=== PATIENT | male | born 1980 | race Asian ===

== ENCOUNTER 2017-08-15 18:03 | Inpatient (IN) | payer MEDICARE, MEDICAID ==
[2017-08-15] VITALS (8 sets, daily range): BP systolic 68–204; BP diastolic 24–120
[~2017-08-15] VITALS: Ht 167.6 cm; Wt 140.2 kg
[2017-08-15] MEDS ORDERED: Midazolam 2mg/2ml Inj ONE (18:06)
[2017-08-15] MEDS ORDERED: fentaNYL 100 mcg/2 mL IV ONE ×2 (18:08→18:15)
[2017-08-15] MEDS ORDERED: Midazolam 2mg/2ml Inj IVP ONE (18:15)
--- NOTE | 2017-08-15 18:26 | Emergency Room Report ---
History of Present Illness General Chief Complaint: Dyspnea/Respdistress Present Illness HPI 37YOM BIBEMS from [facility] for SOB Tachycardia to 150 ?AMS. EMS states "a&o3" however patient opens eyes to pain/verbal only No history of atrial flutter/fib noted on paperwork from EMS rhythm strip shows atrial flutter to 152 with TWI in inferior leads PMHX: Schizophrenia, HTN, ?trach, DM, left BKA Allergies: Coded Allergies: No Known Allergies (Unverified , 08/15/17) Patient History Past Medical History: other - see hpi Past Surgical History: unable to obtain Pertinent Family History: unable to obtain Social History: Denies: smoking, alcohol use, drug use Immunizations: UTD Reviewed Nursing Documentation: PMH: Agreed, PSxH: Agreed Review of Systems All Other Systems: limited - altered mental status Physical Exam Vital Signs Date Time Temp Pulse Resp B/P (MAP) Pulse Ox O2 Delivery O2 Flow Rate FiO2 08/15/17 17:51 151 20 198/80 90 Room Air 08/15/17 18:11 100 Sp02 EP Interpretation: reviewed, abnormal General Appearance: normal inspection, well appearing, alert, GCS 15, moderate distress, lethargic, obese Head: normocephalic, atraumatic Eyes: bilateral eye PERRL, bilateral eye EOMI ENT: normal ENT inspection, hearing grossly normal, normal voice Neck: normal inspection, full range of motion, supple, no bony tend Respiratory: normal inspection, lungs clear, normal breath sounds, no respiratory distress, no wheezing, decreased breath sounds, accessory muscle use , rhonchi Cardiovascular #1: no edema, tachycardia, irregularly irregular Gastrointestinal: normal inspection, normal bowel sounds, non tender, soft, no guarding, no hernia Genitourinary: no CVA tenderness Musculoskeletal: normal inspection, back normal, normal range of motion, Apryl' s Sign negative Neurologic: normal inspection, alert, responsive, level vial marker III-XII nml as tested, motor strength/tone normal, speech normal Psychiatric: normal inspection, judgement/insight normal, mood/affect normal Skin: normal inspection, normal color, no rash Lymphatic: normal inspection Procedures Critical Care Time Critical Care Time CC time 40 minutes Includes multiple bedside reassessment, review of labs/imaging, paperwork from , d/w hospitalist and cardioversion Cardioversion Cardioversion: Consent: Emergent Indication: Other - Atrial flutter to 150, unstable Type: Synchonis Response: Sinus Attempts: One Patient Tolerated: Well Complications: None Progress On EMS rhythm strip and ECG patient had Atrial flutter 2:1 with ischemia TWI 2,3 ,AVF Had acute CHF on auscultation, diaphoretic, SOB Meets criteria for UNSTABLE Was pre-treated with versed/fentanyl Medical Decision Making Diagnostic Impression: Primary Impression: SOB (shortness of breath) Additional Impressions: Atrial flutter with rapid ventricular response Hyponatremia CHF (congestive heart failure) Qualified Codes: I50.9 - Heart failure, unspecified ER Course Unstable atrial flutter to 150 on ECG Was cardioverted successfully to sinus rhythm, HR 100 Troponin 0. Acute CHF - improved O2 sat from 90-96% on bipap Was given Lasix as a well HypoNa - possible volume overload from SNF? CHF with diffuse pulm congestion. Na should improve with fluid restriction Endorsed to PMD Dr Rodriguez for ICU at 710pm EKG Diagnostic Results Rate: tachycardiac Rhythm: other - Atrial flutter, 2:1 ST Segments: other - inferior TWI Rhythm Strip Diag. Results EP Interpretation: yes Rate: 107 Rhythm: NSR, no PVC's, no ectopy Chest X-Ray Diagnostic Results Chest X-Ray Diagnostic Results : Chest X-Ray Ordered: Yes # of Views/Limited/Complete: 1 View Indication: Shortness of Breath EP Interpretation: Yes Interpretation: no pneumothorax, other - Cardiomegaly, pulm vascular congestion Electronically Signed by: Dr Thi Rivera MD Last Vital Signs Date Time Temp Pulse Resp B/P (MAP) Pulse Ox O2 Delivery O2 Flow Rate FiO2 08/15/17 18:13 151 20 98 Facial 100 08/15/17 17:51 198/80 Status: improved Disposition: ADMITTED INPATIENT THI RIVERA M.D. Aug 15, 2017 18:26
[2017-08-15] MEDS ORDERED: SEROQUEL25 MG ORAL (18:31)
[2017-08-15] MEDS ORDERED: TYLENOL EXTRA500 MG ORAL (18:31)
[2017-08-15] MEDS ORDERED: COLACE100 MG ORAL (18:31)
[2017-08-15] MEDS ORDERED: BENADRYL25 MG ORAL (18:31)
[2017-08-15] MEDS ORDERED: MULTIVITAMINS1 EAC2 ORAL (18:31)
[2017-08-15] MEDS ORDERED: GEODON20 MG ORAL (18:31)
[2017-08-15] MEDS ORDERED: ALBUTEROL2.5 MG/3 M INH (18:31)
[2017-08-15] MEDS ORDERED: HEPARIN SO5000 UNIT2 SUBQ (18:31)
[2017-08-15] MEDS ORDERED: GLUCOTROL5 MG ORAL (18:31)
[2017-08-15] MEDS ORDERED: NORCO 10-325 T1 EACH ORAL (18:31)
[2017-08-15] MEDS ORDERED: BENAZEPRIL HCL10 MG ORAL (18:31)
[2017-08-15 18:52] LABS: TROPONIN I < 0.30 ng/mL (<=0.30)
[2017-08-15 18:53] LABS: BASOPHILS % (AUTO) 0.9 % (0.0-2.0); EOSINOPHILS % (AUTO) 0.3 % (0.0-3.0); LYMPHOCYTES % (AUTO) 9.3 % (20.0-45.0); MEAN CORPUSCULAR HEMOGLOBIN 30.7 PG (27.0-31.0); MEAN CORPUSCULAR HGB CONC 34.3 G/DL (32.0-36.0); MEAN CORPUSCULAR VOLUME 89 FL (80-99); MEAN PLATELET VOLUME 6.9 FL (6.5-10.1); MONOCYTES % (AUTO) 6.4 % (1.0-10.0); PLATELET COUNT 260 K/UL (150-450); RED BLOOD COUNT 5.51 M/UL (4.70-6.10); RED CELL DISTRIBUTION WIDTH 13.5 % (11.6-14.8); WHITE BLOOD COUNT 10.9 K/UL (4.8-10.8)
[2017-08-15 18:55] LABS: ALANINE AMINOTRANSFERASE 31 U/L (3-41); ALBUMIN/GLOBULIN RATIO 0.8 (1.0-2.7); ANION GAP 11 (5-15); ASPARTATE AMINO TRANSFERASE 41 U/L (5-40); CALCIUM 8.1 mg/dL (8.6-10.2); CARBON DIOXIDE 30 mEQ/L (20-30); CHLORIDE 80 mEQ/L (98-107); CREATININE 0.6 mg/dL (0.7-1.2); GLOMERULAR FILTRATION RATE > 60 mL/min (>60); HEMOLYSIS 5; POTASSIUM 4.1 mEQ/L (3.4-4.9); SODIUM 121 mEQ/L (135-145); TOTAL PROTEIN 7.3 g/dL (6.6-8.7)
[2017-08-15 19:07] LABS: CKMB 18.2 ng/mL (< 6.7)
[2017-08-15 19:11] LABS: BILIRUBIN,DIRECT 0.4 mg/dL (0.1-0.3)
[2017-08-15] MEDS ORDERED: Pantoprazole Inj IVP ONE (19:45)
[2017-08-15] MEDS ORDERED: Albuterol/Ipratropium 3ml neb HHN PRN (19:45)
[2017-08-15] MEDS ORDERED: Acetaminophen 650 MG SUPP RECTAL PRN (19:45)
[2017-08-15] MEDS ORDERED: NovoLOG Insulin Flexpen SUBQ SCH (21:00)
[2017-08-15] MEDS ORDERED: Metoprolol 5mg/5ml Inj IVP SCH (22:00)
[2017-08-15] MEDS ORDERED: Heparin 5000 units/ml inj SUBQ SCH (22:00)
[2017-08-15] MEDS ORDERED: Esomeprazole sodium 40mg vial IVP ONE (22:15)
[2017-08-15] MEDS ORDERED: NS w/KCl 40mEq 1,000 ML IV SCH (22:15)
[2017-08-15 22:23] LABS: ABG BASE EXCESS -1.6; ABG PCO2 195.5 mmHg (35.0-45.0)
[2017-08-15 22:24] LABS: ABG ALLEN TEST POSITIVE
[2017-08-15] MEDS: Midazolam 2mg/2ml Inj IVP ONE ×2 (22:30→22:35)
[2017-08-15] MEDS ORDERED: Midazolam for drip 50 MG in D5W 90 ML IV SCH (22:30)
--- NOTE | 2017-08-15 22:49 | Emergency Room Report ---
Physical Exam Vital Signs Date Time Temp Pulse Resp B/P (MAP) Pulse Ox O2 Delivery O2 Flow Rate FiO2 08/15/17 17:51 151 20 198/80 90 Room Air 08/15/17 18:11 100 08/15/17 19:58 98.5 Sp02 EP Interpretation: reviewed, abnormal - low as interpreted by me General Appearance: obese - morbid, Stupor Eyes: bilateral eye normal inspection, bilateral eye PERRL ENT: moist mucus membranes - on BIPAP Neck: supple Respiratory: other - decreased tidal volume Cardiovascular #1: tachycardia Cardiovascular #2: 2+ radial (L) Gastrointestinal: abnormal bowel sounds - decreased, overweight Genitourinary: normal inspection Musculoskeletal: digits/nails normal, other - flaccid Neurologic: other - unresponsive Psychiatric: other - unresponsive to pain Reflexes: 1+ knee (R), 1+ knee (L) Skin: other - striae Critical Care Time Critical Care Time Total Critical Care Time: 30 min bedside evaluation and treatment excludes procedures (EKG, intubation, CVP). Reason for critical care: respiratory failure, hypotension Possible complications: hypotension, hypertension, OR, shock, arrhythmias, metabolic acidosis, end organ damage, respiratory failure. Interventions: intubation, pneumonia evaluation and treatment, CVP, pressors, repeated evaluations Course: Patient on BIPAP with critical ABG. Intubated. Evidence of pneumonia. BC, lactate and antibiotics begun. Metoprolol had been given for HTN. After intubation, BP dropped. CVP placed. Fluid status adequate. Levophed begun. Repeat evaluations. ABG on vent reviewed. Patient improved mentation still lethargic. Versed drip ordered, however, felt not necessary by RN and myself. VS improved on levophed. Consultations: nursing staff, ED MD, respiratory Performed by: Dr. Hough Tolerated well condition = critical Central Line Central Line : Consent: Emergent Central Line Lumen: triple Maximal Sterile Barrier Tech: yes cap, yes mask, yes sterile gown, yes sterile gloves, yes large sterile sheet, yes hand hygiene, yes chlorhexidine prep Central Line Postion: internal jugular (R) Anesthesia: none Complications: none Central Line Post Position: sutured, good blood return, position confirmed w / CXR Attempts: One Patient Tolerated: Well Complications: None Progress CBL = 5 ml with 5 ml drawn for lactate Intubation Intubation : Consent: Emergent Intubation Method: orotracheal Tube Size (cm): 7.5 Medications: Other - none Breath Sounds after Intubation: equal Intubation Complications: no complications Post Intubation Xray: Yes Attempts: One Patient Tolerated: Well Complications: None Progress copious yellow thick secretions Medical Decision Making Diagnostic Impression: Primary Impression: Respiratory failure Qualified Codes: J96.01 - Acute respiratory failure with hypoxia; J96.02 - Acute respiratory failure with hypercapnia Additional Impressions: CHF (congestive heart failure) Qualified Codes: I50.9 - Heart failure, unspecified Hyponatremia Atrial flutter with rapid ventricular response Pneumonia Qualified Codes: J18.9 - Pneumonia, unspecified organism Hypotension (arterial) Qualified Codes: I95.9 - Hypotension, unspecified ER Course Please refer to note by Dr. Aguero. Signed out to me. See critical care note. Patient with respiratory failure with critical ABG. Comatose. Hypertensive. Intubated. Evidence of pneumonia. BC, lactate and antibiotics. CXR after intubation with adequate placement, bilateral infiltrates, sl large cor. (Electronically signed by Paul Hough MD) Hypotension after metoprolol and intubation. CVP begun with ultrasound. Fluid status adequate (CVP with spont blood return). CXR after CVP, good placement, ET good placement, bilateral infiltrates. ( Electronically signed by Paul Hough MD) Improved mentation. Improved VS with levophed. Admitted to ICU. Laboratory Tests Test 08/15/17 18:05 08/15/17 18:55 08/15/17 19:31 08/15/17 21:55 White Blood Count 10.9 K/UL (4.8-10.8) H Red Blood Count 5.51 M/UL (4.70-6.10) Hemoglobin 16.9 G/DL (14.2-18.0) Hematocrit 49.3 % (42.0-52.0) Mean Corpuscular Volume 89 FL (80-99) Mean Corpuscular Hemoglobin 30.7 PG (27.0-31.0) Mean Corpuscular Hemoglobin Concent 34.3 G/DL (32.0-36.0) Red Cell Distribution Width 13.5 % (11.6-14.8) Platelet Count 260 K/UL (150-450) Mean Platelet Volume 6.9 FL (6.5-10.1) Neutrophils (%) (Auto) 83.0 % (45.0-75.0) H Lymphocytes (%) (Auto) 9.3 % (20.0-45.0) L Monocytes (%) (Auto) 6.4 % (1.0-10.0) Eosinophils (%) (Auto) 0.3 % (0.0-3.0) Basophils (%) (Auto) 0.9 % (0.0-2.0) Sodium Level 121 mEQ/L (135-145) L Potassium Level 4.1 mEQ/L (3.4-4.9) Chloride Level 80 mEQ/L (98-107) L Carbon Dioxide Level 30 mEQ/L (20-30) Anion Gap 11 (5-15) Blood Urea Nitrogen 7 mg/dL (7-23) Creatinine 0.6 mg/dL (0.7-1.2) L Estimate Glomerular Filtration Rate > 60 mL/min (>60) Glucose Level 149 mg/dL (74-106) H Calcium Level 8.1 mg/dL (8.6-10.2) L Total Bilirubin 1.6 mg/dL (0.0-1.2) H Direct Bilirubin 0.4 mg/dL (0.1-0.3) H Aspartate Amino Transferase (AST) 41 U/L (5-40) H Alanine Aminotransferase (ALT) 31 U/L (3-41) Alkaline Phosphatase 117 U/L (40-129) Total Creatine Kinase 1258 U/L (38-174) H Creatine Kinase MB 18.2 ng/mL (< 6.7) H Creatine Kinase MB Relative Index 1.4 Troponin I < 0.30 ng/mL (<=0.30) Pro-B-Type Natriuretic Peptide 641 pg/mL (0-125) H Total Protein 7.3 g/dL (6.6-8.7) Albumin 3.3 g/dL (3.5-5.2) L Globulin 4.0 g/dL Albumin/Globulin Ratio 0.8 (1.0-2.7) L Hemoglobin A1c 7.6 % (< 6.0) H Arterial Blood pH 7.203 (7.350-7.450) 6.919 (7.350-7.450) Arterial Blood Partial Pressure CO2 78.8 mmHg (35.0-45.0) *H 195.5 mmHg (35.0-45.0) *H Arterial Blood Partial Pressure O2 100.5 mmHg (75.0-100.0) H 181.4 mmHg (75.0-100.0) H Arterial Blood HCO3 30.8 mmol/L (22.0-26.0) H 39.1 mmol/L (22.0-26.0) H Arterial Blood Oxygen Saturation 97.2 % (92.0-98.0) 95.5 % (92.0-98.0) Arterial Blood Base Excess -0.3 -1.6 Cole Test Positive Positive Test 08/15/17 23:00 08/16/17 04:00 08/16/17 06:10 08/16/17 10:56 Lactic Acid Level 1.50 mmol/L (0.66-2.22) D-Dimer 1179 ng/mL (<500) H Sodium Level 126 mEQ/L (135-145) L Potassium Level 3.9 mEQ/L (3.4-4.9) Chloride Level 84 mEQ/L (98-107) L Carbon Dioxide Level 31 mEQ/L (20-30) H Anion Gap 11 (5-15) Blood Urea Nitrogen 11 mg/dL (7-23) Creatinine 0.7 mg/dL (0.7-1.2) Estimate Glomerular Filtration Rate > 60 mL/min (>60) Glucose Level 96 mg/dL (74-106) Calcium Level 8.1 mg/dL (8.6-10.2) L Magnesium Level 1.5 mg/dL (1.7-2.5) L Troponin I < 0.30 ng/mL (<=0.30) White Blood Count 14.7 K/UL (4.8-10.8) H Red Blood Count 5.48 M/UL (4.70-6.10) Hemoglobin 15.6 G/DL (14.2-18.0) Hematocrit 48.8 % (42.0-52.0) Mean Corpuscular Volume 89 FL (80-99) Mean Corpuscular Hemoglobin 28.5 PG (27.0-31.0) Mean Corpuscular Hemoglobin Concent 32.0 G/DL (32.0-36.0) Red Cell Distribution Width 13.3 % (11.6-14.8) Platelet Count 226 K/UL (150-450) Mean Platelet Volume 7.4 FL (6.5-10.1) Neutrophils (%) (Auto) 81.2 % (45.0-75.0) H Lymphocytes (%) (Auto) 9.4 % (20.0-45.0) L Monocytes (%) (Auto) 8.0 % (1.0-10.0) Eosinophils (%) (Auto) 0.0 % (0.0-3.0) Basophils (%) (Auto) 1.3 % (0.0-2.0) Arterial Blood pH 7.410 (7.350-7.450) Arterial Blood Partial Pressure CO2 54.1 mmHg (35.0-45.0) H Arterial Blood Partial Pressure O2 71.4 mmHg (75.0-100.0) L Arterial Blood HCO3 34.0 mmol/L (22.0-26.0) H Arterial Blood Oxygen Saturation 94.8 % (92.0-98.0) Arterial Blood Base Excess 7.4 Cole Test Positive Rhythm Strip Diag. Results EP Interpretation: yes Rhythm: NSR, no PVC's, no ectopy, other - after metoprolol Chest X-Ray Diagnostic Results Chest X-Ray Ordered: Yes # of Views/Limited/Complete: 1 View EP Interpretation: Yes Interpretation: no effusion, other - bilateral infiltrates, sl large cor Impression: Other Interpreting ER Provider: Paul Hough MD Status: improved Disposition: ADMITTED INPATIENT Condition: Critical Referrals: ZAIN KAN (PCP) Paul Hough M.D. Aug 15, 2017 22:49
[2017-08-15] MEDS ORDERED: Cefepime HCl 1 GM in D5W 55 ML IVPB ONE (23:00)
[2017-08-15] MEDS ORDERED: Vancomycin 1.5 GM in D5W 275 ML IVPB ONE (23:00)
[2017-08-15] MEDS ORDERED: Cefepime 1gm vial ONE (23:06)
[2017-08-15 23:40] LABS: ABG BASE EXCESS -0.3; ABG PCO2 78.8 mmHg (35.0-45.0)
[2017-08-15 23:41] LABS: ABG ALLEN TEST POSITIVE
[2017-08-16] VITALS (27 sets, daily range): BP systolic 93–136; BP diastolic 54–75
[2017-08-16] MEDS ORDERED: Vancomycin 1gm inj IVPB ONE (00:06)
[2017-08-16] MEDS ORDERED: Levophed 4mg/4mL Inj IV ONE (00:07)
[2017-08-16] MEDS ORDERED: Esomeprazole sodium 40mg vial IVP ONE (01:15)
[2017-08-16] MEDS: NS w/KCl 40mEq 1,000 ML IV SCH (01:32)
--- NOTE | 2017-08-16 02:30 | History and Physical Report ---
DATE OF ADMISSION: 08/15/2017 CHIEF COMPLAINT: Shortness of breath. History Of Present Illness: This is a 37-year-old male who is a resident of [facility]. The patient was transferred via 911 to this hospital's emergency department with shortness of breath. The patient was found to be in full blown congestive heart failure with rapid atrial flutter. The patient was converted by the ER physician with electric cardioversion. He was given IV Lasix and put on BiPAP and transferred to ICU. PAST MEDICAL HISTORY: 1. Morbid obesity. 2. Type 2 diabetes mellitus. 3. History of psychosis. 4. Hypertensive cardiovascular disease. 5. Status post left below-knee amputation. 6. COPD. Medications: Geodon, Glucotrol, subcutaneous heparin, multivitamins, [place] p.r.n., Seroquel, Tylenol p.r.n., albuterol inhalation, Benadryl p.r.n., benazepril, and Colace. ALLERGIES: No known drug allergies. FAMILY HISTORY: Unable to obtain secondary to mental status. SOCIAL HISTORY: Unable to obtain secondary to mental status. REVIEW OF SYSTEMS: Unable to obtain secondary to his mental status. PHYSICAL EXAMINATION: General: This is a young, chronically ill-appearing and morbidly obese male, who is on BiPAP. The patient is obtunded. Vital Signs: Blood pressure 190/115, heart rate was 110 sinus tachycardia, respirations 23 and unlabored, O2 saturation 98% on 100% BiPAP. HEENT: The head is normocephalic and atraumatic. Pupils are equal, round, and reactive to light and accommodation consensually. Neck: Supple. Trachea midline. There was no lymphadenopathy or thyromegaly. LUNGS: Bilateral wheezes. HEART: Tachycardia. S1 and S2. No rubs, murmurs, or gallops. ABDOMEN: Soft and nontender. Bowel sounds are active. Extremities: No clubbing or cyanosis. There is 2+ edema and there is right leg brawny edema. His left below-knee stump is clean. Neurologic: The patient is obtunded. There are no gross focal findings. Laboratory And Ancillary Data: CBC within normal limits. Serum chemistries; sodium 121, potassium 4.2, BUN 7, creatinine 0.6, glucose 149. Calcium 8.1. AST 41. Total CPK 1258. Albumin 3.3. EKG shows initially atrial flutter and subsequently in sinus tachycardia with LVH. Chest x-ray shows CHF. ASSESSMENT: 1. Congestive heart failure. 2. Right ventricular hypertrophy. 3. Occasional atrial flutter. 4. Hyponatremia. 5. Morbid obesity. 6. Type 2 diabetes mellitus. 7. History of psychosis. 8. Hypertensive cardiovascular disease. 9. Status post left below-knee amputation. 10. Chronic obstructive pulmonary disease. PLAN: 1. Admit to ICU. 2. To keep NPO. 3. Correct his hyponatremia. 4. Rule out acute myocardial ischemia. 5. Pulmonary and Cardiology consults. Dung Castro M.D. DR: JESSICA JOB#: [id number] CC:
[2017-08-16 05:42] LABS: TROPONIN I < 0.30 ng/mL (<=0.30)
[2017-08-16 05:49] LABS: ANION GAP 11 (5-15); CALCIUM 8.1 mg/dL (8.6-10.2); CARBON DIOXIDE 31 mEQ/L (20-30); CHLORIDE 84 mEQ/L (98-107); CREATININE 0.7 mg/dL (0.7-1.2); GLOMERULAR FILTRATION RATE > 60 mL/min (>60); HEMOLYSIS 0; MAGNESIUM 1.5 mg/dL (1.7-2.5); POTASSIUM 3.9 mEQ/L (3.4-4.9); SODIUM 126 mEQ/L (135-145)
[2017-08-16] MEDS: NovoLOG Insulin Flexpen SUBQ SCH ×4 (05:59→21:00)
[2017-08-16] MEDS: Heparin 5000 units/ml inj SUBQ SCH ×3 (06:00→21:21)
[2017-08-16 07:39] LABS: BASOPHILS % (AUTO) 1.3 % (0.0-2.0); LYMPHOCYTES % (AUTO) 9.4 % (20.0-45.0); MEAN CORPUSCULAR HEMOGLOBIN 28.5 PG (27.0-31.0); MEAN CORPUSCULAR VOLUME 89 FL (80-99); MEAN PLATELET VOLUME 7.4 FL (6.5-10.1); NEUTROPHILS % (AUTO) 81.2 % (45.0-75.0); PLATELET COUNT 226 K/UL (150-450); RED BLOOD COUNT 5.48 M/UL (4.70-6.10); RED CELL DISTRIBUTION WIDTH 13.3 % (11.6-14.8); WHITE BLOOD COUNT 14.7 K/UL (4.8-10.8)
--- NOTE | 2017-08-16 08:44 | Consultation ---
Consult Note Consult Note 37-year-old male who is a resident of [facility]. The patient was transferred via 911 for respiratory distress and shortness of breath. The patient was found to be in acute pulmonary edema with rapid atrial flutter. The patient was converted by the ER physician. He was given IV Lasix and placed on BiPAP and eventually intubated and transferred to ICU. I was called to assist with ventilator management and respiratory status. Patient also with COPD history. care reviewed and discussed and notes from SNF reviewed. no fevers or chills. events were acute PAST MEDICAL HISTORY: 1. Morbid obesity. 2. Type 2 diabetes mellitus. 3. History of psychosis. 4. Hypertensive cardiovascular disease. 5. Status post left below-knee amputation. 6. COPD. MEDICATIONS: Reviewed and reconciled ALLERGIES: No known drug allergies. FAMILY HISTORY: Unable SOCIAL HISTORY: resides at [facility]; has smoking history; no illicit drug use REVIEW OF SYSTEMS: Unable PHYSICAL EXAMINATION: chronically ill-appearing obese male Vital Signs: Blood pressure 99/59, heart rate was 79, respirations 18 and O2 saturation 97% on the ventilator. HEENT: The head is normocephalic and atraumatic. PEERL. Neck: Supple. Trachea midline. JVD LUNGS: Bilateral wheezes.reduced air entry some expiratory rhonchi HEART: RRR S1 and S2. No rubs, murmurs, or gallops. ABDOMEN: Soft and nontender. Bowel sounds are active. Extremities: No clubbing or cyanosis. 2+ edema and there is right leg brawny edema. His left below-knee stump is clean. Neurologic: reduced LOC no gross focal findings. Laboratory Tests Test 08/15/17 18:05 08/15/17 18:55 08/15/17 19:31 08/15/17 21:55 White Blood Count 10.9 K/UL (4.8-10.8) H Red Blood Count 5.51 M/UL (4.70-6.10) Hemoglobin 16.9 G/DL (14.2-18.0) Hematocrit 49.3 % (42.0-52.0) Mean Corpuscular Volume 89 FL (80-99) Mean Corpuscular Hemoglobin 30.7 PG (27.0-31.0) Mean Corpuscular Hemoglobin Concent 34.3 G/DL (32.0-36.0) Red Cell Distribution Width 13.5 % (11.6-14.8) Platelet Count 260 K/UL (150-450) Mean Platelet Volume 6.9 FL (6.5-10.1) Neutrophils (%) (Auto) 83.0 % (45.0-75.0) H Lymphocytes (%) (Auto) 9.3 % (20.0-45.0) L Monocytes (%) (Auto) 6.4 % (1.0-10.0) Eosinophils (%) (Auto) 0.3 % (0.0-3.0) Basophils (%) (Auto) 0.9 % (0.0-2.0) Sodium Level 121 mEQ/L (135-145) L Potassium Level 4.1 mEQ/L (3.4-4.9) Chloride Level 80 mEQ/L (98-107) L Carbon Dioxide Level 30 mEQ/L (20-30) Anion Gap 11 (5-15) Blood Urea Nitrogen 7 mg/dL (7-23) Creatinine 0.6 mg/dL (0.7-1.2) L Estimat Glomerular Filtration Rate > 60 mL/min (>60) Glucose Level 149 mg/dL (74-106) H Calcium Level 8.1 mg/dL (8.6-10.2) L Total Bilirubin 1.6 mg/dL (0.0-1.2) H Direct Bilirubin 0.4 mg/dL (0.1-0.3) H Aspartate Amino Transf (AST/SGOT) 41 U/L (5-40) H Alanine Aminotransferase (ALT/SGPT) 31 U/L (3-41) Alkaline Phosphatase 117 U/L (40-129) Total Creatine Kinase 1258 U/L (38-174) H Creatine Kinase MB 18.2 ng/mL (< 6.7) H Creatine Kinase MB Relative Index 1.4 Troponin I < 0.30 ng/mL (<=0.30) Pro-B-Type Natriuretic Peptide 641 pg/mL (0-125) H Total Protein 7.3 g/dL (6.6-8.7) Albumin 3.3 g/dL (3.5-5.2) L Globulin 4.0 g/dL Albumin/Globulin Ratio 0.8 (1.0-2.7) L Hemoglobin A1c 7.6 % (< 6.0) H Arterial Blood pH 7.203 (7.350-7.450) 6.919 (7.350-7.450) Arterial Blood Partial Pressure CO2 78.8 mmHg (35.0-45.0) *H 195.5 mmHg (35.0-45.0) *H Arterial Blood Partial Pressure O2 100.5 mmHg (75.0-100.0) H 181.4 mmHg (75.0-100.0) H Arterial Blood HCO3 30.8 mmol/L (22.0-26.0) H 39.1 mmol/L (22.0-26.0) H Arterial Blood Oxygen Saturation 97.2 % (92.0-98.0) 95.5 % (92.0-98.0) Arterial Blood Base Excess -0.3 -1.6 Cole Test Positive Positive Test 08/15/17 23:00 08/16/17 04:00 08/16/17 06:10 Lactic Acid Level 1.50 mmol/L (0.66-2.22) D-Dimer 1179 ng/mL (<500) H Sodium Level 126 mEQ/L (135-145) L Potassium Level 3.9 mEQ/L (3.4-4.9) Chloride Level 84 mEQ/L (98-107) L Carbon Dioxide Level 31 mEQ/L (20-30) H Anion Gap 11 (5-15) Blood Urea Nitrogen 11 mg/dL (7-23) Creatinine 0.7 mg/dL (0.7-1.2) Estimat Glomerular Filtration Rate > 60 mL/min (>60) Glucose Level 96 mg/dL (74-106) Calcium Level 8.1 mg/dL (8.6-10.2) L Magnesium Level 1.5 mg/dL (1.7-2.5) L Troponin I < 0.30 ng/mL (<=0.30) White Blood Count 14.7 K/UL (4.8-10.8) H Red Blood Count 5.48 M/UL (4.70-6.10) Hemoglobin 15.6 G/DL (14.2-18.0) Hematocrit 48.8 % (42.0-52.0) Mean Corpuscular Volume 89 FL (80-99) Mean Corpuscular Hemoglobin 28.5 PG (27.0-31.0) Mean Corpuscular Hemoglobin Concent 32.0 G/DL (32.0-36.0) Red Cell Distribution Width 13.3 % (11.6-14.8) Platelet Count 226 K/UL (150-450) Mean Platelet Volume 7.4 FL (6.5-10.1) Neutrophils (%) (Auto) 81.2 % (45.0-75.0) H Lymphocytes (%) (Auto) 9.4 % (20.0-45.0) L Monocytes (%) (Auto) 8.0 % (1.0-10.0) Eosinophils (%) (Auto) 0.0 % (0.0-3.0) Basophils (%) (Auto) 1.3 % (0.0-2.0) EKG shows initially atrial flutter and subsequently in sinus tachycardia with LVH. Chest x-ray shows CHF. ASSESSMENT: 1. Congestive heart failure, acute systolic 2. respiratory failure 3. Paroxysmal atrial flutter. 4. Hypoxemia 5. Morbid obesity. 6. Type 2 diabetes mellitus. 7. History of psychosis. 8. Hypertensive cardiovascular disease. 9. Status post left below-knee amputation. 10. Chronic obstructive pulmonary disease. PLAN care noted IV diuretics respiratory care Ventilatory support SNF meds noted supportive care suction no wean oxygen therapy and reduce wean in am if stable prognosis guarded medications/laboratory data/nursing notes/ICU care reviewed in detail note reviewed and edited care discussed with RN and RT ICU time spent 55 minutes CLARENCE CRUZ Aug 16, 2017 08:44
[2017-08-16] MEDS ORDERED: Ziprasidone 20mg cap ORAL SCH (09:00)
[2017-08-16] MEDS ORDERED: Morphine Sulfate 2mg/ml Inj IVP PRN ×2 (09:00→11:30)
--- NOTE | 2017-08-16 09:00 | Cardiology Progress Note ---
Subjective Subjective the patient with morbid obesity, acute respiratory failure, paroxysmal a fib. now in sinus rhythm. Needs to be diuresed, antiocagulated, consider antiarrhythmic medications. Objective Last 24 Hour Vital Signs Date Time Temp Pulse Resp B/P (MAP) Pulse Ox O2 Delivery O2 Flow Rate FiO2 08/16/17 08:00 98.9 82 22 96/55 98 Mechanical Ventilator 60 08/16/17 08:00 82 08/16/17 08:00 60 08/16/17 07:00 79 20 99/59 96 Mechanical Ventilator 60 08/16/17 06:55 78 20 60 08/16/17 06:00 81 20 93/59 94 Mechanical Ventilator 60 08/16/17 05:26 86 20 60 08/16/17 05:00 81 20 95/54 96 Mechanical Ventilator 60 08/16/17 04:00 98.6 80 20 101/65 96 Mechanical Ventilator 60 08/16/17 03:00 80 20 106/71 97 Mechanical Ventilator 60 08/16/17 02:36 96 20 60 08/16/17 02:30 80 20 109/73 97 Mechanical Ventilator 60 08/16/17 02:03 75 20 116/70 97 Mechanical Ventilator 60 08/16/17 02:00 82 20 113/70 96 Mechanical Ventilator 60 08/16/17 01:45 84 20 116/70 96 Mechanical Ventilator 60 08/16/17 01:30 60 08/16/17 01:30 97.9 90 20 136/75 97 Mechanical Ventilator 60 08/16/17 01:30 85 08/16/17 01:14 95 26 70 08/16/17 00:53 74 20 131/82 100 Mechanical Ventilator 70 08/16/17 00:47 20 116/75 100 Mechanical Ventilator 70 08/16/17 00:28 87/46 08/15/17 23:45 16 84/37 94 Mechanical Ventilator 70 08/15/17 23:15 68/24 08/15/17 23:02 70 08/15/17 22:57 91 20 70 08/15/17 22:54 20 164/83 94 Mechanical Ventilator 70 08/15/17 22:08 101 208/121 08/15/17 22:00 164/83 08/15/17 21:50 17 204/111 94 Bi-pap 100 08/15/17 21:42 19 174/97 94 Bi-pap 100 08/15/17 20:59 110 23 94 Facial 100 08/15/17 20:20 27 176/96 96 Bi-pap 100 08/15/17 19:58 98.5 08/15/17 19:43 101 17 96 Facial 100 08/15/17 18:36 23 190/115 98 Bi-pap 100 08/15/17 18:25 110 23 Bi-pap 100 08/15/17 18:15 23 172/120 95 Bi-pap 100 08/15/17 18:13 151 20 98 Facial 100 08/15/17 18:11 151 20 Bi-pap 100 08/15/17 17:51 151 20 198/80 90 Room Air Intake and Output 08/16/17 08/17/17 19:00 07:00 Intake Total 35 ml Output Total 150 ml Balance -115 ml Intake IV Total 35 ml Output Urine Total 150 ml Laboratory Tests Test 08/15/17 18:05 08/15/17 18:55 08/15/17 19:31 08/15/17 21:55 White Blood Count 10.9 K/UL (4.8-10.8) H Red Blood Count 5.51 M/UL (4.70-6.10) Hemoglobin 16.9 G/DL (14.2-18.0) Hematocrit 49.3 % (42.0-52.0) Mean Corpuscular Volume 89 FL (80-99) Mean Corpuscular Hemoglobin 30.7 PG (27.0-31.0) Mean Corpuscular Hemoglobin Concent 34.3 G/DL (32.0-36.0) Red Cell Distribution Width 13.5 % (11.6-14.8) Platelet Count 260 K/UL (150-450) Mean Platelet Volume 6.9 FL (6.5-10.1) Neutrophils (%) (Auto) 83.0 % (45.0-75.0) H Lymphocytes (%) (Auto) 9.3 % (20.0-45.0) L Monocytes (%) (Auto) 6.4 % (1.0-10.0) Eosinophils (%) (Auto) 0.3 % (0.0-3.0) Basophils (%) (Auto) 0.9 % (0.0-2.0) Sodium Level 121 mEQ/L (135-145) L Potassium Level 4.1 mEQ/L (3.4-4.9) Chloride Level 80 mEQ/L (98-107) L Carbon Dioxide Level 30 mEQ/L (20-30) Anion Gap 11 (5-15) Blood Urea Nitrogen 7 mg/dL (7-23) Creatinine 0.6 mg/dL (0.7-1.2) L Estimat Glomerular Filtration Rate > 60 mL/min (>60) Glucose Level 149 mg/dL (74-106) H Calcium Level 8.1 mg/dL (8.6-10.2) L Total Bilirubin 1.6 mg/dL (0.0-1.2) H Direct Bilirubin 0.4 mg/dL (0.1-0.3) H Aspartate Amino Transf (AST/SGOT) 41 U/L (5-40) H Alanine Aminotransferase (ALT/SGPT) 31 U/L (3-41) Alkaline Phosphatase 117 U/L (40-129) Total Creatine Kinase 1258 U/L (38-174) H Creatine Kinase MB 18.2 ng/mL (< 6.7) H Creatine Kinase MB Relative Index 1.4 Troponin I < 0.30 ng/mL (<=0.30) Pro-B-Type Natriuretic Peptide 641 pg/mL (0-125) H Total Protein 7.3 g/dL (6.6-8.7) Albumin 3.3 g/dL (3.5-5.2) L Globulin 4.0 g/dL Albumin/Globulin Ratio 0.8 (1.0-2.7) L Hemoglobin A1c 7.6 % (< 6.0) H Arterial Blood pH 7.203 (7.350-7.450) 6.919 (7.350-7.450) Arterial Blood Partial Pressure CO2 78.8 mmHg (35.0-45.0) *H 195.5 mmHg (35.0-45.0) *H Arterial Blood Partial Pressure O2 100.5 mmHg (75.0-100.0) H 181.4 mmHg (75.0-100.0) H Arterial Blood HCO3 30.8 mmol/L (22.0-26.0) H 39.1 mmol/L (22.0-26.0) H Arterial Blood Oxygen Saturation 97.2 % (92.0-98.0) 95.5 % (92.0-98.0) Arterial Blood Base Excess -0.3 -1.6 Cole Test Positive Positive Test 08/15/17 23:00 08/16/17 04:00 08/16/17 06:10 Lactic Acid Level 1.50 mmol/L (0.66-2.22) D-Dimer 1179 ng/mL (<500) H Sodium Level 126 mEQ/L (135-145) L Potassium Level 3.9 mEQ/L (3.4-4.9) Chloride Level 84 mEQ/L (98-107) L Carbon Dioxide Level 31 mEQ/L (20-30) H Anion Gap 11 (5-15) Blood Urea Nitrogen 11 mg/dL (7-23) Creatinine 0.7 mg/dL (0.7-1.2) Estimat Glomerular Filtration Rate > 60 mL/min (>60) Glucose Level 96 mg/dL (74-106) Calcium Level 8.1 mg/dL (8.6-10.2) L Magnesium Level 1.5 mg/dL (1.7-2.5) L Troponin I < 0.30 ng/mL (<=0.30) White Blood Count 14.7 K/UL (4.8-10.8) H Red Blood Count 5.48 M/UL (4.70-6.10) Hemoglobin 15.6 G/DL (14.2-18.0) Hematocrit 48.8 % (42.0-52.0) Mean Corpuscular Volume 89 FL (80-99) Mean Corpuscular Hemoglobin 28.5 PG (27.0-31.0) Mean Corpuscular Hemoglobin Concent 32.0 G/DL (32.0-36.0) Red Cell Distribution Width 13.3 % (11.6-14.8) Platelet Count 226 K/UL (150-450) Mean Platelet Volume 7.4 FL (6.5-10.1) Neutrophils (%) (Auto) 81.2 % (45.0-75.0) H Lymphocytes (%) (Auto) 9.4 % (20.0-45.0) L Monocytes (%) (Auto) 8.0 % (1.0-10.0) Eosinophils (%) (Auto) 0.0 % (0.0-3.0) Basophils (%) (Auto) 1.3 % (0.0-2.0) SHAYY ZEE Aug 16, 2017 09:00
[2017-08-16 10:59] LABS: ABG ALLEN TEST POSITIVE; ABG BASE EXCESS 7.4; ABG PCO2 54.1 mmHg (35.0-45.0)
[2017-08-16] MEDS ORDERED: Morphine Sulfate 4mg/ml Inj IVP PRN (11:00)
--- NOTE | 2017-08-16 11:13 | Diagnostic Imaging Report ---
Indication: Post line placement Technique: One view of the chest Comparison: One hour earlier Findings: Interim placement right jugular central venous catheter, tip projected at the level of the cavoatrial junction. No pneumothorax demonstrated. Stable satisfactory position of endotracheal tube. Bilateral interstitial and alveolar infiltrates versus edema persists. The heart is mildly enlarged. The pleural spaces are clear. Impression: Satisfactory right jugular central venous catheter placement. No radiographic evident complication Other stable findings as described, over one hour This agrees with the preliminary interpretation provided by the emergency room physician
--- NOTE | 2017-08-16 11:15 | Diagnostic Imaging Report ---
Indication: Post intubation Technique: One view of the chest Comparison: 5 hours earlier Findings: Interim endotracheal intubation, endotracheal tube tip position approximately 2 cm above the zunilda. Bilateral interstitial and alveolar infiltrates versus edema persists. Heart remains enlarged. Pleural spaces are clear. Impression: Satisfactory endotracheal intubation. Other stable findings as described This agrees with the preliminary interpretation provided by the emergency room physician
--- NOTE | 2017-08-16 12:38 | Diagnostic Imaging Report ---
Indication: SOB Technique: One view of the chest Comparison: none Findings: Patient body habitus somewhat limit evaluation. There is mild cardiomegaly. There is diffuse bilateral and additional and alveolar infiltrates versus edema. Pleural spaces are clear. Impression: Cardiomegaly Bilateral pulmonary interstitial and alveolar infiltrates versus edema
[2017-08-16] MEDS ORDERED: NS 275ml ONE (14:14)
[2017-08-16] MEDS ORDERED: Tubing IV Secondary IV ONE (14:14)
--- NOTE | 2017-08-16 14:14 | Cardiology Report ---
APPROVED REPORT EXAM: Two-dimensional and M-mode echocardiogram with Doppler and color Doppler. INDICATION Congestive Heart Failure M-Mode DIMENSIONS IVSd1.8 (0.7-1.1cm)Left Atrium (MM)5.0 (1.6-4.0cm) LVDd3.8 (3.5-5.6cm)Aortic Root3.0 (2.0-3.7cm) PWd1.7 (0.7-1.1cm)Aortic Cusp Exc.2.2 (1.5-2.0cm) LVDs2.8 (2.5-4.0cm) PWs1.8 cm Other Information Technically limited study due to body habitus. Technically difficult study due to patient body habitus. Normal left ventricular chamber size, systolic function and wall motion to extent visualized. Left ventricular ejection fraction estimated to be 55 %. Mild left ventricular hypertrophy. Small pericardial effusion. Left atrial size at upper limits of normal. Mild right atrial enlargement. Right ventricular chamber sizes is within normal limits. Mild focal aortic valve sclerosis with adequate cusp excursion. Mildly thickened mitral valve leaflets with normal excursion. Mild mitral annulus and aortic root calcification. Pulmonic valve not well visualized. Normal tricuspid valve structure. IVC dilated at 2.5 cm and non-collapsing with respiration suggestive of increased RA pressure. A color flow and spectral Doppler study was performed and revealed: No aortic insufficiency. No mitral regurgitation. Left ventricular diastolic function reveals type 1 LV diastolic dysfunction. Mild tricuspid regurgitation. Tricuspid systolic velocities suggests peak right ventricular systolic pressure of 35 mmHg, consistent with mild pulmonary hypertension. No pulmonic regurgitation present.
--- NOTE | 2017-08-16 14:55 | General Progress Note ---
Assessment/Plan Assessment/Plan PAF - now SR. Per Cards CHF -diurese. Resp Failure - vent Subjective Allergies: Coded Allergies: No Known Allergies (Unverified , 08/15/17) Subjective On vent. Objective Last 24 Hour Vital Signs Date Time Temp Pulse Resp B/P (MAP) Pulse Ox O2 Delivery O2 Flow Rate FiO2 08/16/17 13:00 80 20 107/58 97 Mechanical Ventilator 60 08/16/17 13:00 83 20 60 08/16/17 12:00 99.2 81 21 95/74 98 Mechanical Ventilator 60 08/16/17 12:00 82 08/16/17 12:00 60 08/16/17 11:18 81 20 60 08/16/17 11:00 80 20 124/68 97 Mechanical Ventilator 60 08/16/17 10:00 81 20 105/58 97 Mechanical Ventilator 60 08/16/17 09:13 80 20 60 08/16/17 09:00 80 20 101/55 97 Mechanical Ventilator 60 08/16/17 08:00 98.9 82 22 96/55 98 Mechanical Ventilator 60 08/16/17 08:00 82 08/16/17 08:00 60 08/16/17 07:00 79 20 99/59 96 Mechanical Ventilator 60 08/16/17 06:55 78 20 60 08/16/17 06:00 81 20 93/59 94 Mechanical Ventilator 60 08/16/17 05:26 86 20 60 08/16/17 05:00 81 20 95/54 96 Mechanical Ventilator 60 08/16/17 04:00 98.6 80 20 101/65 96 Mechanical Ventilator 60 08/16/17 03:00 80 20 106/71 97 Mechanical Ventilator 60 08/16/17 02:36 96 20 60 08/16/17 02:30 80 20 109/73 97 Mechanical Ventilator 60 08/16/17 02:03 75 20 116/70 97 Mechanical Ventilator 60 08/16/17 02:00 82 20 113/70 96 Mechanical Ventilator 60 08/16/17 01:45 84 20 116/70 96 Mechanical Ventilator 60 08/16/17 01:30 60 08/16/17 01:30 97.9 90 20 136/75 97 Mechanical Ventilator 60 08/16/17 01:30 85 08/16/17 01:14 95 26 70 08/16/17 00:53 74 20 131/82 100 Mechanical Ventilator 70 08/16/17 00:47 20 116/75 100 Mechanical Ventilator 70 08/16/17 00:28 87/46 08/15/17 23:45 16 84/37 94 Mechanical Ventilator 70 08/15/17 23:15 68/24 08/15/17 23:02 70 08/15/17 22:57 91 20 70 08/15/17 22:54 20 164/83 94 Mechanical Ventilator 70 08/15/17 22:08 101 208/121 08/15/17 22:00 164/83 08/15/17 21:50 17 204/111 94 Bi-pap 100 08/15/17 21:42 19 174/97 94 Bi-pap 100 08/15/17 20:59 110 23 94 Facial 100 08/15/17 20:20 27 176/96 96 Bi-pap 100 08/15/17 19:58 98.5 08/15/17 19:43 101 17 96 Facial 100 08/15/17 18:36 23 190/115 98 Bi-pap 100 08/15/17 18:25 110 23 Bi-pap 100 08/15/17 18:15 23 172/120 95 Bi-pap 100 08/15/17 18:13 151 20 98 Facial 100 08/15/17 18:11 151 20 Bi-pap 100 08/15/17 17:51 151 20 198/80 90 Room Air Intake and Output 08/16/17 08/17/17 19:00 07:00 Intake Total 475 ml Output Total 2950 ml Balance -2475 ml Intake IV Total 475 ml Output Urine Total 2950 ml Laboratory Tests 08/15/17 18:05: White Blood Count 10.9H, Red Blood Count 5.51, Hemoglobin 16.9, Hematocrit 49.3 , Mean Corpuscular Volume 89, Mean Corpuscular Hemoglobin 30.7, Mean Corpuscular Hemoglobin Concent 34.3, Red Cell Distribution Width 13.5, Platelet Count 260, Mean Platelet Volume 6.9, Neutrophils (%) (Auto) 83.0H, Lymphocytes ( %) (Auto) 9.3L, Monocytes (%) (Auto) 6.4, Eosinophils (%) (Auto) 0.3, Basophils (%) (Auto) 0.9, Sodium Level 121L, Potassium Level 4.1, Chloride Level 80L, Carbon Dioxide Level 30, Anion Gap 11, Blood Urea Nitrogen 7, Creatinine 0.6L, Estimat Glomerular Filtration Rate > 60, Glucose Level 149H, Calcium Level 8.1L , Total Bilirubin 1.6H, Direct Bilirubin 0.4H, Aspartate Amino Transf (AST/SGOT ) 41H, Alanine Aminotransferase (ALT/SGPT) 31, Alkaline Phosphatase 117, Total Creatine Kinase 1258H, Creatine Kinase MB 18.2H, Creatine Kinase MB Relative Index 1.4, Troponin I < 0.30, Pro-B-Type Natriuretic Peptide 641H, Total Protein 7.3, Albumin 3.3L, Globulin 4.0, Albumin/Globulin Ratio 0.8L 08/15/17 18:55: Hemoglobin A1c 7.6H 08/15/17 19:31: Arterial Blood pH 7.203*L, Arterial Blood Partial Pressure CO2 78.8*H, Arterial Blood Partial Pressure O2 100.5H, Arterial Blood HCO3 30.8H, Arterial Blood Oxygen Saturation 97.2, Arterial Blood Base Excess -0.3, Cole Test Positive 08/15/17 21:55: Arterial Blood pH 6.919*L, Arterial Blood Partial Pressure CO2 195.5*H, Arterial Blood Partial Pressure O2 181.4H, Arterial Blood HCO3 39.1H, Arterial Blood Oxygen Saturation 95.5, Arterial Blood Base Excess -1.6, Cole Test Positive 08/15/17 23:00: Lactic Acid Level 1.50 08/16/17 04:00: D-Dimer 1179H, Sodium Level 126L, Potassium Level 3.9, Chloride Level 84L, Carbon Dioxide Level 31H, Anion Gap 11, Blood Urea Nitrogen 11, Creatinine 0.7, Estimat Glomerular Filtration Rate > 60, Glucose Level 96, Calcium Level 8.1L, Magnesium Level 1.5L, Troponin I < 0.30 08/16/17 06:10: White Blood Count 14.7H, Red Blood Count 5.48, Hemoglobin 15.6, Hematocrit 48.8 , Mean Corpuscular Volume 89, Mean Corpuscular Hemoglobin 28.5, Mean Corpuscular Hemoglobin Concent 32.0, Red Cell Distribution Width 13.3, Platelet Count 226, Mean Platelet Volume 7.4, Neutrophils (%) (Auto) 81.2H, Lymphocytes ( %) (Auto) 9.4L, Monocytes (%) (Auto) 8.0, Eosinophils (%) (Auto) 0.0, Basophils (%) (Auto) 1.3 08/16/17 10:56: Arterial Blood pH 7.410, Arterial Blood Partial Pressure CO2 54.1H, Arterial Blood Partial Pressure O2 71.4L, Arterial Blood HCO3 34.0H, Arterial Blood Oxygen Saturation 94.8, Arterial Blood Base Excess 7.4, Cole Test Positive Height (Feet): 5 Height (Inches): 6.00 Weight (Pounds): 341 Objective NAD. AVSS Cv RR Lungs CTA Abd pendulous. SNT. BS + E No CCE. L KKA clean. Neuro obtunded. ZAIN KAN Aug 16, 2017 14:54
[2017-08-16] MEDS: Dyna-Hex 2% Top Sol 2oz TOPIC SCH (21:18)
[2017-08-16] MEDS ORDERED: Digoxin 0.5mg/2ml Inj IVP ONE (22:30)
--- NOTE | 2017-08-16 22:37 | Cardiology Progress Note ---
Subjective Subjective add digoxin Objective Last 24 Hour Vital Signs Date Time Temp Pulse Resp B/P (MAP) Pulse Ox O2 Delivery O2 Flow Rate FiO2 08/16/17 21:13 80 20 60 08/16/17 19:55 80 20 60 08/16/17 19:20 99.6 08/16/17 19:00 78 22 119/65 98 Mechanical Ventilator 60 08/16/17 18:00 99.6 79 20 119/68 97 Mechanical Ventilator 60 08/16/17 17:00 82 22 119/58 98 Mechanical Ventilator 60 08/16/17 16:54 80 20 60 08/16/17 16:00 60 08/16/17 16:00 98.9 81 20 106/55 100 Mechanical Ventilator 60 08/16/17 16:00 81 08/16/17 15:00 82 20 107/59 98 Mechanical Ventilator 60 08/16/17 14:57 83 20 60 08/16/17 14:00 98.9 80 22 98/58 97 Mechanical Ventilator 60 08/16/17 13:00 80 20 107/58 97 Mechanical Ventilator 60 08/16/17 13:00 83 20 60 08/16/17 12:00 99.2 81 21 95/74 98 Mechanical Ventilator 60 08/16/17 12:00 82 08/16/17 12:00 60 08/16/17 11:18 81 20 60 08/16/17 11:00 80 20 124/68 97 Mechanical Ventilator 60 08/16/17 10:00 81 20 105/58 97 Mechanical Ventilator 60 08/16/17 09:13 80 20 60 08/16/17 09:00 80 20 101/55 97 Mechanical Ventilator 60 08/16/17 08:00 98.9 82 22 96/55 98 Mechanical Ventilator 60 08/16/17 08:00 82 08/16/17 08:00 60 08/16/17 07:00 79 20 99/59 96 Mechanical Ventilator 60 08/16/17 06:55 78 20 60 08/16/17 06:00 81 20 93/59 94 Mechanical Ventilator 60 08/16/17 05:26 86 20 60 08/16/17 05:00 81 20 95/54 96 Mechanical Ventilator 60 08/16/17 04:00 98.6 80 20 101/65 96 Mechanical Ventilator 60 08/16/17 03:00 80 20 106/71 97 Mechanical Ventilator 60 08/16/17 02:36 96 20 60 08/16/17 02:30 80 20 109/73 97 Mechanical Ventilator 60 08/16/17 02:03 75 20 116/70 97 Mechanical Ventilator 60 08/16/17 02:00 82 20 113/70 96 Mechanical Ventilator 60 08/16/17 01:45 84 20 116/70 96 Mechanical Ventilator 60 08/16/17 01:30 60 08/16/17 01:30 97.9 90 20 136/75 97 Mechanical Ventilator 60 08/16/17 01:30 85 08/16/17 01:14 95 26 70 08/16/17 00:53 74 20 131/82 100 Mechanical Ventilator 70 08/16/17 00:47 20 116/75 100 Mechanical Ventilator 70 08/16/17 00:28 87/46 08/15/17 23:45 16 84/37 94 Mechanical Ventilator 70 08/15/17 23:15 68/24 08/15/17 23:02 70 08/15/17 22:57 91 20 70 08/15/17 22:54 20 164/83 94 Mechanical Ventilator 70 Intake and Output 08/16/17 08/17/17 19:00 07:00 Intake Total 850 ml Output Total 4750 ml Balance -3900 ml Intake IV Total 820 ml Other 30 ml Output Urine Total 4750 ml # Bowel Movements 2 Laboratory Tests Test 08/15/17 23:00 08/16/17 04:00 08/16/17 06:10 08/16/17 10:56 Lactic Acid Level 1.50 mmol/L (0.66-2.22) D-Dimer 1179 ng/mL (<500) H Sodium Level 126 mEQ/L (135-145) L Potassium Level 3.9 mEQ/L (3.4-4.9) Chloride Level 84 mEQ/L (98-107) L Carbon Dioxide Level 31 mEQ/L (20-30) H Anion Gap 11 (5-15) Blood Urea Nitrogen 11 mg/dL (7-23) Creatinine 0.7 mg/dL (0.7-1.2) Estimat Glomerular Filtration Rate > 60 mL/min (>60) Glucose Level 96 mg/dL (74-106) Calcium Level 8.1 mg/dL (8.6-10.2) L Magnesium Level 1.5 mg/dL (1.7-2.5) L Troponin I < 0.30 ng/mL (<=0.30) White Blood Count 14.7 K/UL (4.8-10.8) H Red Blood Count 5.48 M/UL (4.70-6.10) Hemoglobin 15.6 G/DL (14.2-18.0) Hematocrit 48.8 % (42.0-52.0) Mean Corpuscular Volume 89 FL (80-99) Mean Corpuscular Hemoglobin 28.5 PG (27.0-31.0) Mean Corpuscular Hemoglobin Concent 32.0 G/DL (32.0-36.0) Red Cell Distribution Width 13.3 % (11.6-14.8) Platelet Count 226 K/UL (150-450) Mean Platelet Volume 7.4 FL (6.5-10.1) Neutrophils (%) (Auto) 81.2 % (45.0-75.0) H Lymphocytes (%) (Auto) 9.4 % (20.0-45.0) L Monocytes (%) (Auto) 8.0 % (1.0-10.0) Eosinophils (%) (Auto) 0.0 % (0.0-3.0) Basophils (%) (Auto) 1.3 % (0.0-2.0) Arterial Blood pH 7.410 (7.350-7.450) Arterial Blood Partial Pressure CO2 54.1 mmHg (35.0-45.0) H Arterial Blood Partial Pressure O2 71.4 mmHg (75.0-100.0) L Arterial Blood HCO3 34.0 mmol/L (22.0-26.0) H Arterial Blood Oxygen Saturation 94.8 % (92.0-98.0) Arterial Blood Base Excess 7.4 Cole Test Positive Objective [id number] SHAYY ZEE Aug 16, 2017 22:37
[2017-08-17] VITALS (24 sets, daily range): BP systolic 93–128; BP diastolic 42–84
--- NOTE | 2017-08-17 02:00 | Consultation ---
DATE OF CONSULTATION: 08/16/2017 CARDIOLOGY CONSULTATION REFERRING PHYSICIAN: Dung Castro M.D. IDENTIFYING DATA: This is a 37-year-old male. History Of Present Illness: Taken from reviewing the chart, the patient was brought to the emergency department, initially he was in mild respiratory distress and he was put on BiPAP, but then he required intubation. The patient also was in atrial fibrillation with rapid ventricular rate and he was cardioverted to sinus rhythm. When I saw the patient, he is in sinus rhythm. The patient however is intubated. Past Medical History: Mostly significant for diabetes, morbid obesity, and psychiatric disorder. He lives at a [facility]. He also has history of hypertension and diabetes. He has history of left leg amputation below the knee. MEDICATIONS: His medications were reviewed. ALLERGIES: He is not allergic to any medications. REVIEW OF SYSTEMS: Unobtainable, as the patient was intubated. PHYSICAL EXAMINATION: Vital Signs: His blood pressure was 100/60, heart rate was 80, oxygen saturation on FiO2 of 60 was 100% and he was afebrile. HEENT: PERRLA. EOMI. He is morbidly obese. NECK: Neck veins evaluation is impossible. LUNGS: He has scattered rales bilaterally. HEART: Regular with distant S1 and PMI is not palpable. ABDOMEN: Morbidly obese, soft and nontender. No masses palpable. EXTREMITIES: Left leg is BKA. The right leg has moderate edema. Neurologic: Difficult to assess, the patient is sedated, however, he responded to reflexes bilaterally appropriately. Laboratory And Diagnostic Data: His ECG shows rightward axis and rapid ventricular rate. No acute ST or T changes. The patient's all laboratories were reviewed and he has following abnormalities. His white count was 14.7. His potassium was 3.9 and his GFR is less than 60. His hemoglobin A1c was 7.6. His chest x-ray showed pulmonary edema. His echocardiogram reviewed and it showed that the patient had possibly some right atrial enlargement. IMPRESSION AND RECOMMENDATION: 1. Acute pulmonary edema, possibly associated with infection, may be not. 2. Paroxysmal atrial fibrillation. The patient was cardioverted in the emergency department. 3. Morbid obesity, questionable sleep apnea. 4. Some evidence of right ventricular enlargement. Plan: The patient is diuresed. We also noted his sodium being low at 126, which is of concern, hopefully with diuresis it is going to go up. He is right now on intravenous heparin, anticoagulated for atrial fibrillation and he has indication for being anticoagulated because he has risk factors for stroke. So, I would suggest heparin switching to Coumadin with a target INR from 2.0 to 3.0. In terms of atrial fibrillation because his right ventricle is enlarged, I am going to give him sotalol provided he is not hypotensive and that he has oral access and also add digoxin and ideally he should be continued on heparin and then switch to Coumadin. Overall prognosis of this patient is very uncertain because he is morbidly obese gentleman at his young age, already with such multiple medical problems. Thank you very much for your consultation as well as ICU consultation with one hour spent in evaluating the patient and providing the treatment decision. Una Mcgowan M.D. DR: GERARDO JOB#: [id number] CC: [email or web address]
[2017-08-17] MEDS: NS w/KCl 40mEq 1,000 ML IV SCH (04:24)
[2017-08-17 05:25] LABS: ANION GAP 11 (5-15); CALCIUM 8.6 mg/dL (8.6-10.2); CARBON DIOXIDE 31 mEQ/L (20-30); CHLORIDE 98 mEQ/L (98-107); CREATININE 0.8 mg/dL (0.7-1.2); GLOMERULAR FILTRATION RATE > 60 mL/min (>60); HEMOLYSIS 0; MAGNESIUM 2.1 mg/dL (1.7-2.5); POTASSIUM 3.5 mEQ/L (3.4-4.9); SODIUM 140 mEQ/L (135-145)
[2017-08-17] MEDS: Heparin 5000 units/ml inj SUBQ SCH ×3 (05:57→22:00)
[2017-08-17] MEDS: NovoLOG Insulin Flexpen SUBQ SCH ×4 (05:58→20:33)
--- NOTE | 2017-08-17 08:35 | Critical Care Progress Note ---
Assessment/Plan Assessment/Plan ASSESSMENT: 1. Congestive heart failure, acute systolic 2. respiratory failure 3. Paroxysmal atrial flutter. 4. Hypoxemia 5. Morbid obesity. 6. Type 2 diabetes mellitus. 7. History of psychosis. 8. Hypertensive cardiovascular disease. 9. Status post left below-knee amputation. 10. Chronic obstructive pulmonary disease. PLAN care noted and reviewed IV diuresis respiratory care Ventilatory support SNF meds noted supportive care suction start to wean and monitor oxygen therapy and reduce wean in am if stable prognosis guarded and reviewed medications/laboratory data/nursing notes/ICU care reviewed in detail note reviewed and edited care discussed with RN and RT ICU time spent 45 minutes Critical Care - Subjective Interval Events: care noted and reviewed ICU care reviewed d/w nursing ROS Limited/Unobtainable: Yes Condition: critical EKG Rhythm: Sinus Rhythm Residuals: minimal Tube Feeding Tolerated: yes I&O: Intake and Output 08/17/17 08/18/17 19:00 07:00 Output Total 80 ml Balance -80 ml Output Urine Total 80 ml Critical Care - Objective ET-Tube: 7.0 ET Position: 25 Last 24 Hour Vital Signs Date Time Temp Pulse Resp B/P (MAP) Pulse Ox O2 Delivery O2 Flow Rate FiO2 08/17/17 08:00 60 08/17/17 08:00 72 20 112/65 96 Mechanical Ventilator 60 08/17/17 08:00 71 08/17/17 07:12 77 20 60 08/17/17 07:00 76 20 111/70 97 Mechanical Ventilator 60 08/17/17 06:00 82 20 119/58 96 Mechanical Ventilator 60 08/17/17 05:00 76 20 60 08/17/17 05:00 90 19 122/72 96 Mechanical Ventilator 60 08/17/17 04:00 98.7 78 20 128/84 96 Mechanical Ventilator 60 08/17/17 04:00 75 08/17/17 04:00 60 08/17/17 03:23 86 20 60 08/17/17 03:00 75 20 112/62 98 Mechanical Ventilator 60 08/17/17 02:00 76 20 115/65 98 Mechanical Ventilator 60 08/17/17 01:31 73 20 60 08/17/17 01:00 77 20 109/63 97 Mechanical Ventilator 60 08/17/17 00:00 98.8 79 20 113/63 97 Mechanical Ventilator 60 08/17/17 00:00 72 08/16/17 23:21 78 20 60 08/16/17 23:00 78 20 106/58 97 Mechanical Ventilator 60 08/16/17 22:55 72 08/16/17 22:00 76 20 103/55 98 Mechanical Ventilator 60 08/16/17 21:13 80 20 60 08/16/17 21:00 79 20 110/61 98 Mechanical Ventilator 60 08/16/17 20:00 60 08/16/17 20:00 80 08/16/17 20:00 98.7 78 20 104/57 97 Mechanical Ventilator 60 08/16/17 19:55 80 20 60 08/16/17 19:20 99.6 08/16/17 19:00 78 22 119/65 98 Mechanical Ventilator 60 08/16/17 18:00 99.6 79 20 119/68 97 Mechanical Ventilator 60 08/16/17 17:00 82 22 119/58 98 Mechanical Ventilator 60 08/16/17 16:54 80 20 60 08/16/17 16:00 60 08/16/17 16:00 98.9 81 20 106/55 100 Mechanical Ventilator 60 08/16/17 16:00 81 08/16/17 15:00 82 20 107/59 98 Mechanical Ventilator 60 08/16/17 14:57 83 20 60 08/16/17 14:00 98.9 80 22 98/58 97 Mechanical Ventilator 60 08/16/17 13:00 80 20 107/58 97 Mechanical Ventilator 60 08/16/17 13:00 83 20 60 08/16/17 12:00 99.2 81 21 95/74 98 Mechanical Ventilator 60 08/16/17 12:00 82 08/16/17 12:00 60 08/16/17 11:18 81 20 60 08/16/17 11:00 80 20 124/68 97 Mechanical Ventilator 60 08/16/17 10:00 81 20 105/58 97 Mechanical Ventilator 60 08/16/17 09:13 80 20 60 08/16/17 09:00 80 20 101/55 97 Mechanical Ventilator 60 Labs: Labs Test 08/15/17 18:05 08/15/17 18:55 08/15/17 19:31 08/15/17 21:55 White Blood Count 10.9 K/UL (4.8-10.8) Red Blood Count 5.51 M/UL (4.70-6.10) Hemoglobin 16.9 G/DL (14.2-18.0) Hematocrit 49.3 % (42.0-52.0) Mean Corpuscular Volume 89 FL (80-99) Mean Corpuscular Hemoglobin 30.7 PG (27.0-31.0) Mean Corpuscular Hemoglobin Concent 34.3 G/DL (32.0-36.0) Red Cell Distribution Width 13.5 % (11.6-14.8) Platelet Count 260 K/UL (150-450) Mean Platelet Volume 6.9 FL (6.5-10.1) Neutrophils (%) (Auto) 83.0 % (45.0-75.0) Lymphocytes (%) (Auto) 9.3 % (20.0-45.0) Monocytes (%) (Auto) 6.4 % (1.0-10.0) Eosinophils (%) (Auto) 0.3 % (0.0-3.0) Basophils (%) (Auto) 0.9 % (0.0-2.0) Sodium Level 121 mEQ/L (135-145) Potassium Level 4.1 mEQ/L (3.4-4.9) Chloride Level 80 mEQ/L (98-107) Carbon Dioxide Level 30 mEQ/L (20-30) Anion Gap 11 (5-15) Blood Urea Nitrogen 7 mg/dL (7-23) Creatinine 0.6 mg/dL (0.7-1.2) Estimat Glomerular Filtration Rate > 60 mL/min (>60) Glucose Level 149 mg/dL (74-106) Calcium Level 8.1 mg/dL (8.6-10.2) Total Bilirubin 1.6 mg/dL (0.0-1.2) Direct Bilirubin 0.4 mg/dL (0.1-0.3) Aspartate Amino Transf (AST/SGOT) 41 U/L (5-40) Alanine Aminotransferase (ALT/SGPT) 31 U/L (3-41) Alkaline Phosphatase 117 U/L (40-129) Total Creatine Kinase 1258 U/L (38-174) Creatine Kinase MB 18.2 ng/mL (< 6.7) Creatine Kinase MB Relative Index 1.4 Troponin I < 0.30 ng/mL (<=0.30) Pro-B-Type Natriuretic Peptide 641 pg/mL (0-125) Total Protein 7.3 g/dL (6.6-8.7) Albumin 3.3 g/dL (3.5-5.2) Globulin 4.0 g/dL Albumin/Globulin Ratio 0.8 (1.0-2.7) Hemoglobin A1c 7.6 % (< 6.0) Arterial Blood pH 7.203 (7.350-7.450) 6.919 (7.350-7.450) Arterial Blood Partial Pressure CO2 78.8 mmHg (35.0-45.0) 195.5 mmHg (35.0-45.0) Arterial Blood Partial Pressure O2 100.5 mmHg (75.0-100.0) 181.4 mmHg (75.0-100.0) Arterial Blood HCO3 30.8 mmol/L (22.0-26.0) 39.1 mmol/L (22.0-26.0) Arterial Blood Oxygen Saturation 97.2 % (92.0-98.0) 95.5 % (92.0-98.0) Arterial Blood Base Excess -0.3 -1.6 Cole Test Positive Positive Test 08/15/17 23:00 08/16/17 04:00 08/16/17 06:10 08/16/17 10:56 Lactic Acid Level 1.50 mmol/L (0.66-2.22) D-Dimer 1179 ng/mL (<500) Sodium Level 126 mEQ/L (135-145) Potassium Level 3.9 mEQ/L (3.4-4.9) Chloride Level 84 mEQ/L (98-107) Carbon Dioxide Level 31 mEQ/L (20-30) Anion Gap 11 (5-15) Blood Urea Nitrogen 11 mg/dL (7-23) Creatinine 0.7 mg/dL (0.7-1.2) Estimat Glomerular Filtration Rate > 60 mL/min (>60) Glucose Level 96 mg/dL (74-106) Calcium Level 8.1 mg/dL (8.6-10.2) Magnesium Level 1.5 mg/dL (1.7-2.5) Troponin I < 0.30 ng/mL (<=0.30) White Blood Count 14.7 K/UL (4.8-10.8) Red Blood Count 5.48 M/UL (4.70-6.10) Hemoglobin 15.6 G/DL (14.2-18.0) Hematocrit 48.8 % (42.0-52.0) Mean Corpuscular Volume 89 FL (80-99) Mean Corpuscular Hemoglobin 28.5 PG (27.0-31.0) Mean Corpuscular Hemoglobin Concent 32.0 G/DL (32.0-36.0) Red Cell Distribution Width 13.3 % (11.6-14.8) Platelet Count 226 K/UL (150-450) Mean Platelet Volume 7.4 FL (6.5-10.1) Neutrophils (%) (Auto) 81.2 % (45.0-75.0) Lymphocytes (%) (Auto) 9.4 % (20.0-45.0) Monocytes (%) (Auto) 8.0 % (1.0-10.0) Eosinophils (%) (Auto) 0.0 % (0.0-3.0) Basophils (%) (Auto) 1.3 % (0.0-2.0) Arterial Blood pH 7.410 (7.350-7.450) Arterial Blood Partial Pressure CO2 54.1 mmHg (35.0-45.0) Arterial Blood Partial Pressure O2 71.4 mmHg (75.0-100.0) Arterial Blood HCO3 34.0 mmol/L (22.0-26.0) Arterial Blood Oxygen Saturation 94.8 % (92.0-98.0) Arterial Blood Base Excess 7.4 Cole Test Positive Test 08/17/17 04:00 Sodium Level 140 mEQ/L (135-145) Potassium Level 3.5 mEQ/L (3.4-4.9) Chloride Level 98 mEQ/L (98-107) Carbon Dioxide Level 31 mEQ/L (20-30) Anion Gap 11 (5-15) Blood Urea Nitrogen 10 mg/dL (7-23) Creatinine 0.8 mg/dL (0.7-1.2) Estimat Glomerular Filtration Rate > 60 mL/min (>60) Glucose Level 87 mg/dL (74-106) Calcium Level 8.6 mg/dL (8.6-10.2) Magnesium Level 2.1 mg/dL (1.7-2.5) Objective: chronically ill-appearing obese male HEENT: The head is normocephalic and atraumatic. PEERL. Neck: Supple. Trachea midline. JVD LUNGS: Bilateral wheezes.reduced air entry some expiratory rhonchi HEART: RRR S1 and S2. No rubs, murmurs, or gallops. ABDOMEN: Soft and nontender. Bowel sounds are active. Extremities: No clubbing or cyanosis. 2+ edema and there is right leg brawny edema. His left below-knee stump is clean. Neurologic: reduced LOC no gross focal findings. Micro: Microbiology Date/Time Source Procedure Growth Status 08/15/17 18:50 Blood Blood Culture - Preliminary NO GROWTH AFTER 24 HOURS Resulted 08/15/17 17:50 Blood Blood Culture - Preliminary NO GROWTH AFTER 24 HOURS Resulted Accucheck: 83 CLARENCE CRUZ Aug 17, 2017 08:35
[2017-08-17 09:07] LABS: BASOPHILS % (AUTO) 0.8 % (0.0-2.0); EOSINOPHILS % (AUTO) 0.1 % (0.0-3.0); LYMPHOCYTES % (AUTO) 10.8 % (20.0-45.0); MEAN CORPUSCULAR HEMOGLOBIN 29.1 PG (27.0-31.0); MEAN CORPUSCULAR HGB CONC 32.1 G/DL (32.0-36.0); MEAN CORPUSCULAR VOLUME 91 FL (80-99); MEAN PLATELET VOLUME 6.7 FL (6.5-10.1); MONOCYTES % (AUTO) 8.2 % (1.0-10.0); NEUTROPHILS % (AUTO) 80.1 % (45.0-75.0); PLATELET COUNT 268 K/UL (150-450); RED BLOOD COUNT 5.53 M/UL (4.70-6.10); RED CELL DISTRIBUTION WIDTH 13.8 % (11.6-14.8); WHITE BLOOD COUNT 11.8 K/UL (4.8-10.8)
--- NOTE | 2017-08-17 11:43 | Diagnostic Imaging Report ---
Indication: Dyspnea Comparison: 08/16/17 A single view chest radiograph was obtained. Findings: Moderate pulmonary vascular congestion with prominent pulmonary vessels, hazy vessel margins and interstitial densities demonstrated. The heart is enlarged. Tubes and lines are satisfactory. Impression: Pulmonary edema
--- NOTE | 2017-08-17 13:35 | General Progress Note ---
Assessment/Plan Assessment/Plan PAF - now SR. Per Cards CHF -diurese. Resp Failure - vent. Keep NPO until weaned. Change IVF. Subjective Allergies: Coded Allergies: No Known Allergies (Unverified , 08/15/17) Subjective On vent. Objective Last 24 Hour Vital Signs Date Time Temp Pulse Resp B/P (MAP) Pulse Ox O2 Delivery O2 Flow Rate FiO2 08/17/17 13:26 76 13 40 08/17/17 13:00 82 20 115/64 99 Mechanical Ventilator 60 08/17/17 12:00 60 08/17/17 12:00 82 08/17/17 12:00 99.1 86 18 93/62 98 Mechanical Ventilator 60 08/17/17 11:16 89 16 60 08/17/17 11:00 82 18 110/54 98 Mechanical Ventilator 60 08/17/17 10:00 99.5 08/17/17 10:00 99.5 75 18 107/65 100 Mechanical Ventilator 60 08/17/17 09:45 60 08/17/17 09:41 96 08/17/17 09:28 75 13 60 08/17/17 09:00 71 20 96/42 98 Mechanical Ventilator 60 08/17/17 08:00 60 08/17/17 08:00 72 20 112/65 96 Mechanical Ventilator 60 08/17/17 08:00 71 08/17/17 07:12 77 20 60 08/17/17 07:00 99.6 76 20 111/70 97 Mechanical Ventilator 60 08/17/17 06:00 82 20 119/58 96 Mechanical Ventilator 60 08/17/17 05:00 76 20 60 08/17/17 05:00 90 19 122/72 96 Mechanical Ventilator 60 08/17/17 04:00 98.7 78 20 128/84 96 Mechanical Ventilator 60 08/17/17 04:00 75 08/17/17 04:00 60 08/17/17 03:23 86 20 60 08/17/17 03:00 75 20 112/62 98 Mechanical Ventilator 60 08/17/17 02:00 76 20 115/65 98 Mechanical Ventilator 60 08/17/17 01:31 73 20 60 08/17/17 01:00 77 20 109/63 97 Mechanical Ventilator 60 08/17/17 00:00 98.8 79 20 113/63 97 Mechanical Ventilator 60 08/17/17 00:00 72 08/16/17 23:21 78 20 60 08/16/17 23:00 78 20 106/58 97 Mechanical Ventilator 60 08/16/17 22:55 72 08/16/17 22:00 76 20 103/55 98 Mechanical Ventilator 60 08/16/17 21:13 80 20 60 08/16/17 21:00 79 20 110/61 98 Mechanical Ventilator 60 08/16/17 20:00 60 08/16/17 20:00 80 08/16/17 20:00 98.7 78 20 104/57 97 Mechanical Ventilator 60 08/16/17 19:55 80 20 60 08/16/17 19:00 78 22 119/65 98 Mechanical Ventilator 60 08/16/17 18:00 99.6 79 20 119/68 97 Mechanical Ventilator 60 08/16/17 17:00 82 22 119/58 98 Mechanical Ventilator 60 08/16/17 16:54 80 20 60 08/16/17 16:00 60 08/16/17 16:00 98.9 81 20 106/55 100 Mechanical Ventilator 60 08/16/17 16:00 81 08/16/17 15:00 82 20 107/59 98 Mechanical Ventilator 60 08/16/17 14:57 83 20 60 08/16/17 14:00 98.9 80 22 98/58 97 Mechanical Ventilator 60 Intake and Output 08/17/17 08/18/17 19:00 07:00 Intake Total 240 ml Output Total 1530 ml Balance -1290 ml Intake IV Total 210 ml Other 30 ml Output Urine Total 1530 ml # Bowel Movements 2 Laboratory Tests 08/17/17 04:00: Sodium Level 140#, Potassium Level 3.5, Chloride Level 98, Carbon Dioxide Level 31H, Anion Gap 11, Blood Urea Nitrogen 10, Creatinine 0.8, Estimat Glomerular Filtration Rate > 60, Glucose Level 87, Calcium Level 8.6, Magnesium Level 2.1 08/17/17 08:00: White Blood Count 11.8H, Red Blood Count 5.53, Hemoglobin 16.1, Hematocrit 50.1 , Mean Corpuscular Volume 91, Mean Corpuscular Hemoglobin 29.1, Mean Corpuscular Hemoglobin Concent 32.1, Red Cell Distribution Width 13.8, Platelet Count 268, Mean Platelet Volume 6.7, Neutrophils (%) (Auto) 80.1H, Lymphocytes ( %) (Auto) 10.8L, Monocytes (%) (Auto) 8.2, Eosinophils (%) (Auto) 0.1, Basophils (%) (Auto) 0.8 Height (Feet): 5 Height (Inches): 6.00 Weight (Pounds): 314 Objective NAD. AVSS Cv RR Lungs CTA Abd pendulous. SNT. BS + E No CCE. L KKA clean. Neuro obtunded. ZAIN KAN Aug 17, 2017 13:35
[2017-08-17] MEDS: Piperacillin/Tazobactam 3.375 GM in D5W 110 ML IVPB SCH ×2 (14:29→21:58)
[2017-08-17] MEDS: D5 1/2NS w/KCl 40meq 1000ml 1,000 ML IV SCH (15:51)
--- NOTE | 2017-08-17 16:38 | Wound Care Consultation ---
Wound Assessment Wound Assessment #1: Wound Number: 1 Wound Present on Admission: Yes New Wound: No Status Change of Wound: No Wound Location Body Site Modif: mid Wound Location Body Site: sacral Wound Type: pressure ulcer Benjie Test: Does not Benjie Pressure Ulcer Stage: I Wound Length: 5.5 Wound Width: 5.5 Percent of Wound [place]/Red: 100 Wound Drainage Amount: None Wound Drainage Odor: None/Absent Tissue Surrounding Wound: Erythemic Wound General Appearance: Reddened Wound Assessment #2: Wound Number: 2 Wound Present on Admission: Yes New Wound: No Status Change of Wound: No Wound Location Body Site: perineal area Wound Type: chemical burn Benjie Test: Does not Benjie Percent of Wound [place]/Red: 100 Wound Drainage Amount: None Wound Drainage Odor: None/Absent Tissue Surrounding Wound: Erythemic Wound General Appearance: Reddened Wound Assessment #3: Wound Number: 3 Wound Present on Admission: Yes New Wound: No Status Change of Wound: No Wound Location Body Site Modif: right, upper Wound Location Body Site: thigh Wound Type: blister - open Benjie Test: Does not Benjie Wound Thickness: Partial Thickness Wound Length: 0.3 Wound Width: 4.0 Wound Depth: less than 0.1 Percent of Wound [place]/Red: 100 Wound Drainage Description: Serosanguineous Wound Drainage Amount: Scant Wound Drainage Odor: None/Absent Tissue Surrounding Wound: Intact Wound General Appearance: Reddened Wound Comment #1 Right upper anterior thigh open blister #2 Sacral stage I pressure ulcer #3 Left stump site with dry scab Recommendation -Local wound care as ordered -Keep clean and dry -Low air loss mattress -Turn and reposition -Optimize nutrition -Offload on right heel -Heel protector on right heel -Assess and f/u accordingly BOOGIE HUMPHREY RN Aug 17, 2017 16:38
[2017-08-17] MEDS ORDERED: Tubing IV Secondary IV ONE (16:43)
[2017-08-17] MEDS ORDERED: NS 275ml ONE (16:43)
[2017-08-17] MEDS: Pantoprazole Inj IVP SCH (18:31)
[2017-08-17] MEDS: Dyna-Hex 2% Top Sol 2oz TOPIC SCH (20:34)
--- NOTE | 2017-08-17 21:51 | Cardiology Progress Note ---
Assessment/Plan Assessment/Plan no svidence of recurrent a fib will have to start him on Amiodarone for recurrent a fib so far, patient is on Digoxin will follow Subjective Subjective the patient remains unresponsive, intubated Objective Last 24 Hour Vital Signs Date Time Temp Pulse Resp B/P (MAP) Pulse Ox O2 Delivery O2 Flow Rate FiO2 08/17/17 21:00 79 20 40 08/17/17 20:00 40 08/17/17 19:00 76 18 106/54 97 Mechanical Ventilator 40 08/17/17 18:50 84 20 40 08/17/17 18:00 99.2 88 18 115/65 95 Mechanical Ventilator 40 08/17/17 17:00 84 18 113/61 97 Mechanical Ventilator 40 08/17/17 16:50 82 15 40 08/17/17 16:00 99.1 79 17 120/76 96 Mechanical Ventilator 40 08/17/17 16:00 84 08/17/17 16:00 40 08/17/17 15:00 82 20 116/67 95 Mechanical Ventilator 40 08/17/17 14:50 91 18 40 08/17/17 14:00 98.7 84 20 121/76 95 Mechanical Ventilator 40 08/17/17 13:30 40 08/17/17 13:26 76 13 40 08/17/17 13:00 82 20 115/64 99 Mechanical Ventilator 60 08/17/17 12:00 60 08/17/17 12:00 82 08/17/17 12:00 99.1 86 18 93/62 98 Mechanical Ventilator 60 08/17/17 11:16 89 16 60 08/17/17 11:00 82 18 110/54 98 Mechanical Ventilator 60 08/17/17 10:00 99.5 08/17/17 10:00 99.5 75 18 107/65 100 Mechanical Ventilator 60 08/17/17 09:45 60 08/17/17 09:41 96 08/17/17 09:28 75 13 60 08/17/17 09:00 71 20 96/42 98 Mechanical Ventilator 60 08/17/17 08:00 60 08/17/17 08:00 72 20 112/65 96 Mechanical Ventilator 60 08/17/17 08:00 71 08/17/17 07:12 77 20 60 08/17/17 07:00 99.6 76 20 111/70 97 Mechanical Ventilator 60 08/17/17 06:00 82 20 119/58 96 Mechanical Ventilator 60 08/17/17 05:00 76 20 60 08/17/17 05:00 90 19 122/72 96 Mechanical Ventilator 60 08/17/17 04:00 98.7 78 20 128/84 96 Mechanical Ventilator 60 08/17/17 04:00 75 08/17/17 04:00 60 08/17/17 03:23 86 20 60 08/17/17 03:00 75 20 112/62 98 Mechanical Ventilator 60 08/17/17 02:00 76 20 115/65 98 Mechanical Ventilator 60 08/17/17 01:31 73 20 60 08/17/17 01:00 77 20 109/63 97 Mechanical Ventilator 60 08/17/17 00:00 98.8 79 20 113/63 97 Mechanical Ventilator 60 08/17/17 00:00 72 08/16/17 23:21 78 20 60 08/16/17 23:00 78 20 106/58 97 Mechanical Ventilator 60 08/16/17 22:55 72 08/16/17 22:00 76 20 103/55 98 Mechanical Ventilator 60 General Appearance: on vent EENT: PERRL/EOMI Neck: normal alignment Rhythm: NSR Cardiovascular: normal rate Respiratory/Chest: crackles/rales Abdomen: distended, guarding Extremities: severe edema Intake and Output 08/17/17 08/18/17 19:00 07:00 Intake Total 604.0 ml Output Total 2150 ml 50 ml Balance -1546.0 ml -50 ml Intake IV Total 544.0 ml Other 60 ml Output Urine Total 2150 ml 50 ml # Bowel Movements 2 Laboratory Tests Test 08/17/17 04:00 08/17/17 08:00 Sodium Level 140 mEQ/L (135-145) # Potassium Level 3.5 mEQ/L (3.4-4.9) Chloride Level 98 mEQ/L (98-107) Carbon Dioxide Level 31 mEQ/L (20-30) H Anion Gap 11 (5-15) Blood Urea Nitrogen 10 mg/dL (7-23) Creatinine 0.8 mg/dL (0.7-1.2) Estimat Glomerular Filtration Rate > 60 mL/min (>60) Glucose Level 87 mg/dL (74-106) Calcium Level 8.6 mg/dL (8.6-10.2) Magnesium Level 2.1 mg/dL (1.7-2.5) White Blood Count 11.8 K/UL (4.8-10.8) H Red Blood Count 5.53 M/UL (4.70-6.10) Hemoglobin 16.1 G/DL (14.2-18.0) Hematocrit 50.1 % (42.0-52.0) Mean Corpuscular Volume 91 FL (80-99) Mean Corpuscular Hemoglobin 29.1 PG (27.0-31.0) Mean Corpuscular Hemoglobin Concent 32.1 G/DL (32.0-36.0) Red Cell Distribution Width 13.8 % (11.6-14.8) Platelet Count 268 K/UL (150-450) Mean Platelet Volume 6.7 FL (6.5-10.1) Neutrophils (%) (Auto) 80.1 % (45.0-75.0) H Lymphocytes (%) (Auto) 10.8 % (20.0-45.0) L Monocytes (%) (Auto) 8.2 % (1.0-10.0) Eosinophils (%) (Auto) 0.1 % (0.0-3.0) Basophils (%) (Auto) 0.8 % (0.0-2.0) Microbiology Date/Time Source Procedure Growth Status 08/15/17 18:50 Blood Blood Culture - Preliminary NO GROWTH AFTER 24 HOURS Resulted 08/15/17 17:50 Blood Blood Culture - Preliminary NO GROWTH AFTER 24 HOURS Resulted 08/16/17 04:50 Penis Genital Culture - Preliminary Resulted Objective [id number] SHAYY ZEE Aug 17, 2017 21:51
[2017-08-18] VITALS (24 sets, daily range): BP systolic 89–155; BP diastolic 51–91
[2017-08-18] MEDS: Piperacillin/Tazobactam 3.375 GM in D5W 110 ML IVPB SCH ×3 (06:10→21:32)
[2017-08-18] MEDS: Heparin 5000 units/ml inj SUBQ SCH ×3 (06:13→21:33)
[2017-08-18] MEDS: NovoLOG Insulin Flexpen SUBQ SCH ×4 (06:14→20:43)
--- NOTE | 2017-08-18 06:49 | General Progress Note ---
Assessment/Plan Assessment/Plan PAF - now SR. Per Cards CHF -diurese. Resp Failure - vent. Try to wean Keep NPO until weaned. Change IVF. Subjective Allergies: Coded Allergies: No Known Allergies (Unverified , 08/15/17) Subjective On vent. Objective Last 24 Hour Vital Signs Date Time Temp Pulse Resp B/P (MAP) Pulse Ox O2 Delivery O2 Flow Rate FiO2 08/18/17 06:00 74 20 113/66 95 Mechanical Ventilator 40 08/18/17 05:22 81 20 40 08/18/17 05:00 77 20 93/68 94 Mechanical Ventilator 40 08/18/17 04:00 40 08/18/17 04:00 98.7 72 20 110/65 95 Mechanical Ventilator 40 08/18/17 04:00 73 08/18/17 03:05 73 20 40 08/18/17 03:00 75 20 118/69 94 Mechanical Ventilator 40 08/18/17 02:00 72 19 111/63 99 Mechanical Ventilator 40 08/18/17 01:00 74 19 120/64 99 Mechanical Ventilator 40 08/18/17 00:37 68 20 40 08/18/17 00:00 40 08/18/17 00:00 98.5 80 20 120/55 99 Mechanical Ventilator 40 08/18/17 00:00 78 08/17/17 23:03 79 20 40 08/17/17 23:00 78 20 116/62 94 Mechanical Ventilator 40 08/17/17 22:00 77 20 116/66 93 Mechanical Ventilator 40 08/17/17 21:00 79 20 40 08/17/17 21:00 80 20 109/56 94 Mechanical Ventilator 40 08/17/17 20:00 75 08/17/17 20:00 40 08/17/17 20:00 98.9 75 20 101/57 94 Mechanical Ventilator 40 08/17/17 19:00 76 18 106/54 97 Mechanical Ventilator 40 08/17/17 18:50 84 20 40 08/17/17 18:00 99.2 88 18 115/65 95 Mechanical Ventilator 40 08/17/17 17:00 84 18 113/61 97 Mechanical Ventilator 40 08/17/17 16:50 82 15 40 08/17/17 16:00 99.1 79 17 120/76 96 Mechanical Ventilator 40 08/17/17 16:00 84 08/17/17 16:00 40 08/17/17 15:00 82 20 116/67 95 Mechanical Ventilator 40 08/17/17 14:50 91 18 40 08/17/17 14:00 98.7 84 20 121/76 95 Mechanical Ventilator 40 08/17/17 13:30 40 08/17/17 13:26 76 13 40 08/17/17 13:00 82 20 115/64 99 Mechanical Ventilator 60 08/17/17 12:00 60 08/17/17 12:00 82 08/17/17 12:00 99.1 86 18 93/62 98 Mechanical Ventilator 60 08/17/17 11:16 89 16 60 08/17/17 11:00 82 18 110/54 98 Mechanical Ventilator 60 08/17/17 10:00 99.5 08/17/17 10:00 99.5 75 18 107/65 100 Mechanical Ventilator 60 08/17/17 09:45 60 08/17/17 09:41 96 08/17/17 09:28 75 13 60 08/17/17 09:00 71 20 96/42 98 Mechanical Ventilator 60 08/17/17 08:00 60 08/17/17 08:00 72 20 112/65 96 Mechanical Ventilator 60 08/17/17 08:00 71 08/17/17 07:12 77 20 60 08/17/17 07:00 99.6 76 20 111/70 97 Mechanical Ventilator 60 Laboratory Tests 08/17/17 08:00: White Blood Count 11.8H, Red Blood Count 5.53, Hemoglobin 16.1, Hematocrit 50.1 , Mean Corpuscular Volume 91, Mean Corpuscular Hemoglobin 29.1, Mean Corpuscular Hemoglobin Concent 32.1, Red Cell Distribution Width 13.8, Platelet Count 268, Mean Platelet Volume 6.7, Neutrophils (%) (Auto) 80.1H, Lymphocytes ( %) (Auto) 10.8L, Monocytes (%) (Auto) 8.2, Eosinophils (%) (Auto) 0.1, Basophils (%) (Auto) 0.8 08/18/17 04:20: Magnesium Level 1.9 Height (Feet): 5 Height (Inches): 6.00 Weight (Pounds): 315 Objective NAD. Monitor SR. AVSS Cv RR Lungs CTA Abd pendulous. SNT. BS + E No CCE. L BKA clean. Neuro alert +responsive. ZAIN KAN Aug 18, 2017 06:49
[2017-08-18] MEDS ORDERED: Tubing IV Secondary IV ONE (08:14)
[2017-08-18] MEDS: Pantoprazole Inj IVP SCH (10:08)
[2017-08-18] MEDS: Losartan 25mg tab ORAL SCH (10:08)
--- NOTE | 2017-08-18 14:10 | Critical Care Progress Note ---
Assessment/Plan Assessment/Plan ASSESSMENT: 1. Congestive heart failure, acute systolic 2. respiratory failure 3. Paroxysmal atrial flutter. 4. Hypoxemia 5. Morbid obesity. 6. Type 2 diabetes mellitus. 7. History of psychosis. 8. Hypertensive cardiovascular disease. 9. Status post left below-knee amputation. 10. Chronic obstructive pulmonary disease. 11. possible respiratory infection with evidence of pulmonary edema PLAN care noted and reviewed IV diuresis per cards respiratory care Ventilatory support SNF meds noted supportive care suction may extubate with good parameters and clinical evaluation oxygen therapy and reduce overall improved medications/laboratory data/nursing notes/ICU care reviewed in detail note reviewed and edited care discussed with RN and RT ICU time spent 35 minutes Critical Care - Subjective Interval Events: awake tolerating CPAP well ABG ok now on 35% only clearer and less secretions ROS Limited/Unobtainable: Yes Condition: critical EKG Rhythm: Sinus Rhythm I&O: Intake and Output 08/18/17 08/19/17 19:00 07:00 Intake Total 70 ml Output Total 1200 ml Balance -1130 ml Other 70 ml Output Urine Total 1200 ml Critical Care - Objective CXR: pulmonary edema ET-Tube: 7.0 ET Position: 25 Last 24 Hour Vital Signs Date Time Temp Pulse Resp B/P (MAP) Pulse Ox O2 Delivery O2 Flow Rate FiO2 08/18/17 13:30 89 18 94 Venturi Mask 40 08/18/17 13:20 91 08/18/17 13:00 87 18 120/64 91 Mechanical Ventilator 30 08/18/17 12:00 91 08/18/17 12:00 99.9 72 18 109/61 91 Mechanical Ventilator 40 08/18/17 12:00 30 08/18/17 11:00 81 20 135/78 95 Mechanical Ventilator 40 08/18/17 11:00 80 20 40 08/18/17 10:08 112/69 08/18/17 10:00 76 20 112/69 94 Mechanical Ventilator 40 08/18/17 09:11 71 20 40 08/18/17 09:00 72 20 117/65 92 Mechanical Ventilator 40 08/18/17 08:00 99.7 75 18 118/73 95 Mechanical Ventilator 40 08/18/17 08:00 79 08/18/17 07:53 40 08/18/17 07:07 73 20 40 08/18/17 07:00 75 20 116/66 96 Mechanical Ventilator 40 08/18/17 06:00 74 20 113/66 95 Mechanical Ventilator 40 08/18/17 05:22 81 20 40 08/18/17 05:00 77 20 93/68 94 Mechanical Ventilator 40 08/18/17 04:00 40 08/18/17 04:00 98.7 72 20 110/65 95 Mechanical Ventilator 40 08/18/17 04:00 73 08/18/17 03:05 73 20 40 08/18/17 03:00 75 20 118/69 94 Mechanical Ventilator 40 08/18/17 02:00 72 19 111/63 99 Mechanical Ventilator 40 08/18/17 01:00 74 19 120/64 99 Mechanical Ventilator 40 08/18/17 00:37 68 20 40 08/18/17 00:00 40 08/18/17 00:00 98.5 80 20 120/55 99 Mechanical Ventilator 40 08/18/17 00:00 78 08/17/17 23:03 79 20 40 08/17/17 23:00 78 20 116/62 94 Mechanical Ventilator 40 08/17/17 22:00 77 20 116/66 93 Mechanical Ventilator 40 08/17/17 21:00 79 20 40 08/17/17 21:00 80 20 109/56 94 Mechanical Ventilator 40 08/17/17 20:00 75 08/17/17 20:00 40 08/17/17 20:00 98.9 75 20 101/57 94 Mechanical Ventilator 40 08/17/17 19:00 76 18 106/54 97 Mechanical Ventilator 40 08/17/17 18:50 84 20 40 08/17/17 18:00 99.2 88 18 115/65 95 Mechanical Ventilator 40 08/17/17 17:00 84 18 113/61 97 Mechanical Ventilator 40 08/17/17 16:50 82 15 40 08/17/17 16:00 99.1 79 17 120/76 96 Mechanical Ventilator 40 08/17/17 16:00 84 08/17/17 16:00 40 08/17/17 15:00 82 20 116/67 95 Mechanical Ventilator 40 08/17/17 14:50 91 18 40 Labs: Labs Test 08/15/17 18:05 08/15/17 18:55 08/15/17 19:31 08/15/17 21:55 White Blood Count 10.9 K/UL (4.8-10.8) Red Blood Count 5.51 M/UL (4.70-6.10) Hemoglobin 16.9 G/DL (14.2-18.0) Hematocrit 49.3 % (42.0-52.0) Mean Corpuscular Volume 89 FL (80-99) Mean Corpuscular Hemoglobin 30.7 PG (27.0-31.0) Mean Corpuscular Hemoglobin Concent 34.3 G/DL (32.0-36.0) Red Cell Distribution Width 13.5 % (11.6-14.8) Platelet Count 260 K/UL (150-450) Mean Platelet Volume 6.9 FL (6.5-10.1) Neutrophils (%) (Auto) 83.0 % (45.0-75.0) Lymphocytes (%) (Auto) 9.3 % (20.0-45.0) Monocytes (%) (Auto) 6.4 % (1.0-10.0) Eosinophils (%) (Auto) 0.3 % (0.0-3.0) Basophils (%) (Auto) 0.9 % (0.0-2.0) Sodium Level 121 mEQ/L (135-145) Potassium Level 4.1 mEQ/L (3.4-4.9) Chloride Level 80 mEQ/L (98-107) Carbon Dioxide Level 30 mEQ/L (20-30) Anion Gap 11 (5-15) Blood Urea Nitrogen 7 mg/dL (7-23) Creatinine 0.6 mg/dL (0.7-1.2) Estimat Glomerular Filtration Rate > 60 mL/min (>60) Glucose Level 149 mg/dL (74-106) Calcium Level 8.1 mg/dL (8.6-10.2) Total Bilirubin 1.6 mg/dL (0.0-1.2) Direct Bilirubin 0.4 mg/dL (0.1-0.3) Aspartate Amino Transf (AST/SGOT) 41 U/L (5-40) Alanine Aminotransferase (ALT/SGPT) 31 U/L (3-41) Alkaline Phosphatase 117 U/L (40-129) Total Creatine Kinase 1258 U/L (38-174) Creatine Kinase MB 18.2 ng/mL (< 6.7) Creatine Kinase MB Relative Index 1.4 Troponin I < 0.30 ng/mL (<=0.30) Pro-B-Type Natriuretic Peptide 641 pg/mL (0-125) Total Protein 7.3 g/dL (6.6-8.7) Albumin 3.3 g/dL (3.5-5.2) Globulin 4.0 g/dL Albumin/Globulin Ratio 0.8 (1.0-2.7) Hemoglobin A1c 7.6 % (< 6.0) Arterial Blood pH 7.203 (7.350-7.450) 6.919 (7.350-7.450) Arterial Blood Partial Pressure CO2 78.8 mmHg (35.0-45.0) 195.5 mmHg (35.0-45.0) Arterial Blood Partial Pressure O2 100.5 mmHg (75.0-100.0) 181.4 mmHg (75.0-100.0) Arterial Blood HCO3 30.8 mmol/L (22.0-26.0) 39.1 mmol/L (22.0-26.0) Arterial Blood Oxygen Saturation 97.2 % (92.0-98.0) 95.5 % (92.0-98.0) Arterial Blood Base Excess -0.3 -1.6 Cole Test Positive Positive Test 08/15/17 23:00 08/16/17 04:00 08/16/17 06:10 08/16/17 10:56 Lactic Acid Level 1.50 mmol/L (0.66-2.22) D-Dimer 1179 ng/mL (<500) Sodium Level 126 mEQ/L (135-145) Potassium Level 3.9 mEQ/L (3.4-4.9) Chloride Level 84 mEQ/L (98-107) Carbon Dioxide Level 31 mEQ/L (20-30) Anion Gap 11 (5-15) Blood Urea Nitrogen 11 mg/dL (7-23) Creatinine 0.7 mg/dL (0.7-1.2) Estimat Glomerular Filtration Rate > 60 mL/min (>60) Glucose Level 96 mg/dL (74-106) Calcium Level 8.1 mg/dL (8.6-10.2) Magnesium Level 1.5 mg/dL (1.7-2.5) Troponin I < 0.30 ng/mL (<=0.30) White Blood Count 14.7 K/UL (4.8-10.8) Red Blood Count 5.48 M/UL (4.70-6.10) Hemoglobin 15.6 G/DL (14.2-18.0) Hematocrit 48.8 % (42.0-52.0) Mean Corpuscular Volume 89 FL (80-99) Mean Corpuscular Hemoglobin 28.5 PG (27.0-31.0) Mean Corpuscular Hemoglobin Concent 32.0 G/DL (32.0-36.0) Red Cell Distribution Width 13.3 % (11.6-14.8) Platelet Count 226 K/UL (150-450) Mean Platelet Volume 7.4 FL (6.5-10.1) Neutrophils (%) (Auto) 81.2 % (45.0-75.0) Lymphocytes (%) (Auto) 9.4 % (20.0-45.0) Monocytes (%) (Auto) 8.0 % (1.0-10.0) Eosinophils (%) (Auto) 0.0 % (0.0-3.0) Basophils (%) (Auto) 1.3 % (0.0-2.0) Arterial Blood pH 7.410 (7.350-7.450) Arterial Blood Partial Pressure CO2 54.1 mmHg (35.0-45.0) Arterial Blood Partial Pressure O2 71.4 mmHg (75.0-100.0) Arterial Blood HCO3 34.0 mmol/L (22.0-26.0) Arterial Blood Oxygen Saturation 94.8 % (92.0-98.0) Arterial Blood Base Excess 7.4 Cole Test Positive Test 08/17/17 04:00 08/17/17 08:00 08/18/17 04:20 Sodium Level 140 mEQ/L (135-145) Potassium Level 3.5 mEQ/L (3.4-4.9) Chloride Level 98 mEQ/L (98-107) Carbon Dioxide Level 31 mEQ/L (20-30) Anion Gap 11 (5-15) Blood Urea Nitrogen 10 mg/dL (7-23) Creatinine 0.8 mg/dL (0.7-1.2) Estimat Glomerular Filtration Rate > 60 mL/min (>60) Glucose Level 87 mg/dL (74-106) Calcium Level 8.6 mg/dL (8.6-10.2) Magnesium Level 2.1 mg/dL (1.7-2.5) 1.9 mg/dL (1.7-2.5) White Blood Count 11.8 K/UL (4.8-10.8) Red Blood Count 5.53 M/UL (4.70-6.10) Hemoglobin 16.1 G/DL (14.2-18.0) Hematocrit 50.1 % (42.0-52.0) Mean Corpuscular Volume 91 FL (80-99) Mean Corpuscular Hemoglobin 29.1 PG (27.0-31.0) Mean Corpuscular Hemoglobin Concent 32.1 G/DL (32.0-36.0) Red Cell Distribution Width 13.8 % (11.6-14.8) Platelet Count 268 K/UL (150-450) Mean Platelet Volume 6.7 FL (6.5-10.1) Neutrophils (%) (Auto) 80.1 % (45.0-75.0) Lymphocytes (%) (Auto) 10.8 % (20.0-45.0) Monocytes (%) (Auto) 8.2 % (1.0-10.0) Eosinophils (%) (Auto) 0.1 % (0.0-3.0) Basophils (%) (Auto) 0.8 % (0.0-2.0) Objective: chronically ill-appearing obese male Vital Signs: Blood pressure 99/59, heart rate was 79, respirations 18 and O2 saturation 97% on the ventilator. HEENT: The head is normocephalic and atraumatic. PEERL. Neck: Supple. Trachea midline. JVD LUNGS: Bilateral wheezes now nearly resolved.reduced air entry without rhonchi HEART: RRR S1 and S2. No rubs, murmurs, or gallops. ABDOMEN: Soft and nontender. Bowel sounds are active. Extremities: No clubbing or cyanosis. 2+ edema and there is right leg brawny edema. His left below-knee stump is clean. Neurologic: improved LOC no gross focal findings. Micro: Microbiology Date/Time Source Procedure Growth Status 08/15/17 18:50 Blood Blood Culture - Preliminary NO GROWTH AFTER 48 HOURS Resulted 08/15/17 17:50 Blood Blood Culture - Preliminary NO GROWTH AFTER 48 HOURS Resulted 08/16/17 04:50 Penis Genital Culture - Preliminary Normal rafy/No GC Resulted 08/17/17 10:00 Sputum Gram Stain - Final Resulted 08/17/17 10:00 Sputum Sputum Culture - Preliminary NO GROWTH AFTER 24 HOURS Resulted 08/15/17 21:30 Rectum VRE Culture - Final NO VANCOMYCIN RESISTANT ENTEROCOCCUS ... Complete Accucheck: 96 CLARENCE CRUZ Aug 18, 2017 14:10
[2017-08-18] MEDS: D5 1/2NS w/KCl 40meq 1000ml 1,000 ML IV SCH (14:40)
[2017-08-18] MEDS: Dyna-Hex 2% Top Sol 2oz TOPIC SCH (20:42)
--- NOTE | 2017-08-18 22:22 | Cardiology Progress Note ---
Assessment/Plan Assessment/Plan start on Amiodarone need to follow lytes daily Subjective Subjective opens his eyes Objective Last 24 Hour Vital Signs Date Time Temp Pulse Resp B/P (MAP) Pulse Ox O2 Delivery O2 Flow Rate FiO2 08/18/17 21:00 94 16 107/65 97 Nasal Cannula 2.0 08/18/17 20:00 99 08/18/17 20:00 97.8 98 18 102/63 93 Nasal Cannula 3.0 08/18/17 19:00 97 18 89/51 90 Room Air 08/18/17 18:00 99 20 110/59 96 Room Air 08/18/17 17:00 94 19 155/91 90 Room Air 08/18/17 16:00 93 08/18/17 16:00 40.0 08/18/17 16:00 97.5 92 18 137/83 95 Venturi Mask 40 08/18/17 15:00 88 17 131/69 96 Venturi Mask 40 08/18/17 14:09 Non-Rebreather 10.0 40 08/18/17 14:00 104 22 120/78 91 Venturi Mask 40 08/18/17 13:30 89 18 94 Venturi Mask 40 08/18/17 13:20 91 08/18/17 13:00 87 18 120/64 91 Mechanical Ventilator 30 08/18/17 12:00 91 08/18/17 12:00 99.9 72 18 109/61 91 Mechanical Ventilator 40 08/18/17 12:00 30 08/18/17 11:00 81 20 135/78 95 Mechanical Ventilator 40 08/18/17 11:00 80 20 40 08/18/17 10:08 112/69 08/18/17 10:00 76 20 112/69 94 Mechanical Ventilator 40 08/18/17 09:11 71 20 40 08/18/17 09:00 72 20 117/65 92 Mechanical Ventilator 40 08/18/17 08:00 99.7 75 18 118/73 95 Mechanical Ventilator 40 08/18/17 08:00 79 08/18/17 07:53 40 08/18/17 07:07 73 20 40 08/18/17 07:00 75 20 116/66 96 Mechanical Ventilator 40 08/18/17 06:00 74 20 113/66 95 Mechanical Ventilator 40 08/18/17 05:22 81 20 40 08/18/17 05:00 77 20 93/68 94 Mechanical Ventilator 40 08/18/17 04:00 40 08/18/17 04:00 98.7 72 20 110/65 95 Mechanical Ventilator 40 08/18/17 04:00 73 08/18/17 03:05 73 20 40 08/18/17 03:00 75 20 118/69 94 Mechanical Ventilator 40 08/18/17 02:00 72 19 111/63 99 Mechanical Ventilator 40 08/18/17 01:00 74 19 120/64 99 Mechanical Ventilator 40 08/18/17 00:37 68 20 40 08/18/17 00:00 40 08/18/17 00:00 98.5 80 20 120/55 99 Mechanical Ventilator 40 08/18/17 00:00 78 08/17/17 23:03 79 20 40 08/17/17 23:00 78 20 116/62 94 Mechanical Ventilator 40 General Appearance: on vent EENT: PERRL/EOMI Neck: JVD Rhythm: NSR Cardiovascular: regular rhythm Respiratory/Chest: crackles/rales Abdomen: other - obese Extremities: severe edema Intake and Output 08/18/17 08/19/17 19:00 07:00 Intake Total 1817.5 ml 185 ml Output Total 2300 ml 350 ml Balance -482.5 ml -165 ml Intake Oral 1060 ml 150 ml IV Total 687.5 ml 35 ml Other 70 ml Output Urine Total 2300 ml 350 ml Laboratory Tests Test 08/18/17 04:20 Magnesium Level 1.9 mg/dL (1.7-2.5) Microbiology Date/Time Source Procedure Growth Status 08/16/17 04:50 Penis Genital Culture - Preliminary Normal rafy/No GC Resulted 08/17/17 10:00 Sputum Gram Stain - Final Resulted 08/17/17 10:00 Sputum Sputum Culture - Preliminary NO GROWTH AFTER 24 HOURS Resulted Objective [id number] SHAYY ZEE Aug 18, 2017 22:22
[2017-08-19] VITALS (20 sets, daily range): BP systolic 94–130; BP diastolic 46–78
[2017-08-19 05:57] LABS: ANION GAP 12 (5-15); CALCIUM 8.8 mg/dL (8.6-10.2); CARBON DIOXIDE 30 mEQ/L (20-30); CHLORIDE 96 mEQ/L (98-107); CREATININE 0.8 mg/dL (0.7-1.2); GLOMERULAR FILTRATION RATE > 60 mL/min (>60); HEMOLYSIS 2; POTASSIUM 3.3 mEQ/L (3.4-4.9); SODIUM 138 mEQ/L (135-145)
[2017-08-19] MEDS: Piperacillin/Tazobactam 3.375 GM in D5W 110 ML IVPB SCH ×3 (06:08→22:00)
[2017-08-19] MEDS: NovoLOG Insulin Flexpen SUBQ SCH ×4 (06:10→21:00)
[2017-08-19] MEDS: Heparin 5000 units/ml inj SUBQ SCH ×3 (06:10→22:59)
[2017-08-19] MEDS: Pantoprazole Inj IVP SCH (08:15)
[2017-08-19] MEDS: Losartan 25mg tab ORAL SCH (08:15)
[2017-08-19 08:41] LABS: ABG PCO2 49.5 mmHg (35.0-45.0)
[2017-08-19 08:42] LABS: ABG ALLEN TEST POSITIVE; ABG BASE EXCESS 3.7
[2017-08-19] MEDS ORDERED: Amiodarone 200mg tab ORAL SCH (09:00)
[2017-08-19] MEDS: D5 1/2NS w/KCl 40meq 1000ml 1,000 ML IV SCH (14:34)
--- NOTE | 2017-08-19 15:19 | General Progress Note ---
Assessment/Plan Assessment/Plan PAF - now SR. Per Cards CHF -diurese. Resp Failure - vent. Weaned. start on diet Subjective Allergies: Coded Allergies: No Known Allergies (Unverified , 08/15/17) Subjective Extubated Objective Last 24 Hour Vital Signs Date Time Temp Pulse Resp B/P (MAP) Pulse Ox O2 Delivery O2 Flow Rate FiO2 08/19/17 15:00 91 15 118/57 95 Nasal Cannula 4.0 08/19/17 14:00 87 15 100/56 95 Nasal Cannula 4.0 08/19/17 13:00 88 15 94/51 95 Nasal Cannula 4.0 08/19/17 12:00 95 08/19/17 12:00 98.0 98 16 128/70 95 Nasal Cannula 4.0 08/19/17 11:00 90 15 120/71 95 Nasal Cannula 4.0 08/19/17 10:00 94 15 118/68 95 Nasal Cannula 4.0 08/19/17 09:00 92 14 129/74 95 Nasal Cannula 4.0 08/19/17 08:15 130/78 08/19/17 08:00 82 08/19/17 08:00 97.8 82 16 130/78 95 Nasal Cannula 4.0 08/19/17 07:00 Nasal Cannula 4.0 08/19/17 07:00 87 14 116/67 95 Nasal Cannula 4.0 08/19/17 06:59 97 Nasal Cannula 4.0 08/19/17 06:56 80 16 Nasal Cannula 4.0 08/19/17 06:00 88 14 103/58 94 Nasal Cannula 4.0 08/19/17 05:00 84 14 120/61 98 Nasal Cannula 4.0 08/19/17 04:00 84 08/19/17 04:00 97.8 83 16 102/46 95 Nasal Cannula 4.0 08/19/17 03:00 84 22 103/61 94 Nasal Cannula 4.0 08/19/17 02:00 88 22 99/51 94 Nasal Cannula 2.0 08/19/17 01:00 88 19 109/62 94 Nasal Cannula 2.0 08/19/17 00:00 97.6 88 19 109/64 90 Nasal Cannula 2.0 08/19/17 00:00 90 08/18/17 23:00 92 19 102/70 91 Nasal Cannula 2.0 08/18/17 22:00 93 19 112/65 93 Nasal Cannula 2.0 08/18/17 21:00 94 16 107/65 97 Nasal Cannula 2.0 08/18/17 20:00 99 08/18/17 20:00 97.8 98 18 102/63 93 Nasal Cannula 3.0 08/18/17 19:00 97 18 89/51 90 Room Air 08/18/17 18:00 99 20 110/59 96 Room Air 08/18/17 17:00 94 19 155/91 90 Room Air 08/18/17 16:00 93 08/18/17 16:00 40.0 08/18/17 16:00 97.5 92 18 137/83 95 Venturi Mask 40 Intake and Output 08/19/17 08/20/17 19:00 07:00 Intake Total 405.0 ml Output Total 2425 ml Balance -2020.0 ml Intake Oral 120 ml IV Total 285.0 ml Output Urine Total 2425 ml Laboratory Tests 08/19/17 04:15: Sodium Level 138, Potassium Level 3.3L, Chloride Level 96L, Carbon Dioxide Level 30, Anion Gap 12, Blood Urea Nitrogen 8, Creatinine 0.8, Estimat Glomerular Filtration Rate > 60, Glucose Level 119H, Calcium Level 8.8, Magnesium Level 2.0 08/19/17 08:35: Arterial Blood pH 7.398, Arterial Blood Partial Pressure CO2 49.5H, Arterial Blood Partial Pressure O2 80.5, Arterial Blood HCO3 29.8H, Arterial Blood Oxygen Saturation 96.4, Arterial Blood Base Excess 3.7, Cole Test Positive Height (Feet): 5 Height (Inches): 6.00 Weight (Pounds): 305 Objective NAD. Monitor SR. AVSS Cv RR Lungs CTA Abd pendulous. SNT. BS + E No CCE. L BKA clean. Neuro alert +responsive. ZAIN KAN Aug 19, 2017 15:19
[2017-08-19] MEDS ORDERED: Tubing IV Secondary IV ONE (16:49)
[2017-08-19] MEDS ORDERED: NS 275ml ONE (16:49)
--- NOTE | 2017-08-19 17:12 | Critical Care Progress Note ---
Assessment/Plan Assessment/Plan ASSESSMENT: 1. Congestive heart failure, acute systolic 2. respiratory failure 3. Paroxysmal atrial flutter. 4. Hypoxemia 5. Morbid obesity. 6. Type 2 diabetes mellitus. 7. History of psychosis. 8. Hypertensive cardiovascular disease. 9. Status post left below-knee amputation. 10. Chronic obstructive pulmonary disease. 11. possible respiratory infection with evidence of pulmonary edema PLAN care noted and reviewed IV diuresis as able respiratory care as is Ventilatory support off SNF meds noted supportive care suction not needed able to cough stable off the ventilator and titrate oxygen overall improved may downgrade to tele medications/laboratory data/nursing notes/ICU care reviewed in detail note reviewed and edited care discussed with RN and RT ICU time spent 35 minutes Critical Care - Subjective Interval Events: stable overnight d/w primary no acute issues stable off the ventilator oxygen needs reviewed ROS Limited/Unobtainable: No Condition: improving EKG Rhythm: Sinus Rhythm I&O: Intake and Output 08/19/17 08/20/17 19:00 07:00 Intake Total 455.0 ml Output Total 2695 ml Balance -2240.0 ml Intake Oral 120 ml IV Total 335.0 ml Output Urine Total 2695 ml Critical Care - Objective ET-Tube: 7.0 ET Position: 25 Last 24 Hour Vital Signs Date Time Temp Pulse Resp B/P (MAP) Pulse Ox O2 Delivery O2 Flow Rate FiO2 08/19/17 17:00 84 16 120/57 95 Nasal Cannula 4.0 08/19/17 16:00 83 08/19/17 16:00 97.8 86 16 101/48 95 Nasal Cannula 4.0 08/19/17 15:00 91 15 118/57 95 Nasal Cannula 4.0 08/19/17 14:00 87 15 100/56 95 Nasal Cannula 4.0 08/19/17 13:00 88 15 94/51 95 Nasal Cannula 4.0 08/19/17 12:00 95 08/19/17 12:00 98.0 98 16 128/70 95 Nasal Cannula 4.0 08/19/17 11:00 90 15 120/71 95 Nasal Cannula 4.0 08/19/17 10:00 94 15 118/68 95 Nasal Cannula 4.0 08/19/17 09:00 92 14 129/74 95 Nasal Cannula 4.0 08/19/17 08:15 130/78 08/19/17 08:00 82 08/19/17 08:00 97.8 82 16 130/78 95 Nasal Cannula 4.0 08/19/17 07:00 Nasal Cannula 4.0 08/19/17 07:00 87 14 116/67 95 Nasal Cannula 4.0 08/19/17 06:59 97 Nasal Cannula 4.0 08/19/17 06:56 80 16 Nasal Cannula 4.0 08/19/17 06:00 88 14 103/58 94 Nasal Cannula 4.0 08/19/17 05:00 84 14 120/61 98 Nasal Cannula 4.0 08/19/17 04:00 84 08/19/17 04:00 97.8 83 16 102/46 95 Nasal Cannula 4.0 08/19/17 03:00 84 22 103/61 94 Nasal Cannula 4.0 08/19/17 02:00 88 22 99/51 94 Nasal Cannula 2.0 08/19/17 01:00 88 19 109/62 94 Nasal Cannula 2.0 08/19/17 00:00 97.6 88 19 109/64 90 Nasal Cannula 2.0 08/19/17 00:00 90 08/18/17 23:00 92 19 102/70 91 Nasal Cannula 2.0 08/18/17 22:00 93 19 112/65 93 Nasal Cannula 2.0 08/18/17 21:00 94 16 107/65 97 Nasal Cannula 2.0 08/18/17 20:00 99 08/18/17 20:00 97.8 98 18 102/63 93 Nasal Cannula 3.0 08/18/17 19:00 97 18 89/51 90 Room Air 08/18/17 18:00 99 20 110/59 96 Room Air Labs: Labs Test 08/17/17 04:00 08/17/17 08:00 08/18/17 04:20 08/19/17 04:15 Sodium Level 140 mEQ/L (135-145) 138 mEQ/L (135-145) Potassium Level 3.5 mEQ/L (3.4-4.9) 3.3 mEQ/L (3.4-4.9) Chloride Level 98 mEQ/L (98-107) 96 mEQ/L (98-107) Carbon Dioxide Level 31 mEQ/L (20-30) 30 mEQ/L (20-30) Anion Gap 11 (5-15) 12 (5-15) Blood Urea Nitrogen 10 mg/dL (7-23) 8 mg/dL (7-23) Creatinine 0.8 mg/dL (0.7-1.2) 0.8 mg/dL (0.7-1.2) Estimat Glomerular Filtration Rate > 60 mL/min (>60) > 60 mL/min (>60) Glucose Level 87 mg/dL (74-106) 119 mg/dL (74-106) Calcium Level 8.6 mg/dL (8.6-10.2) 8.8 mg/dL (8.6-10.2) Magnesium Level 2.1 mg/dL (1.7-2.5) 1.9 mg/dL (1.7-2.5) 2.0 mg/dL (1.7-2.5) White Blood Count 11.8 K/UL (4.8-10.8) Red Blood Count 5.53 M/UL (4.70-6.10) Hemoglobin 16.1 G/DL (14.2-18.0) Hematocrit 50.1 % (42.0-52.0) Mean Corpuscular Volume 91 FL (80-99) Mean Corpuscular Hemoglobin 29.1 PG (27.0-31.0) Mean Corpuscular Hemoglobin Concent 32.1 G/DL (32.0-36.0) Red Cell Distribution Width 13.8 % (11.6-14.8) Platelet Count 268 K/UL (150-450) Mean Platelet Volume 6.7 FL (6.5-10.1) Neutrophils (%) (Auto) 80.1 % (45.0-75.0) Lymphocytes (%) (Auto) 10.8 % (20.0-45.0) Monocytes (%) (Auto) 8.2 % (1.0-10.0) Eosinophils (%) (Auto) 0.1 % (0.0-3.0) Basophils (%) (Auto) 0.8 % (0.0-2.0) Test 08/19/17 08:35 Arterial Blood pH 7.398 (7.350-7.450) Arterial Blood Partial Pressure CO2 49.5 mmHg (35.0-45.0) Arterial Blood Partial Pressure O2 80.5 mmHg (75.0-100.0) Arterial Blood HCO3 29.8 mmol/L (22.0-26.0) Arterial Blood Oxygen Saturation 96.4 % (92.0-98.0) Arterial Blood Base Excess 3.7 Cole Test Positive Objective: alert NAD HEENT: The head is normocephalic and atraumatic. PEERL. Neck: Supple. Trachea midline. JVD LUNGS: improved air entry without rhonchi or wheeze HEART: RRR S1 and S2. No rubs, murmurs, or gallops. ABDOMEN: Soft and nontender. Bowel sounds are active. Extremities: No clubbing or cyanosis. 1+ edema and there is right leg brawny edema. His left below-knee stump is clean. Neurologic: alert and oriented weak Micro: Microbiology Date/Time Source Procedure Growth Status 08/17/17 10:00 Sputum Gram Stain - Final Complete 08/17/17 10:00 Sputum Sputum Culture - Final NO GROWTH AFTER 48 HOURS Complete Accucheck: 111 CLARENCE CRUZ Aug 19, 2017 17:12
[2017-08-19] MEDS ORDERED: D5 1/2NS w/KCl 40meq 1000ml 1,000 ML IV SCH (18:30)
[2017-08-19] MEDS ORDERED: Morphine Sulfate 4mg/ml Inj IVP PRN (20:00)
[2017-08-19] MEDS ORDERED: Morphine Sulfate 2mg/ml Inj IVP PRN (20:30)
[2017-08-19] MEDS ORDERED: Albuterol/Ipratropium 3ml neb HHN PRN (21:00)
[2017-08-19] MEDS ORDERED: Dyna-Hex 2% Top Sol 2oz TOPIC SCH (21:00)
--- NOTE | 2017-08-19 22:14 | Cardiology Progress Note ---
Assessment/Plan Assessment/Plan patient is recovering from pulmonary edema his a fib now resolved however, he is at risk for stroke, his CHADS2 score is 2 (HTN and DM) he should be antiocagulated with Coumadin with target INR 2.0-3.[address] Castro Subjective Subjective The patient is alert and oriented reports feeling better no chest pain Objective Last 24 Hour Vital Signs Date Time Temp Pulse Resp B/P (MAP) Pulse Ox O2 Delivery O2 Flow Rate FiO2 08/19/17 20:00 92 08/19/17 20:00 97.7 90 18 98/61 91 Nasal Cannula 2.0 08/19/17 18:00 80 15 118/57 95 Nasal Cannula 2.0 08/19/17 17:00 84 16 120/57 95 Nasal Cannula 4.0 08/19/17 16:00 83 08/19/17 16:00 97.8 86 16 101/48 95 Nasal Cannula 4.0 08/19/17 15:00 91 15 118/57 95 Nasal Cannula 4.0 08/19/17 14:00 87 15 100/56 95 Nasal Cannula 4.0 08/19/17 13:00 88 15 94/51 95 Nasal Cannula 4.0 08/19/17 12:00 95 08/19/17 12:00 98.0 98 16 128/70 95 Nasal Cannula 4.0 08/19/17 11:00 90 15 120/71 95 Nasal Cannula 4.0 08/19/17 10:00 94 15 118/68 95 Nasal Cannula 4.0 08/19/17 09:00 92 14 129/74 95 Nasal Cannula 4.0 08/19/17 08:15 130/78 08/19/17 08:00 82 08/19/17 08:00 97.8 82 16 130/78 95 Nasal Cannula 4.0 08/19/17 07:00 Nasal Cannula 4.0 08/19/17 07:00 87 14 116/67 95 Nasal Cannula 4.0 08/19/17 06:59 97 Nasal Cannula 4.0 08/19/17 06:56 80 16 Nasal Cannula 4.0 08/19/17 06:00 88 14 103/58 94 Nasal Cannula 4.0 08/19/17 05:00 84 14 120/61 98 Nasal Cannula 4.0 08/19/17 04:00 84 08/19/17 04:00 97.8 83 16 102/46 95 Nasal Cannula 4.0 08/19/17 03:00 84 22 103/61 94 Nasal Cannula 4.0 08/19/17 02:00 88 22 99/51 94 Nasal Cannula 2.0 08/19/17 01:00 88 19 109/62 94 Nasal Cannula 2.0 08/19/17 00:00 97.6 88 19 109/64 90 Nasal Cannula 2.0 08/19/17 00:00 90 08/18/17 23:00 92 19 102/70 91 Nasal Cannula 2.0 General Appearance: severe distress - on Nc, other - morbidly obese resting comfortably EENT: PERRL/EOMI Neck: supple Rhythm: NSR Cardiovascular: normal rate Respiratory/Chest: crackles/rales Abdomen: non tender, other - morbidly obese, Extremities: other - left AKA, right leg edema Intake and Output 08/19/17 08/20/17 19:00 07:00 Intake Total 755.0 ml 35 ml Output Total 3095 ml Balance -2340.0 ml 35 ml Intake Oral 170 ml IV Total 585.0 ml 35 ml Output Urine Total 3095 ml Laboratory Tests Test 08/19/17 04:15 08/19/17 08:35 Sodium Level 138 mEQ/L (135-145) Potassium Level 3.3 mEQ/L (3.4-4.9) L Chloride Level 96 mEQ/L (98-107) L Carbon Dioxide Level 30 mEQ/L (20-30) Anion Gap 12 (5-15) Blood Urea Nitrogen 8 mg/dL (7-23) Creatinine 0.8 mg/dL (0.7-1.2) Estimat Glomerular Filtration Rate > 60 mL/min (>60) Glucose Level 119 mg/dL (74-106) H Calcium Level 8.8 mg/dL (8.6-10.2) Magnesium Level 2.0 mg/dL (1.7-2.5) Arterial Blood pH 7.398 (7.350-7.450) Arterial Blood Partial Pressure CO2 49.5 mmHg (35.0-45.0) H Arterial Blood Partial Pressure O2 80.5 mmHg (75.0-100.0) Arterial Blood HCO3 29.8 mmol/L (22.0-26.0) H Arterial Blood Oxygen Saturation 96.4 % (92.0-98.0) Arterial Blood Base Excess 3.7 Cole Test Positive Microbiology Date/Time Source Procedure Growth Status 08/17/17 10:00 Sputum Gram Stain - Final Complete 08/17/17 10:00 Sputum Sputum Culture - Final NO GROWTH AFTER 48 HOURS Complete Objective [id number] SHAYY ZEE Aug 19, 2017 22:14
[2017-08-20] VITALS: BP 109/70
[2017-08-20 04:00] VITALS: BP_SYST 109; BP_SYST 126; BP_DIAS 60; BP_DIAS 78
[2017-08-20] MEDS: Piperacillin/Tazobactam 3.375 GM in D5W 110 ML IVPB SCH ×4 (05:52→22:00)
[2017-08-20] MEDS: NovoLOG Insulin Flexpen SUBQ SCH ×4 (05:53→21:00)
[2017-08-20] MEDS: Heparin 5000 units/ml inj SUBQ SCH (06:06)
[2017-08-20 08:00] VITALS: BP 114/83
--- NOTE | 2017-08-20 09:01 | Critical Care Progress Note ---
Assessment/Plan Assessment/Plan ASSESSMENT: 1. Congestive heart failure, acute systolic 2. respiratory failure 3. Paroxysmal atrial flutter. 4. Hypoxemia 5. Morbid obesity. 6. Type 2 diabetes mellitus. 7. History of psychosis. 8. Hypertensive cardiovascular disease. 9. Status post left below-knee amputation. 10. Chronic obstructive pulmonary disease. PLAN care noted and reviewed IV diuresis respiratory care Ventilatory support off supportive care suction advance diet monitor oxygen needs medications/laboratory data/nursing notes reviewed in detail note reviewed and edited care discussed with RN and RT Critical Care - Subjective Condition: improving EKG Rhythm: Sinus Rhythm Critical Care - Objective ET-Tube: 7.0 ET Position: 25 Last 24 Hour Vital Signs Date Time Temp Pulse Resp B/P (MAP) Pulse Ox O2 Delivery O2 Flow Rate FiO2 08/20/17 08:00 98.2 87 20 114/83 93 Nasal Cannula 2.0 08/20/17 04:00 97.0 89 20 109/60 94 Nasal Cannula 2.0 08/20/17 04:00 93 08/20/17 00:00 97.5 87 18 109/70 90 Nasal Cannula 2.0 08/19/17 20:00 92 08/19/17 20:00 97.7 90 18 98/61 91 Nasal Cannula 2.0 08/19/17 18:00 80 15 118/57 95 Nasal Cannula 2.0 08/19/17 17:00 84 16 120/57 95 Nasal Cannula 4.0 08/19/17 16:00 83 08/19/17 16:00 97.8 86 16 101/48 95 Nasal Cannula 4.0 08/19/17 15:00 91 15 118/57 95 Nasal Cannula 4.0 08/19/17 14:00 87 15 100/56 95 Nasal Cannula 4.0 08/19/17 13:00 88 15 94/51 95 Nasal Cannula 4.0 08/19/17 12:00 95 08/19/17 12:00 98.0 98 16 128/70 95 Nasal Cannula 4.0 08/19/17 11:00 90 15 120/71 95 Nasal Cannula 4.0 08/19/17 10:00 94 15 118/68 95 Nasal Cannula 4.0 Labs: Labs Test 08/18/17 04:20 08/19/17 04:15 08/19/17 08:35 Magnesium Level 1.9 mg/dL (1.7-2.5) 2.0 mg/dL (1.7-2.5) Sodium Level 138 mEQ/L (135-145) Potassium Level 3.3 mEQ/L (3.4-4.9) Chloride Level 96 mEQ/L (98-107) Carbon Dioxide Level 30 mEQ/L (20-30) Anion Gap 12 (5-15) Blood Urea Nitrogen 8 mg/dL (7-23) Creatinine 0.8 mg/dL (0.7-1.2) Estimat Glomerular Filtration Rate > 60 mL/min (>60) Glucose Level 119 mg/dL (74-106) Calcium Level 8.8 mg/dL (8.6-10.2) Arterial Blood pH 7.398 (7.350-7.450) Arterial Blood Partial Pressure CO2 49.5 mmHg (35.0-45.0) Arterial Blood Partial Pressure O2 80.5 mmHg (75.0-100.0) Arterial Blood HCO3 29.8 mmol/L (22.0-26.0) Arterial Blood Oxygen Saturation 96.4 % (92.0-98.0) Arterial Blood Base Excess 3.7 Cole Test Positive Objective: chronically ill-appearing obese male HEENT: The head is normocephalic and atraumatic. PEERL. Neck: Supple. Trachea midline. JVD LUNGS: fairly clear without rhonchi or wheeze HEART: RRR S1 and S2. No rubs, murmurs, or gallops. ABDOMEN: Soft and nontender. Bowel sounds are active. Extremities: No clubbing or cyanosis. 2+ edema and there is right leg brawny edema. His left below-knee stump is clean. Neurologic: reduced LOC no gross focal findings. Micro: Microbiology Date/Time Source Procedure Growth Status 08/17/17 10:00 Sputum Gram Stain - Final Complete 08/17/17 10:00 Sputum Sputum Culture - Final NO GROWTH AFTER 48 HOURS Complete Accucheck: 115 CLARENCE CRUZ Aug 20, 2017 09:01
[2017-08-20] MEDS: Pantoprazole Inj IVP SCH (09:40)
[2017-08-20] MEDS: Losartan 25mg tab ORAL SCH (09:41)
[2017-08-20] MEDS: Amiodarone 200mg tab ORAL SCH (09:41)
--- NOTE | 2017-08-20 10:16 | General Progress Note ---
Assessment/Plan Assessment/Plan PAF - now SR. Per Cards CHF -diuresis continues. Agree with Coumadin. Starting. Resp Failure - vent. Weaned. start on diet + PT. Subjective Allergies: Coded Allergies: No Known Allergies (Unverified , 08/15/17) Subjective Extubated Objective Last 24 Hour Vital Signs Date Time Temp Pulse Resp B/P (MAP) Pulse Ox O2 Delivery O2 Flow Rate FiO2 08/20/17 09:41 114/83 08/20/17 08:00 98.2 87 20 114/83 93 Nasal Cannula 2.0 08/20/17 04:00 97.0 89 20 109/60 94 Nasal Cannula 2.0 08/20/17 04:00 93 08/20/17 00:00 97.5 87 18 109/70 90 Nasal Cannula 2.0 08/19/17 20:00 92 08/19/17 20:00 97.7 90 18 98/61 91 Nasal Cannula 2.0 08/19/17 18:00 80 15 118/57 95 Nasal Cannula 2.0 08/19/17 17:00 84 16 120/57 95 Nasal Cannula 4.0 08/19/17 16:00 83 08/19/17 16:00 97.8 86 16 101/48 95 Nasal Cannula 4.0 08/19/17 15:00 91 15 118/57 95 Nasal Cannula 4.0 08/19/17 14:00 87 15 100/56 95 Nasal Cannula 4.0 08/19/17 13:00 88 15 94/51 95 Nasal Cannula 4.0 08/19/17 12:00 95 08/19/17 12:00 98.0 98 16 128/70 95 Nasal Cannula 4.0 08/19/17 11:00 90 15 120/71 95 Nasal Cannula 4.0 Height (Feet): 5 Height (Inches): 6.00 Weight (Pounds): 309 Objective NAD. Monitor SR. AVSS Cv RR Lungs CTA Abd pendulous. SNT. BS + E No CCE. L BKA clean. Neuro alert +responsive. ZAIN KAN Aug 20, 2017 10:16
--- NOTE | 2017-08-20 11:34 | Cardiology Progress Note ---
Assessment/Plan Assessment/Plan patient is recovering from pulmonary edema his a fib now resolved however, he is at risk for stroke, his CHADS2 score is 2 (HTN and DM) currently, he is on Lovenox he should be antiocagulated with Coumadin with target INR 2.0-3.0 Subjective Subjective The patient is alert and oriented reports feeling better no chest pain Objective Last 24 Hour Vital Signs Date Time Temp Pulse Resp B/P (MAP) Pulse Ox O2 Delivery O2 Flow Rate FiO2 08/20/17 09:41 114/83 08/20/17 08:00 98.2 87 20 114/83 93 Nasal Cannula 2.0 08/20/17 04:00 97.0 89 20 109/60 94 Nasal Cannula 2.0 08/20/17 04:00 93 08/20/17 00:00 97.5 87 18 109/70 90 Nasal Cannula 2.0 08/19/17 20:00 92 08/19/17 20:00 97.7 90 18 98/61 91 Nasal Cannula 2.0 08/19/17 18:00 80 15 118/57 95 Nasal Cannula 2.0 08/19/17 17:00 84 16 120/57 95 Nasal Cannula 4.0 08/19/17 16:00 83 08/19/17 16:00 97.8 86 16 101/48 95 Nasal Cannula 4.0 08/19/17 15:00 91 15 118/57 95 Nasal Cannula 4.0 08/19/17 14:00 87 15 100/56 95 Nasal Cannula 4.0 08/19/17 13:00 88 15 94/51 95 Nasal Cannula 4.0 08/19/17 12:00 95 08/19/17 12:00 98.0 98 16 128/70 95 Nasal Cannula 4.0 General Appearance: other - morbidly obese EENT: PERRL/EOMI Neck: other - cannot determine JVD due to obesity Rhythm: NSR Cardiovascular: normal rate Respiratory/Chest: rhonchi - bilaterally Abdomen: other Objective [id number] SHAYY ZEE Aug 20, 2017 11:34
--- NOTE | 2017-08-20 12:15 | Diagnostic Imaging Report ---
APPROVED REPORT CPT Code: 14449 Present Symptoms Shortness of breath Comments: Amputation: immediately below left knee. BILATERAL: Imaging reveals a patent deep venous system bilaterally. There is no evidence of thrombus within the femoral, popliteal or right tibial segments. The greater saphenous veins are also within normal limits. Doppler indicates normal spontaneous flow within these segments. The left tibial veins were not imaged, due to amputation.
[2017-08-20 12:50] VITALS: BP 114/76
[2017-08-20] MEDS ORDERED: Enoxaparin Sodium 300mg/3ml vial SUBQ SCH (13:00)
[2017-08-20 14:45] LABS: INR 1.3 (0.9-1.1); PROTHROMBIN TIME 13.5 SEC (9.30-11.50)
[2017-08-20] MEDS: Enoxaparin 100mg Inj SUBQ SCH (15:00)
[2017-08-20 16:00] VITALS: BP 104/73
[2017-08-20] MEDS ORDERED: Warfarin Sodium 5mg ORAL ONE (17:00)
[2017-08-20 20:00] VITALS: BP 101/66
[2017-08-21 00:31] VITALS: BP 110/62
[2017-08-21 04:00] VITALS: BP 106/65
[2017-08-21 04:29] LABS: ANION GAP 11 (5-15); CALCIUM 9.1 mg/dL (8.6-10.2); CARBON DIOXIDE 29 mEQ/L (20-30); CHLORIDE 98 mEQ/L (98-107); GLOMERULAR FILTRATION RATE > 60 mL/min (>60); HEMOLYSIS 5; POTASSIUM 4.5 mEQ/L (3.4-4.9); SODIUM 138 mEQ/L (135-145)
[2017-08-21 04:32] LABS: INR 1.1 (0.9-1.1); PROTHROMBIN TIME 11.5 SEC (9.30-11.50)
[2017-08-21] MEDS: Piperacillin/Tazobactam 3.375 GM in D5W 110 ML IVPB SCH ×3 (05:30→21:38)
[2017-08-21] MEDS: NovoLOG Insulin Flexpen SUBQ SCH ×4 (06:05→21:38)
[2017-08-21 08:00] VITALS: BP 106/55
[2017-08-21] MEDS: Amiodarone 200mg tab ORAL SCH (09:40)
[2017-08-21] MEDS: Pantoprazole Inj IVP SCH (09:41)
[2017-08-21] MEDS: Losartan 25mg tab ORAL SCH (09:41)
[2017-08-21] MEDS: Enoxaparin 100mg Inj SUBQ SCH (09:42)
--- NOTE | 2017-08-21 10:34 | General Progress Note ---
Assessment/Plan Assessment/Plan 1) A flutter 2) CHF 3) PNA 4) acute resp failure s/p extubation 5) morbid obesity Plan Coumadin and lovenox per Rx Subjective Allergies: Coded Allergies: No Known Allergies (Unverified , 08/15/17) Subjective No acute event, Sao2 was ok Objective Last 24 Hour Vital Signs Date Time Temp Pulse Resp B/P (MAP) Pulse Ox O2 Delivery O2 Flow Rate FiO2 08/21/17 09:41 106/55 08/21/17 08:00 102 08/21/17 08:00 98.1 104 19 106/55 100 Room Air 08/21/17 07:30 Room Air 21 08/21/17 07:30 105 20 Room Air 08/21/17 07:30 97 Room Air 21 08/21/17 04:00 98.0 96 19 106/65 96 Room Air 08/21/17 03:42 96 08/21/17 00:31 97.9 103 20 110/62 95 Room Air 08/20/17 23:55 100 08/20/17 20:00 98.0 91 20 101/66 99 Room Air 08/20/17 19:50 100 08/20/17 19:34 96 18 Nasal Cannula 2.0 28 08/20/17 19:34 97 Nasal Cannula 2.0 28 08/20/17 19:34 Nasal Cannula 2.0 08/20/17 16:31 90 08/20/17 16:00 98.0 85 20 104/73 95 Nasal Cannula 2.0 08/20/17 12:50 97.5 98 20 114/76 100 Nasal Cannula Intake and Output 08/21/17 08/22/17 19:00 07:00 Intake Total 82.5 ml Balance 82.5 ml IV Total 82.5 ml Laboratory Tests 08/20/17 14:10: Prothrombin Time 13.5H, Prothromb Time International Ratio 1.3H 08/21/17 03:15: Prothrombin Time 11.5, Prothromb Time International Ratio 1.1, Sodium Level 138 , Potassium Level 4.5, Chloride Level 98, Carbon Dioxide Level 29, Anion Gap 11 , Blood Urea Nitrogen 10, Creatinine 1.0, Estimat Glomerular Filtration Rate > 60, Glucose Level 102, Calcium Level 9.1 Height (Feet): 5 Height (Inches): 6.00 Weight (Pounds): 309 Objective NAD, AAox2 morbid obese mild bilat basilar crackles+ S1,S2,irregular, no M/R/G soft, non tender, BS+ no edema JACI CANAS Aug 21, 2017 10:34
--- NOTE | 2017-08-21 11:46 | Cardiology Progress Note ---
Assessment/Plan Problem List: (1) CHF (congestive heart failure) (2) Pneumonia (3) Atrial flutter with rapid ventricular response Status: stable, progressing Status Narrative Mr. Diallo is maintaining SR on telemetry, on amiodarone Warfarin being started - inr subtherapeutic He is on lasix iv qd for pulm congestion/ diastolic HF Assessment/Plan Continue amiodarone, adjust warfarin for INR 2-3 Continue lasix Followup labs, incl BNP. Subjective ROS Limited/Unobtainable: No Subjective Mr. Diallo has no c/o of dyspnea or pain Objective Last 24 Hour Vital Signs Date Time Temp Pulse Resp B/P (MAP) Pulse Ox O2 Delivery O2 Flow Rate FiO2 08/21/17 09:41 106/55 08/21/17 08:00 102 08/21/17 08:00 98.1 104 19 106/55 100 Room Air 08/21/17 07:30 Room Air 08/21/17 07:30 105 20 Room Air 08/21/17 07:30 97 Room Air 08/21/17 04:00 98.0 96 19 106/65 96 Room Air 08/21/17 03:42 96 08/21/17 00:31 97.9 103 20 110/62 95 Room Air 08/20/17 23:55 100 08/20/17 20:00 98.0 91 20 101/66 99 Room Air 08/20/17 19:50 100 08/20/17 19:34 96 18 Nasal Cannula 2.0 08/20/17 19:34 97 Nasal Cannula 2.0 08/20/17 19:34 Nasal Cannula 2.0 08/20/17 16:31 90 08/20/17 16:00 98.0 85 20 104/73 95 Nasal Cannula 2.0 08/20/17 12:50 97.5 98 20 114/76 100 Nasal Cannula General Appearance: WD/WN, no apparent distress, alert, obese EENT: PERRL/EOMI Neck: supple, no JVD Rhythm: NSR Cardiovascular: normal rate, regular rhythm, no gallop/murmur Respiratory/Chest: lungs clear - clear anteriorly Abdomen: non tender, soft Extremities: other - L BKA. no edema Intake and Output 08/21/17 08/22/17 19:00 07:00 Intake Total 82.5 ml Balance 82.5 ml IV Total 82.5 ml Laboratory Tests Test 08/20/17 14:10 08/21/17 03:15 Prothrombin Time 13.5 SEC (9.30-11.50) H 11.5 SEC (9.30-11.50) Prothromb Time International Ratio 1.3 (0.9-1.1) H 1.1 (0.9-1.1) Sodium Level 138 mEQ/L (135-145) Potassium Level 4.5 mEQ/L (3.4-4.9) Chloride Level 98 mEQ/L (98-107) Carbon Dioxide Level 29 mEQ/L (20-30) Anion Gap 11 (5-15) Blood Urea Nitrogen 10 mg/dL (7-23) Creatinine 1.0 mg/dL (0.7-1.2) Estimat Glomerular Filtration Rate > 60 mL/min (>60) Glucose Level 102 mg/dL (74-106) Calcium Level 9.1 mg/dL (8.6-10.2) VANESSA LOCK Aug 21, 2017 11:46
[2017-08-21 12:17] VITALS: BP 124/76
[2017-08-21 16:45] VITALS: BP 112/60
[2017-08-21] MEDS ORDERED: Warfarin Sodium 7.5mg ORAL ONE (17:00)
[2017-08-21 20:00] VITALS: BP 109/55
--- NOTE | 2017-08-21 20:33 | Critical Care Progress Note ---
Assessment/Plan Assessment/Plan ASSESSMENT: 1. Congestive heart failure, acute systolic 2. respiratory failure 3. Paroxysmal atrial flutter. 4. Hypoxemia 5. Morbid obesity. 6. Type 2 diabetes mellitus. 7. History of psychosis. 8. Hypertensive cardiovascular disease. 9. Status post left below-knee amputation. 10. Chronic obstructive pulmonary disease. PLAN care noted and reviewed cards noted respiratory care Ventilatory support off and stable supportive care suction advance diet dc planning monitor oxygen needs medications/laboratory data/nursing notes reviewed in detail note reviewed and edited care discussed with RN and RT Critical Care - Subjective Interval Events: no distress care noted cards reviewed I&O: Intake and Output 08/21/17 08/22/17 19:00 07:00 Intake Total 892.5 ml Output Total 2700 ml Balance -1807.5 ml Intake Oral 700 ml IV Total 192.5 ml Output Urine Total 2700 ml Critical Care - Objective ET-Tube: 7.0 ET Position: 25 Last 24 Hour Vital Signs Date Time Temp Pulse Resp B/P (MAP) Pulse Ox O2 Delivery O2 Flow Rate FiO2 08/21/17 19:55 Room Air 08/21/17 19:54 91 Room Air 21 08/21/17 19:54 104 18 Room Air 08/21/17 16:45 98.8 72 19 112/60 100 Room Air 08/21/17 16:00 101 08/21/17 12:17 98.7 109 20 124/76 93 Room Air 08/21/17 12:00 110 08/21/17 09:41 106/55 08/21/17 08:00 102 08/21/17 08:00 98.1 104 19 106/55 100 Room Air 08/21/17 07:30 Room Air 21 08/21/17 07:30 105 20 Room Air 08/21/17 07:30 97 Room Air 21 08/21/17 04:00 98.0 96 19 106/65 96 Room Air 08/21/17 03:42 96 08/21/17 00:31 97.9 103 20 110/62 95 Room Air 08/20/17 23:55 100 Objective: alert obese male HEENT: The head is normocephalic and atraumatic. PEERL. Neck: Supple. Trachea midline. JVD LUNGS: fairly clear without rhonchi or wheeze HEART: RRR S1 and S2. No rubs, murmurs, or gallops. ABDOMEN: Soft and nontender. Bowel sounds are active. Extremities: No clubbing or cyanosis. 2+ edema and there is right leg brawny edema. His left below-knee stump is clean. Neurologic: reduced LOC no gross focal findings. Accucheck: 92 CLARENCE CRUZ Aug 21, 2017 20:32
[2017-08-22] VITALS: BP 110/61
[2017-08-22 04:00] VITALS: BP 112/68
[2017-08-22 05:15] LABS: ANION GAP 14 (5-15); CALCIUM 9.2 mg/dL (8.6-10.2); CARBON DIOXIDE 28 mEQ/L (20-30); CHLORIDE 95 mEQ/L (98-107); CREATININE 0.9 mg/dL (0.7-1.2); GLOMERULAR FILTRATION RATE > 60 mL/min (>60); HEMOLYSIS 3; POTASSIUM 3.9 mEQ/L (3.4-4.9); SODIUM 137 mEQ/L (135-145)
[2017-08-22 05:28] LABS: INR 2.2 (0.9-1.1); PROTHROMBIN TIME 22.7 SEC (9.30-11.50)
[2017-08-22] MEDS: Piperacillin/Tazobactam 3.375 GM in D5W 110 ML IVPB SCH ×3 (05:40→21:11)
[2017-08-22] MEDS: NovoLOG Insulin Flexpen SUBQ SCH ×4 (06:28→21:09)
[2017-08-22 08:00] VITALS: BP 125/72
[2017-08-22] MEDS: Pantoprazole Inj IVP SCH (09:28)
[2017-08-22] MEDS: Amiodarone 200mg tab ORAL SCH (09:29)
[2017-08-22] MEDS: Losartan 25mg tab ORAL SCH (09:29)
[2017-08-22] MEDS: Enoxaparin 100mg Inj SUBQ SCH (09:32)
--- NOTE | 2017-08-22 10:25 | General Progress Note ---
Assessment/Plan Assessment/Plan 1) A flutter 2) CHF 3) PNA 4) acute resp failure s/p extubation 5) morbid obesity Plan Coumadin and lovenox per Rx Subjective Allergies: Coded Allergies: No Known Allergies (Unverified , 08/15/17) Subjective No acute event, Sao2 was ok Objective Last 24 Hour Vital Signs Date Time Temp Pulse Resp B/P (MAP) Pulse Ox O2 Delivery O2 Flow Rate FiO2 08/22/17 09:44 Room Air 21 08/22/17 09:44 95 Room Air 21 08/22/17 09:44 86 18 Room Air 08/22/17 09:29 125/72 08/22/17 08:00 97.9 86 20 125/72 100 Room Air 08/22/17 04:00 97.0 98 20 112/68 94 Nasal Cannula 2.0 08/22/17 03:43 96 08/22/17 00:00 96 08/22/17 00:00 97.7 93 20 110/61 97 Nasal Cannula 2.0 08/21/17 20:17 92 08/21/17 20:00 98.3 103 20 109/55 99 Room Air 08/21/17 19:55 Room Air 21 08/21/17 19:54 91 Room Air 21 08/21/17 19:54 104 18 Room Air 08/21/17 16:45 98.8 72 19 112/60 100 Room Air 08/21/17 16:00 101 08/21/17 12:17 98.7 109 20 124/76 93 Room Air 08/21/17 12:00 110 Laboratory Tests 08/22/17 03:25: Prothrombin Time 22.7H, Prothromb Time International Ratio 2.2H, Sodium Level 137, Potassium Level 3.9, Chloride Level 95L, Carbon Dioxide Level 28, Anion Gap 14, Blood Urea Nitrogen 11, Creatinine 0.9, Estimat Glomerular Filtration Rate > 60, Glucose Level 114H, Calcium Level 9.2, Pro-B-Type Natriuretic Peptide 24 Height (Feet): 5 Height (Inches): 6.00 Weight (Pounds): 309 Objective NAD, AAox2 morbid obese mild bilat basilar crackles+ S1,S2,irregular, no M/R/G soft, non tender, BS+ no edema CANAS,JACI Aug 22, 2017 10:25
--- NOTE | 2017-08-22 10:37 | Critical Care Progress Note ---
Assessment/Plan Assessment/Plan ASSESSMENT: 1. Congestive heart failure, acute systolic 2. respiratory failure 3. Paroxysmal atrial flutter. 4. Hypoxemia 5. Morbid obesity. 6. Type 2 diabetes mellitus. 7. History of psychosis. 8. Hypertensive cardiovascular disease. 9. Status post left below-knee amputation. 10. Chronic obstructive pulmonary disease. PLAN anticoagulation monitor for bleeding care noted and reviewed cards noted respiratory care encourage cough advance diet dc planning monitor oxygen needs medications/laboratory data/nursing notes reviewed in detail note reviewed and edited care discussed with RN and RT Critical Care - Subjective Interval Events: stable on anticoag comfortable low flow oxyge Condition: stable EKG Rhythm: Atrial Flutter Critical Care - Objective ET-Tube: 7.0 ET Position: 25 Last 24 Hour Vital Signs Date Time Temp Pulse Resp B/P (MAP) Pulse Ox O2 Delivery O2 Flow Rate FiO2 08/22/17 09:44 Room Air 21 08/22/17 09:44 95 Room Air 21 08/22/17 09:44 86 18 Room Air 08/22/17 09:29 125/72 08/22/17 08:00 97.9 86 20 125/72 100 Room Air 08/22/17 04:00 97.0 98 20 112/68 94 Nasal Cannula 2.0 08/22/17 03:43 96 08/22/17 00:00 96 08/22/17 00:00 97.7 93 20 110/61 97 Nasal Cannula 2.0 08/21/17 20:17 92 08/21/17 20:00 98.3 103 20 109/55 99 Room Air 08/21/17 19:55 Room Air 08/21/17 19:54 91 Room Air 08/21/17 19:54 104 18 Room Air 08/21/17 16:45 98.8 72 19 112/60 100 Room Air 08/21/17 16:00 101 08/21/17 12:17 98.7 109 20 124/76 93 Room Air 08/21/17 12:00 110 Labs: Labs Test 08/20/17 14:10 08/21/17 03:15 08/22/17 03:25 Prothrombin Time 13.5 SEC (9.30-11.50) 11.5 SEC (9.30-11.50) 22.7 SEC (9.30-11.50) Prothromb Time International Ratio 1.3 (0.9-1.1) 1.1 (0.9-1.1) 2.2 (0.9-1.1) Sodium Level 138 mEQ/L (135-145) 137 mEQ/L (135-145) Potassium Level 4.5 mEQ/L (3.4-4.9) 3.9 mEQ/L (3.4-4.9) Chloride Level 98 mEQ/L (98-107) 95 mEQ/L (98-107) Carbon Dioxide Level 29 mEQ/L (20-30) 28 mEQ/L (20-30) Anion Gap 11 (5-15) 14 (5-15) Blood Urea Nitrogen 10 mg/dL (7-23) 11 mg/dL (7-23) Creatinine 1.0 mg/dL (0.7-1.2) 0.9 mg/dL (0.7-1.2) Estimat Glomerular Filtration Rate > 60 mL/min (>60) > 60 mL/min (>60) Glucose Level 102 mg/dL (74-106) 114 mg/dL (74-106) Calcium Level 9.1 mg/dL (8.6-10.2) 9.2 mg/dL (8.6-10.2) Pro-B-Type Natriuretic Peptide 24 pg/mL (0-125) Objective: alert obese male HEENT: The head is normocephalic and atraumatic. PEERL. Neck: Supple. Trachea midline. JVD LUNGS: fairly clear without rhonchi or wheeze HEART: RRR S1 and S2. No rubs, murmurs, or gallops. ABDOMEN: Soft and nontender. Bowel sounds are active. Extremities: No clubbing or cyanosis. 2+ edema and there is right leg brawny edema. His left below-knee stump is clean. Neurologic: reduced LOC no gross focal findings. Accucheck: 128 CLARENCE CRUZ Aug 22, 2017 10:37
[2017-08-22 12:00] VITALS: BP 125/75
--- NOTE | 2017-08-22 13:21 | Cardiology Progress Note ---
Assessment/Plan Problem List: (1) CHF (congestive heart failure) (2) Pneumonia (3) Atrial flutter with rapid ventricular response Status: stable, progressing Status Narrative Mr. Diallo is maintaining SR on telemetry, on amiodarone INR now therapeutic, on warfarin He is on lasix iv qd for pulm congestion/ diastolic HF Assessment/Plan Continue amiodarone, INR now therapeutic, on warfarin. Can dc lovenox Change lasix to po - appears euvolemic Followup labs in am Subjective Subjective Alert, no c/o Objective Last 24 Hour Vital Signs Date Time Temp Pulse Resp B/P (MAP) Pulse Ox O2 Delivery O2 Flow Rate FiO2 08/22/17 13:02 108 08/22/17 09:44 Room Air 21 08/22/17 09:44 95 Room Air 21 08/22/17 09:44 86 18 Room Air 08/22/17 09:29 125/72 08/22/17 08:00 110 08/22/17 08:00 97.9 86 20 125/72 100 Room Air 08/22/17 04:00 97.0 98 20 112/68 94 Nasal Cannula 2.0 08/22/17 03:43 96 08/22/17 00:00 96 08/22/17 00:00 97.7 93 20 110/61 97 Nasal Cannula 2.0 08/21/17 20:17 92 08/21/17 20:00 98.3 103 20 109/55 99 Room Air 08/21/17 19:55 Room Air 21 08/21/17 19:54 91 Room Air 21 08/21/17 19:54 104 18 Room Air 08/21/17 16:45 98.8 72 19 112/60 100 Room Air 08/21/17 16:00 101 General Appearance: WD/WN, alert, obese EENT: PERRL/EOMI Neck: supple, no JVD Rhythm: NSR Cardiovascular: normal rate, regular rhythm, no gallop/murmur Respiratory/Chest: other - few expir wheezes L > R Abdomen: non tender, soft, other - obese Extremities: other - L BKA Laboratory Tests Test 08/22/17 03:25 Prothrombin Time 22.7 SEC (9.30-11.50) H Prothromb Time International Ratio 2.2 (0.9-1.1) H Sodium Level 137 mEQ/L (135-145) Potassium Level 3.9 mEQ/L (3.4-4.9) Chloride Level 95 mEQ/L (98-107) L Carbon Dioxide Level 28 mEQ/L (20-30) Anion Gap 14 (5-15) Blood Urea Nitrogen 11 mg/dL (7-23) Creatinine 0.9 mg/dL (0.7-1.2) Estimat Glomerular Filtration Rate > 60 mL/min (>60) Glucose Level 114 mg/dL (74-106) H Calcium Level 9.2 mg/dL (8.6-10.2) Pro-B-Type Natriuretic Peptide 24 pg/mL (0-125) VANESSA LOCK Aug 22, 2017 13:21
[2017-08-22] MEDS ORDERED: NS 275ml ONE (15:41)
[2017-08-22] MEDS ORDERED: Tubing IV Secondary IV ONE (15:41)
[2017-08-22 16:00] VITALS: BP 90/51
[2017-08-22] MEDS ORDERED: Warfarin Sodium 5mg ORAL ONE (17:00)
[2017-08-22 20:00] VITALS: BP 105/74
[2017-08-23] VITALS: BP 112/76
[2017-08-23 04:00] VITALS: BP 111/69
[2017-08-23 05:41] LABS: PROTHROMBIN TIME 69.1 SEC (9.30-11.50)
[2017-08-23 06:00] LABS: INR 6.5 (0.9-1.1)
[2017-08-23] MEDS: Piperacillin/Tazobactam 3.375 GM in D5W 110 ML IVPB SCH ×2 (06:00→13:39)
[2017-08-23] MEDS: NovoLOG Insulin Flexpen SUBQ SCH ×4 (06:24→20:50)
[2017-08-23 08:00] VITALS: BP 119/79
--- NOTE | 2017-08-23 08:21 | Critical Care Progress Note ---
Assessment/Plan Assessment/Plan ASSESSMENT: 1. Congestive heart failure, acute systolic 2. respiratory failure 3. Paroxysmal atrial flutter. 4. Hypoxemia 5. Morbid obesity. 6. Type 2 diabetes mellitus. 7. History of psychosis. 8. Hypertensive cardiovascular disease. 9. Status post left below-knee amputation. 10. Chronic obstructive pulmonary disease. PLAN anticoagulation monitor for bleeding care noted and reviewed cards noted respiratory care encourage cough taper off antibiotics advance diet dc planning monitor oxygen needs and acid base medications/laboratory data/nursing notes reviewed in detail note reviewed and edited care discussed with RN and RT Critical Care - Subjective I&O: care noted on antibiotics minimal leukocytosis on oxygen Critical Care - Objective ET-Tube: 7.0 ET Position: 25 Last 24 Hour Vital Signs Date Time Temp Pulse Resp B/P (MAP) Pulse Ox O2 Delivery O2 Flow Rate FiO2 08/23/17 04:00 126 08/23/17 04:00 115 08/23/17 04:00 99.0 125 20 111/69 93 Room Air 08/23/17 00:00 98.7 130 20 112/76 92 Room Air 2.0 21 08/22/17 20:00 112 08/22/17 20:00 98.7 120 20 105/74 92 Room Air 21 08/22/17 19:00 94 Room Air 21 08/22/17 19:00 Room Air 21 08/22/17 19:00 82 18 Room Air 08/22/17 16:00 97.3 103 20 90/51 90 08/22/17 16:00 105 08/22/17 13:02 108 08/22/17 12:00 97.0 110 20 125/75 90 Room Air 08/22/17 09:44 Room Air 21 08/22/17 09:44 95 Room Air 21 08/22/17 09:44 86 18 Room Air 08/22/17 09:29 125/72 Labs: Laboratory Tests Test 08/23/17 04:15 Prothrombin Time 69.1 SEC (9.30-11.50) H Prothromb Time International Ratio 6.5 (0.9-1.1) *H Objective: alert obese male HEENT: The head is normocephalic and atraumatic. PEERL. Neck: Supple. Trachea midline. JVD LUNGS: fairly clear without rhonchi or wheeze HEART: RRR S1 and S2. No rubs, murmurs, or gallops. ABDOMEN: Soft and nontender. Bowel sounds are active. Extremities: No clubbing or cyanosis. 2+ edema and there is right leg brawny edema. His left below-knee stump is clean. Neurologic: reduced LOC no gross focal findings. Accucheck: 138 RADHACLARENCE ANGEL Aug 23, 2017 08:21
[2017-08-23] MEDS: Pantoprazole Inj IVP SCH ×2 (08:40→09:00)
[2017-08-23] MEDS: Losartan 25mg tab ORAL SCH (08:41)
[2017-08-23] MEDS: Amiodarone 200mg tab ORAL SCH (08:41)
[2017-08-23] MEDS: Enoxaparin 100mg Inj SUBQ SCH ×2 (08:45→09:00)
[2017-08-23 12:00] VITALS: BP 127/78
--- NOTE | 2017-08-23 15:25 | General Progress Note ---
Assessment/Plan Assessment/Plan PAF - now SR. Per Cards CHF -diuresis continues. Agree with Coumadin. Starting. Resp Failure - vent. Weaned. start on diet + PT. INR 6! Hold Warfarin Subjective Allergies: Coded Allergies: No Known Allergies (Unverified , 08/15/17) Subjective No new c/o Objective Last 24 Hour Vital Signs Date Time Temp Pulse Resp B/P (MAP) Pulse Ox O2 Delivery O2 Flow Rate FiO2 08/23/17 12:00 110 08/23/17 12:00 97.3 107 20 127/78 93 Nasal Cannula 2.0 08/23/17 08:41 122/69 08/23/17 08:00 97.9 72 20 119/79 93 Nasal Cannula 2.0 08/23/17 08:00 111 08/23/17 07:56 Nasal Cannula 2.0 28 08/23/17 07:55 95 Nasal Cannula 2.0 28 08/23/17 07:50 116 18 Nasal Cannula 08/23/17 04:00 126 08/23/17 04:00 115 08/23/17 04:00 99.0 125 20 111/69 93 Room Air 08/23/17 00:00 98.7 130 20 112/76 92 Room Air 2.0 21 08/22/17 20:00 112 08/22/17 20:00 98.7 120 20 105/74 92 Room Air 21 08/22/17 19:00 94 Room Air 21 08/22/17 19:00 Room Air 21 08/22/17 19:00 82 18 Room Air 08/22/17 16:00 97.3 103 20 90/51 90 08/22/17 16:00 105 Intake and Output 08/23/17 08/24/17 19:00 07:00 Intake Total 100 ml Balance 100 ml Intake Oral 100 ml # Bowel Movements 1 Laboratory Tests 08/23/17 04:15: Prothrombin Time 69.1H, Prothromb Time International Ratio 6.5*H Height (Feet): 5 Height (Inches): 6.00 Weight (Pounds): 309 Objective NAD. Monitor SR. AVSS Cv RR Lungs CTA Abd pendulous. SNT. BS + E No CCE. L BKA clean. Neuro alert +responsive. ZAIN KAN Aug 23, 2017 15:25
[2017-08-23 16:00] VITALS: BP 116/73
--- NOTE | 2017-08-23 19:21 | Cardiology Report ---
APPROVED REPORT EKG Measurement Heart [id number] Sinus tachycardia Possible Left atrial enlargement Rightward axis Nonspecific ST and T wave abnormality Abnormal ECG
[2017-08-23 20:00] VITALS: BP 144/63
[2017-08-23] MEDS: Furosemide 40mg tab ORAL SCH (20:46)
[2017-08-24] VITALS (7 sets, daily range): BP systolic 111–138; BP diastolic 56–79
[2017-08-24 06:18] LABS: INR 3.4 (0.9-1.1); PROTHROMBIN TIME 36.6 SEC (9.30-11.50)
[2017-08-24] MEDS: NovoLOG Insulin Flexpen SUBQ SCH ×4 (06:37→21:00)
[2017-08-24] MEDS: Furosemide 40mg tab ORAL SCH ×2 (09:00→21:48)
--- NOTE | 2017-08-24 09:30 | Critical Care Progress Note ---
Assessment/Plan Assessment/Plan ASSESSMENT: 1. Congestive heart failure, acute systolic 2. respiratory failure 3. Paroxysmal atrial flutter. 4. Hypoxemia 5. Morbid obesity. 6. Type 2 diabetes mellitus. 7. History of psychosis. 8. Hypertensive cardiovascular disease. 9. Status post left below-knee amputation. 10. Chronic obstructive pulmonary disease. PLAN anticoagulation noted monitor for bleeding care noted and reviewed cards noted respiratory care as is encourage cough taper off antibiotics per ID advance diet dc planning ok per pulmonary monitor oxygen needs and acid base medications/laboratory data/nursing notes reviewed in detail note reviewed and edited care discussed with RN and RT Critical Care - Subjective Interval Events: noted and reviewed seems overall stable at present Condition: stable EKG Rhythm: Sinus Rhythm I&O: Intake and Output 08/24/17 08/25/17 19:00 07:00 # Bowel Movements 1 Critical Care - Objective ET-Tube: 7.0 ET Position: 25 Last 24 Hour Vital Signs Date Time Temp Pulse Resp B/P (MAP) Pulse Ox O2 Delivery O2 Flow Rate FiO2 08/24/17 08:00 102 08/24/17 07:56 97.6 104 19 111/72 96 Nasal Cannula 2.0 08/24/17 04:00 70 08/24/17 04:00 97.8 75 20 121/62 97 Nasal Cannula 2.0 08/24/17 00:00 97.9 112 20 138/76 95 Nasal Cannula 2.0 08/24/17 00:00 111 08/23/17 20:00 97.7 110 20 144/63 91 Nasal Cannula 2.0 08/23/17 20:00 112 08/23/17 19:30 Nasal Cannula 2.0 28 08/23/17 19:30 92 Nasal Cannula 2.0 28 08/23/17 19:30 110 20 Nasal Cannula 2.0 28 08/23/17 16:00 106 08/23/17 16:00 98.1 104 18 116/73 93 Room Air 2.0 08/23/17 12:00 110 08/23/17 12:00 97.3 107 20 127/78 93 Nasal Cannula 2.0 Labs: Laboratory Tests Test 08/24/17 04:20 Prothrombin Time 36.6 SEC (9.30-11.50) H Prothromb Time International Ratio 3.4 (0.9-1.1) H Objective: alert obese male HEENT: The head is normocephalic and atraumatic. PEERL. Neck: Supple. Trachea midline. JVD LUNGS: fairly clear without rhonchi or wheeze HEART: RRR S1 and S2. No rubs, murmurs, or gallops. ABDOMEN: Soft and nontender. Bowel sounds are active. Extremities: No clubbing or cyanosis. 1+ edema and there is right leg brawny edema. His left below-knee stump is clean. Neurologic: alert reviewed and edited Accucheck: 115 CLARENCE CRUZ Aug 24, 2017 09:30
[2017-08-24] MEDS: Amiodarone 200mg tab ORAL SCH (09:45)
[2017-08-24] MEDS: Losartan 25mg tab ORAL SCH (09:47)
--- NOTE | 2017-08-24 14:49 | General Progress Note ---
Assessment/Plan Assessment/Plan PAF - now SR. Per Cards CHF -diuresis continues. Agree with Coumadin. Starting. Resp Failure - vent. Weaned. start on diet + PT. INR 3.4! Hold Warfarin Subjective Allergies: Coded Allergies: No Known Allergies (Unverified , 08/15/17) Subjective No new c/o Objective Last 24 Hour Vital Signs Date Time Temp Pulse Resp B/P (MAP) Pulse Ox O2 Delivery O2 Flow Rate FiO2 08/24/17 12:00 96.8 105 20 123/79 95 Room Air 08/24/17 12:00 100 08/24/17 09:47 111/72 08/24/17 08:35 Nasal Cannula 2.0 28 08/24/17 08:35 93 Nasal Cannula 2.0 28 08/24/17 08:35 104 18 Nasal Cannula 2.0 28 08/24/17 08:00 102 08/24/17 07:56 97.6 104 19 111/72 96 Nasal Cannula 2.0 08/24/17 04:00 70 08/24/17 04:00 97.8 75 20 121/62 97 Nasal Cannula 2.0 08/24/17 00:00 97.9 112 20 138/76 95 Nasal Cannula 2.0 08/24/17 00:00 111 08/23/17 20:00 97.7 110 20 144/63 91 Nasal Cannula 2.0 08/23/17 20:00 112 08/23/17 19:30 Nasal Cannula 2.0 28 08/23/17 19:30 92 Nasal Cannula 2.0 28 08/23/17 19:30 110 20 Nasal Cannula 2.0 28 08/23/17 16:00 106 08/23/17 16:00 98.1 104 18 116/73 93 Room Air 2.0 Intake and Output 08/24/17 08/25/17 19:00 07:00 # Bowel Movements 2 Laboratory Tests 08/24/17 04:20: Prothrombin Time 36.6H, Prothromb Time International Ratio 3.4H Height (Feet): 5 Height (Inches): 6.00 Weight (Pounds): 309 Objective NAD. Monitor SR. AVSS Cv RR Lungs CTA Abd pendulous. SNT. BS + E No CCE. L BKA clean. Neuro alert +responsive. ZAIN KAN Aug 24, 2017 14:48
[2017-08-24] MEDS ORDERED: Warfarin Sodium 2.5mg ORAL ONE (17:00)
[2017-08-25 04:32] VITALS: BP 124/74
[2017-08-25] MEDS: NovoLOG Insulin Flexpen SUBQ SCH ×2 (05:59→12:00)
[2017-08-25 06:18] LABS: PROTHROMBIN TIME 21.6 SEC (9.30-11.50)
[2017-08-25 08:00] VITALS: BP 133/83
--- NOTE | 2017-08-25 08:36 | Critical Care Progress Note ---
Assessment/Plan Assessment/Plan ASSESSMENT: 1. Congestive heart failure, acute systolic 2. respiratory failure 3. Paroxysmal atrial flutter. 4. Hypoxemia 5. Morbid obesity. 6. Type 2 diabetes mellitus. 7. History of psychosis. 8. Hypertensive cardiovascular disease. 9. Status post left below-knee amputation. 10. Chronic obstructive pulmonary disease. PLAN anticoagulation noted monitor for bleeding care noted and reviewed respiratory care as is encourage cough taper off antibiotics per ID advance diet dc planning ok per pulmonary monitor oxygen needs and acid base possible snf discharge medications/laboratory data/nursing notes reviewed in detail note reviewed and edited care discussed with RN and RT Critical Care - Subjective Interval Events: no distress events noted care reviewed Condition: stable EKG Rhythm: Sinus Rhythm Critical Care - Objective ET-Tube: 7.0 ET Position: 25 Last 24 Hour Vital Signs Date Time Temp Pulse Resp B/P (MAP) Pulse Ox O2 Delivery O2 Flow Rate FiO2 08/25/17 07:02 94 Nasal Cannula 2.0 28 08/25/17 07:02 Nasal Cannula 2.0 28 08/25/17 07:02 102 18 Nasal Cannula 2.0 28 08/25/17 04:32 98.1 92 20 124/74 90 Room Air 08/25/17 04:06 95 08/25/17 00:00 96 08/24/17 23:36 96.7 65 20 121/71 91 Room Air 08/24/17 20:00 104 08/24/17 19:52 97.7 100 20 114/62 91 Room Air 08/24/17 19:30 95 Nasal Cannula 2.0 28 08/24/17 19:30 Nasal Cannula 2.0 28 08/24/17 19:30 106 18 Nasal Cannula 2.0 28 08/24/17 16:09 97.5 97 18 122/56 92 Room Air 08/24/17 16:00 98 08/24/17 12:00 96.8 105 20 123/79 95 Room Air 08/24/17 12:00 100 08/24/17 09:47 111/72 Objective: alert obese male HEENT: The head is normocephalic and atraumatic. PEERL. Neck: Supple. Trachea midline. JVD LUNGS: fairly clear without rhonchi or wheeze HEART: RRR S1 and S2. No rubs, murmurs, or gallops. ABDOMEN: Soft and nontender. Bowel sounds are active. Extremities: No clubbing or cyanosis. 1+ edema and there is right leg brawny edema. His left below-knee stump is clean. Neurologic: alert reviewed and edited Accucheck: 106 CLARENCE CRUZ Aug 25, 2017 08:36
[2017-08-25] MEDS: Amiodarone 200mg tab ORAL SCH (08:59)
[2017-08-25] MEDS: Furosemide 40mg tab ORAL SCH (08:59)
[2017-08-25] MEDS: Losartan 25mg tab ORAL SCH (09:00)
--- NOTE | 2017-08-25 10:02 | General Progress Note ---
Assessment/Plan Assessment/Plan PAF - now SR. Per Cards CHF -diuresis continues. Agree with Coumadin. Starting. Resp Failure - vent. Weaned. start on diet + PT. INR 2 . Resume Warfarin 2.5 mg/daily DC to SNF Subjective Allergies: Coded Allergies: No Known Allergies (Unverified , 08/15/17) Subjective No new c/o Objective Last 24 Hour Vital Signs Date Time Temp Pulse Resp B/P (MAP) Pulse Ox O2 Delivery O2 Flow Rate FiO2 08/25/17 09:00 133/83 08/25/17 08:00 98.2 114 20 133/83 94 Nasal Cannula 2.0 08/25/17 08:00 109 08/25/17 07:02 94 Nasal Cannula 2.0 28 08/25/17 07:02 Nasal Cannula 2.0 28 08/25/17 07:02 102 18 Nasal Cannula 2.0 28 08/25/17 04:32 98.1 92 20 124/74 90 Room Air 08/25/17 04:06 95 08/25/17 00:00 96 08/24/17 23:36 96.7 65 20 121/71 91 Room Air 08/24/17 20:00 104 08/24/17 19:52 97.7 100 20 114/62 91 Room Air 08/24/17 19:30 95 Nasal Cannula 2.0 28 08/24/17 19:30 Nasal Cannula 2.0 28 08/24/17 19:30 106 18 Nasal Cannula 2.0 28 08/24/17 16:09 97.5 97 18 122/56 92 Room Air 08/24/17 16:00 98 08/24/17 12:00 96.8 105 20 123/79 95 Room Air 08/24/17 12:00 100 Intake and Output 08/25/17 08/26/17 19:00 07:00 Intake Total 360 ml Balance 360 ml Intake Oral 360 ml Laboratory Tests 08/25/17 03:40: Prothrombin Time 21.6H, Prothromb Time International Ratio 2.0H Height (Feet): 5 Height (Inches): 6.00 Weight (Pounds): 309 Objective NAD. Monitor SR. AVSS Cv RR Lungs CTA Abd pendulous. SNT. BS + E No CCE. L BKA clean. Neuro alert +responsive. ZAIN KAN Aug 25, 2017 10:02
[2017-08-25] MEDS ORDERED: NOVOLOG100 UNITS1 SUBQ (10:09)
[2017-08-25] MEDS ORDERED: LOSARTAN POTASS25 MG ORAL (10:09)
[2017-08-25] MEDS ORDERED: ACETAMINOPHEN325 M1 ORAL (10:09)
[2017-08-25] MEDS ORDERED: BISAC-EVAC10 MG RECTAL (10:09)
[2017-08-25] MEDS ORDERED: SEROQUEL25 MG ORAL (10:09)
[2017-08-25] MEDS ORDERED: PACERONE200 MG ORAL (10:09)
[2017-08-25] MEDS ORDERED: FUROSEMIDE40 MG ORAL (10:09)
[2017-08-25] MEDS ORDERED: POTASSIUM CHLO20 ME1 ORAL (10:09)
[2017-08-25] MEDS ORDERED: COUMADIN2.5 MG ORAL (10:09)
[2017-08-25] MEDS ORDERED: BENADRYL50 MG ORAL (10:09)
[2017-08-25 12:00] VITALS: BP 136/79
--- NOTE | 2017-08-25 12:04 | Wound Care Consultation ---
Wound Assessment Wound Assessment #1: Wound Present on Admission: Yes New Wound: No Status Change of Wound: No Wound Location Body Site Modif: mid Wound Location Body Site: sacral Wound Type: pressure ulcer Benjie Test: Does not Benjie Wound Thickness: Partial Thickness Wound Length: 5.5 Wound Width: 5.5 Percent of Wound [place]/Red: 100 Wound Drainage Amount: None Wound Drainage Odor: None/Absent Tissue Surrounding Wound: Intact Wound General Appearance: Reddened Wound Assessment #2: Wound Number: 2 Wound Present on Admission: Yes New Wound: No Status Change of Wound: No Wound Location Body Site: perineal area Wound Type: chemical burn Benjie Test: Does not Benjie Percent of Wound [place]/Red: 100 Wound Drainage Amount: None Wound Drainage Odor: None/Absent Tissue Surrounding Wound: Erythemic Wound General Appearance: Reddened Wound Comment #1 Right upper anterior thigh open blister. Resolved #2 Sacral stage I pressure ulcer. Still intact #3 Left stump site with dry scab. Still intact Reassessed this Pt and noted with good progress. will cont same wound care and recommendations. BOOGIE HUMPHREY RN Aug 25, 2017 12:04
[2017-08-25] MEDS ORDERED: Warfarin Sodium 2.5mg ORAL SCH (17:00)
--- NOTE | 2017-08-25 19:37 | Consultation ---
History of Present Illness General Chief Complaint: Dyspnea/Respdistress Present Illness HPI 37-year-old male who is a resident of [facility]. The patient was transferred via 911 to this hospital's emergency department with shortness of breath. The patient was found to be in full blown congestive heart failure with rapid atrial flutter. the pt has been yelling and was responding to internal stimuli and delusion. Allergies: Coded Allergies: No Known Allergies (Unverified , 08/15/17) Medication History Scheduled Amiodarone Hcl* (Pacerone*), 200 MG ORAL DAILY Furosemide* (Lasix*), 40 MG ORAL Q12HR Insulin Aspart (Novolog Flexpen), 0 UNITS SUBQ BEFORE MEALS AND HS Losartan Potassium* (Losartan Potassium*), 25 MG ORAL DAILY Potassium Chloride* (K-Dur*), 40 MEQ ORAL DAILY Quetiapine Fumarate* (Seroquel*), 25 MG ORAL TWICE A DAY Warfarin Sod* (Coumadin*), 2.5 MG ORAL DAILY@17 Scheduled PRN Acetaminophen* (Acetaminophen 325MG Tablet*), 650 MG ORAL Q4H PRN Bisacodyl (Bisac-Evac), 10 MG RECTAL DAILYPRN PRN Diphenhydramine HCl (Diphenhydramine HCl), 50 MG ORAL Q6H PRN Discontinued Medications Acetaminophen* (Tylenol Extra Strength*), 500 MG ORAL Q6H PRN for Mild Pain/ Temp > 100.5, (Reported) Discontinued Reason: MD discontinued med Albuterol Sulfate* (Albuterol Sulfate Hhn*), 3 ML INH Q4H PRN for Shortness of Breath, (Reported) Discontinued Reason: MD discontinued med Benazepril Hcl* (Benazepril Hcl*), 5 MG ORAL DAILY, (Reported) Discontinued Reason: MD discontinued med Diphenhydramine Hcl* (Benadryl*), 25 MG ORAL Q6H PRN for Itching, (Reported) Discontinued Reason: MD discontinued med Docusate Sodium* (Colace*), 100 MG ORAL DAILY, (Reported) Discontinued Reason: MD discontinued med Glipizide* (Glucotrol*), 5 MG ORAL BID, (Reported) Discontinued Reason: MD discontinued med Heparin Sod (Porcine) (Heparin Sodium*), 5,000 UNITS SUBQ EVERY 12 HOURS, ( Reported) Discontinued Reason: MD discontinued med Hydrocodone Bit/Acetaminophen 10-325* ([place]dy 10-325*), 1 TAB ORAL Q6H PRN for For Pain, (Reported) Discontinued Reason: MD discontinued med Multivitamins* (Multivitamins*), 1 TAB ORAL DAILY, (Reported) Discontinued Reason: MD discontinued med Quetiapine Fumarate* (Seroquel*), 25 MG ORAL TWICE A DAY, (Reported) Discontinued Reason: MD discontinued med Ziprasidone Hcl* (Geodon*), 20 MG ORAL DAILY, (Reported) Discontinued Reason: MD discontinued med Patient History Limited by: medical condition History Provided By: Patient, Medical Record, PMD Healthcare decision maker self Resuscitation status Full Code Advanced Directive on File No Review of Systems Psychiatric: Reports: prior hx, anxiety, depressed feelings, emotional problems , hallucinations Physical Exam General Appearance: no apparent distress, alert, obese Neurologic: alert, oriented x 3, responsive, depressed affect Last 24 Hour Vital Signs Date Time Temp Pulse Resp B/P (MAP) Pulse Ox O2 Delivery O2 Flow Rate FiO2 08/25/17 12:00 98.5 110 20 136/79 92 Nasal Cannula 2.0 08/25/17 11:42 105 08/25/17 09:00 133/83 08/25/17 08:00 98.2 114 20 133/83 94 Nasal Cannula 2.0 08/25/17 08:00 109 08/25/17 07:02 94 Nasal Cannula 2.0 28 08/25/17 07:02 Nasal Cannula 2.0 28 08/25/17 07:02 102 18 Nasal Cannula 2.0 28 08/25/17 04:32 98.1 92 20 124/74 90 Room Air 08/25/17 04:06 95 08/25/17 00:00 96 08/24/17 23:36 96.7 65 20 121/71 91 Room Air 08/24/17 20:00 104 08/24/17 19:52 97.7 100 20 114/62 91 Room Air Intake and Output 08/25/17 08/26/17 19:00 07:00 Intake Total 360 ml Output Total 1250 ml Balance -890 ml Intake Oral 360 ml Output Urine Total 1250 ml Laboratory Tests Test 08/25/17 03:40 Prothrombin Time 21.6 SEC (9.30-11.50) H Prothromb Time International Ratio 2.0 (0.9-1.1) H Height (Feet): 5 Height (Inches): 6.00 Weight (Pounds): 309 Assessment/Plan Status: stable, progressing Assessment/Plan meth use psychotic d/o -seroquel 100mg qhs -dc Helena Everett M.D. Aug 25, 2017 19:37
--- NOTE | 2017-08-27 15:16 | Discharge Summary ---
Discharge Summary Hospital Course Date of Admission Aug 15, 2017 at 18:55 Date of Discharge Aug 25, 2017 at 15:20 Admitting Diagnosis Aflutter-SOB HPI Vincenzo Diallo is a 37 year old male who was admitted on Aug 15, 2017 at 18: 55 for Atrial Flutter, Shortness Of Breath Hospital Course [id number] Discharge Discharge Disposition Patient was discharged to SNF/Subacute Facility(03) Discharge Diagnoses: Monserrat Lilly NP Aug 27, 2017 15:16
--- NOTE | 2017-08-28 04:16 | Discharge Summary 2 SIG ---
DATE OF ADMISSION: 08/15/2017 DATE OF DISCHARGE: 08/25/2017 CONSULTANTS: 1. Maurisio Faith M.D. 2. Una Mcgowan M.D. 3. Helena Gomez M.D. Brief Hospital Course: The patient is a 37-year-old male who is a resident of [facility]. The patient was transferred via 911 to ED due to shortness of breath. On evaluation at ED, EKG was on atrial flutter at rate of 150. He was converted successfully to sinus rhythm with improvement in heart rate. Chest x-ray done showed cardiomegaly with pulmonary vascular congestion. He was placed on BiPAP. Blood work showed hyponatremia. Sodium level was 121 and chloride was 80. The patient's ABG showed pH of 7.2 and CO2 of 78. He was subsequently orally intubated at ED and a central line was placed through the right internal jugular. He was then admitted to ICU and was followed by Dr. Faith for vent management. Dr. Mcgowan was consulted. The patient remained in sinus rhythm while in intensive care unit. The patient had paroxysmal atrial fibrillation that was cardioverted in ED. He was started on anticoagulation on heparin and Coumadin. He was eventually extubated on 08/18/2017 and was transferred out of ICU. Respiratory status was stable on nasal cannula. He was given amiodarone and was continued on Lasix. Echocardiogram done showed ejection fraction of 55% with RVSP 35 consistent with mild pulmonary hypertension. There was no aortic insufficiency and no mitral regurgitation. Venous duplex of lower extremity was negative for DVT. Left tibial vein was not imaged due to amputation. Anticoagulation was switched to Lovenox and warfarin. He had an episode of hypercoagulable state secondary to warfarin and warfarin was placed on hold temporarily and was eventually restarted. He underwent speech evaluation and was started on p.o., no added salt diet with soft easy chew consistency and thin liquid. He was initially on Zosyn. Cultures did not isolate any growth. He was tapered off of antibiotic treatment. He was eventually discharged back to SNF. FINAL DIAGNOSES: 1. Paroxysmal atrial fibrillation, now in sinus rhythm. 2. Acute systolic congestive heart failure. 3. Acute respiratory failure requiring intubation status post extubation. 4. Atrial flutter with rapid ventricular response. 5. Hypoxemia. 6. Morbid obesity. 7. Type 2 diabetes mellitus. 8. Status post left below-knee amputation. 9. Chronic obstructive pulmonary disease. 10. Psychotic disorder. 11. Stage I sacral pressure ulcer, present on admission. DISCHARGE DISPOSITION: The patient was discharged to SNF. DISCHARGE MEDICATIONS: Refer to medication list. Dung Castro M.D. I have been assigned to dictate discharge summary on this account and I was not involved in the patient's management. Monserrat Lilly N.P. DR: GELACIO JOB#: [id number] CC: SANJAY
== END 2017-08-25 15:20 | DRG 208 ==
LOC: EDBD 18:03 → EMR 18:50 → ICU 18:55 → EDBEDREQ 20:53 → 2W 08-19 18:21
PROC: 5A1945Z Respiratory Ventilation, 24-96 Consecutive Hours (ICD-10-PCS; principal; 2017-08-15)
PROC: 0BH17EZ Insertion of Endotracheal Airway into Trachea, Via Natural or Artificial Opening (ICD-10-PCS; principal; 2017-08-15)
PROC: 5A2204Z Restoration of Cardiac Rhythm, Single (ICD-10-PCS; principal; 2017-08-15)
PROC: 05HM33Z Insertion of Infusion Device into Right Internal Jugular Vein, Percutaneous Approach (ICD-10-PCS; principal; 2017-08-15)
DX: J96.01 Acute respiratory failure with hypoxia (principal); I50.21 Acute systolic (congestive) heart failure; J18.9 Pneumonia, unspecified organism; I95.9 Hypotension, unspecified; I11.0 Hypertensive heart disease with heart failure; J44.0 Chronic obstructive pulmonary disease with (acute) lower respiratory infection; I48.92 Unspecified atrial flutter; Z68.42 Body mass index [BMI] 45.0-49.9, adult; E87.1 Hypo-osmolality and hyponatremia; Z72.0 Tobacco use; E66.01 Morbid (severe) obesity due to excess calories; Z89.512 Acquired absence of left leg below knee; E11.9 Type 2 diabetes mellitus without complications; F15.90 Other stimulant use, unspecified, uncomplicated; F29 Unspecified psychosis not due to a substance or known physiological condition; I48.0 Paroxysmal atrial fibrillation
CPT/HCPCS: 36415; 36600; 71010; 80048; 80053; 82248; 82550; 82553; 82803; 82962; 83036; 83605; 83735; 83880; 84484; 85025; 85379; 85610; 87040; 87070; 87081; 87205; 93005; 93306; 93970; 94002; 94003; 94664; 94760; 99285; J1815; J2250; J8499

== ENCOUNTER 2018-06-14 12:10 | Inpatient (IN) | payer MEDICARE, MEDICAID ==
[~2018-06-14] VITALS: Ht 167.6 cm; Wt 141.5 kg
[2018-06-14] VITALS (10 sets, daily range): BP systolic 60–141; BP diastolic 28–80
[~2018-06-14 12:10] MED LIST: ACETAMINOPHEN325 M1 ORAL; ALBUTEROL2.5 MG/3 M INH; BENADRYL25 MG ORAL; BENADRYL50 MG ORAL; BENAZEPRIL HCL10 MG ORAL; BISAC-EVAC10 MG RECTAL; COLACE100 MG ORAL; COUMADIN2.5 MG ORAL; FUROSEMIDE40 MG ORAL; GEODON20 MG ORAL; GLUCOTROL5 MG ORAL; HEPARIN SO5000 UNIT2 SUBQ; LOSARTAN POTASS25 MG ORAL; MULTIVITAMINS1 EAC2 ORAL; NORCO 10-325 T1 EACH ORAL; NOVOLOG100 UNITS1 SUBQ; PACERONE200 MG ORAL; POTASSIUM CHLO20 ME1 ORAL; SEROQUEL25 MG ORAL; TYLENOL EXTRA500 MG ORAL
[2018-06-14 12:47] LABS: BASOPHILS % (AUTO) 0.7 % (0.0-2.0); HEMATOCRIT 55.7 % (42.0-52.0); LYMPHOCYTES % (AUTO) 10.9 % (20.0-45.0); MEAN CORPUSCULAR VOLUME 90 FL (80-99); MONOCYTES % (AUTO) 7.6 % (1.0-10.0); NEUTROPHILS % (AUTO) 80.7 % (45.0-75.0); PLATELET COUNT 212 K/UL (150-450); RED CELL DISTRIBUTION WIDTH 12.8 % (11.6-14.8); WHITE BLOOD COUNT 11.8 K/UL (4.8-10.8)
[2018-06-14 12:59] LABS: ANION GAP 7 mmol/L (5-15); BLOOD UREA NITROGEN 11 mg/dL (7-18); CARBON DIOXIDE 33 MMOL/L (21-32); CHLORIDE 95 MMOL/L (98-107); SODIUM 135 MMOL/L (136-145)
[2018-06-14 13:09] LABS: INR 3.1 (0.9-1.1)
[2018-06-14 13:10] LABS: ALANINE AMINOTRANSFERASE 75 U/L (12-78); ALBUMIN 2.9 G/DL (3.4-5.0); ALBUMIN/GLOBULIN RATIO 0.5 (1.0-2.7); ALKALINE PHOSPHATASE 157 U/L (46-116); ASPARTATE AMINO TRANSFERASE 51 U/L (15-37); BILIRUBIN,TOTAL 0.9 MG/DL (0.2-1.0)
[2018-06-14] MEDS: Captopril 12.5mg tab ORAL SCH ×2 (13:22→22:00)
[2018-06-14 13:25] LABS: APPEARANCE,URINE SLIGHTLY CLOUDY; BILIRUBIN, URINE NEGATIVE (NEGATIVE); GLUCOSE, URINE (UA) 4+ (NEGATIVE); KETONES,URINE 1+ (NEGATIVE); LEUKOCYTE ESTERASE ,URINE NEGATIVE (NEGATIVE); NITRITE,URINE NEGATIVE (NEGATIVE); PH,URINE 5 (4.5-8.0); PROTEIN,URINE 4+ (NEGATIVE); UROBILINOGEN,URINE 4 MG/DL (0.0-1.0)
[2018-06-14 13:26] LABS: COLOR,URINE YELLOW
--- NOTE | 2018-06-14 14:09 | Emergency Room Report ---
History of Present Illness General Chief Complaint: Altered Level of Consciousness Source: Medical Record Present Illness HPI This patient from [facility] with increasing respiratory distress. Noted to be tachycardia/tachypneic and hypoxic pulse ox at [facility]. On arrival he cannot talk to me due to dyspnea. He is on 15 liters NRB and pulse ox low 90's. Off NRB he is in 70's. However he is COPD/CHF patient and high risk and I attempted to lower oxygen quantity but unsuccessful due to hypoxia. Remainder of the history is limited due to clinical condition. 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 Hx Cancer: No Hx Cerebrovascular Accident: Yes Review of Systems Constitutional: Reports: no symptoms, see HPI Eye: Reports: no symptoms ENT: Reports: no symptoms Respiratory: Reports: orthopnea, shortness of breath, wheezing Cardiovascular: Reports: edema Gastrointestinal: Reports: no symptoms, see HPI Genitourinary: Reports: no symptoms, see HPI Musculoskeletal: Reports: no symptoms Skin: Reports: no symptoms Psychiatric: Reports: no symptoms Neurological: Reports: no symptoms Endocrine: Reports: no symptoms Hematologic/Lymphatic: Reports: no symptoms Allergic: Reports: no symptoms All Other Systems: negative except mentioned in HPI Physical Exam Vital Signs Date Time Temp Pulse Resp B/P (MAP) Pulse Ox O2 Delivery O2 Flow Rate FiO2 06/14/18 12:00 119 26 187/105 95 Room Air 06/14/18 12:45 45 Sp02 EP Interpretation: reviewed, abnormal General Appearance: severe distress, lethargic, obese, Chronically Ill Head: normocephalic, atraumatic Eyes: bilateral eye normal inspection, bilateral eye PERRL, bilateral eye EOMI ENT: moist mucus membranes Neck: supple, no meningismus Respiratory: normal inspection, decreased breath sounds, crackles, rales, rhonchi, wheezing Cardiovascular #1: JVD, tachycardia Gastrointestinal: normal inspection, normal bowel sounds, non tender, soft, no mass, non-distended Genitourinary: penis normal Musculoskeletal: normal inspection Neurologic: other - KASPER spontaneously; opens eyes to name but too dyspneic/ tired to talk; lethargic almost obtunded Psychiatric: other - cannot evaluate Suicide Risk Assessment: Suicidal Ideation: No Had intent to initiate attempt: No Pt's plan for suicide attempt: No Has means to complete attempt: No Skin: well hydrated Procedures Intubation Intubation : Consent: Emergent Time of Intubation: 14:00 Intubation Method: orotracheal Tube Size (cm): 7.5 Medications: Etomidate, Succinylcholine Breath Sounds after Intubation: right greater than left Intubation Complications: no complications Post Intubation Xray: Yes Attempts: One Patient Tolerated: Well Complications: None Medical Decision Making Diagnostic Impression: Primary Impression: Respiratory failure Additional Impressions: Pulmonary edema Sepsis ER Course ED Course: d/w Dr. Damon, Dr. Faith, ICU admit, intubated, difficult intubation ( tight mouth, short neck, obesity) thick pulm yellow secretions fluid bolus initially not given due to very fluid overloaded/pulmonary edema. later given due to persistent borderline/low bp pneumonia antibx. ordered MDM: This patient has clinical signs and symptoms concerning for sepsis and severe sepsis. Patient's symptoms have not stabilized and the patient is at risk of decompensation. The patient is admitted for careful hydration, antibiotic therapy, and infectious source control. The patients clinical condition is complicated by the comorbidities noted in the HPI/PMH. Sepsis: HR >90 yes RR >20 yes Temp not(36-38) no WBC not(4-12) or 10% no Severe Sepsis criteria: Infectious source: pneumonia Lactate > 2.0 mmol/L yes Hypotension (SBP < 90 or >40 mmHG drop or MAP < 65) yes Acute Resp Failure (sat < 92% w/o oxygen) yes Online Affiliate Marketing Manager > 2.0 no INR > 1.5 no Plt < 100 no Bili > 2 Sepsis Management: Time of recognition of severe sepsis/septic shock: 130 Within 3 hours of recognition: yes Blood cultures x 2 before broad-spectrum antibiotics: yes 30 ml/kg NS bolus: yes Initial lactate: yes Repeat lactate: yes Septic Shock Assessment: NOT PRESENT AT THIS TIME Persistent Hypotension Treatment: Comfort care No Central line No Vasopressor started: No I considered further perfusion assessment with CVP measurement, SCVO2, bedside ultrasound volume assessment, passive leg raise, trial of further fluid bolus. And proceeded with additional fluids. Accepting Care Team Current data and ongoing care discussed. Time: 2 pm Admitting Physician: Dr. Damon, Dr. Faith, I [employer] Yacht(s): Outstanding Data: The admitting physician is aware that there are pending tests and will follow those results. Critical Care: Critical care time: I spent 35 minutes critical care time including emergent fluid management while maintaining close respiratory support. Provision of immediate and broad-spectrum antibiotic therapy. Simultaneous assessment for possible sources in order to direct targeted therapy. Consideration for invasive and chemical support to prevent cardiopulmonary collapse. EKG Diagnostic Results EKG Time: 12:07 Rate: tachycardiac ST Segments: other - tachycarcdia ASA given to the pt in ED: No Rhythm Strip Diag. Results Rhythm Strip Time: 14:09 EP Interpretation: yes Rate: sinus tach Rhythm: other Other Impression sinus tach 110 Last Vital Signs Date Time Temp Pulse Resp B/P (MAP) Pulse Ox O2 Delivery O2 Flow Rate FiO2 06/14/18 13:22 164/76 06/14/18 12:46 45 06/14/18 12:45 119 18 91 Bi-pap Disposition: ADMITTED INPATIENT Condition: Critical Referrals: Dung Castro MD (PCP) Carlos Mckenzie M.D. Jun 14, 2018 14:09
[2018-06-14] MEDS ORDERED: Azithromycin 500 MG in NS 275 ML IV ONE (14:15)
[2018-06-14] MEDS ORDERED: cefTRIAXone 1 GM in NS 55 ML IVPB ONE (14:15)
[2018-06-14] MEDS ORDERED: fentaNYL 100 mcg/2 mL IV ONE (14:15)
--- NOTE | 2018-06-14 14:17 | Diagnostic Imaging Report ---
Indication: Chest pain, dyspnea Technique: One view of the chest Comparison: 08/17/2017 Findings: There is bilateral diffuse are is borderline enlarged, as previously. There is generalized interstitial edema, perhaps slightly less severe than seen on the previous exam. No focal airspace consolidation or pleural fluid. Previously demonstrated tubes and lines are no longer evident Impression: Bilateral diffuse interstitial edema, similar in extent to prior study of July 2017 Cardiomegaly
--- NOTE | 2018-06-14 15:12 | Diagnostic Imaging Report ---
Indication: Shortness of breath Technique: One view of the chest Comparison: 2 hours earlier Findings: Interim endotracheal intubation, initially tube tip seen in the right mainstem bronchus, but the last of 3 images after retraction of the tube demonstrates tip in good position approximately 3 cm above the zunilda bilateral interstitial and airspace disease persists, unchanged. The heart is enlarged Impression: Satisfactory endotracheal intubation Other stable findings as described
[2018-06-14] MEDS ORDERED: Vancomycin 1 GM in D5W 275 ML IV SCH (16:00)
--- NOTE | 2018-06-14 16:45 | History and Physical Report ---
DATE OF ADMISSION: 06/14/2018 CHIEF COMPLAINT: Shortness of breath. HISTORY OF PRESENT ILLNESS: This is an unfortunate 37-year-old male from [facility], who was transferred to this hospital via 911 due to respiratory distress. The patient is currently intubated and is going to ICU. The patient is essentially noncompliant, morbidly obese young individual, who has diabetes. The patient has still been refusing to be admitted multiple times during the last few months for different reasons. The patient developed slowly increasing shortness of breath. 911 was called. The patient is in the ED being intubated. Current working diagnosis is congestive heart failure and chronic obstructive pulmonary disease exacerbation. PAST MEDICAL HISTORY: 1. Morbid obesity. 2. Type 2 diabetes mellitus. 3. Noncompliance. 4. Schizophrenia. 5. Hypertensive cardiovascular disease. 6. Left below-knee amputation. 7. Atrial fibrillation flutter. MEDICATIONS: Amiodarone, Benadryl, Coumadin, Dulcolax, Lasix, losartan, potassium chloride, Seroquel, and bronchodilators. ALLERGIES: No known drug allergies. FAMILY HISTORY: Unable to obtain secondary to mental status. SOCIAL HISTORY: Unable to obtain secondary to mental status. REVIEW OF SYSTEMS: Unable to obtain secondary to mental status. PHYSICAL EXAMINATION: GENERAL: This is a young morbidly obese male, who is currently intubated and on ventilator. VITAL SIGNS: Blood pressure 124/79, pulse 113, and tachycardic. Respirations 22, unlabored and temperature 98. HEENT: The head is normocephalic and atraumatic. The patient is intubated transorally. NECK: Supple. Trachea midline. There was no lymphadenopathy or thyromegaly. LUNGS: Bilateral wheezes. HEART: Tachycardia. S1 and S2. No rubs, murmurs, or gallops. ABDOMEN: Soft and nontender. Bowel sounds were active. EXTREMITIES: No clubbing, cyanosis, or edema. He has a left below-knee stump. LABORATORY AND ANCILLARY DATA: Chest x-ray, congestive heart failure. EKG, tachycardia. CBC shows hematocrit 55.7 and WBC 11.8. Serum chemistry, electrolytes within normal limits. Glucose 415. Alkaline phosphatase is 157. Urinalysis, 5 to 10 rbc's and white blood cells, moderate amount of bacteria. ASSESSMENT: 1. Chronic obstructive pulmonary disease exacerbation. 2. Congestive heart failure. 3. Morbid obesity. 4. Type 2 diabetes mellitus. 5. Noncompliance. 6. Schizophrenia. 7. Hypertensive cardiovascular disease. 8. Left below-knee amputation. 9. Atrial fibrillation flutter. 10. Respiratory failure. PLAN: 1. Admit to ICU. 2. IV antibiotics. 3. Diuresis. 4. Pulmonary consult. Dung Castro M.D. DR: ILIANA JOB#: [id number] CC:
[2018-06-14] MEDS ORDERED: Vancomycin 2gm/D5W 550ml IVPB SCH ×2 (17:00)
[2018-06-14] MEDS ORDERED: Heparin 2000 units/Ns 1000ml INJ SCH (18:00)
[2018-06-14] MEDS ORDERED: Lidocaine 1% Plain 30 ml INJ PRN (18:00)
--- NOTE | 2018-06-14 18:11 | Consultation ---
Consult Note Consult Note 37-year-old male who resides at [facility], brought in for respiratory distress. The patient was intubated and admitted to ICU. The patient admitted for possible sepsis with hypotension. Patient with diagnosis of congestive heart failure and chronic obstructive pulmonary disease exacerbation. patient with history of diabetes PAST MEDICAL HISTORY: 1. Morbid obesity. 2. Type 2 diabetes mellitus. 3. Noncompliance. 4. Schizophrenia. 5. Hypertensive cardiovascular disease. 6. Left below-knee amputation. 7. Atrial fibrillation flutter. MEDICATIONS: reviewed and reconciled ALLERGIES: No known drug allergies. FAMILY HISTORY: Unable SOCIAL HISTORY: Unable REVIEW OF SYSTEMS: unable at present PHYSICAL EXAMINATION: GENERAL: morbidly obese male, on vent (seen earlier) VITAL SIGNS: see attached HEENT: The head is normocephalic and atraumatic. orally intubated NECK: Supple. Trachea midline. carotids 2+ LUNGS: moderate breath sounds with wheezes. HEART: RRR S1 and S2. No rubs, murmurs, or gallops. ABDOMEN: Soft and nontender. Bowel sounds were active. EXTREMITIES: No clubbing, cyanosis, or edema. He has a left below-knee stump. LABORATORY AND ANCILLARY DATA: Chest x-ray, pulmonary edema EKG, tachycardia. Blood pressure 124/79, pulse 113, sats 95% Respirations 22, unlabored and temperature 98. Laboratory Tests Test 06/14/18 12:25 06/14/18 13:09 06/14/18 13:17 06/14/18 14:26 White Blood Count 11.8 K/UL (4.8-10.8) H Red Blood Count 6.20 M/UL (4.70-6.10) H Hemoglobin 17.0 G/DL (14.2-18.0) Hematocrit 55.7 % (42.0-52.0) H Mean Corpuscular Volume 90 FL (80-99) Mean Corpuscular Hemoglobin 27.4 PG (27.0-31.0) Mean Corpuscular Hemoglobin Concent 30.5 G/DL (32.0-36.0) L Red Cell Distribution Width 12.8 % (11.6-14.8) Platelet Count 212 K/UL (150-450) Mean Platelet Volume 7.6 FL (6.5-10.1) Neutrophils (%) (Auto) 80.7 % (45.0-75.0) H Lymphocytes (%) (Auto) 10.9 % (20.0-45.0) L Monocytes (%) (Auto) 7.6 % (1.0-10.0) Eosinophils (%) (Auto) 0.0 % (0.0-3.0) Basophils (%) (Auto) 0.7 % (0.0-2.0) Prothrombin Time 30.8 SEC (9.30-11.50) H Prothromb Time International Ratio 3.1 (0.9-1.1) H Sodium Level 135 MMOL/L (136-145) L Potassium Level 4.0 MMOL/L (3.5-5.1) Chloride Level 95 MMOL/L (98-107) L Carbon Dioxide Level 33 MMOL/L (21-32) H Anion Gap 7 mmol/L (5-15) Blood Urea Nitrogen 11 mg/dL (7-18) Creatinine 1.0 MG/DL (0.55-1.30) Estimat Glomerular Filtration Rate > 60 mL/min (>60) Glucose Level 415 MG/DL (74-106) H Lactic Acid Level 3.10 mmol/L (0.4-2.0) H Calcium Level 9.0 MG/DL (8.5-10.1) Total Bilirubin 0.9 MG/DL (0.2-1.0) Aspartate Amino Transf (AST/SGOT) 51 U/L (15-37) H Alanine Aminotransferase (ALT/SGPT) 75 U/L (12-78) Alkaline Phosphatase 157 U/L (46-116) H Troponin I 0.032 ng/mL (0.000-0.056) Pro-B-Type Natriuretic Peptide 583 pg/mL (0-125) H Total Protein 8.4 G/DL (6.4-8.2) H Albumin 2.9 G/DL (3.4-5.0) L Globulin 5.5 g/dL Albumin/Globulin Ratio 0.5 (1.0-2.7) L Urine Color Yellow Urine Appearance Slightly cloudy Urine pH 5 (4.5-8.0) Urine Specific [place] 1.020 (1.005-1.035) Urine Protein 4+ (NEGATIVE) H Urine Glucose (UA) 4+ (NEGATIVE) H Urine Ketones 1+ (NEGATIVE) H Urine Occult Blood 4+ (NEGATIVE) H Urine Nitrite Negative (NEGATIVE) Urine Bilirubin Negative (NEGATIVE) Urine Urobilinogen 4 MG/DL (0.0-1.0) H Urine Leukocyte Esterase Negative (NEGATIVE) Urine RBC 5-10 /HPF (0 - 0) H Urine WBC 5-10 /HPF (0 - 0) H Urine Squamous Epithelial Cells Few /LPF (NONE/OCC) Urine Amorphous Sediment Few /LPF (NONE) H Urine Bacteria Moderate /HPF (NONE) H Urine Hyaline Casts 2-4 /LPF (NONE) H Urine Mucus Moderate /LPF (NONE/OCC) H Arterial Blood pH 7.146 (7.350-7.450) 7.317 (7.350-7.450) Arterial Blood Partial Pressure CO2 135.1 mmHg (35.0-45.0) *H 60.7 mmHg (35.0-45.0) *H Arterial Blood Partial Pressure O2 72.0 mmHg (75.0-100.0) L 208.7 mmHg (75.0-100.0) H Arterial Blood HCO3 45.6 mmol/L (22.0-26.0) H 30.3 mmol/L (22.0-26.0) H Arterial Blood Oxygen Saturation 91.3 % (92.0-98.0) L 99.3 % (92.0-98.0) H Arterial Blood Base Excess 9.6 2.3 Cole Test Positive Positive ASSESSMENT: 1. COPD with exacerbation. 2. Congestive heart failure. per history 3. HHD. 4. Type 2 diabetes mellitus. 5. possible sepsis. 6. Schizophrenia. 7. Hypertensive cardiovascular disease. 8. Left below-knee amputation. 9. Atrial fibrillation 10. Respiratory failure. acute 11. severe protein calorie malnutrition PLAN ventilator support follow up ABG empiric antibiotics pressors as needed IV hydration with caution doubt fluid overload heparin SQ duplex for DVT medications/laboratory data/nursing notes/ICU care reviewed in detail note reviewed and edited Maurisio Faith MD Jun 14, 2018 18:11
[2018-06-14] MEDS ORDERED: Morphine Sulfate 2mg/ml Inj(IV/IM USE ONLY) IVP PRN (19:30)
--- NOTE | 2018-06-14 21:30 | Operative Note - PDOC ---
Operative Note Operative Note Date of Operation/Procedure: Jun 14, 2018 Pre-op Diagnosis: sepsis, hypotension Procedure: left femoral central venous catheter insertion Post-op Diagnosis: same as pre-op Surgeon: koby Anesthesia: local Specimen: none Complications: none Condition: unstable Estimated Blood Loss: minimal Drains: none Implant(s) used?: No Indications for Procedure 37M multiple medical comorbidities currently in ICU in septic shock with hypotension requiring pressors. central venous access recommended and indicated. consent obtained. procedure performed at bedside. Description of Procedure patient made comfortable at bedside. left groin prepped and draped in standard surgical fashion. local 1% lido infiltrated. finder needle used to cannulate right femoral vein. good venous flow noted. guide wire placed and needle removed. small skin incision made and track dilated. triple lumen catheter inserted without complication. wire discarded. all ports flushed and aspirated without complication. patient tolerated procedure well. okay for use. Giancarlo Loving Jun 14, 2018 21:30
[2018-06-15] VITALS (33 sets, daily range): BP systolic 103–171; BP diastolic 52–92
[2018-06-15] MEDS: LORazepam Inj 2mg/ml 1ml IV PRN ×2 (00:09→03:42)
[2018-06-15] MEDS ORDERED: Vancomycin 1250mg/D5W 250ml IVPB SCH (01:00)
[2018-06-15] MEDS: Captopril 12.5mg tab ORAL SCH (06:00)
[2018-06-15 06:34] LABS: BASOPHILS % (AUTO) 1.1 % (0.0-2.0); HEMATOCRIT 47.8 % (42.0-52.0); LYMPHOCYTES % (AUTO) 12.3 % (20.0-45.0); MEAN CORPUSCULAR VOLUME 90 FL (80-99); MONOCYTES % (AUTO) 9.9 % (1.0-10.0); NEUTROPHILS % (AUTO) 76.8 % (45.0-75.0); PLATELET COUNT 211 K/UL (150-450); RED CELL DISTRIBUTION WIDTH 13.1 % (11.6-14.8); WHITE BLOOD COUNT 13.3 K/UL (4.8-10.8)
[2018-06-15 06:46] LABS: ANION GAP 3 mmol/L (5-15); BLOOD UREA NITROGEN 12 mg/dL (7-18); CALCIUM 7.9 MG/DL (8.5-10.1); CARBON DIOXIDE 37 MMOL/L (21-32); CHLORIDE 99 MMOL/L (98-107); CREATININE 1.3 MG/DL (0.55-1.30); POTASSIUM 3.5 MMOL/L (3.5-5.1); SODIUM 139 MMOL/L (136-145)
[2018-06-15] MEDS: Pantoprazole Inj IVP SCH (08:48)
[2018-06-15] MEDS: cefTRIAXone 1 GM in D5W 110 ML IV SCH (08:48)
[2018-06-15] MEDS: Heparin 5000 units/ml inj SUBQ SCH (08:53)
[2018-06-15] MEDS ORDERED: Vancomycin 2gm/D5W 550ml IVPB SCH ×2 (09:00)
--- NOTE | 2018-06-15 10:24 | Diagnostic Imaging Report ---
Indication: Post nasogastric tube placement Technique: Supine view of the upper abdomen Comparison: none Findings: There is a nasogastric tube in place, tip which projects at the level gastric body, proximal port well beyond the gastroesophageal junction. Upper abdominal small bowel loops are mildly dilated. There is an inferior vena cava filter in place. Impression: Satisfactory position of nasogastric tube Other findings as noted This agrees with the preliminary interpretation provided overnight by [facility] teleradiology service.
--- NOTE | 2018-06-15 10:31 | General Progress Note ---
Assessment/Plan Assessment/Plan Pul edema - reduce IVF!! Hope to wean off vent! Subjective Allergies: Coded Allergies: No Known Allergies (Unverified , 08/15/17) Subjective Intubated. Nonverbal. Sedated. Objective Last 24 Hour Vital Signs Date Time Temp Pulse Resp B/P (MAP) Pulse Ox O2 Delivery O2 Flow Rate FiO2 06/15/18 09:30 86 18 111/64 (80) 97 06/15/18 09:00 98.8 90 18 112/64 (80) 97 98.8 06/15/18 08:57 91 18 80 06/15/18 08:30 89 18 110/59 (76) 97 06/15/18 08:00 Mechanical Ventilator 06/15/18 08:00 93 18 114/79 (91) 97 06/15/18 08:00 121/67 06/15/18 08:00 80 06/15/18 08:00 103 06/15/18 07:30 99.3 103 18 121/74 (90) 96 99.3 06/15/18 07:26 74 28 80 06/15/18 07:00 138/67 06/15/18 07:00 94 18 121/67 (85) 97 06/15/18 06:30 76 18 128/74 (92) 96 06/15/18 06:00 76 18 131/74 (93) 96 06/15/18 06:00 131/74 06/15/18 06:00 90/50 06/15/18 05:30 74 18 140/70 (93) 96 06/15/18 05:15 74 18 80 06/15/18 05:00 73 18 160/80 (106) 96 06/15/18 05:00 140/70 06/15/18 04:30 75 18 171/92 (118) 96 06/15/18 04:00 Mechanical Ventilator 06/15/18 04:00 80 06/15/18 04:00 76 06/15/18 04:00 162/87 06/15/18 04:00 98.9 74 18 162/87 (112) 96 98.9 06/15/18 03:40 92 18 80 06/15/18 03:30 74 18 116/61 (79) 98 06/15/18 03:00 78 18 118/68 (85) 98 06/15/18 03:00 118/68 7/25/18 02:30 70 18 114/67 (83) 98 06/15/18 02:00 75 18 119/66 (83) 98 06/15/18 02:00 119/66 06/15/18 01:59 113/26 06/15/18 01:30 73 18 113/66 (82) 97 06/15/18 01:12 88 18 80 06/15/18 01:00 102 18 103/52 (69) 97 06/15/18 01:00 125/67 06/15/18 00:00 98.6 102 18 103/52 (69) 97 98.6 06/15/18 00:00 Mechanical Ventilator 06/15/18 00:00 103/52 06/15/18 00:00 102 06/15/18 00:00 80 06/14/18 23:30 70 18 129/70 (89) 97 06/14/18 23:00 60/30 06/14/18 23:00 73 18 60/73 (69) 97 06/14/18 22:49 88 18 80 06/14/18 22:39 99.8 06/14/18 22:30 74 18 108/53 (71) 97 06/14/18 22:00 74 18 121/66 (84) 97 06/14/18 22:00 80/50 06/14/18 21:43 105/56 06/14/18 21:40 101.6 06/14/18 21:00 101.0 93 18 124/66 (85) 97 101.0 06/14/18 21:00 80 06/14/18 20:56 97 18 80 06/14/18 20:00 80 06/14/18 20:00 93 06/14/18 20:00 Mechanical Ventilator 06/14/18 20:00 101.2 93 18 131/70 (90) 96 101.2 06/14/18 20:00 131/70 06/14/18 19:30 93 18 66/28 (41) 97 06/14/18 19:11 96 18 100 06/14/18 17:00 89 18 100 06/14/18 16:15 Mechanical Ventilator 06/14/18 16:07 113 18 124/79 96 Mechanical Ventilator 15.0 100 06/14/18 16:00 Mechanical Ventilator 06/14/18 14:25 107 18 100 06/14/18 14:23 105 18 Mechanical Ventilator 15.0 100 06/14/18 14:23 113 13 124/79 96 Mechanical Ventilator 100 06/14/18 14:03 100 06/14/18 13:30 118 18 141/80 90 Bi-pap 45 06/14/18 13:22 164/76 06/14/18 12:46 45 06/14/18 12:45 119 18 108/58 91 Bi-pap 45 06/14/18 12:00 119 26 187/105 95 Room Air Intake and Output 06/14/18 06/15/18 19:00 07:00 Intake Total 0 ml 1442.50 ml Output Total 1361 ml Balance 0 ml 81.50 ml Intake Oral 0 ml IV Total 1442.50 ml Output Urine Total 1361 ml Laboratory Tests 06/14/18 12:25: White Blood Count 11.8H, Red Blood Count 6.20H, Hemoglobin 17.0, Hematocrit 55.7H, Mean Corpuscular Volume 90, Mean Corpuscular Hemoglobin 27.4, Mean Corpuscular Hemoglobin Concent 30.5L, Red Cell Distribution Width 12.8, Platelet Count 212, Mean Platelet Volume 7.6, Neutrophils (%) (Auto) 80.7H, Lymphocytes (%) (Auto) 10.9L, Monocytes (%) (Auto) 7.6, Eosinophils (%) (Auto) 0.0, Basophils (%) (Auto) 0.7, Prothrombin Time 30.8H, Prothromb Time International Ratio 3.1H, Sodium Level 135L, Potassium Level 4.0, Chloride Level 95L, Carbon Dioxide Level 33H, Anion Gap 7, Blood Urea Nitrogen 11, Creatinine 1.0, Estimat Glomerular Filtration Rate > 60, Glucose Level 415H, Lactic Acid Level 3.10H, Calcium Level 9.0, Total Bilirubin 0.9, Aspartate Amino Transf (AST/SGOT) 51H, Alanine Aminotransferase (ALT/SGPT) 75, Alkaline Phosphatase 157H, Troponin I 0.032, Pro-B-Type Natriuretic Peptide 583H, Total Protein 8.4H, Albumin 2.9L, Globulin 5.5, Albumin/Globulin Ratio 0.5L 06/14/18 13:09: Urine Color Yellow, Urine Appearance Slightly cloudy, Urine pH 5, Urine Specific [place] 1.020, Urine Protein 4+H, Urine Glucose (UA) 4+H, Urine Ketones 1+H, Urine Occult Blood 4+H, Urine Nitrite Negative, Urine Bilirubin Negative, Urine Urobilinogen 4H, Urine Leukocyte Esterase Negative, Urine RBC 5- 10H, Urine WBC 5-10H, Urine Squamous Epithelial Cells Few, Urine Amorphous Sediment FewH, Urine Bacteria ModerateH, Urine Hyaline Casts 2-4H, Urine Mucus ModerateH 06/14/18 13:17: Arterial Blood pH 7.146*L, Arterial Blood Partial Pressure CO2 135.1*H, Arterial Blood Partial Pressure O2 72.0L, Arterial Blood HCO3 45.6H, Arterial Blood Oxygen Saturation 91.3L, Arterial Blood Base Excess 9.6, Cole Test Positive 06/14/18 14:26: Arterial Blood pH 7.317L, Arterial Blood Partial Pressure CO2 60.7*H, Arterial Blood Partial Pressure O2 208.7H, Arterial Blood HCO3 30.3H, Arterial Blood Oxygen Saturation 99.3H, Arterial Blood Base Excess 2.3, Cole Test Positive 06/14/18 19:00: Arterial Blood pH 7.303L, Arterial Blood Partial Pressure CO2 70.4*H, Arterial Blood Partial Pressure O2 107.9H, Arterial Blood HCO3 34.1H, Arterial Blood Oxygen Saturation 97.7, Arterial Blood Base Excess -4.8, Cole Test Positive 06/15/18 02:00: Lactic Acid Level 1.80 06/15/18 06:00: Lactic Acid Level 1.90, White Blood Count 13.3H, Red Blood Count 5.30, Hemoglobin 15.0, Hematocrit 47.8, Mean Corpuscular Volume 90, Mean Corpuscular Hemoglobin 28.3, Mean Corpuscular Hemoglobin Concent 31.3L, Red Cell Distribution Width 13.1, Platelet Count 211, Mean Platelet Volume 7.0, Neutrophils (%) (Auto) 76.8H, Lymphocytes (%) (Auto) 12.3L, Monocytes (%) (Auto ) 9.9, Eosinophils (%) (Auto) 0.0, Basophils (%) (Auto) 1.1, Sodium Level 139, Potassium Level 3.5, Chloride Level 99, Carbon Dioxide Level 37H, Anion Gap 3L, Blood Urea Nitrogen 12, Creatinine 1.3, Estimat Glomerular Filtration Rate > 60 , Glucose Level 354H, Calcium Level 7.9L, Magnesium Level 2.0 06/15/18 08:45: Arterial Blood pH 7.466H, Arterial Blood Partial Pressure CO2 52.6H, Arterial Blood Partial Pressure O2 98.4, Arterial Blood HCO3 36.6H, Arterial Blood Oxygen Saturation 97.6, Arterial Blood Base Excess 10.6, Cole Test Positive Height (Feet): 5 Height (Inches): 6.00 Weight (Pounds): 334 Objective On vent. CV RR Lungs B ronchi Abd pendulous, Obese E Min edema. Dung Castro MD Jun 15, 2018 10:31
[2018-06-15] MEDS ORDERED: Etomidate 40mg/20ml Inj IV ONE (11:02)
[2018-06-15] MEDS ORDERED: Succinylcholine 20mg/ml 10ml vial ONE (11:02)
[2018-06-15] MEDS: NovoLOG Insulin Flexpen SUBQ SCH ×2 (12:26→18:02)
--- NOTE | 2018-06-15 14:59 | Cardiology Report ---
APPROVED REPORT EXAM: Two-dimensional and M-mode echocardiogram with Doppler and color Doppler. INDICATION Atrial Flutter M-Mode DIMENSIONS IVSd1.0 (0.7-1.1cm)Left Atrium (MM)4.7 (1.6-4.0cm) LVDd5.4 (3.5-5.6cm)Aortic Root3.1 (2.0-3.7cm) PWd1.3 (0.7-1.1cm)Aortic Cusp Exc.1.8 (1.5-2.0cm) LVDs3.1 (2.5-4.0cm) PWs1.5 cm Technically limited and difficult study due to poor acoustical windows. Lack of apical windows. Normal left ventricular chamber size, systolic function and wall motion. Left ventricular ejection fraction estimated to be 55-60 % to extend visualized. No evidence of left ventricular hypertrophy. Small posterior pericardial effusion. Focal aortic valve sclerosis with adequate cusp excursion. Thickened mitral valve leaflets with normal excursion. Mild mitral annulus and aortic root calcification. Pulmonic valve not well visualized. Normal tricuspid valve structure. IVC is not obtainable. A color flow and spectral Doppler study was performed and revealed: No tricuspid regurgitation.
--- NOTE | 2018-06-15 15:38 | Cardiology Report ---
APPROVED REPORT EKG Measurement Heart [id number] Sinus tachycardia Incomplete right bundle branch block, plus right ventricular hypertrophy Abnormal QRS-T angle, consider primary T wave abnormality Abnormal ECG
--- NOTE | 2018-06-15 17:19 | Critical Care Progress Note ---
Assessment/Plan Assessment/Plan ASSESSMENT: 1. COPD with exacerbation. 2. Congestive heart failure. per history 3. HHD. 4. Type 2 diabetes mellitus. 5. possible sepsis. 6. Schizophrenia. 7. Hypertensive cardiovascular disease. 8. Left below-knee amputation. 9. Atrial fibrillation 10. Respiratory failure. acute 11. severe protein calorie malnutrition PLAN ventilator support as is follow up ABG and add PEEP empiric antibiotics pressors as needed IV hydration with caution heparin SQ duplex for DVT medications/laboratory data/nursing notes/ICU care reviewed in detail note reviewed and edited ICU time spent x 40 minutes Critical Care - Subjective Interval Events: critical hypoxemic echo and venous reviewed good EF ROS Limited/Unobtainable: Yes Condition: critical EKG Rhythm: Sinus Rhythm I&O: Intake and Output 06/14/18 06/15/18 19:00 07:00 Intake Total 0 ml 1442.50 ml Output Total 1361 ml Balance 0 ml 81.50 ml Intake Oral 0 ml IV Total 1442.50 ml Output Urine Total 1361 ml Critical Care - Objective CXR: Interim endotracheal intubation, initially tube tip seen in the right mainstem bronchus, but the last of 3 images after retraction of the tube demonstrates tip in good position approximately 3 cm above the zunilda bilateral interstitial and airspace disease persists, unchanged. The heart is enlarged ET-Tube: 7.5 ET Position: 24 Last 24 Hour Vital Signs Date Time Temp Pulse Resp B/P (MAP) Pulse Ox O2 Delivery O2 Flow Rate FiO2 06/15/18 17:08 77 18 75 06/15/18 16:00 80 06/15/18 16:00 69 06/15/18 15:13 82 18 75 06/15/18 15:00 82 19 115/67 (83) 95 06/15/18 14:00 82 19 113/72 (86) 97 06/15/18 13:04 86 18 80 06/15/18 13:00 86 19 117/71 (86) 97 06/15/18 12:00 80 06/15/18 12:00 Mechanical Ventilator 06/15/18 12:00 89 06/15/18 12:00 99.0 82 18 110/63 (79) 97 99.0 06/15/18 11:07 84 18 80 06/15/18 11:00 85 18 114/73 (87) 97 7/25/18 10:00 83 18 109/64 (79) 97 06/15/18 09:30 86 18 111/64 (80) 97 06/15/18 09:00 98.8 90 18 112/64 (80) 97 98.8 06/15/18 08:57 91 18 80 06/15/18 08:30 89 18 110/59 (76) 97 06/15/18 08:00 Mechanical Ventilator 06/15/18 08:00 93 18 114/79 (91) 97 06/15/18 08:00 121/67 06/15/18 08:00 80 06/15/18 08:00 103 06/15/18 07:30 99.3 103 18 121/74 (90) 96 99.3 06/15/18 07:26 74 28 80 06/15/18 07:00 138/67 06/15/18 07:00 94 18 121/67 (85) 97 06/15/18 06:30 76 18 128/74 (92) 96 06/15/18 06:00 76 18 131/74 (93) 96 06/15/18 06:00 131/74 06/15/18 06:00 90/50 06/15/18 05:30 74 18 140/70 (93) 96 06/15/18 05:15 74 18 80 06/15/18 05:00 73 18 160/80 (106) 96 06/15/18 05:00 140/70 06/15/18 04:30 75 18 171/92 (118) 96 06/15/18 04:00 Mechanical Ventilator 06/15/18 04:00 80 06/15/18 04:00 76 06/15/18 04:00 162/87 06/15/18 04:00 98.9 74 18 162/87 (112) 96 98.9 06/15/18 03:40 92 18 80 06/15/18 03:30 74 18 116/61 (79) 98 06/15/18 03:00 78 18 118/68 (85) 98 06/15/18 03:00 118/68 06/15/18 02:30 70 18 114/67 (83) 98 06/15/18 02:00 75 18 119/66 (83) 98 06/15/18 02:00 119/66 06/15/18 01:59 113/26 06/15/18 01:30 73 18 113/66 (82) 97 06/15/18 01:12 88 18 80 06/15/18 01:00 102 18 103/52 (69) 97 06/15/18 01:00 125/67 06/15/18 00:00 98.6 102 18 103/52 (69) 97 98.6 06/15/18 00:00 Mechanical Ventilator 06/15/18 00:00 103/52 06/15/18 00:00 102 06/15/18 00:00 80 06/14/18 23:30 70 18 129/70 (89) 97 06/14/18 23:00 60/30 06/14/18 23:00 73 18 60/73 (69) 97 06/14/18 22:49 88 18 80 06/14/18 22:39 99.8 06/14/18 22:30 74 18 108/53 (71) 97 06/14/18 22:00 74 18 121/66 (84) 97 06/14/18 22:00 80/50 06/14/18 21:43 105/56 06/14/18 21:40 101.6 06/14/18 21:00 101.0 93 18 124/66 (85) 97 101.0 06/14/18 21:00 80 06/14/18 20:56 97 18 80 06/14/18 20:00 80 06/14/18 20:00 93 06/14/18 20:00 Mechanical Ventilator 06/14/18 20:00 101.2 93 18 131/70 (90) 96 101.2 06/14/18 20:00 131/70 06/14/18 19:30 93 18 66/28 (41) 97 06/14/18 19:11 96 18 100 Labs: Labs Test 06/14/18 12:25 06/14/18 13:09 06/14/18 13:17 06/14/18 14:26 White Blood Count 11.8 K/UL (4.8-10.8) Red Blood Count 6.20 M/UL (4.70-6.10) Hemoglobin 17.0 G/DL (14.2-18.0) Hematocrit 55.7 % (42.0-52.0) Mean Corpuscular Volume 90 FL (80-99) Mean Corpuscular Hemoglobin 27.4 PG (27.0-31.0) Mean Corpuscular Hemoglobin Concent 30.5 G/DL (32.0-36.0) Red Cell Distribution Width 12.8 % (11.6-14.8) Platelet Count 212 K/UL (150-450) Mean Platelet Volume 7.6 FL (6.5-10.1) Neutrophils (%) (Auto) 80.7 % (45.0-75.0) Lymphocytes (%) (Auto) 10.9 % (20.0-45.0) Monocytes (%) (Auto) 7.6 % (1.0-10.0) Eosinophils (%) (Auto) 0.0 % (0.0-3.0) Basophils (%) (Auto) 0.7 % (0.0-2.0) Prothrombin Time 30.8 SEC (9.30-11.50) Prothromb Time International Ratio 3.1 (0.9-1.1) Sodium Level 135 MMOL/L (136-145) Potassium Level 4.0 MMOL/L (3.5-5.1) Chloride Level 95 MMOL/L (98-107) Carbon Dioxide Level 33 MMOL/L (21-32) Anion Gap 7 mmol/L (5-15) Blood Urea Nitrogen 11 mg/dL (7-18) Creatinine 1.0 MG/DL (0.55-1.30) Estimat Glomerular Filtration Rate > 60 mL/min (>60) Glucose Level 415 MG/DL (74-106) Lactic Acid Level 3.10 mmol/L (0.4-2.0) Calcium Level 9.0 MG/DL (8.5-10.1) Total Bilirubin 0.9 MG/DL (0.2-1.0) Aspartate Amino Transf (AST/SGOT) 51 U/L (15-37) Alanine Aminotransferase (ALT/SGPT) 75 U/L (12-78) Alkaline Phosphatase 157 U/L (46-116) Troponin I 0.032 ng/mL (0.000-0.056) Pro-B-Type Natriuretic Peptide 583 pg/mL (0-125) Total Protein 8.4 G/DL (6.4-8.2) Albumin 2.9 G/DL (3.4-5.0) Globulin 5.5 g/dL Albumin/Globulin Ratio 0.5 (1.0-2.7) Urine Color Yellow Urine Appearance Slightly cloudy Urine pH 5 (4.5-8.0) Urine Specific [place] 1.020 (1.005-1.035) Urine Protein 4+ (NEGATIVE) Urine Glucose (UA) 4+ (NEGATIVE) Urine Ketones 1+ (NEGATIVE) Urine Occult Blood 4+ (NEGATIVE) Urine Nitrite Negative (NEGATIVE) Urine Bilirubin Negative (NEGATIVE) Urine Urobilinogen 4 MG/DL (0.0-1.0) Urine Leukocyte Esterase Negative (NEGATIVE) Urine RBC 5-10 /HPF (0 - 0) Urine WBC 5-10 /HPF (0 - 0) Urine Squamous Epithelial Cells Few /LPF (NONE/OCC) Urine Amorphous Sediment Few /LPF (NONE) Urine Bacteria Moderate /HPF (NONE) Urine Hyaline Casts 2-4 /LPF (NONE) Urine Mucus Moderate /LPF (NONE/OCC) Arterial Blood pH 7.146 (7.350-7.450) 7.317 (7.350-7.450) Arterial Blood Partial Pressure CO2 135.1 mmHg (35.0-45.0) 60.7 mmHg (35.0-45.0) Arterial Blood Partial Pressure O2 72.0 mmHg (75.0-100.0) 208.7 mmHg (75.0-100.0) Arterial Blood HCO3 45.6 mmol/L (22.0-26.0) 30.3 mmol/L (22.0-26.0) Arterial Blood Oxygen Saturation 91.3 % (92.0-98.0) 99.3 % (92.0-98.0) Arterial Blood Base Excess 9.6 2.3 Cole Test Positive Positive Test 06/14/18 19:00 06/15/18 02:00 06/15/18 06:00 06/15/18 08:45 Arterial Blood pH 7.303 (7.350-7.450) 7.466 (7.350-7.450) Arterial Blood Partial Pressure CO2 70.4 mmHg (35.0-45.0) 52.6 mmHg (35.0-45.0) Arterial Blood Partial Pressure O2 107.9 mmHg (75.0-100.0) 98.4 mmHg (75.0-100.0) Arterial Blood HCO3 34.1 mmol/L (22.0-26.0) 36.6 mmol/L (22.0-26.0) Arterial Blood Oxygen Saturation 97.7 % (92.0-98.0) 97.6 % (92.0-98.0) Arterial Blood Base Excess -4.8 10.6 Cole Test Positive Positive Lactic Acid Level 1.80 mmol/L (0.4-2.0) 1.90 mmol/L (0.4-2.0) White Blood Count 13.3 K/UL (4.8-10.8) Red Blood Count 5.30 M/UL (4.70-6.10) Hemoglobin 15.0 G/DL (14.2-18.0) Hematocrit 47.8 % (42.0-52.0) Mean Corpuscular Volume 90 FL (80-99) Mean Corpuscular Hemoglobin 28.3 PG (27.0-31.0) Mean Corpuscular Hemoglobin Concent 31.3 G/DL (32.0-36.0) Red Cell Distribution Width 13.1 % (11.6-14.8) Platelet Count 211 K/UL (150-450) Mean Platelet Volume 7.0 FL (6.5-10.1) Neutrophils (%) (Auto) 76.8 % (45.0-75.0) Lymphocytes (%) (Auto) 12.3 % (20.0-45.0) Monocytes (%) (Auto) 9.9 % (1.0-10.0) Eosinophils (%) (Auto) 0.0 % (0.0-3.0) Basophils (%) (Auto) 1.1 % (0.0-2.0) Sodium Level 139 MMOL/L (136-145) Potassium Level 3.5 MMOL/L (3.5-5.1) Chloride Level 99 MMOL/L (98-107) Carbon Dioxide Level 37 MMOL/L (21-32) Anion Gap 3 mmol/L (5-15) Blood Urea Nitrogen 12 mg/dL (7-18) Creatinine 1.3 MG/DL (0.55-1.30) Estimat Glomerular Filtration Rate > 60 mL/min (>60) Glucose Level 354 MG/DL (74-106) Calcium Level 7.9 MG/DL (8.5-10.1) Magnesium Level 2.0 MG/DL (1.8-2.4) Objective: GENERAL: morbidly obese male, on vent (seen earlier) VITAL SIGNS: see attached HEENT: The head is normocephalic and atraumatic. orally intubated NECK: Supple. Trachea midline. carotids 2+ LUNGS: moderate breath sounds with wheezes. HEART: RRR S1 and S2. No rubs, murmurs, or gallops. ABDOMEN: Soft and nontender. Bowel sounds were active. EXTREMITIES: No clubbing, cyanosis, or edema. He has a left below-knee stump. Micro: Microbiology Date/Time Source Procedure Growth Status 06/14/18 13:09 Urine,Clean Catch Urine Culture - Preliminary Resulted Accucheck: 234 Maurisio Faith MD Jun 15, 2018 17:19
[2018-06-15] MEDS: Vancomycin 1gm/D5W 275ml IVPB SCH ×2 (18:07)
[2018-06-16] VITALS (24 sets, daily range): BP systolic 99–146; BP diastolic 39–99
[2018-06-16] MEDS: NovoLOG Insulin Flexpen SUBQ SCH ×4 (00:49→18:26)
[2018-06-16] MEDS: Vancomycin 1gm/D5W 275ml IVPB SCH ×6 (02:49→18:25)
[2018-06-16] MEDS: LORazepam Inj 2mg/ml 1ml IV PRN (04:21)
[2018-06-16 05:17] LABS: BASOPHILS % (AUTO) 1.2 % (0.0-2.0); EOSINOPHILS % (AUTO) 0.6 % (0.0-3.0); HEMATOCRIT 46.7 % (42.0-52.0); HEMOGLOBIN 14.7 G/DL (14.2-18.0); LYMPHOCYTES % (AUTO) 11.6 % (20.0-45.0); MEAN CORPUSCULAR VOLUME 90 FL (80-99); MONOCYTES % (AUTO) 6.9 % (1.0-10.0); NEUTROPHILS % (AUTO) 79.8 % (45.0-75.0); PLATELET COUNT 209 K/UL (150-450); RED BLOOD COUNT 5.21 M/UL (4.70-6.10); RED CELL DISTRIBUTION WIDTH 12.8 % (11.6-14.8); WHITE BLOOD COUNT 12.9 K/UL (4.8-10.8)
[2018-06-16 05:49] LABS: ALANINE AMINOTRANSFERASE 56 U/L (12-78); ALBUMIN 2.2 G/DL (3.4-5.0); ALBUMIN/GLOBULIN RATIO 0.5 (1.0-2.7); ALKALINE PHOSPHATASE 104 U/L (46-116); ANION GAP 2 mmol/L (5-15); ASPARTATE AMINO TRANSFERASE 33 U/L (15-37); BLOOD UREA NITROGEN 17 mg/dL (7-18); CALCIUM 8.2 MG/DL (8.5-10.1); CARBON DIOXIDE 38 MMOL/L (21-32); CHLORIDE 100 MMOL/L (98-107); CREATININE 1.1 MG/DL (0.55-1.30); SODIUM 140 MMOL/L (136-145)
[2018-06-16] MEDS: Pantoprazole Inj IVP SCH (09:13)
[2018-06-16] MEDS: cefTRIAXone 1 GM in D5W 110 ML IV SCH (09:13)
[2018-06-16] MEDS: Heparin 5000 units/ml inj SUBQ SCH (09:16)
--- NOTE | 2018-06-16 10:42 | General Progress Note ---
Assessment/Plan Assessment/Plan Pul edema - reduce IVF!! Hope to wean off vent! Hypokalemia - given IV KCl Mg ok DW pt'd mother. Subjective Allergies: Coded Allergies: No Known Allergies (Unverified , 08/15/17) Subjective Intubated. More responsive. Objective Last 24 Hour Vital Signs Date Time Temp Pulse Resp B/P (MAP) Pulse Ox O2 Delivery O2 Flow Rate FiO2 06/16/18 09:10 65 06/16/18 09:02 83 16 75 06/16/18 09:00 81 17 138/83 (101) 96 06/16/18 08:00 75 06/16/18 08:00 Mechanical Ventilator 06/16/18 08:00 99.7 80 17 137/84 (101) 96 99.7 06/16/18 07:20 76 16 75 06/16/18 07:00 92 16 144/89 (107) 96 06/16/18 06:00 71 16 134/76 (95) 96 06/16/18 05:10 71 16 75 06/16/18 05:00 71 16 128/77 (94) 96 06/16/18 04:00 75 06/16/18 04:00 81 06/16/18 04:00 Mechanical Ventilator 06/16/18 04:00 99.3 79 17 129/77 (94) 96 99.3 06/16/18 03:00 77 17 75 06/16/18 03:00 73 16 138/83 (101) 96 06/16/18 02:00 75 17 113/93 (100) 96 06/16/18 01:10 73 16 75 06/16/18 01:00 75 17 120/98 (105) 96 06/16/18 00:00 75 06/16/18 00:00 Mechanical Ventilator 06/16/18 00:00 75 06/16/18 00:00 99.5 76 16 140/74 (96) 96 99.5 06/15/18 23:06 75 16 75 06/15/18 23:00 75 17 133/74 (93) 96 06/15/18 22:00 74 16 119/78 (92) 96 06/15/18 21:05 69 16 75 06/15/18 21:00 75 16 112/85 (94) 96 06/15/18 20:00 76 06/15/18 20:00 75 06/15/18 20:00 Mechanical Ventilator 06/15/18 20:00 99.8 70 16 118/71 (87) 96 99.8 06/15/18 19:16 72 16 75 06/15/18 19:00 71 19 108/81 (90) 97 06/15/18 18:00 78 19 121/71 (88) 97 06/15/18 17:30 75 06/15/18 17:25 75 06/15/18 17:08 77 18 75 06/15/18 17:00 74 19 107/64 (78) 95 06/15/18 16:00 80 06/15/18 16:00 98.8 78 18 111/70 (84) 97 98.8 06/15/18 16:00 Mechanical Ventilator 06/15/18 16:00 69 06/15/18 16:00 75 06/15/18 15:13 82 18 75 06/15/18 15:00 82 19 115/67 (83) 95 06/15/18 14:00 82 19 113/72 (86) 97 06/15/18 13:04 86 18 80 06/15/18 13:00 75 06/15/18 13:00 86 19 117/71 (86) 97 06/15/18 12:00 80 06/15/18 12:00 Mechanical Ventilator 06/15/18 12:00 89 06/15/18 12:00 99.0 82 18 110/63 (79) 97 99.0 06/15/18 11:07 84 18 80 06/15/18 11:00 85 18 114/73 (87) 97 Intake and Output 06/15/18 06/16/18 19:00 07:00 Intake Total 1103.708 ml 275 ml Output Total 1585 ml 1010 ml Balance -481.292 ml -735 ml Free Water 0 ml IV Total 1103.708 ml 275 ml Output Urine Total 1585 ml 1010 ml Laboratory Tests 06/16/18 05:00: White Blood Count 12.9H, Red Blood Count 5.21, Hemoglobin 14.7, Hematocrit 46.7 , Mean Corpuscular Volume 90, Mean Corpuscular Hemoglobin 28.2, Mean Corpuscular Hemoglobin Concent 31.4L, Red Cell Distribution Width 12.8, Platelet Count 209, Mean Platelet Volume 7.2, Neutrophils (%) (Auto) 79.8H, Lymphocytes (%) (Auto) 11.6L, Monocytes (%) (Auto) 6.9, Eosinophils (%) (Auto) 0.6, Basophils (%) (Auto) 1.2, Sodium Level 140, Potassium Level 3.0L, Chloride Level 100, Carbon Dioxide Level 38H, Anion Gap 2L, Blood Urea Nitrogen 17, Creatinine 1.1, Estimat Glomerular Filtration Rate > 60, Glucose Level 192#H, Calcium Level 8.2L, Magnesium Level 2.3, Total Bilirubin 1.0, Aspartate Amino Transf (AST/SGOT) 33, Alanine Aminotransferase (ALT/SGPT) 56, Alkaline Phosphatase 104, Total Protein 6.8, Albumin 2.2L, Globulin 4.6, Albumin/ Globulin Ratio 0.5L 06/16/18 07:21: Arterial Blood pH 7.432, Arterial Blood Partial Pressure CO2 57.9*H, Arterial Blood Partial Pressure O2 82.3, Arterial Blood HCO3 37.7H, Arterial Blood Oxygen Saturation 96.7, Arterial Blood Base Excess 10.9, Cole Test Positive 06/16/18 09:10: Vancomycin Level Trough 12.3H Height (Feet): 5 Height (Inches): 6.00 Weight (Pounds): 334 Objective On vent. CV RR Lungs B ronchi Abd pendulous, Obese E Min edema. Dung Castro MD Jun 16, 2018 10:42
[2018-06-16] MEDS ORDERED: Milk of Magnesia 30ml Ud ORAL PRN (11:00)
--- NOTE | 2018-06-16 11:27 | Diagnostic Imaging Report ---
Indication: Dyspnea Technique: One view of the chest Comparison: 06/14/2018 Findings: Stable satisfactory position of endotracheal tube. The heart remains enlarged. Bilateral diffuse interstitial and airspace disease may be slightly improved, allowing for technical differences. Dense retrocardiac consolidation persists and may be actually slightly worse Impression: Generalized interstitial and airspace disease may be slightly improved, since prior exam of 06/14/2018. However, there appears to be worsening of dense retrocardiac consolidation
--- NOTE | 2018-06-16 12:41 | Diagnostic Imaging Report ---
APPROVED REPORT CPT Code: 52793 Present Symptoms Comments: SOB R/O DVT Hx of PICC line (LCFV) BILATERAL: Imaging reveals a patent deep venous system bilaterally. There is no evidence of thrombus within the femoral, popliteal or right tibial segments. The greater saphenous veins are also within normal limits. Doppler indicates normal spontaneous flow within these segments. The left calf veins were not imaged, due to below the knee amputation.
[2018-06-16] MEDS: Albuterol/Ipratropium 3ml neb HHN SCH ×5 (13:23→23:14)
[2018-06-16] MEDS ORDERED: Dyna-Hex 2% Top Sol 2oz TOPIC SCH (20:00)
--- NOTE | 2018-06-16 21:37 | Pulmonolgy Critical Care Note ---
Critical Care - Asmt/Plan Assessment/Plan: Assessment/Plan ASSESSMENT: 1. COPD with exacerbation, on ventilator 2. Congestive heart failure. per history 3. HHD. 4. Type 2 diabetes mellitus. 5. possible sepsis. 6. Schizophrenia. 7. Hypertensive cardiovascular disease. 8. Left below-knee amputation. 9. Atrial fibrillation 10. Respiratory failure. acute 11. severe protein calorie malnutrition PLAN ventilator support as is follow up ABG and add PEEP empiric antibiotics pressors as needed IV hydration with caution heparin SQ duplex for DVT medications/laboratory data/nursing notes/ICU care reviewed in detail note reviewed and edited ICU time spent x 40 minutes Critical Care - Subjective Interval Events: critically stable, WCC remains elevated, CXR slightly inmproved interstitial infiltartes, retocardiac infiltrate worse hypoxemic echo and venous reviewed good EF ROS Limited/Unobtainable: Yes Condition: critical EKG Rhythm: Sinus Rhythm I&O: Intake and Output 06/14/18 06/15/18 19:00 07:00 Intake Total 0 ml 1442.50 ml Output Total 1361 ml Balance 0 ml 81.50 ml Intake Oral 0 ml IV Total 1442.50 ml Output Urine Total 1361 ml Critical Care - Objective CXR: Interim endotracheal intubation, initially tube tip seen in the right mainstem bronchus, but the last of 3 images after retraction of the tube demonstrates tip in good position approximately 3 cm above the zunilda bilateral interstitial and airspace disease persists, unchanged. The heart is enlarged ET-Tube: 7.5 ET Position: 24 Last 24 Hour Vital Signs Date Time Temp Pulse Resp B/P (MAP) Pulse Ox O2 Delivery O2 Flow Rate FiO2 06/15/18 17:08 77 18 75 06/15/18 16:00 80 06/15/18 16:00 69 06/15/18 15:13 82 18 75 06/15/18 15:00 82 19 115/67 (83) 95 06/15/18 14:00 82 19 113/72 (86) 97 06/15/18 13:04 86 18 80 06/15/18 13:00 86 19 117/71 (86) 97 06/15/18 12:00 80 06/15/18 12:00 Mechanical Ventilator 06/15/18 12:00 89 06/15/18 12:00 99.0 82 18 110/63 (79) 97 99.0 06/15/18 11:07 84 18 80 06/15/18 11:00 85 18 114/73 (87) 97 06/15/18 10:00 83 18 109/64 (79) 97 06/15/18 09:30 86 18 111/64 (80) 97 06/15/18 09:00 98.8 90 18 112/64 (80) 97 98.8 06/15/18 08:57 91 18 80 06/15/18 08:30 89 18 110/59 (76) 97 06/15/18 08:00 Mechanical Ventilator 06/15/18 08:00 93 18 114/79 (91) 97 06/15/18 08:00 121/67 06/15/18 08:00 80 06/15/18 08:00 103 06/15/18 07:30 99.3 103 18 121/74 (90) 96 99.3 06/15/18 07:26 74 28 80 06/15/18 07:00 138/67 06/15/18 07:00 94 18 121/67 (85) 97 06/15/18 06:30 76 18 128/74 (92) 96 06/15/18 06:00 76 18 131/74 (93) 96 06/15/18 06:00 131/74 06/15/18 06:00 90/50 06/15/18 05:30 74 18 140/70 (93) 96 06/15/18 05:15 74 18 80 06/15/18 05:00 73 18 160/80 (106) 96 06/15/18 05:00 140/70 06/15/18 04:30 75 18 171/92 (118) 96 06/15/18 04:00 Mechanical Ventilator 06/15/18 04:00 80 06/15/18 04:00 76 06/15/18 04:00 162/87 06/15/18 04:00 98.9 74 18 162/87 (112) 96 98.9 06/15/18 03:40 92 18 80 06/15/18 03:30 74 18 116/61 (79) 98 06/15/18 03:00 78 18 118/68 (85) 98 06/15/18 03:00 118/68 06/15/18 02:30 70 18 114/67 (83) 98 06/15/18 02:00 75 18 119/66 (83) 98 06/15/18 02:00 119/66 06/15/18 01:59 113/26 06/15/18 01:30 73 18 113/66 (82) 97 06/15/18 01:12 88 18 80 06/15/18 01:00 102 18 103/52 (69) 97 06/15/18 01:00 125/67 06/15/18 00:00 98.6 102 18 103/52 (69) 97 98.6 06/15/18 00:00 Mechanical Ventilator 06/15/18 00:00 103/52 06/15/18 00:00 102 06/15/18 00:00 80 06/14/18 23:30 70 18 129/70 (89) 97 06/14/18 23:00 60/30 06/14/18 23:00 73 18 60/73 (69) 97 06/14/18 22:49 88 18 80 06/14/18 22:39 99.8 06/14/18 22:30 74 18 108/53 (71) 97 06/14/18 22:00 74 18 121/66 (84) 97 06/14/18 22:00 80/50 06/14/18 21:43 105/56 06/14/18 21:40 101.6 06/14/18 21:00 101.0 93 18 124/66 (85) 97 101.0 06/14/18 21:00 80 06/14/18 20:56 97 18 80 06/14/18 20:00 80 06/14/18 20:00 93 06/14/18 20:00 Mechanical Ventilator 06/14/18 20:00 101.2 93 18 131/70 (90) 96 101.2 06/14/18 20:00 131/70 06/14/18 19:30 93 18 66/28 (41) 97 06/14/18 19:11 96 18 100 Labs: Labs Test 06/14/18 12:25 06/14/18 13:09 06/14/18 13:17 06/14/18 14:26 White Blood Count 11.8 K/UL (4.8-10.8) Red Blood Count 6.20 M/UL (4.70-6.10) Hemoglobin 17.0 G/DL (14.2-18.0) Hematocrit 55.7 % (42.0-52.0) Mean Corpuscular Volume 90 FL (80-99) Mean Corpuscular Hemoglobin 27.4 PG (27.0-31.0) Mean Corpuscular Hemoglobin Concent 30.5 G/DL (32.0-36.0) Red Cell Distribution Width 12.8 % (11.6-14.8) Platelet Count 212 K/UL (150-450) Mean Platelet Volume 7.6 FL (6.5-10.1) Neutrophils (%) (Auto) 80.7 % (45.0-75.0) Lymphocytes (%) (Auto) 10.9 % (20.0-45.0) Monocytes (%) (Auto) 7.6 % (1.0-10.0) Eosinophils (%) (Auto) 0.0 % (0.0-3.0) Basophils (%) (Auto) 0.7 % (0.0-2.0) Prothrombin Time 30.8 SEC (9.30-11.50) Prothromb Time International Ratio 3.1 (0.9-1.1) Sodium Level 135 MMOL/L (136-145) Potassium Level 4.0 MMOL/L (3.5-5.1) Chloride Level 95 MMOL/L (98-107) Carbon Dioxide Level 33 MMOL/L (21-32) Anion Gap 7 mmol/L (5-15) Blood Urea Nitrogen 11 mg/dL (7-18) Creatinine 1.0 MG/DL (0.55-1.30) Estimat Glomerular Filtration Rate > 60 mL/min (>60) Glucose Level 415 MG/DL (74-106) Lactic Acid Level 3.10 mmol/L (0.4-2.0) Calcium Level 9.0 MG/DL (8.5-10.1) Total Bilirubin 0.9 MG/DL (0.2-1.0) Aspartate Amino Transf (AST/SGOT) 51 U/L (15-37) Alanine Aminotransferase (ALT/SGPT) 75 U/L (12-78) Alkaline Phosphatase 157 U/L (46-116) Troponin I 0.032 ng/mL (0.000-0.056) Pro-B-Type Natriuretic Peptide 583 pg/mL (0-125) Total Protein 8.4 G/DL (6.4-8.2) Albumin 2.9 G/DL (3.4-5.0) Globulin 5.5 g/dL Albumin/Globulin Ratio 0.5 (1.0-2.7) Urine Color Yellow Urine Appearance Slightly cloudy Urine pH 5 (4.5-8.0) Urine Specific [place] 1.020 (1.005-1.035) Urine Protein 4+ (NEGATIVE) Urine Glucose (UA) 4+ (NEGATIVE) Urine Ketones 1+ (NEGATIVE) Urine Occult Blood 4+ (NEGATIVE) Urine Nitrite Negative (NEGATIVE) Urine Bilirubin Negative (NEGATIVE) Urine Urobilinogen 4 MG/DL (0.0-1.0) Urine Leukocyte Esterase Negative (NEGATIVE) Urine RBC 5-10 /HPF (0 - 0) Urine WBC 5-10 /HPF (0 - 0) Urine Squamous Epithelial Cells Few /LPF (NONE/OCC) Urine Amorphous Sediment Few /LPF (NONE) Urine Bacteria Moderate /HPF (NONE) Urine Hyaline Casts 2-4 /LPF (NONE) Urine Mucus Moderate /LPF (NONE/OCC) Arterial Blood pH 7.146 (7.350-7.450) 7.317 (7.350-7.450) Arterial Blood Partial Pressure CO2 135.1 mmHg (35.0-45.0) 60.7 mmHg (35.0-45.0) Arterial Blood Partial Pressure O2 72.0 mmHg (75.0-100.0) 208.7 mmHg (75.0-100.0) Arterial Blood HCO3 45.6 mmol/L (22.0-26.0) 30.3 mmol/L (22.0-26.0) Arterial Blood Oxygen Saturation 91.3 % (92.0-98.0) 99.3 % (92.0-98.0) Arterial Blood Base Excess 9.6 2.3 Cole Test Positive Positive Test 06/14/18 19:00 06/15/18 02:00 06/15/18 06:00 06/15/18 08:45 Arterial Blood pH 7.303 (7.350-7.450) 7.466 (7.350-7.450) Arterial Blood Partial Pressure CO2 70.4 mmHg (35.0-45.0) 52.6 mmHg (35.0-45.0) Arterial Blood Partial Pressure O2 107.9 mmHg (75.0-100.0) 98.4 mmHg (75.0-100.0) Arterial Blood HCO3 34.1 mmol/L (22.0-26.0) 36.6 mmol/L (22.0-26.0) Arterial Blood Oxygen Saturation 97.7 % (92.0-98.0) 97.6 % (92.0-98.0) Arterial Blood Base Excess -4.8 10.6 Cole Test Positive Positive Lactic Acid Level 1.80 mmol/L (0.4-2.0) 1.90 mmol/L (0.4-2.0) White Blood Count 13.3 K/UL (4.8-10.8) Red Blood Count 5.30 M/UL (4.70-6.10) Hemoglobin 15.0 G/DL (14.2-18.0) Hematocrit 47.8 % (42.0-52.0) Mean Corpuscular Volume 90 FL (80-99) Mean Corpuscular Hemoglobin 28.3 PG (27.0-31.0) Mean Corpuscular Hemoglobin Concent 31.3 G/DL (32.0-36.0) Red Cell Distribution Width 13.1 % (11.6-14.8) Platelet Count 211 K/UL (150-450) Mean Platelet Volume 7.0 FL (6.5-10.1) Neutrophils (%) (Auto) 76.8 % (45.0-75.0) Lymphocytes (%) (Auto) 12.3 % (20.0-45.0) Monocytes (%) (Auto) 9.9 % (1.0-10.0) Eosinophils (%) (Auto) 0.0 % (0.0-3.0) Basophils (%) (Auto) 1.1 % (0.0-2.0) Sodium Level 139 MMOL/L (136-145) Potassium Level 3.5 MMOL/L (3.5-5.1) Chloride Level 99 MMOL/L (98-107) Carbon Dioxide Level 37 MMOL/L (21-32) Anion Gap 3 mmol/L (5-15) Blood Urea Nitrogen 12 mg/dL (7-18) Creatinine 1.3 MG/DL (0.55-1.30) Estimat Glomerular Filtration Rate > 60 mL/min (>60) Glucose Level 354 MG/DL (74-106) Calcium Level 7.9 MG/DL (8.5-10.1) Magnesium Level 2.0 MG/DL (1.8-2.4) Objective: GENERAL: morbidly obese male, on vent (seen earlier) VITAL SIGNS: see attached HEENT: The head is normocephalic and atraumatic. orally intubated NECK: Supple. Trachea midline. carotids 2+ LUNGS: moderate breath sounds with wheezes. HEART: RRR S1 and S2. No rubs, murmurs, or gallops. ABDOMEN: Soft and nontender. Bowel sounds were active. EXTREMITIES: No clubbing, cyanosis, or edema. He has a left below-knee stump. Critical Care - Objective Last 24 Hour Vital Signs Date Time Temp Pulse Resp B/P (MAP) Pulse Ox O2 Delivery O2 Flow Rate FiO2 06/16/18 20:00 Mechanical Ventilator 06/16/18 20:00 98.8 83 18 128/90 (103) 92 98.8 06/16/18 19:16 94 Nasal Cannula 2.0 28 06/16/18 19:16 Nasal Cannula 2.0 28 06/16/18 19:16 82 19 Nasal Cannula 2.0 28 06/16/18 19:16 Nasal Cannula 2.0 28 06/16/18 19:16 Nasal Cannula 2.0 28 06/16/18 19:00 83 18 135/90 (105) 92 06/16/18 19:00 135/90 06/16/18 18:00 87 18 145/96 (112) 92 06/16/18 17:00 82 18 143/91 (108) 94 06/16/18 16:45 Nasal Cannula 2.0 28 06/16/18 16:45 Nasal Cannula 2.0 28 06/16/18 16:01 80 06/16/18 16:00 2.0 06/16/18 16:00 Mechanical Ventilator 06/16/18 16:00 98.9 85 17 146/99 (115) 92 98.9 06/16/18 15:00 84 18 142/90 (107) 92 06/16/18 14:45 Nasal Cannula 88.0 28 06/16/18 14:00 81 18 138/87 (104) 98 06/16/18 13:36 85 18 98 Mechanical Ventilator 45 06/16/18 13:26 78 16 55 06/16/18 13:26 45 06/16/18 13:26 85 18 99 Mechanical Ventilator 45 06/16/18 13:00 73 17 137/87 (104) 98 06/16/18 12:00 98.6 82 17 132/85 (101) 96 98.6 06/16/18 12:00 Mechanical Ventilator 06/16/18 12:00 79 06/16/18 11:01 80 18 55 06/16/18 11:00 83 17 142/86 (104) 98 06/16/18 10:00 79 17 138/79 (98) 98 06/16/18 09:10 65 06/16/18 09:02 83 16 75 06/16/18 09:00 81 17 138/83 (101) 96 06/16/18 08:00 80 06/16/18 08:00 75 06/16/18 08:00 Mechanical Ventilator 06/16/18 08:00 99.7 80 17 137/84 (101) 96 99.7 06/16/18 07:20 76 16 75 06/16/18 07:00 92 16 144/89 (107) 96 06/16/18 06:00 71 16 134/76 (95) 96 06/16/18 05:10 71 16 75 06/16/18 05:00 71 16 128/77 (94) 96 06/16/18 04:00 75 06/16/18 04:00 81 06/16/18 04:00 Mechanical Ventilator 06/16/18 04:00 99.3 79 17 129/77 (94) 96 99.3 06/16/18 03:00 77 17 75 06/16/18 03:00 73 16 138/83 (101) 96 06/16/18 02:00 75 17 113/93 (100) 96 06/16/18 01:10 73 16 75 06/16/18 01:00 75 17 120/98 (105) 96 06/16/18 00:00 75 06/16/18 00:00 Mechanical Ventilator 06/16/18 00:00 75 06/16/18 00:00 99.5 76 16 140/74 (96) 96 99.5 06/15/18 23:06 75 16 75 7/25/18 23:00 75 17 133/74 (93) 96 06/15/18 22:00 74 16 119/78 (92) 96 Micro: Microbiology Date/Time Source Procedure Growth Status 06/14/18 12:25 Blood Blood Culture - Preliminary NO GROWTH AFTER 24 HOURS Resulted 06/14/18 12:25 Blood Blood Culture - Preliminary NO GROWTH AFTER 24 HOURS Resulted 06/14/18 12:15 Blood Blood Culture - Preliminary NO GROWTH AFTER 24 HOURS Resulted 06/14/18 12:28 Nasal Nares MRSA Culture - Final Staphylococcus Aureus - Mrsa Complete 06/14/18 13:09 Urine,Clean Catch Urine Culture - Preliminary Mixed Urogenital Contaminants Resulted 06/14/18 12:28 Rectum VRE Culture - Final Enterococcus Faecalis - Vre Resulted 06/14/18 12:28 Rectum Pending Resulted Accucheck: 131 Critical Care - Subjective ROS Limited/Unobtainable: Yes FI02: 28 Vent Support Breath Rate: 16 Vent Support Mode: AC Vent Tidal Volume: 650 Sputum Amount: None PEEP: 12.0 PIP: 40 I&O: Intake and Output 06/15/18 06/16/18 19:00 07:00 Intake Total 1103.708 ml 275 ml Output Total 1585 ml 1010 ml Balance -481.292 ml -735 ml Free Water 0 ml IV Total 1103.708 ml 275 ml Output Urine Total 1585 ml 1010 ml ET-Tube: 7.5 ET Position: 24 Paul Araiza MD Jun 16, 2018 21:37
[2018-06-17] VITALS (18 sets, daily range): BP systolic 105–135; BP diastolic 51–90
[2018-06-17] MEDS: NovoLOG Insulin Flexpen SUBQ SCH ×4 (00:33→18:50)
[2018-06-17] MEDS: Vancomycin 1gm/D5W 275ml IVPB SCH ×6 (02:08→18:51)
[2018-06-17] MEDS: Albuterol/Ipratropium 3ml neb HHN SCH ×6 (03:06→23:04)
[2018-06-17 05:43] LABS: ANION GAP 2 mmol/L (5-15); BLOOD UREA NITROGEN 14 mg/dL (7-18); CALCIUM 8.6 MG/DL (8.5-10.1); CARBON DIOXIDE 36 MMOL/L (21-32); CHLORIDE 98 MMOL/L (98-107); SODIUM 136 MMOL/L (136-145)
--- NOTE | 2018-06-17 07:39 | General Progress Note ---
Assessment/Plan Assessment/Plan Min Pul edema - reduce IVF!! Awaiting ABGs Subjective Allergies: Coded Allergies: No Known Allergies (Unverified , 08/15/17) Subjective Extubated. Wants to eat! More responsive. Objective Last 24 Hour Vital Signs Date Time Temp Pulse Resp B/P (MAP) Pulse Ox O2 Delivery O2 Flow Rate FiO2 06/17/18 07:00 82 18 120/78 (92) 90 06/17/18 06:00 82 18 124/72 (89) 90 06/17/18 05:00 80 18 127/82 (97) 90 06/17/18 04:00 90 06/17/18 04:00 98.2 85 18 119/51 (73) 90 98.2 06/17/18 04:00 Mechanical Ventilator 06/17/18 03:16 87 17 96 Room Air 21 06/17/18 03:06 87 15 91 Room Air 21 06/17/18 03:00 85 18 129/75 (93) 90 06/17/18 02:00 85 18 111/56 (74) 95 06/17/18 01:00 85 18 135/78 (97) 93 06/17/18 00:00 Mechanical Ventilator 06/17/18 00:00 85 18 129/71 (90) 90 06/16/18 23:24 81 18 98 Nasal Cannula 2.0 28 06/16/18 23:14 84 21 94 Nasal Cannula 2.0 28 06/16/18 23:00 85 18 141/82 (101) 95 06/16/18 22:00 86 18 121/76 (91) 94 06/16/18 21:00 83 18 132/81 (98) 92 06/16/18 20:00 83 06/16/18 20:00 Mechanical Ventilator 06/16/18 20:00 98.8 83 18 128/90 (103) 92 98.8 06/16/18 19:16 94 Nasal Cannula 2.0 28 06/16/18 19:16 Nasal Cannula 2.0 28 06/16/18 19:16 82 19 Nasal Cannula 2.0 28 06/16/18 19:16 Nasal Cannula 2.0 28 06/16/18 19:16 Nasal Cannula 2.0 28 06/16/18 19:00 83 18 135/90 (105) 92 06/16/18 19:00 135/90 06/16/18 18:00 87 18 145/96 (112) 92 06/16/18 17:00 82 18 143/91 (108) 94 06/16/18 16:45 Nasal Cannula 2.0 28 06/16/18 16:45 Nasal Cannula 2.0 28 06/16/18 16:01 80 06/16/18 16:00 2.0 06/16/18 16:00 Mechanical Ventilator 06/16/18 16:00 98.9 85 17 146/99 (115) 92 98.9 06/16/18 15:00 84 18 142/90 (107) 92 06/16/18 14:45 Nasal Cannula 88.0 28 06/16/18 14:00 81 18 138/87 (104) 98 06/16/18 13:36 85 18 98 Mechanical Ventilator 45 06/16/18 13:26 78 16 55 06/16/18 13:26 45 06/16/18 13:26 85 18 99 Mechanical Ventilator 45 06/16/18 13:00 73 17 137/87 (104) 98 06/16/18 12:00 98.6 82 17 132/85 (101) 96 98.6 06/16/18 12:00 Mechanical Ventilator 06/16/18 12:00 79 06/16/18 11:01 80 18 55 06/16/18 11:00 83 17 142/86 (104) 98 06/16/18 10:00 79 17 138/79 (98) 98 06/16/18 09:10 65 06/16/18 09:02 83 16 75 06/16/18 09:00 81 17 138/83 (101) 96 06/16/18 08:00 80 06/16/18 08:00 75 06/16/18 08:00 Mechanical Ventilator 06/16/18 08:00 99.7 80 17 137/84 (101) 96 99.7 Intake and Output 06/16/18 06/17/18 19:00 07:00 Intake Total 477.416 ml 458.708 ml Output Total 1475 ml 1240 ml Balance -997.584 ml -781.292 ml IV Total 477.416 ml 458.708 ml Output Urine Total 1475 ml 1240 ml Laboratory Tests 06/16/18 09:10: Vancomycin Level Trough 12.3H 06/17/18 04:00: Sodium Level 136, Potassium Level 3.0L, Chloride Level 98, Carbon Dioxide Level 36H, Anion Gap 2L, Blood Urea Nitrogen 14, Creatinine 1.0, Estimat Glomerular Filtration Rate > 60, Glucose Level 181H, Calcium Level 8.6 Height (Feet): 5 Height (Inches): 6.00 Weight (Pounds): 330 Objective Morbidly obese CV RR Lungs B wheezes. Abd pendulous, Obese E Min edema. Dung Castro MD Jun 17, 2018 07:39
[2018-06-17] MEDS ORDERED: Spironolactone 25mg tab ORAL SCH (09:00)
[2018-06-17] MEDS ORDERED: Heparin 5000 units/ml inj SUBQ SCH (09:00)
[2018-06-17] MEDS ORDERED: Losartan 25mg tab ORAL SCH (09:00)
[2018-06-17] MEDS: cefTRIAXone 1 GM in D5W 110 ML IV SCH (10:59)
[2018-06-17] MEDS: Pantoprazole Inj IVP SCH (11:02)
[2018-06-17] MEDS ORDERED: NS 275ml ONE (11:05)
[2018-06-17] MEDS ORDERED: Tubing IV Secondary IV ONE (11:05)
--- NOTE | 2018-06-17 11:27 | Consultation ---
History of Present Illness General Chief Complaint: Altered Level of Consciousness Present Illness HPI 37-year-old male from [facility], who was transferred to this hospital via 911 due to respiratory distress. the pt has hx of schizophrenia and is noncompliant with meds. the pt is having grandiose delusions. 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 he decompensated and rehospitalized. the pt has poor insight and unable to be engaged. he was taking seroquel at times out of the hospital Allergies: Coded Allergies: No Known Allergies (Unverified , 08/15/17) Medication History Scheduled Amiodarone Hcl* (Pacerone*), 200 MG ORAL DAILY Furosemide* (Lasix*), 40 MG ORAL Q12HR Insulin Aspart (Novolog Flexpen), 0 UNITS SUBQ BEFORE MEALS AND HS Losartan Potassium* (Losartan Potassium*), 25 MG ORAL DAILY Potassium Chloride* (K-Dur*), 40 MEQ ORAL DAILY Quetiapine Fumarate* (Seroquel*), 25 MG ORAL TWICE A DAY Warfarin Sod* (Coumadin*), 2.5 MG ORAL DAILY@17 Scheduled PRN Acetaminophen* (Acetaminophen 325MG Tablet*), 650 MG ORAL Q4H PRN Bisacodyl (Bisac-Evac), 10 MG RECTAL DAILYPRN PRN Diphenhydramine HCl (Diphenhydramine HCl), 50 MG ORAL Q6H PRN Patient History Limited by: medical condition History Provided By: Patient, Family Member, Medical Record, PMD Healthcare decision maker Resuscitation status Full Code Advanced Directive on File Past Medical/Surgical History Past Medical/Surgical History: (1) Respiratory failure (2) Pulmonary edema (3) Sepsis Review of Systems Psychiatric: Reports: prior hx, anxiety, depressed feelings, hallucinations Physical Exam General Appearance: no apparent distress, alert, morbidly obese Last 24 Hour Vital Signs Date Time Temp Pulse Resp B/P (MAP) Pulse Ox O2 Delivery O2 Flow Rate FiO2 06/17/18 11:00 120/78 06/17/18 08:23 79 20 100 Nasal Cannula 2.0 06/17/18 08:19 100 Nasal Cannula 2.0 06/17/18 08:14 Nasal Cannula 2.0 06/17/18 08:14 85 23 100 Nasal Cannula 28 7/27/18 08:14 85 23 Nasal Cannula 2.0 28 06/17/18 08:00 Mechanical Ventilator 06/17/18 07:00 82 18 120/78 (92) 90 06/17/18 06:00 82 18 124/72 (89) 90 06/17/18 05:00 80 18 127/82 (97) 90 06/17/18 04:00 90 06/17/18 04:00 98.2 85 18 119/51 (73) 90 98.2 06/17/18 04:00 Mechanical Ventilator 06/17/18 03:16 87 17 96 Room Air 21 06/17/18 03:06 87 15 91 Room Air 21 06/17/18 03:00 85 18 129/75 (93) 90 06/17/18 02:00 85 18 111/56 (74) 95 06/17/18 01:00 85 18 135/78 (97) 93 06/17/18 00:00 Mechanical Ventilator 06/17/18 00:00 85 18 129/71 (90) 90 06/16/18 23:24 81 18 98 Nasal Cannula 2.0 28 06/16/18 23:14 84 21 94 Nasal Cannula 2.0 28 06/16/18 23:00 85 18 141/82 (101) 95 06/16/18 22:00 86 18 121/76 (91) 94 06/16/18 21:00 83 18 132/81 (98) 92 06/16/18 20:00 83 06/16/18 20:00 Mechanical Ventilator 06/16/18 20:00 98.8 83 18 128/90 (103) 92 98.8 06/16/18 19:16 94 Nasal Cannula 2.0 28 06/16/18 19:16 Nasal Cannula 2.0 28 06/16/18 19:16 82 19 Nasal Cannula 2.0 28 06/16/18 19:16 Nasal Cannula 2.0 28 06/16/18 19:16 Nasal Cannula 2.0 28 06/16/18 19:00 83 18 135/90 (105) 92 06/16/18 19:00 135/90 06/16/18 18:00 87 18 145/96 (112) 92 06/16/18 17:00 82 18 143/91 (108) 94 06/16/18 16:45 Nasal Cannula 2.0 28 06/16/18 16:45 Nasal Cannula 2.0 28 06/16/18 16:01 80 06/16/18 16:00 2.0 06/16/18 16:00 Mechanical Ventilator 06/16/18 16:00 98.9 85 17 146/99 (115) 92 98.9 06/16/18 15:00 84 18 142/90 (107) 92 06/16/18 14:45 Nasal Cannula 88.0 28 06/16/18 14:00 81 18 138/87 (104) 98 06/16/18 13:36 85 18 98 Mechanical Ventilator 45 06/16/18 13:26 78 16 55 06/16/18 13:26 45 06/16/18 13:26 85 18 99 Mechanical Ventilator 45 06/16/18 13:00 73 17 137/87 (104) 98 06/16/18 12:00 98.6 82 17 132/85 (101) 96 98.6 06/16/18 12:00 Mechanical Ventilator 06/16/18 12:00 79 Intake and Output 06/16/18 06/17/18 19:00 07:00 Intake Total 477.416 ml 458.708 ml Output Total 1475 ml 1240 ml Balance -997.584 ml -781.292 ml IV Total 477.416 ml 458.708 ml Output Urine Total 1475 ml 1240 ml Laboratory Tests Test 06/17/18 04:00 06/17/18 07:36 Sodium Level 136 MMOL/L (136-145) Potassium Level 3.0 MMOL/L (3.5-5.1) L Chloride Level 98 MMOL/L (98-107) Carbon Dioxide Level 36 MMOL/L (21-32) H Anion Gap 2 mmol/L (5-15) L Blood Urea Nitrogen 14 mg/dL (7-18) Creatinine 1.0 MG/DL (0.55-1.30) Estimat Glomerular Filtration Rate > 60 mL/min (>60) Glucose Level 181 MG/DL (74-106) H Calcium Level 8.6 MG/DL (8.5-10.1) Arterial Blood pH 7.405 (7.350-7.450) Arterial Blood Partial Pressure CO2 62.8 mmHg (35.0-45.0) *H Arterial Blood Partial Pressure O2 67.4 mmHg (75.0-100.0) L Arterial Blood HCO3 38.5 mmol/L (22.0-26.0) H Arterial Blood Oxygen Saturation 93.9 % (92.0-98.0) Arterial Blood Base Excess 10.7 Cole Test Positive Height (Feet): 5 Height (Inches): 6.00 Weight (Pounds): 330 Medications Current Medications Medications (Trade) Dose Ordered Sig/Linn Route PRN Reason Start Time Stop Time Status Last Admin Dose Admin Acetaminophen (Tylenol) 650 mg Q4H PRN ORAL Mild Pain/Temp > 100.5 06/14/18 19:30 07/14/18 19:29 06/14/18 21:40 Albuterol/ Ipratropium (Albuterol/ Ipratropium) 3 ml Q4HRT HHN 06/16/18 19:00 06/21/18 18:59 06/17/18 08:14 Ceftriaxone Sodium 1 gm/ Dextrose 110 ml @ 220 mls/hr Q24H IV 06/15/18 09:00 06/22/18 08:59 06/17/18 10:59 Chlorhexidine Gluconate (Stella-Hex 2%) 1 applic DAILY@2000 TOPIC 06/16/18 20:00 07/16/18 19:59 06/16/18 19:41 Dextrose (Dextrose 50%) 25 ml STAT PRN IV Hypoglycemia 06/15/18 10:45 07/15/18 10:44 Dextrose (Dextrose 50%) 50 ml STAT PRN IV Hypoglycemia 06/15/18 10:45 07/15/18 10:44 Furosemide (Lasix) 20 mg EVERY 12 HOURS ORAL 06/17/18 09:00 07/17/18 08:59 06/17/18 10:59 Heparin Sodium (Porcine) (Heparin 5000 units/ml) 5,000 units Q12HR SUBQ 06/17/18 09:00 07/17/18 08:59 06/17/18 11:02 Insulin Aspart (NovoLOG) Q6HR SUBQ 06/15/18 12:00 07/15/18 11:59 06/17/18 06:25 Lorazepam (Ativan 2mg/ml 1ml) 1 mg Q2H PRN IV For Anxiety 06/14/18 19:30 06/21/18 19:29 06/16/18 04:21 Losartan Potassium (Cozaar) 25 mg DAILY ORAL 06/17/18 09:00 07/17/18 08:59 06/17/18 11:00 Magnesium Hydroxide (Mom) 30 ml Q6H PRN ORAL Constipation 06/16/18 11:00 07/16/18 10:59 06/16/18 11:16 Norepinephrine Bitartrate 4 mg/ Dextrose 250 ml @ 0 mls/hr Q24H IV 06/14/18 19:00 07/14/18 18:59 06/15/18 01:59 Pantoprazole (Protonix) 40 mg DAILY IVP 06/15/18 09:00 07/15/18 08:59 06/17/18 11:02 Spironolactone (Aldactone) 25 mg DAILY ORAL 06/17/18 09:00 07/17/18 08:59 06/17/18 10:59 Vancomycin HCl (Vanco rx to dose) 1 ea DAILY PRN MISC per rx protocol 06/14/18 15:30 07/14/18 15:29 Vancomycin HCl 1 gm/Dextrose 275 ml @ 183.708 mls/hr Q8HR@0200,1000,1800 IVPB 06/15/18 18:00 06/20/18 17:59 06/17/18 10:59 Assessment/Plan Assessment/Plan schizophrenia encephalopathy the pt may benefit from long acting antipsychotics will dw Helena Eid MD Jun 17, 2018 11:26
[2018-06-17] MEDS ORDERED: Milk of Magnesia 30ml Ud ORAL PRN (19:00)
[2018-06-17] MEDS ORDERED: LORazepam Inj 2mg/ml 1ml IV PRN (19:30)
[2018-06-17] MEDS ORDERED: Dyna-Hex 2% Top Sol 2oz TOPIC SCH (20:00)
[2018-06-17] MEDS: Heparin 5000 units/ml inj SUBQ SCH (21:04)
--- NOTE | 2018-06-17 23:36 | Pulmonolgy Critical Care Note ---
Critical Care - Asmt/Plan Assessment/Plan: Assessment/Plan ASSESSMENT: 1. COPD with exacerbation, on ventilator 2. Congestive heart failure. per history 3. HHD. 4. Type 2 diabetes mellitus. 5. possible sepsis. 6. Schizophrenia. 7. Hypertensive cardiovascular disease. 8. Left below-knee amputation. 9. Atrial fibrillation 10. Respiratory failure. acute 11. severe protein calorie malnutrition PLAN ventilator support as is follow up ABG and add PEEP empiric antibiotics pressors as needed IV hydration with caution heparin SQ duplex for DVT medications/laboratory data/nursing notes/ICU care reviewed in detail note reviewed and edited ICU time spent x 40 minutes Critical Care - Subjective Interval Events: critically stable, WCC remains elevated, CXR slightly inmproved interstitial infiltartes, retocardiac infiltrate worse hypoxemic echo and venous reviewed good EF ROS Limited/Unobtainable: Yes Condition: critical EKG Rhythm: Sinus Rhythm I&O: Intake and Output 06/14/18 06/15/18 19:00 07:00 Intake Total 0 ml 1442.50 ml Output Total 1361 ml Balance 0 ml 81.50 ml Intake Oral 0 ml IV Total 1442.50 ml Output Urine Total 1361 ml Critical Care - Objective CXR: Interim endotracheal intubation, initially tube tip seen in the right mainstem bronchus, but the last of 3 images after retraction of the tube demonstrates tip in good position approximately 3 cm above the zunilda bilateral interstitial and airspace disease persists, unchanged. The heart is enlarged ET-Tube: 7.5 ET Position: 24 Last 24 Hour Vital Signs Date Time Temp Pulse Resp B/P (MAP) Pulse Ox O2 Delivery O2 Flow Rate FiO2 06/15/18 17:08 77 18 75 06/15/18 16:00 80 06/15/18 16:00 69 06/15/18 15:13 82 18 75 06/15/18 15:00 82 19 115/67 (83) 95 06/15/18 14:00 82 19 113/72 (86) 97 06/15/18 13:04 86 18 80 06/15/18 13:00 86 19 117/71 (86) 97 06/15/18 12:00 80 06/15/18 12:00 Mechanical Ventilator 06/15/18 12:00 89 06/15/18 12:00 99.0 82 18 110/63 (79) 97 99.0 06/15/18 11:07 84 18 80 06/15/18 11:00 85 18 114/73 (87) 97 06/15/18 10:00 83 18 109/64 (79) 97 06/15/18 09:30 86 18 111/64 (80) 97 06/15/18 09:00 98.8 90 18 112/64 (80) 97 98.8 06/15/18 08:57 91 18 80 06/15/18 08:30 89 18 110/59 (76) 97 06/15/18 08:00 Mechanical Ventilator 06/15/18 08:00 93 18 114/79 (91) 97 06/15/18 08:00 121/67 06/15/18 08:00 80 06/15/18 08:00 103 06/15/18 07:30 99.3 103 18 121/74 (90) 96 99.3 06/15/18 07:26 74 28 80 06/15/18 07:00 138/67 06/15/18 07:00 94 18 121/67 (85) 97 06/15/18 06:30 76 18 128/74 (92) 96 06/15/18 06:00 76 18 131/74 (93) 96 06/15/18 06:00 131/74 06/15/18 06:00 90/50 06/15/18 05:30 74 18 140/70 (93) 96 06/15/18 05:15 74 18 80 06/15/18 05:00 73 18 160/80 (106) 96 06/15/18 05:00 140/70 06/15/18 04:30 75 18 171/92 (118) 96 06/15/18 04:00 Mechanical Ventilator 06/15/18 04:00 80 06/15/18 04:00 76 06/15/18 04:00 162/87 06/15/18 04:00 98.9 74 18 162/87 (112) 96 98.9 06/15/18 03:40 92 18 80 06/15/18 03:30 74 18 116/61 (79) 98 06/15/18 03:00 78 18 118/68 (85) 98 06/15/18 03:00 118/68 06/15/18 02:30 70 18 114/67 (83) 98 06/15/18 02:00 75 18 119/66 (83) 98 06/15/18 02:00 119/66 06/15/18 01:59 113/26 06/15/18 01:30 73 18 113/66 (82) 97 06/15/18 01:12 88 18 80 06/15/18 01:00 102 18 103/52 (69) 97 06/15/18 01:00 125/67 06/15/18 00:00 98.6 102 18 103/52 (69) 97 98.6 06/15/18 00:00 Mechanical Ventilator 06/15/18 00:00 103/52 06/15/18 00:00 102 06/15/18 00:00 80 06/14/18 23:30 70 18 129/70 (89) 97 06/14/18 23:00 60/30 06/14/18 23:00 73 18 60/73 (69) 97 06/14/18 22:49 88 18 80 06/14/18 22:39 99.8 06/14/18 22:30 74 18 108/53 (71) 97 06/14/18 22:00 74 18 121/66 (84) 97 06/14/18 22:00 80/50 06/14/18 21:43 105/56 06/14/18 21:40 101.6 06/14/18 21:00 101.0 93 18 124/66 (85) 97 101.0 06/14/18 21:00 80 06/14/18 20:56 97 18 80 06/14/18 20:00 80 06/14/18 20:00 93 06/14/18 20:00 Mechanical Ventilator 06/14/18 20:00 101.2 93 18 131/70 (90) 96 101.2 06/14/18 20:00 131/70 06/14/18 19:30 93 18 66/28 (41) 97 06/14/18 19:11 96 18 100 Labs: Labs Test 06/14/18 12:25 06/14/18 13:09 06/14/18 13:17 06/14/18 14:26 White Blood Count 11.8 K/UL (4.8-10.8) Red Blood Count 6.20 M/UL (4.70-6.10) Hemoglobin 17.0 G/DL (14.2-18.0) Hematocrit 55.7 % (42.0-52.0) Mean Corpuscular Volume 90 FL (80-99) Mean Corpuscular Hemoglobin 27.4 PG (27.0-31.0) Mean Corpuscular Hemoglobin Concent 30.5 G/DL (32.0-36.0) Red Cell Distribution Width 12.8 % (11.6-14.8) Platelet Count 212 K/UL (150-450) Mean Platelet Volume 7.6 FL (6.5-10.1) Neutrophils (%) (Auto) 80.7 % (45.0-75.0) Lymphocytes (%) (Auto) 10.9 % (20.0-45.0) Monocytes (%) (Auto) 7.6 % (1.0-10.0) Eosinophils (%) (Auto) 0.0 % (0.0-3.0) Basophils (%) (Auto) 0.7 % (0.0-2.0) Prothrombin Time 30.8 SEC (9.30-11.50) Prothromb Time International Ratio 3.1 (0.9-1.1) Sodium Level 135 MMOL/L (136-145) Potassium Level 4.0 MMOL/L (3.5-5.1) Chloride Level 95 MMOL/L (98-107) Carbon Dioxide Level 33 MMOL/L (21-32) Anion Gap 7 mmol/L (5-15) Blood Urea Nitrogen 11 mg/dL (7-18) Creatinine 1.0 MG/DL (0.55-1.30) Estimat Glomerular Filtration Rate > 60 mL/min (>60) Glucose Level 415 MG/DL (74-106) Lactic Acid Level 3.10 mmol/L (0.4-2.0) Calcium Level 9.0 MG/DL (8.5-10.1) Total Bilirubin 0.9 MG/DL (0.2-1.0) Aspartate Amino Transf (AST/SGOT) 51 U/L (15-37) Alanine Aminotransferase (ALT/SGPT) 75 U/L (12-78) Alkaline Phosphatase 157 U/L (46-116) Troponin I 0.032 ng/mL (0.000-0.056) Pro-B-Type Natriuretic Peptide 583 pg/mL (0-125) Total Protein 8.4 G/DL (6.4-8.2) Albumin 2.9 G/DL (3.4-5.0) Globulin 5.5 g/dL Albumin/Globulin Ratio 0.5 (1.0-2.7) Urine Color Yellow Urine Appearance Slightly cloudy Urine pH 5 (4.5-8.0) Urine Specific [place] 1.020 (1.005-1.035) Urine Protein 4+ (NEGATIVE) Urine Glucose (UA) 4+ (NEGATIVE) Urine Ketones 1+ (NEGATIVE) Urine Occult Blood 4+ (NEGATIVE) Urine Nitrite Negative (NEGATIVE) Urine Bilirubin Negative (NEGATIVE) Urine Urobilinogen 4 MG/DL (0.0-1.0) Urine Leukocyte Esterase Negative (NEGATIVE) Urine RBC 5-10 /HPF (0 - 0) Urine WBC 5-10 /HPF (0 - 0) Urine Squamous Epithelial Cells Few /LPF (NONE/OCC) Urine Amorphous Sediment Few /LPF (NONE) Urine Bacteria Moderate /HPF (NONE) Urine Hyaline Casts 2-4 /LPF (NONE) Urine Mucus Moderate /LPF (NONE/OCC) Arterial Blood pH 7.146 (7.350-7.450) 7.317 (7.350-7.450) Arterial Blood Partial Pressure CO2 135.1 mmHg (35.0-45.0) 60.7 mmHg (35.0-45.0) Arterial Blood Partial Pressure O2 72.0 mmHg (75.0-100.0) 208.7 mmHg (75.0-100.0) Arterial Blood HCO3 45.6 mmol/L (22.0-26.0) 30.3 mmol/L (22.0-26.0) Arterial Blood Oxygen Saturation 91.3 % (92.0-98.0) 99.3 % (92.0-98.0) Arterial Blood Base Excess 9.6 2.3 Cole Test Positive Positive Test 06/14/18 19:00 06/15/18 02:00 06/15/18 06:00 06/15/18 08:45 Arterial Blood pH 7.303 (7.350-7.450) 7.466 (7.350-7.450) Arterial Blood Partial Pressure CO2 70.4 mmHg (35.0-45.0) 52.6 mmHg (35.0-45.0) Arterial Blood Partial Pressure O2 107.9 mmHg (75.0-100.0) 98.4 mmHg (75.0-100.0) Arterial Blood HCO3 34.1 mmol/L (22.0-26.0) 36.6 mmol/L (22.0-26.0) Arterial Blood Oxygen Saturation 97.7 % (92.0-98.0) 97.6 % (92.0-98.0) Arterial Blood Base Excess -4.8 10.6 Cole Test Positive Positive Lactic Acid Level 1.80 mmol/L (0.4-2.0) 1.90 mmol/L (0.4-2.0) White Blood Count 13.3 K/UL (4.8-10.8) Red Blood Count 5.30 M/UL (4.70-6.10) Hemoglobin 15.0 G/DL (14.2-18.0) Hematocrit 47.8 % (42.0-52.0) Mean Corpuscular Volume 90 FL (80-99) Mean Corpuscular Hemoglobin 28.3 PG (27.0-31.0) Mean Corpuscular Hemoglobin Concent 31.3 G/DL (32.0-36.0) Red Cell Distribution Width 13.1 % (11.6-14.8) Platelet Count 211 K/UL (150-450) Mean Platelet Volume 7.0 FL (6.5-10.1) Neutrophils (%) (Auto) 76.8 % (45.0-75.0) Lymphocytes (%) (Auto) 12.3 % (20.0-45.0) Monocytes (%) (Auto) 9.9 % (1.0-10.0) Eosinophils (%) (Auto) 0.0 % (0.0-3.0) Basophils (%) (Auto) 1.1 % (0.0-2.0) Sodium Level 139 MMOL/L (136-145) Potassium Level 3.5 MMOL/L (3.5-5.1) Chloride Level 99 MMOL/L (98-107) Carbon Dioxide Level 37 MMOL/L (21-32) Anion Gap 3 mmol/L (5-15) Blood Urea Nitrogen 12 mg/dL (7-18) Creatinine 1.3 MG/DL (0.55-1.30) Estimat Glomerular Filtration Rate > 60 mL/min (>60) Glucose Level 354 MG/DL (74-106) Calcium Level 7.9 MG/DL (8.5-10.1) Magnesium Level 2.0 MG/DL (1.8-2.4) Objective: GENERAL: morbidly obese male, on vent (seen earlier) VITAL SIGNS: see attached HEENT: The head is normocephalic and atraumatic. orally intubated NECK: Supple. Trachea midline. carotids 2+ LUNGS: moderate breath sounds with wheezes. HEART: RRR S1 and S2. No rubs, murmurs, or gallops. ABDOMEN: Soft and nontender. Bowel sounds were active. EXTREMITIES: No clubbing, cyanosis, or edema. He has a left below-knee stump. Critical Care - Objective Last 24 Hour Vital Signs Date Time Temp Pulse Resp B/P (MAP) Pulse Ox O2 Delivery O2 Flow Rate FiO2 06/17/18 23:32 88 20 99 Room Air 06/17/18 23:04 86 18 93 Room Air 06/17/18 20:00 91 06/17/18 19:41 80 20 99 Room Air 06/17/18 19:38 87 20 Room Air 06/17/18 19:38 Room Air 06/17/18 19:38 93 Room Air 06/17/18 19:35 87 18 93 Room Air 06/17/18 17:00 93 19 121/90 (100) 99 06/17/18 16:00 82 06/17/18 16:00 Mechanical Ventilator 06/17/18 16:00 98.6 84 20 119/89 (99) 90 98.6 06/17/18 15:06 84 20 94 Nasal Cannula 2.0 06/17/18 15:00 80 21 120/75 (90) 92 06/17/18 14:58 85 14 94 Nasal Cannula 2.0 06/17/18 14:00 85 18 110/60 (77) 94 06/17/18 13:00 84 17 105/51 (69) 93 06/17/18 12:03 75 20 94 Nasal Cannula 2.0 06/17/18 12:00 89 06/17/18 12:00 97.3 84 18 105/67 (80) 92 97.3 06/17/18 12:00 Mechanical Ventilator 06/17/18 11:53 80 16 94 Nasal Cannula 2.0 28 06/17/18 11:00 120/78 06/17/18 11:00 81 18 125/85 (98) 90 06/17/18 10:00 83 18 119/89 (99) 90 06/17/18 09:00 83 19 121/90 (100) 90 06/17/18 08:23 79 20 100 Nasal Cannula 2.0 06/17/18 08:19 100 Nasal Cannula 2.0 06/17/18 08:14 Nasal Cannula 2.0 06/17/18 08:14 85 23 100 Nasal Cannula 06/17/18 08:14 85 23 Nasal Cannula 2.0 06/17/18 08:00 84 06/17/18 08:00 Mechanical Ventilator 06/17/18 08:00 98.8 79 18 130/89 (103) 90 98.8 06/17/18 07:00 82 18 120/78 (92) 90 06/17/18 06:00 82 18 124/72 (89) 90 06/17/18 05:00 80 18 127/82 (97) 90 06/17/18 04:00 90 06/17/18 04:00 98.2 85 18 119/51 (73) 90 98.2 06/17/18 04:00 Mechanical Ventilator 06/17/18 03:16 87 17 96 Room Air 06/17/18 03:06 87 15 91 Room Air 21 06/17/18 03:00 85 18 129/75 (93) 90 06/17/18 02:00 85 18 111/56 (74) 95 06/17/18 01:00 85 18 135/78 (97) 93 06/17/18 00:00 Mechanical Ventilator 06/17/18 00:00 85 18 129/71 (90) 90 Accucheck: 181 Critical Care - Subjective FI02: 28 Vent Support Breath Rate: 16 Vent Support Mode: AC Vent Tidal Volume: 650 Sputum Amount: None PEEP: 12.0 PIP: 40 I&O: Intake and Output 06/16/18 06/17/18 19:00 07:00 Intake Total 477.416 ml 458.708 ml Output Total 1475 ml 1240 ml Balance -997.584 ml -781.292 ml IV Total 477.416 ml 458.708 ml Output Urine Total 1475 ml 1240 ml ET-Tube: 7.5 ET Position: 24 Paul Araiza MD Jun 17, 2018 23:36
[2018-06-18] VITALS (7 sets, daily range): BP systolic 110–149; BP diastolic 52–97
[2018-06-18] MEDS: NovoLOG Insulin Flexpen SUBQ SCH ×4 (01:03→20:50)
[2018-06-18] MEDS: Vancomycin 1 GM in D5W 275 ML IVPB SCH ×3 (02:00→18:27)
[2018-06-18] MEDS: Albuterol/Ipratropium 3ml neb HHN SCH ×6 (03:22→23:00)
[2018-06-18 05:54] LABS: ANION GAP 7 mmol/L (5-15); BLOOD UREA NITROGEN 9 mg/dL (7-18); CALCIUM 8.6 MG/DL (8.5-10.1); CARBON DIOXIDE 31 MMOL/L (21-32); CHLORIDE 98 MMOL/L (98-107); CREATININE 0.9 MG/DL (0.55-1.30); POTASSIUM 3.4 MMOL/L (3.5-5.1); SODIUM 136 MMOL/L (136-145)
[2018-06-18] MEDS ORDERED: Losartan 25mg tab ORAL SCH (09:00)
[2018-06-18] MEDS ORDERED: cefTRIAXone 1 GM in D5W 110 ML IV SCH (09:00)
[2018-06-18] MEDS ORDERED: Spironolactone 25mg tab ORAL SCH (09:00)
[2018-06-18] MEDS: Heparin 5000 units/ml inj SUBQ SCH ×2 (09:29→20:49)
[2018-06-18] MEDS ORDERED: NovoLOG Insulin Flexpen SUBQ SCH (11:30)
--- NOTE | 2018-06-18 12:51 | General Progress Note ---
Assessment/Plan Assessment/Plan Min Pul edema - reduce IVF!! Awaiting ABGs Return to ICU!!! Subjective Allergies: Coded Allergies: No Known Allergies (Unverified , 08/15/17) Subjective Was transferred to Telemetry against my orders! No bedside swallow eval available. Objective Last 24 Hour Vital Signs Date Time Temp Pulse Resp B/P (MAP) Pulse Ox O2 Delivery O2 Flow Rate FiO2 06/18/18 12:06 89 20 98 Room Air 06/18/18 12:01 89 20 98 Room Air 06/18/18 11:52 71 20 96 Room Air 06/18/18 09:42 88 22 98 Room Air 06/18/18 09:35 94 Room Air 06/18/18 09:35 87 20 94 Room Air 06/18/18 09:35 Room Air 06/18/18 09:25 121/90 06/18/18 08:00 98.0 89 18 149/97 (114) 93 98.0 06/18/18 08:00 84 06/18/18 04:00 81 06/18/18 03:36 86 22 99 Room Air 06/18/18 03:23 85 22 95 Room Air 06/18/18 00:00 88 06/17/18 23:32 88 20 99 Room Air 06/17/18 23:04 86 18 93 Room Air 06/17/18 21:00 Nasal Cannula 2.0 06/17/18 20:00 91 06/17/18 19:41 80 20 99 Room Air 06/17/18 19:38 87 20 Room Air 06/17/18 19:38 Room Air 06/17/18 19:38 93 Room Air 06/17/18 19:35 87 18 93 Room Air 06/17/18 17:00 93 19 121/90 (100) 99 06/17/18 16:00 82 06/17/18 16:00 Mechanical Ventilator 06/17/18 16:00 98.6 84 20 119/89 (99) 90 98.6 06/17/18 15:06 84 20 94 Nasal Cannula 2.0 06/17/18 15:00 80 21 120/75 (90) 92 06/17/18 14:58 85 14 94 Nasal Cannula 2.0 06/17/18 14:00 85 18 110/60 (77) 94 06/17/18 13:00 84 17 105/51 (69) 93 Intake and Output 06/17/18 06/18/18 18:59 06:59 Intake Total 1193.000 ml 1000 ml Output Total 865 ml 1500 ml Balance 328.000 ml -500 ml Intake Oral 708 ml 1000 ml IV Total 485.000 ml Output Urine Total 865 ml 1500 ml # Bowel Movements 1 1 Laboratory Tests 06/18/18 05:30: Sodium Level 136, Potassium Level 3.4L, Chloride Level 98, Carbon Dioxide Level 31, Anion Gap 7, Blood Urea Nitrogen 9, Creatinine 0.9, Estimat Glomerular Filtration Rate > 60, Glucose Level 149H, Calcium Level 8.6 Height (Feet): 5 Height (Inches): 6.00 Weight (Pounds): 330 Objective Morbidly obese CV RR Lungs B wheezes. Abd pendulous, Obese E Min edema. Dung Castro MD Jun 18, 2018 12:51
--- NOTE | 2018-06-18 13:51 | Diagnostic Imaging Report ---
EXAM: XR Chest, 1 View CLINICAL HISTORY: SOB TECHNIQUE: Frontal view of the chest. COMPARISON: Chest x-ray 06/16 18 FINDINGS: Lungs: Hypoventilatory lungs. Worsening bilateral Vascular and interstitial prominence. Pleural space: Unremarkable. No pneumothorax. Heart: Cardiomegaly. Mediastinum: Unremarkable. Bones/joints: Mild degenerative changes of the spine. IMPRESSION: Worsening bilateral Vascular and interstitial prominence. May be edema or infiltrate.
[2018-06-18] MEDS ORDERED: Milk of Magnesia 30ml Ud ORAL PRN (14:30)
[2018-06-18] MEDS ORDERED: LORazepam Inj 2mg/ml 1ml IV PRN (15:30)
[2018-06-18] MEDS ORDERED: Tubing IV Secondary IV ONE (15:37)
[2018-06-18] MEDS ORDERED: NS 275ml ONE (15:37)
[2018-06-18] MEDS ORDERED: D5W 275ml ONE (15:37)
[2018-06-18] MEDS: Triamcinolone 0.1% oint TOPIC SCH (18:26)
[2018-06-18] MEDS: DiphenhydrAMINE & Zinc 28g Cream TOPIC SCH (18:26)
--- NOTE | 2018-06-18 19:35 | Pulmonolgy Critical Care Note ---
Critical Care - Asmt/Plan Assessment/Plan: Assessment/Plan ASSESSMENT: 1. COPD with exacerbation, previously on ventilator, on BIPAP PRN and QHS 2. Congestive heart failure. per history 3. HHD. 4. Type 2 diabetes mellitus. 5. possible sepsis. 6. Schizophrenia. 7. Hypertensive cardiovascular disease. 8. Left below-knee amputation. 9. Atrial fibrillation 10. Respiratory failure. acute 11. severe protein calorie malnutrition PLAN BiPAP PRN follow up ABG and add PEEP empiric antibiotics pressors as needed IV hydration with caution heparin SQ duplex for DVT medications/laboratory data/nursing notes/ICU care reviewed in detail note reviewed and edited ICU time spent x 45 minutes Keep in ICU Critical Care - Subjective Interval Events: critically stable, WCC remains elevated, CXR slightly inmproved interstitial infiltartes, retocardiac infiltrate worse hypoxemic echo and venous reviewed good EF ROS Limited/Unobtainable: Yes Condition: critical EKG Rhythm: Sinus Rhythm I&O: Intake and Output 06/14/18 06/15/18 19:00 07:00 Intake Total 0 ml 1442.50 ml Output Total 1361 ml Balance 0 ml 81.50 ml Intake Oral 0 ml IV Total 1442.50 ml Output Urine Total 1361 ml Critical Care - Objective CXR: Interim endotracheal intubation, initially tube tip seen in the right mainstem bronchus, but the last of 3 images after retraction of the tube demonstrates tip in good position approximately 3 cm above the zunilda bilateral interstitial and airspace disease persists, unchanged. The heart is enlarged ET-Tube: 7.5 ET Position: 24 Last 24 Hour Vital Signs Date Time Temp Pulse Resp B/P (MAP) Pulse Ox O2 Delivery O2 Flow Rate FiO2 06/15/18 17:08 77 18 75 06/15/18 16:00 80 06/15/18 16:00 69 06/15/18 15:13 82 18 75 06/15/18 15:00 82 19 115/67 (83) 95 06/15/18 14:00 82 19 113/72 (86) 97 06/15/18 13:04 86 18 80 06/15/18 13:00 86 19 117/71 (86) 97 06/15/18 12:00 80 06/15/18 12:00 Mechanical Ventilator 06/15/18 12:00 89 06/15/18 12:00 99.0 82 18 110/63 (79) 97 99.0 06/15/18 11:07 84 18 80 06/15/18 11:00 85 18 114/73 (87) 97 06/15/18 10:00 83 18 109/64 (79) 97 06/15/18 09:30 86 18 111/64 (80) 97 06/15/18 09:00 98.8 90 18 112/64 (80) 97 98.8 06/15/18 08:57 91 18 80 06/15/18 08:30 89 18 110/59 (76) 97 06/15/18 08:00 Mechanical Ventilator 06/15/18 08:00 93 18 114/79 (91) 97 06/15/18 08:00 121/67 06/15/18 08:00 80 06/15/18 08:00 103 06/15/18 07:30 99.3 103 18 121/74 (90) 96 99.3 06/15/18 07:26 74 28 80 06/15/18 07:00 138/67 06/15/18 07:00 94 18 121/67 (85) 97 06/15/18 06:30 76 18 128/74 (92) 96 06/15/18 06:00 76 18 131/74 (93) 96 06/15/18 06:00 131/74 06/15/18 06:00 90/50 06/15/18 05:30 74 18 140/70 (93) 96 06/15/18 05:15 74 18 80 06/15/18 05:00 73 18 160/80 (106) 96 06/15/18 05:00 140/70 06/15/18 04:30 75 18 171/92 (118) 96 06/15/18 04:00 Mechanical Ventilator 06/15/18 04:00 80 06/15/18 04:00 76 06/15/18 04:00 162/87 06/15/18 04:00 98.9 74 18 162/87 (112) 96 98.9 06/15/18 03:40 92 18 80 06/15/18 03:30 74 18 116/61 (79) 98 06/15/18 03:00 78 18 118/68 (85) 98 06/15/18 03:00 118/68 06/15/18 02:30 70 18 114/67 (83) 98 06/15/18 02:00 75 18 119/66 (83) 98 18 02:00 119/66 06/15/18 01:59 113/26 06/15/18 01:30 73 18 113/66 (82) 97 06/15/18 01:12 88 18 80 06/15/18 01:00 102 18 103/52 (69) 97 06/15/18 01:00 125/67 06/15/18 00:00 98.6 102 18 103/52 (69) 97 98.6 06/15/18 00:00 Mechanical Ventilator 06/15/18 00:00 103/52 06/15/18 00:00 102 06/15/18 00:00 80 06/14/18 23:30 70 18 129/70 (89) 97 06/14/18 23:00 60/30 06/14/18 23:00 73 18 60/73 (69) 97 06/14/18 22:49 88 18 80 06/14/18 22:39 99.8 06/14/18 22:30 74 18 108/53 (71) 97 06/14/18 22:00 74 18 121/66 (84) 97 06/14/18 22:00 80/50 06/14/18 21:43 105/56 06/14/18 21:40 101.6 06/14/18 21:00 101.0 93 18 124/66 (85) 97 101.0 06/14/18 21:00 80 06/14/18 20:56 97 18 80 06/14/18 20:00 80 06/14/18 20:00 93 06/14/18 20:00 Mechanical Ventilator 06/14/18 20:00 101.2 93 18 131/70 (90) 96 101.2 06/14/18 20:00 131/70 06/14/18 19:30 93 18 66/28 (41) 97 06/14/18 19:11 96 18 100 Labs: Labs Test 06/14/18 12:25 06/14/18 13:09 06/14/18 13:17 06/14/18 14:26 White Blood Count 11.8 K/UL (4.8-10.8) Red Blood Count 6.20 M/UL (4.70-6.10) Hemoglobin 17.0 G/DL (14.2-18.0) Hematocrit 55.7 % (42.0-52.0) Mean Corpuscular Volume 90 FL (80-99) Mean Corpuscular Hemoglobin 27.4 PG (27.0-31.0) Mean Corpuscular Hemoglobin Concent 30.5 G/DL (32.0-36.0) Red Cell Distribution Width 12.8 % (11.6-14.8) Platelet Count 212 K/UL (150-450) Mean Platelet Volume 7.6 FL (6.5-10.1) Neutrophils (%) (Auto) 80.7 % (45.0-75.0) Lymphocytes (%) (Auto) 10.9 % (20.0-45.0) Monocytes (%) (Auto) 7.6 % (1.0-10.0) Eosinophils (%) (Auto) 0.0 % (0.0-3.0) Basophils (%) (Auto) 0.7 % (0.0-2.0) Prothrombin Time 30.8 SEC (9.30-11.50) Prothromb Time International Ratio 3.1 (0.9-1.1) Sodium Level 135 MMOL/L (136-145) Potassium Level 4.0 MMOL/L (3.5-5.1) Chloride Level 95 MMOL/L (98-107) Carbon Dioxide Level 33 MMOL/L (21-32) Anion Gap 7 mmol/L (5-15) Blood Urea Nitrogen 11 mg/dL (7-18) Creatinine 1.0 MG/DL (0.55-1.30) Estimat Glomerular Filtration Rate > 60 mL/min (>60) Glucose Level 415 MG/DL (74-106) Lactic Acid Level 3.10 mmol/L (0.4-2.0) Calcium Level 9.0 MG/DL (8.5-10.1) Total Bilirubin 0.9 MG/DL (0.2-1.0) Aspartate Amino Transf (AST/SGOT) 51 U/L (15-37) Alanine Aminotransferase (ALT/SGPT) 75 U/L (12-78) Alkaline Phosphatase 157 U/L (46-116) Troponin I 0.032 ng/mL (0.000-0.056) Pro-B-Type Natriuretic Peptide 583 pg/mL (0-125) Total Protein 8.4 G/DL (6.4-8.2) Albumin 2.9 G/DL (3.4-5.0) Globulin 5.5 g/dL Albumin/Globulin Ratio 0.5 (1.0-2.7) Urine Color Yellow Urine Appearance Slightly cloudy Urine pH 5 (4.5-8.0) Urine Specific [place] 1.020 (1.005-1.035) Urine Protein 4+ (NEGATIVE) Urine Glucose (UA) 4+ (NEGATIVE) Urine Ketones 1+ (NEGATIVE) Urine Occult Blood 4+ (NEGATIVE) Urine Nitrite Negative (NEGATIVE) Urine Bilirubin Negative (NEGATIVE) Urine Urobilinogen 4 MG/DL (0.0-1.0) Urine Leukocyte Esterase Negative (NEGATIVE) Urine RBC 5-10 /HPF (0 - 0) Urine WBC 5-10 /HPF (0 - 0) Urine Squamous Epithelial Cells Few /LPF (NONE/OCC) Urine Amorphous Sediment Few /LPF (NONE) Urine Bacteria Moderate /HPF (NONE) Urine Hyaline Casts 2-4 /LPF (NONE) Urine Mucus Moderate /LPF (NONE/OCC) Arterial Blood pH 7.146 (7.350-7.450) 7.317 (7.350-7.450) Arterial Blood Partial Pressure CO2 135.1 mmHg (35.0-45.0) 60.7 mmHg (35.0-45.0) Arterial Blood Partial Pressure O2 72.0 mmHg (75.0-100.0) 208.7 mmHg (75.0-100.0) Arterial Blood HCO3 45.6 mmol/L (22.0-26.0) 30.3 mmol/L (22.0-26.0) Arterial Blood Oxygen Saturation 91.3 % (92.0-98.0) 99.3 % (92.0-98.0) Arterial Blood Base Excess 9.6 2.3 Cole Test Positive Positive Test 06/14/18 19:00 06/15/18 02:00 06/15/18 06:00 06/15/18 08:45 Arterial Blood pH 7.303 (7.350-7.450) 7.466 (7.350-7.450) Arterial Blood Partial Pressure CO2 70.4 mmHg (35.0-45.0) 52.6 mmHg (35.0-45.0) Arterial Blood Partial Pressure O2 107.9 mmHg (75.0-100.0) 98.4 mmHg (75.0-100.0) Arterial Blood HCO3 34.1 mmol/L (22.0-26.0) 36.6 mmol/L (22.0-26.0) Arterial Blood Oxygen Saturation 97.7 % (92.0-98.0) 97.6 % (92.0-98.0) Arterial Blood Base Excess -4.8 10.6 Cole Test Positive Positive Lactic Acid Level 1.80 mmol/L (0.4-2.0) 1.90 mmol/L (0.4-2.0) White Blood Count 13.3 K/UL (4.8-10.8) Red Blood Count 5.30 M/UL (4.70-6.10) Hemoglobin 15.0 G/DL (14.2-18.0) Hematocrit 47.8 % (42.0-52.0) Mean Corpuscular Volume 90 FL (80-99) Mean Corpuscular Hemoglobin 28.3 PG (27.0-31.0) Mean Corpuscular Hemoglobin Concent 31.3 G/DL (32.0-36.0) Red Cell Distribution Width 13.1 % (11.6-14.8) Platelet Count 211 K/UL (150-450) Mean Platelet Volume 7.0 FL (6.5-10.1) Neutrophils (%) (Auto) 76.8 % (45.0-75.0) Lymphocytes (%) (Auto) 12.3 % (20.0-45.0) Monocytes (%) (Auto) 9.9 % (1.0-10.0) Eosinophils (%) (Auto) 0.0 % (0.0-3.0) Basophils (%) (Auto) 1.1 % (0.0-2.0) Sodium Level 139 MMOL/L (136-145) Potassium Level 3.5 MMOL/L (3.5-5.1) Chloride Level 99 MMOL/L (98-107) Carbon Dioxide Level 37 MMOL/L (21-32) Anion Gap 3 mmol/L (5-15) Blood Urea Nitrogen 12 mg/dL (7-18) Creatinine 1.3 MG/DL (0.55-1.30) Estimat Glomerular Filtration Rate > 60 mL/min (>60) Glucose Level 354 MG/DL (74-106) Calcium Level 7.9 MG/DL (8.5-10.1) Magnesium Level 2.0 MG/DL (1.8-2.4) Objective: GENERAL: morbidly obese male, on vent (seen earlier) VITAL SIGNS: see attached HEENT: The head is normocephalic and atraumatic. orally intubated NECK: Supple. Trachea midline. carotids 2+ LUNGS: moderate breath sounds with wheezes. HEART: RRR S1 and S2. No rubs, murmurs, or gallops. ABDOMEN: Soft and nontender. Bowel sounds were active. EXTREMITIES: No clubbing, cyanosis, or edema. He has a left below-knee stump. Critical Care - Objective Last 24 Hour Vital Signs Date Time Temp Pulse Resp B/P (MAP) Pulse Ox O2 Delivery O2 Flow Rate FiO2 06/18/18 18:02 89 16 125/78 (94) 99 06/18/18 16:08 86 16 97 Room Air 06/18/18 16:01 85 06/18/18 15:54 84 16 98 Room Air 06/18/18 15:20 Nasal Cannula 2.0 06/18/18 12:06 89 20 98 Room Air 06/18/18 12:01 89 20 98 Room Air 06/18/18 12:00 88 06/18/18 11:52 71 20 96 Room Air 06/18/18 09:42 88 22 98 Room Air 06/18/18 09:35 94 Room Air 06/18/18 09:35 87 20 94 Room Air 06/18/18 09:35 Room Air 06/18/18 09:25 121/90 06/18/18 09:00 Nasal Cannula 2.0 06/18/18 08:00 98.0 89 18 149/97 (114) 93 98.0 06/18/18 08:00 84 06/18/18 04:00 81 06/18/18 03:36 86 22 99 Room Air 06/18/18 03:23 85 22 95 Room Air 06/18/18 00:00 88 06/17/18 23:32 88 20 99 Room Air 06/17/18 23:04 86 18 93 Room Air 06/17/18 21:00 Nasal Cannula 2.0 06/17/18 20:00 91 06/17/18 19:41 80 20 99 Room Air 06/17/18 19:38 87 20 Room Air 06/17/18 19:38 Room Air 06/17/18 19:38 93 Room Air 06/17/18 19:35 87 18 93 Room Air Accucheck: 121 Critical Care - Subjective ROS Limited/Unobtainable: No Condition: improving EKG Rhythm: Sinus Rhythm FI02: 28 Vent Support Breath Rate: 16 Vent Support Mode: AC Vent Tidal Volume: 650 Sputum Amount: None PEEP: 12.0 PIP: 40 I&O: Intake and Output 06/17/18 06/18/18 19:00 07:00 Intake Total 1193.000 ml 1000 ml Output Total 765 ml 1500 ml Balance 428.000 ml -500 ml Intake Oral 708 ml 1000 ml IV Total 485.000 ml Output Urine Total 765 ml 1500 ml # Bowel Movements 1 1 ET-Tube: 7.5 ET Position: 24 Paul Araiza MD Jun 18, 2018 19:35
[2018-06-18] MEDS: Dyna-Hex 2% Top Sol 2oz TOPIC SCH (20:47)
[2018-06-19] VITALS (24 sets, daily range): BP systolic 86–163; BP diastolic 60–105
[2018-06-19] MEDS: Albuterol/Ipratropium 3ml neb HHN SCH ×6 (03:52→23:30)
[2018-06-19] MEDS: Vancomycin 1 GM in D5W 275 ML IVPB SCH ×3 (04:26→17:41)
[2018-06-19 05:21] LABS: BASOPHILS % (AUTO) 0.8 % (0.0-2.0); HEMATOCRIT 50.7 % (42.0-52.0); HEMOGLOBIN 16.2 G/DL (14.2-18.0); LYMPHOCYTES % (AUTO) 10.5 % (20.0-45.0); MEAN CORPUSCULAR VOLUME 88 FL (80-99); MONOCYTES % (AUTO) 5.3 % (1.0-10.0); NEUTROPHILS % (AUTO) 80.4 % (45.0-75.0); PLATELET COUNT 237 K/UL (150-450); RED BLOOD COUNT 5.75 M/UL (4.70-6.10); WHITE BLOOD COUNT 11.4 K/UL (4.8-10.8)
[2018-06-19 05:46] LABS: ALANINE AMINOTRANSFERASE 57 U/L (12-78); ALBUMIN 2.5 G/DL (3.4-5.0); ALBUMIN/GLOBULIN RATIO 0.5 (1.0-2.7); ALKALINE PHOSPHATASE 105 U/L (46-116); ANION GAP 8 mmol/L (5-15); ASPARTATE AMINO TRANSFERASE 53 U/L (15-37); BILIRUBIN,TOTAL 1.9 MG/DL (0.2-1.0); BLOOD UREA NITROGEN 6 mg/dL (7-18); CALCIUM 8.9 MG/DL (8.5-10.1); CARBON DIOXIDE 30 MMOL/L (21-32); CHLORIDE 100 MMOL/L (98-107); CREATININE 0.8 MG/DL (0.55-1.30); POTASSIUM 3.1 MMOL/L (3.5-5.1); SODIUM 138 MMOL/L (136-145)
[2018-06-19 05:48] LABS: BILIRUBIN,DIRECT 0.4 MG/DL (0.0-0.3)
[2018-06-19] MEDS: NovoLOG Insulin Flexpen SUBQ SCH ×4 (06:30→21:13)
[2018-06-19] MEDS ORDERED: cefTRIAXone 1 GM in D5W 110 ML IV SCH (09:00)
[2018-06-19] MEDS ORDERED: Losartan 25mg tab ORAL SCH (09:00)
[2018-06-19] MEDS ORDERED: Spironolactone 25mg tab ORAL SCH (09:00)
[2018-06-19] MEDS: Triamcinolone 0.1% oint TOPIC SCH ×2 (09:27→17:41)
[2018-06-19] MEDS: DiphenhydrAMINE & Zinc 28g Cream TOPIC SCH ×2 (09:27→17:41)
[2018-06-19] MEDS: Heparin 5000 units/ml inj SUBQ SCH ×2 (09:27→21:14)
--- NOTE | 2018-06-19 10:23 | General Progress Note ---
Assessment/Plan Assessment/Plan Min Pul edema - reduce IVF!! Awaiting ABGs Stat ABGS. DW pt. Convinced to get back on BIPAP! Subjective Allergies: Coded Allergies: No Known Allergies (Unverified , 08/15/17) Subjective Noncompliant! Refusing BIPAP. Objective Last 24 Hour Vital Signs Date Time Temp Pulse Resp B/P (MAP) Pulse Ox O2 Delivery O2 Flow Rate FiO2 06/19/18 09:25 122/70 06/19/18 08:00 97.3 87 17 122/70 (87) 90 97.3 06/19/18 08:00 Nasal Cannula 2.0 06/19/18 07:15 85 18 96 Nasal Cannula 2.0 28 06/19/18 07:06 93 Room Air 21 06/19/18 07:06 Room Air 06/19/18 07:06 86 18 93 Room Air 21 06/19/18 07:00 86 16 145/75 (98) 91 06/19/18 06:00 87 21 144/78 (100) 91 06/19/18 05:00 90 20 149/105 (120) 90 06/19/18 04:00 98.0 90 18 133/80 (97) 90 98.0 06/19/18 04:00 Nasal Cannula 2.0 06/19/18 04:00 84 06/19/18 03:53 86 18 95 Nasal Cannula 2.0 28 06/19/18 03:53 84 18 92 Nasal Cannula 2.0 28 06/19/18 03:00 87 16 124/79 (94) 90 06/19/18 02:00 91 20 106/65 (79) 93 06/19/18 01:00 86 18 126/68 (87) 93 06/19/18 00:00 98.0 85 18 123/70 (87) 93 98.0 06/19/18 00:00 85 06/19/18 00:00 Nasal Cannula 2.0 06/18/18 23:11 Nasal Cannula 2.0 28 06/18/18 23:11 Nasal Cannula 2.0 28 06/18/18 23:00 90 22 126/68 (87) 90 06/18/18 22:00 90 18 125/79 (94) 92 06/18/18 21:00 90 19 110/52 (71) 93 06/18/18 20:00 Nasal Cannula 2.0 28 06/18/18 20:00 94 Nasal Cannula 2.0 28 06/18/18 20:00 Nasal Cannula 2.0 06/18/18 20:00 88 16 124/76 (92) 97 06/18/18 20:00 85 18 94 Nasal Cannula 2.0 28 06/18/18 20:00 88 18 96 Nasal Cannula 2.0 28 06/18/18 20:00 90 06/18/18 19:00 97.7 90 20 123/88 (100) 96 97.7 06/18/18 18:02 89 16 125/78 (94) 99 06/18/18 16:08 86 16 97 Room Air 06/18/18 16:01 85 06/18/18 15:54 84 16 98 Room Air 06/18/18 15:20 Nasal Cannula 2.0 06/18/18 12:06 89 20 98 Room Air 06/18/18 12:01 89 20 98 Room Air 06/18/18 12:00 88 06/18/18 11:52 71 20 96 Room Air Intake and Output 06/18/18 06/19/18 19:00 07:00 Intake Total 1020 ml 3898.708 ml Output Total 2900 ml 3000 ml Balance -1880 ml 898.708 ml Intake Oral 1020 ml 3440 ml IV Total 458.708 ml Output Urine Total 2900 ml 3000 ml # Bowel Movements 2 Laboratory Tests 06/18/18 13:07: Arterial Blood pH 7.430, Arterial Blood Partial Pressure CO2 46.0H, Arterial Blood Partial Pressure O2 62.3L, Arterial Blood HCO3 30.4H, Arterial Blood Oxygen Saturation 92.2, Arterial Blood Base Excess 5.2, Cole Test Positive 06/19/18 04:45: White Blood Count 11.4H, Red Blood Count 5.75, Hemoglobin 16.2, Hematocrit 50.7 , Mean Corpuscular Volume 88, Mean Corpuscular Hemoglobin 28.2, Mean Corpuscular Hemoglobin Concent 32.0, Red Cell Distribution Width 13.0, Platelet Count 237, Mean Platelet Volume 6.7, Neutrophils (%) (Auto) 80.4H, Lymphocytes ( %) (Auto) 10.5L, Monocytes (%) (Auto) 5.3, Eosinophils (%) (Auto) 3.0, Basophils (%) (Auto) 0.8, Sodium Level 138, Potassium Level 3.1L, Chloride Level 100, Carbon Dioxide Level 30, Anion Gap 8, Blood Urea Nitrogen 6L, Creatinine 0.8, Estimat Glomerular Filtration Rate > 60, Glucose Level 139H, Calcium Level 8.9, Magnesium Level 2.1, Total Bilirubin 1.9H, Direct Bilirubin 0.4H, Aspartate Amino Transf (AST/SGOT) 53H, Alanine Aminotransferase (ALT/SGPT ) 57, Alkaline Phosphatase 105, Total Protein 7.3, Albumin 2.5L, Globulin 4.8, Albumin/Globulin Ratio 0.5L Height (Feet): 5 Height (Inches): 6.00 Weight (Pounds): 310 Objective Morbidly obese CV RR Lungs B wheezes. Abd pendulous, Obese E Min edema. Dung Castro MD Jun 19, 2018 10:23
[2018-06-19] MEDS ORDERED: NS 275ml ONE (16:07)
--- NOTE | 2018-06-19 18:13 | Pulmonolgy Critical Care Note ---
Critical Care - Asmt/Plan Assessment/Plan: Assessment/Plan ASSESSMENT: 1. COPD with exacerbation, previously on ventilator, on BIPAP PRN and QHS 2. Congestive heart failure. per history 3. HHD. 4. Type 2 diabetes mellitus. 5. possible sepsis. 6. Schizophrenia. 7. Hypertensive cardiovascular disease. 8. Left below-knee amputation. 9. Atrial fibrillation 10. Respiratory failure. acute 11. severe protein calorie malnutrition PLAN BiPAP PRN follow up ABG and add PEEP empiric antibiotics pressors as needed IV hydration with caution heparin SQ duplex for DVT medications/laboratory data/nursing notes/ICU care reviewed in detail note reviewed and edited ICU time spent x 45 minutes Keep in ICU Critical Care - Subjective Interval Events: critically stable, WCC remains elevated, CXR slightly inmproved interstitial infiltartes, retocardiac infiltrate worse hypoxemic echo and venous reviewed good EF ROS Limited/Unobtainable: Yes Condition: critical EKG Rhythm: Sinus Rhythm I&O: Intake and Output 06/14/18 06/15/18 19:00 07:00 Intake Total 0 ml 1442.50 ml Output Total 1361 ml Balance 0 ml 81.50 ml Intake Oral 0 ml IV Total 1442.50 ml Output Urine Total 1361 ml Critical Care - Objective CXR: Interim endotracheal intubation, initially tube tip seen in the right mainstem bronchus, but the last of 3 images after retraction of the tube demonstrates tip in good position approximately 3 cm above the zunilda bilateral interstitial and airspace disease persists, unchanged. The heart is enlarged ET-Tube: 7.5 ET Position: 24 Last 24 Hour Vital Signs Date Time Temp Pulse Resp B/P (MAP) Pulse Ox O2 Delivery O2 Flow Rate FiO2 06/15/18 17:08 77 18 75 06/15/18 16:00 80 06/15/18 16:00 69 06/15/18 15:13 82 18 75 06/15/18 15:00 82 19 115/67 (83) 95 06/15/18 14:00 82 19 113/72 (86) 97 06/15/18 13:04 86 18 80 06/15/18 13:00 86 19 117/71 (86) 97 06/15/18 12:00 80 06/15/18 12:00 Mechanical Ventilator 06/15/18 12:00 89 06/15/18 12:00 99.0 82 18 110/63 (79) 97 99.0 06/15/18 11:07 84 18 80 06/15/18 11:00 85 18 114/73 (87) 97 06/15/18 10:00 83 18 109/64 (79) 97 06/15/18 09:30 86 18 111/64 (80) 97 06/15/18 09:00 98.8 90 18 112/64 (80) 97 98.8 06/15/18 08:57 91 18 80 06/15/18 08:30 89 18 110/59 (76) 97 06/15/18 08:00 Mechanical Ventilator 06/15/18 08:00 93 18 114/79 (91) 97 06/15/18 08:00 121/67 06/15/18 08:00 80 06/15/18 08:00 103 06/15/18 07:30 99.3 103 18 121/74 (90) 96 99.3 06/15/18 07:26 74 28 80 06/15/18 07:00 138/67 06/15/18 07:00 94 18 121/67 (85) 97 06/15/18 06:30 76 18 128/74 (92) 96 06/15/18 06:00 76 18 131/74 (93) 96 06/15/18 06:00 131/74 06/15/18 06:00 90/50 06/15/18 05:30 74 18 140/70 (93) 96 06/15/18 05:15 74 18 80 06/15/18 05:00 73 18 160/80 (106) 96 06/15/18 05:00 140/70 06/15/18 04:30 75 18 171/92 (118) 96 06/15/18 04:00 Mechanical Ventilator 06/15/18 04:00 80 06/15/18 04:00 76 06/15/18 04:00 162/87 06/15/18 04:00 98.9 74 18 162/87 (112) 96 98.9 06/15/18 03:40 92 18 80 06/15/18 03:30 74 18 116/61 (79) 98 06/15/18 03:00 78 18 118/68 (85) 98 06/15/18 03:00 118/68 06/15/18 02:30 70 18 114/67 (83) 98 06/15/18 02:00 75 18 119/66 (83) 98 18 02:00 119/66 06/15/18 01:59 113/26 06/15/18 01:30 73 18 113/66 (82) 97 06/15/18 01:12 88 18 80 06/15/18 01:00 102 18 103/52 (69) 97 06/15/18 01:00 125/67 06/15/18 00:00 98.6 102 18 103/52 (69) 97 98.6 06/15/18 00:00 Mechanical Ventilator 06/15/18 00:00 103/52 06/15/18 00:00 102 06/15/18 00:00 80 06/14/18 23:30 70 18 129/70 (89) 97 06/14/18 23:00 60/30 06/14/18 23:00 73 18 60/73 (69) 97 06/14/18 22:49 88 18 80 06/14/18 22:39 99.8 06/14/18 22:30 74 18 108/53 (71) 97 06/14/18 22:00 74 18 121/66 (84) 97 06/14/18 22:00 80/50 06/14/18 21:43 105/56 06/14/18 21:40 101.6 06/14/18 21:00 101.0 93 18 124/66 (85) 97 101.0 06/14/18 21:00 80 06/14/18 20:56 97 18 80 06/14/18 20:00 80 06/14/18 20:00 93 06/14/18 20:00 Mechanical Ventilator 06/14/18 20:00 101.2 93 18 131/70 (90) 96 101.2 06/14/18 20:00 131/70 06/14/18 19:30 93 18 66/28 (41) 97 06/14/18 19:11 96 18 100 Labs: Labs Test 06/14/18 12:25 06/14/18 13:09 06/14/18 13:17 06/14/18 14:26 White Blood Count 11.8 K/UL (4.8-10.8) Red Blood Count 6.20 M/UL (4.70-6.10) Hemoglobin 17.0 G/DL (14.2-18.0) Hematocrit 55.7 % (42.0-52.0) Mean Corpuscular Volume 90 FL (80-99) Mean Corpuscular Hemoglobin 27.4 PG (27.0-31.0) Mean Corpuscular Hemoglobin Concent 30.5 G/DL (32.0-36.0) Red Cell Distribution Width 12.8 % (11.6-14.8) Platelet Count 212 K/UL (150-450) Mean Platelet Volume 7.6 FL (6.5-10.1) Neutrophils (%) (Auto) 80.7 % (45.0-75.0) Lymphocytes (%) (Auto) 10.9 % (20.0-45.0) Monocytes (%) (Auto) 7.6 % (1.0-10.0) Eosinophils (%) (Auto) 0.0 % (0.0-3.0) Basophils (%) (Auto) 0.7 % (0.0-2.0) Prothrombin Time 30.8 SEC (9.30-11.50) Prothromb Time International Ratio 3.1 (0.9-1.1) Sodium Level 135 MMOL/L (136-145) Potassium Level 4.0 MMOL/L (3.5-5.1) Chloride Level 95 MMOL/L (98-107) Carbon Dioxide Level 33 MMOL/L (21-32) Anion Gap 7 mmol/L (5-15) Blood Urea Nitrogen 11 mg/dL (7-18) Creatinine 1.0 MG/DL (0.55-1.30) Estimat Glomerular Filtration Rate > 60 mL/min (>60) Glucose Level 415 MG/DL (74-106) Lactic Acid Level 3.10 mmol/L (0.4-2.0) Calcium Level 9.0 MG/DL (8.5-10.1) Total Bilirubin 0.9 MG/DL (0.2-1.0) Aspartate Amino Transf (AST/SGOT) 51 U/L (15-37) Alanine Aminotransferase (ALT/SGPT) 75 U/L (12-78) Alkaline Phosphatase 157 U/L (46-116) Troponin I 0.032 ng/mL (0.000-0.056) Pro-B-Type Natriuretic Peptide 583 pg/mL (0-125) Total Protein 8.4 G/DL (6.4-8.2) Albumin 2.9 G/DL (3.4-5.0) Globulin 5.5 g/dL Albumin/Globulin Ratio 0.5 (1.0-2.7) Urine Color Yellow Urine Appearance Slightly cloudy Urine pH 5 (4.5-8.0) Urine Specific [place] 1.020 (1.005-1.035) Urine Protein 4+ (NEGATIVE) Urine Glucose (UA) 4+ (NEGATIVE) Urine Ketones 1+ (NEGATIVE) Urine Occult Blood 4+ (NEGATIVE) Urine Nitrite Negative (NEGATIVE) Urine Bilirubin Negative (NEGATIVE) Urine Urobilinogen 4 MG/DL (0.0-1.0) Urine Leukocyte Esterase Negative (NEGATIVE) Urine RBC 5-10 /HPF (0 - 0) Urine WBC 5-10 /HPF (0 - 0) Urine Squamous Epithelial Cells Few /LPF (NONE/OCC) Urine Amorphous Sediment Few /LPF (NONE) Urine Bacteria Moderate /HPF (NONE) Urine Hyaline Casts 2-4 /LPF (NONE) Urine Mucus Moderate /LPF (NONE/OCC) Arterial Blood pH 7.146 (7.350-7.450) 7.317 (7.350-7.450) Arterial Blood Partial Pressure CO2 135.1 mmHg (35.0-45.0) 60.7 mmHg (35.0-45.0) Arterial Blood Partial Pressure O2 72.0 mmHg (75.0-100.0) 208.7 mmHg (75.0-100.0) Arterial Blood HCO3 45.6 mmol/L (22.0-26.0) 30.3 mmol/L (22.0-26.0) Arterial Blood Oxygen Saturation 91.3 % (92.0-98.0) 99.3 % (92.0-98.0) Arterial Blood Base Excess 9.6 2.3 Cole Test Positive Positive Test 06/14/18 19:00 06/15/18 02:00 06/15/18 06:00 06/15/18 08:45 Arterial Blood pH 7.303 (7.350-7.450) 7.466 (7.350-7.450) Arterial Blood Partial Pressure CO2 70.4 mmHg (35.0-45.0) 52.6 mmHg (35.0-45.0) Arterial Blood Partial Pressure O2 107.9 mmHg (75.0-100.0) 98.4 mmHg (75.0-100.0) Arterial Blood HCO3 34.1 mmol/L (22.0-26.0) 36.6 mmol/L (22.0-26.0) Arterial Blood Oxygen Saturation 97.7 % (92.0-98.0) 97.6 % (92.0-98.0) Arterial Blood Base Excess -4.8 10.6 Cole Test Positive Positive Lactic Acid Level 1.80 mmol/L (0.4-2.0) 1.90 mmol/L (0.4-2.0) White Blood Count 13.3 K/UL (4.8-10.8) Red Blood Count 5.30 M/UL (4.70-6.10) Hemoglobin 15.0 G/DL (14.2-18.0) Hematocrit 47.8 % (42.0-52.0) Mean Corpuscular Volume 90 FL (80-99) Mean Corpuscular Hemoglobin 28.3 PG (27.0-31.0) Mean Corpuscular Hemoglobin Concent 31.3 G/DL (32.0-36.0) Red Cell Distribution Width 13.1 % (11.6-14.8) Platelet Count 211 K/UL (150-450) Mean Platelet Volume 7.0 FL (6.5-10.1) Neutrophils (%) (Auto) 76.8 % (45.0-75.0) Lymphocytes (%) (Auto) 12.3 % (20.0-45.0) Monocytes (%) (Auto) 9.9 % (1.0-10.0) Eosinophils (%) (Auto) 0.0 % (0.0-3.0) Basophils (%) (Auto) 1.1 % (0.0-2.0) Sodium Level 139 MMOL/L (136-145) Potassium Level 3.5 MMOL/L (3.5-5.1) Chloride Level 99 MMOL/L (98-107) Carbon Dioxide Level 37 MMOL/L (21-32) Anion Gap 3 mmol/L (5-15) Blood Urea Nitrogen 12 mg/dL (7-18) Creatinine 1.3 MG/DL (0.55-1.30) Estimat Glomerular Filtration Rate > 60 mL/min (>60) Glucose Level 354 MG/DL (74-106) Calcium Level 7.9 MG/DL (8.5-10.1) Magnesium Level 2.0 MG/DL (1.8-2.4) Objective: GENERAL: morbidly obese male, on vent (seen earlier) VITAL SIGNS: see attached HEENT: The head is normocephalic and atraumatic. orally intubated NECK: Supple. Trachea midline. carotids 2+ LUNGS: moderate breath sounds with wheezes. HEART: RRR S1 and S2. No rubs, murmurs, or gallops. ABDOMEN: Soft and nontender. Bowel sounds were active. EXTREMITIES: No clubbing, cyanosis, or edema. He has a left below-knee stump. Critical Care - Objective Last 24 Hour Vital Signs Date Time Temp Pulse Resp B/P (MAP) Pulse Ox O2 Delivery O2 Flow Rate FiO2 06/19/18 17:03 93 20 74 Facial 50 06/19/18 17:00 89 18 118/69 (85) 98 06/19/18 16:00 Nasal Cannula 2.0 06/19/18 16:00 84 06/19/18 16:00 97.9 79 17 110/67 (81) 99 97.9 06/19/18 15:06 84 18 95 Bi-pap 50 06/19/18 15:01 90 21 93 Facial 50 06/19/18 15:00 75 17 163/89 (113) 99 06/19/18 14:55 85 21 93 Bi-pap 50 06/19/18 14:00 83 22 139/84 (102) 92 06/19/18 13:00 83 15 113/60 (77) 100 06/19/18 12:42 78 19 96 Facial 50 06/19/18 12:00 97.6 77 26 135/80 (98) 92 97.6 06/19/18 12:00 Nasal Cannula 2.0 06/19/18 12:00 77 06/19/18 11:55 87 18 96 Bi-pap 50 06/19/18 11:47 71 16 96 Bi-pap 50 06/19/18 11:00 74 18 122/76 (91) 92 06/19/18 10:34 80 17 96 Facial 30 06/19/18 10:00 83 18 124/72 (89) 92 06/19/18 09:25 122/70 06/19/18 09:00 85 18 86/72 (77) 90 06/19/18 08:00 97.3 87 17 122/70 (87) 90 97.3 06/19/18 08:00 84 06/19/18 08:00 Nasal Cannula 2.0 06/19/18 07:15 85 18 96 Nasal Cannula 2.0 28 06/19/18 07:06 93 Room Air 21 06/19/18 07:06 Room Air 06/19/18 07:06 86 18 93 Room Air 21 06/19/18 07:00 86 16 145/75 (98) 91 06/19/18 06:00 87 21 144/78 (100) 91 06/19/18 05:00 90 20 149/105 (120) 90 06/19/18 04:00 98.0 90 18 133/80 (97) 90 98.0 06/19/18 04:00 Nasal Cannula 2.0 06/19/18 04:00 84 06/19/18 03:53 86 18 95 Nasal Cannula 2.0 28 06/19/18 03:53 84 18 92 Nasal Cannula 2.0 06/19/18 03:00 87 16 124/79 (94) 90 06/19/18 02:00 91 20 106/65 (79) 93 06/19/18 01:00 86 18 126/68 (87) 93 06/19/18 00:00 98.0 85 18 123/70 (87) 93 98.0 06/19/18 00:00 85 06/19/18 00:00 Nasal Cannula 2.0 06/18/18 23:11 Nasal Cannula 2.0 28 06/18/18 23:11 Nasal Cannula 2.0 28 06/18/18 23:00 90 22 126/68 (87) 90 06/18/18 22:00 90 18 125/79 (94) 92 06/18/18 21:00 90 19 110/52 (71) 93 06/18/18 20:00 Nasal Cannula 2.0 28 06/18/18 20:00 94 Nasal Cannula 2.0 28 06/18/18 20:00 Nasal Cannula 2.0 06/18/18 20:00 88 16 124/76 (92) 97 06/18/18 20:00 85 18 94 Nasal Cannula 2.0 28 06/18/18 20:00 88 18 96 Nasal Cannula 2.0 28 06/18/18 20:00 90 06/18/18 19:00 97.7 90 20 123/88 (100) 96 97.7 Accucheck: 135 Critical Care - Subjective FI02: 50 Vent Support Breath Rate: 16 Vent Support Mode: AC Vent Tidal Volume: 650 Sputum Amount: None PEEP: 12.0 PIP: 40 I&O: Intake and Output 06/18/18 06/19/18 19:00 07:00 Intake Total 1020 ml 3898.708 ml Output Total 2900 ml 3000 ml Balance -1880 ml 898.708 ml Intake Oral 1020 ml 3440 ml IV Total 458.708 ml Output Urine Total 2900 ml 3000 ml # Bowel Movements 2 ET-Tube: 7.5 ET Position: 24 Paul Araiza MD Jun 19, 2018 18:12
[2018-06-19] MEDS: Dyna-Hex 2% Top Sol 2oz TOPIC SCH (20:01)
[2018-06-20] VITALS: BP 132/89
[2018-06-20] MEDS ORDERED: LORazepam Inj 2mg/ml 1ml IV PRN (01:30)
[2018-06-20] MEDS ORDERED: Milk of Magnesia 30ml Ud ORAL PRN (02:30)
[2018-06-20] MEDS: Vancomycin 1 GM in D5W 275 ML IVPB SCH ×2 (02:39→10:35)
[2018-06-20] MEDS: Albuterol/Ipratropium 3ml neb HHN SCH ×6 (03:51→23:00)
[2018-06-20 04:00] VITALS: BP 114/70
[2018-06-20] MEDS: NovoLOG Insulin Flexpen SUBQ SCH ×4 (06:15→20:39)
--- NOTE | 2018-06-20 07:38 | Critical Care Progress Note ---
Assessment/Plan Assessment/Plan ASSESSMENT: 1. COPD with exacerbation. 2. Congestive heart failure. per history 3. HHD. 4. Type 2 diabetes mellitus. 5. possible sepsis. 6. Schizophrenia. 7. Hypertensive cardiovascular disease. 8. Left below-knee amputation. 9. Atrial fibrillation 10. Respiratory failure. acute 11. 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 with pilot plant research technician - Subjective ROS Limited/Unobtainable: Yes Condition: stable EKG Rhythm: Sinus Rhythm I&O: Intake and Output 06/19/18 06/20/18 19:00 07:00 Intake Total 3140.8329 ml 275.000 ml Output Total 2890 ml 1900 ml Balance 250.8329 ml -1625.000 ml Intake Oral 2186 ml IV Total 954.8329 ml 275.000 ml Output Urine Total 2890 ml 1900 ml Critical Care - Objective CXR: pulmonary edema ET-Tube: 7.5 ET Position: 24 Last 24 Hour Vital Signs Date Time Temp Pulse Resp B/P (MAP) Pulse Ox O2 Delivery O2 Flow Rate FiO2 06/20/18 07:00 Nasal Cannula 06/20/18 07:00 93 18 93 Nasal Cannula 2.0 28 06/20/18 07:00 93 Nasal Cannula 2.0 28 06/20/18 07:00 Nasal Cannula 2.0 28 06/20/18 05:07 88 19 94 Facial 50 06/20/18 04:00 100 06/20/18 04:00 Nasal Cannula 2.0 06/20/18 04:00 98.0 82 20 114/70 (85) 92 98.0 06/20/18 03:51 91 20 96 Nasal Cannula 2.0 28 06/20/18 03:51 92 20 98 Nasal Cannula 2.0 28 06/20/18 01:30 81 18 83 Facial 50 06/20/18 00:00 98.1 80 20 132/89 (103) 92 98.1 06/20/18 00:00 87 06/20/18 00:00 Bi-pap 06/19/18 23:31 78 20 98 Nasal Cannula 2.0 28 06/19/18 23:31 76 20 97 Nasal Cannula 2.0 28 06/19/18 23:00 75 18 147/84 (105) 98 06/19/18 22:00 75 18 153/92 (112) 98 06/19/18 21:30 74 22 100 Facial 50 06/19/18 21:00 79 18 140/80 (100) 98 06/19/18 20:12 78 26 100 Facial 50 06/19/18 20:00 Nasal Cannula 2.0 06/19/18 20:00 80 24 99 Bi-pap 06/19/18 20:00 98.2 78 18 146/85 (105) 98 98.2 06/19/18 20:00 Bi-pap 06/19/18 20:00 99 Bi-pap 06/19/18 20:00 78 24 98 Bi-pap 06/19/18 20:00 79 06/19/18 19:00 79 18 128/84 (99) 98 06/19/18 18:00 80 18 119/70 (86) 98 06/19/18 17:03 93 20 74 Facial 50 06/19/18 17:00 89 18 118/69 (85) 98 06/19/18 16:00 Nasal Cannula 2.0 06/19/18 16:00 84 06/19/18 16:00 97.9 79 17 110/67 (81) 99 97.9 06/19/18 16:00 50 06/19/18 15:06 84 18 95 Bi-pap 50 06/19/18 15:01 90 21 93 Facial 50 06/19/18 15:00 75 17 163/89 (113) 99 06/19/18 14:55 85 21 93 Bi-pap 50 06/19/18 14:00 83 22 139/84 (102) 92 06/19/18 13:00 83 15 113/60 (77) 100 06/19/18 12:42 78 19 96 Facial 50 06/19/18 12:00 97.6 77 26 135/80 (98) 92 97.6 06/19/18 12:00 Nasal Cannula 2.0 06/19/18 12:00 50 06/19/18 12:00 77 06/19/18 11:55 87 18 96 Bi-pap 50 06/19/18 11:47 71 16 96 Bi-pap 50 06/19/18 11:00 74 18 122/76 (91) 92 06/19/18 10:34 80 17 96 Facial 30 06/19/18 10:30 30 06/19/18 10:00 83 18 124/72 (89) 92 06/19/18 09:25 122/70 06/19/18 09:00 85 18 86/72 (77) 90 06/19/18 08:00 97.3 87 17 122/70 (87) 90 97.3 06/19/18 08:00 84 06/19/18 08:00 2.0 06/19/18 08:00 Nasal Cannula 2.0 Labs: Labs Test 06/18/18 05:30 06/18/18 13:07 06/19/18 04:45 06/19/18 11:43 Sodium Level 136 MMOL/L (136-145) 138 MMOL/L (136-145) Potassium Level 3.4 MMOL/L (3.5-5.1) 3.1 MMOL/L (3.5-5.1) Chloride Level 98 MMOL/L (98-107) 100 MMOL/L (98-107) Carbon Dioxide Level 31 MMOL/L (21-32) 30 MMOL/L (21-32) Anion Gap 7 mmol/L (5-15) 8 mmol/L (5-15) Blood Urea Nitrogen 9 mg/dL (7-18) 6 mg/dL (7-18) Creatinine 0.9 MG/DL (0.55-1.30) 0.8 MG/DL (0.55-1.30) Estimat Glomerular Filtration Rate > 60 mL/min (>60) > 60 mL/min (>60) Glucose Level 149 MG/DL (74-106) 139 MG/DL (74-106) Calcium Level 8.6 MG/DL (8.5-10.1) 8.9 MG/DL (8.5-10.1) Arterial Blood pH 7.430 (7.350-7.450) 7.370 (7.350-7.450) Arterial Blood Partial Pressure CO2 46.0 mmHg (35.0-45.0) 60.2 mmHg (35.0-45.0) Arterial Blood Partial Pressure O2 62.3 mmHg (75.0-100.0) 124.3 mmHg (75.0-100.0) Arterial Blood HCO3 30.4 mmol/L (22.0-26.0) 34.0 mmol/L (22.0-26.0) Arterial Blood Oxygen Saturation 92.2 % (92.0-98.0) 98.0 % (92.0-98.0) Arterial Blood Base Excess 5.2 6.4 Cole Test Positive Positive White Blood Count 11.4 K/UL (4.8-10.8) Red Blood Count 5.75 M/UL (4.70-6.10) Hemoglobin 16.2 G/DL (14.2-18.0) Hematocrit 50.7 % (42.0-52.0) Mean Corpuscular Volume 88 FL (80-99) Mean Corpuscular Hemoglobin 28.2 PG (27.0-31.0) Mean Corpuscular Hemoglobin Concent 32.0 G/DL (32.0-36.0) Red Cell Distribution Width 13.0 % (11.6-14.8) Platelet Count 237 K/UL (150-450) Mean Platelet Volume 6.7 FL (6.5-10.1) Neutrophils (%) (Auto) 80.4 % (45.0-75.0) Lymphocytes (%) (Auto) 10.5 % (20.0-45.0) Monocytes (%) (Auto) 5.3 % (1.0-10.0) Eosinophils (%) (Auto) 3.0 % (0.0-3.0) Basophils (%) (Auto) 0.8 % (0.0-2.0) Magnesium Level 2.1 MG/DL (1.8-2.4) Total Bilirubin 1.9 MG/DL (0.2-1.0) Direct Bilirubin 0.4 MG/DL (0.0-0.3) Aspartate Amino Transf (AST/SGOT) 53 U/L (15-37) Alanine Aminotransferase (ALT/SGPT) 57 U/L (12-78) Alkaline Phosphatase 105 U/L (46-116) Total Protein 7.3 G/DL (6.4-8.2) Albumin 2.5 G/DL (3.4-5.0) Globulin 4.8 g/dL Albumin/Globulin Ratio 0.5 (1.0-2.7) Objective: GENERAL: morbidly obese male, on NC HEENT: The head is normocephalic and atraumatic. NECK: Supple. Trachea midline. carotids 2+ LUNGS: moderate breath sounds with occasional rhonchi HEART: RRR S1 and S2. No rubs, murmurs, or gallops. ABDOMEN: Soft and nontender. Bowel sounds were active. no distention EXTREMITIES: No clubbing, cyanosis, or edema. He has a left below-knee stump. Accucheck: 123 Maurisio Faith MD Jun 20, 2018 07:38
[2018-06-20 08:00] VITALS: BP 128/72
[2018-06-20] MEDS: DiphenhydrAMINE 50mg/ml Inj IVP PRN ×3 (08:48→22:45)
[2018-06-20] MEDS: Spironolactone 25mg tab ORAL SCH (08:50)
[2018-06-20] MEDS: Losartan 25mg tab ORAL SCH (08:52)
[2018-06-20] MEDS: Heparin 5000 units/ml inj SUBQ SCH ×2 (08:55→20:37)
[2018-06-20] MEDS ORDERED: cefTRIAXone 1 GM in D5W 110 ML IV SCH (09:00)
[2018-06-20] MEDS: Triamcinolone 0.1% oint TOPIC SCH ×2 (10:35→17:55)
[2018-06-20] MEDS: DiphenhydrAMINE & Zinc 28g Cream TOPIC SCH ×2 (10:35→17:55)
--- NOTE | 2018-06-20 11:47 | General Progress Note ---
Assessment/Plan Assessment/Plan schizophrenia agitation risperdal 2mg qhs risperdal 2mg x1 time now d/w mother Subjective Date patient seen: Jun 20, 2018 Neurologic/Psychiatric: Reports: anxiety, depressed, emotional problems Allergies: Coded Allergies: No Known Allergies (Unverified , 08/15/17) Subjective the pt is agitated and confused slightly. the pt is delusional Objective Last 24 Hour Vital Signs Date Time Temp Pulse Resp B/P (MAP) Pulse Ox O2 Delivery O2 Flow Rate FiO2 06/20/18 10:00 91 20 92 Nasal Cannula 2.0 28 06/20/18 10:00 Nasal Cannula 06/20/18 08:52 120/70 06/20/18 07:00 Nasal Cannula 06/20/18 07:00 93 18 93 Nasal Cannula 2.0 06/20/18 07:00 93 Nasal Cannula 2.0 28 06/20/18 07:00 Nasal Cannula 2.0 28 06/20/18 05:07 88 19 94 Facial 50 06/20/18 04:00 100 06/20/18 04:00 Nasal Cannula 2.0 06/20/18 04:00 98.0 82 20 114/70 (85) 92 98.0 06/20/18 03:51 91 20 96 Nasal Cannula 2.0 28 06/20/18 03:51 92 20 98 Nasal Cannula 2.0 28 06/20/18 01:30 81 18 83 Facial 50 06/20/18 00:00 98.1 80 20 132/89 (103) 92 98.1 06/20/18 00:00 87 06/20/18 00:00 Bi-pap 06/19/18 23:31 78 20 98 Nasal Cannula 2.0 28 06/19/18 23:31 76 20 97 Nasal Cannula 2.0 28 06/19/18 23:00 75 18 147/84 (105) 98 06/19/18 22:00 75 18 153/92 (112) 98 06/19/18 21:30 74 22 100 Facial 50 06/19/18 21:00 79 18 140/80 (100) 98 06/19/18 20:12 78 26 100 Facial 50 06/19/18 20:00 Nasal Cannula 2.0 06/19/18 20:00 80 24 99 Bi-pap 06/19/18 20:00 98.2 78 18 146/85 (105) 98 98.2 06/19/18 20:00 Bi-pap 06/19/18 20:00 99 Bi-pap 06/19/18 20:00 78 24 98 Bi-pap 06/19/18 20:00 79 06/19/18 19:00 79 18 128/84 (99) 98 06/19/18 18:00 80 18 119/70 (86) 98 06/19/18 17:03 93 20 74 Facial 50 06/19/18 17:00 89 18 118/69 (85) 98 06/19/18 16:00 Nasal Cannula 2.0 06/19/18 16:00 84 06/19/18 16:00 97.9 79 17 110/67 (81) 99 97.9 06/19/18 16:00 50 06/19/18 15:06 84 18 95 Bi-pap 50 06/19/18 15:01 90 21 93 Facial 50 06/19/18 15:00 75 17 163/89 (113) 99 06/19/18 14:55 85 21 93 Bi-pap 50 06/19/18 14:00 83 22 139/84 (102) 92 06/19/18 13:00 83 15 113/60 (77) 100 06/19/18 12:42 78 19 96 Facial 50 06/19/18 12:00 97.6 77 26 135/80 (98) 92 97.6 06/19/18 12:00 Nasal Cannula 2.0 06/19/18 12:00 50 06/19/18 12:00 77 06/19/18 11:55 87 18 96 Bi-pap 50 06/19/18 11:47 71 16 96 Bi-pap 50 Intake and Output 06/19/18 06/20/18 19:00 07:00 Intake Total 3140.8329 ml 275.000 ml Output Total 2890 ml 1900 ml Balance 250.8329 ml -1625.000 ml Intake Oral 2186 ml IV Total 954.8329 ml 275.000 ml Output Urine Total 2890 ml 1900 ml Laboratory Tests 06/20/18 09:00: Vancomycin Level Trough 14.2H Height (Feet): 5 Height (Inches): 6.00 Weight (Pounds): 310 General Appearance: no apparent distress, alert - the pt is delusionla and agitated, agitated Farhadi,Pantea MD Jun 20, 2018 11:47
[2018-06-20 12:00] VITALS: BP 125/81
--- NOTE | 2018-06-20 14:16 | General Progress Note ---
Assessment/Plan Assessment/Plan Min Pul edema - reduce IVF!! Drug Eruption m/p Pamela Synd. D/C'ed antibiotics. Awaiting ABGs Stat ABGS. DW pt. Convinced to get back on BIPAP! Subjective Allergies: Coded Allergies: No Known Allergies (Unverified , 08/15/17) Subjective Noncompliant! Refusing BIPAP. Pruritus. Objective Last 24 Hour Vital Signs Date Time Temp Pulse Resp B/P (MAP) Pulse Ox O2 Delivery O2 Flow Rate FiO2 06/20/18 12:24 Nasal Cannula 2.0 06/20/18 12:00 98.5 102 21 125/81 (96) 95 98.5 06/20/18 11:44 90 06/20/18 10:00 91 20 92 Nasal Cannula 2.0 28 06/20/18 10:00 Nasal Cannula 06/20/18 08:52 120/70 06/20/18 08:00 Nasal Cannula 2.0 06/20/18 08:00 98.7 99 20 128/72 (90) 88 98.7 06/20/18 07:42 103 06/20/18 07:00 Nasal Cannula 06/20/18 07:00 93 18 93 Nasal Cannula 2.0 28 06/20/18 07:00 93 Nasal Cannula 2.0 28 06/20/18 07:00 Nasal Cannula 2.0 28 06/20/18 05:07 88 19 94 Facial 50 06/20/18 04:00 100 06/20/18 04:00 Nasal Cannula 2.0 06/20/18 04:00 98.0 82 20 114/70 (85) 92 98.0 06/20/18 03:51 91 20 96 Nasal Cannula 2.0 28 06/20/18 03:51 92 20 98 Nasal Cannula 2.0 28 06/20/18 01:30 81 18 83 Facial 50 06/20/18 00:00 98.1 80 20 132/89 (103) 92 98.1 06/20/18 00:00 87 06/20/18 00:00 Bi-pap 06/19/18 23:31 78 20 98 Nasal Cannula 2.0 28 06/19/18 23:31 76 20 97 Nasal Cannula 2.0 28 06/19/18 23:00 75 18 147/84 (105) 98 06/19/18 22:00 75 18 153/92 (112) 98 7/29/18 21:30 74 22 100 Facial 50 06/19/18 21:00 79 18 140/80 (100) 98 06/19/18 20:12 78 26 100 Facial 50 06/19/18 20:00 Nasal Cannula 2.0 06/19/18 20:00 80 24 99 Bi-pap 06/19/18 20:00 98.2 78 18 146/85 (105) 98 98.2 06/19/18 20:00 Bi-pap 06/19/18 20:00 99 Bi-pap 06/19/18 20:00 78 24 98 Bi-pap 06/19/18 20:00 79 06/19/18 19:00 79 18 128/84 (99) 98 06/19/18 18:00 80 18 119/70 (86) 98 06/19/18 17:03 93 20 74 Facial 50 06/19/18 17:00 89 18 118/69 (85) 98 06/19/18 16:00 Nasal Cannula 2.0 06/19/18 16:00 84 06/19/18 16:00 97.9 79 17 110/67 (81) 99 97.9 06/19/18 16:00 50 06/19/18 15:06 84 18 95 Bi-pap 50 06/19/18 15:01 90 21 93 Facial 50 06/19/18 15:00 75 17 163/89 (113) 99 06/19/18 14:55 85 21 93 Bi-pap 50 Intake and Output 06/19/18 06/20/18 19:00 07:00 Intake Total 3140.8329 ml 275.000 ml Output Total 2890 ml 1900 ml Balance 250.8329 ml -1625.000 ml Intake Oral 2186 ml IV Total 954.8329 ml 275.000 ml Output Urine Total 2890 ml 1900 ml Laboratory Tests 06/20/18 09:00: Vancomycin Level Trough 14.2H Height (Feet): 5 Height (Inches): 6.00 Weight (Pounds): 310 Objective Diffuse eruption macular . Morbidly obese CV RR Lungs B wheezes. Abd pendulous, Obese E Min edema. Dung Castro MD Jun 20, 2018 14:16
[2018-06-20 16:00] VITALS: BP 143/61
[2018-06-20] MEDS: Solu-MEDROL 40mg Inj IVP SCH (16:27)
[2018-06-20 20:00] VITALS: BP 156/94
[2018-06-20] MEDS: Dyna-Hex 2% Top Sol 2oz TOPIC SCH (20:34)
[2018-06-21] VITALS: BP 146/95
[2018-06-21] MEDS: Albuterol/Ipratropium 3ml neb HHN SCH ×4 (03:33→14:44)
[2018-06-21 04:00] VITALS: BP 130/82
[2018-06-21] MEDS: DiphenhydrAMINE 50mg/ml Inj IVP PRN ×3 (04:45→22:21)
[2018-06-21 04:59] LABS: HEMOGLOBIN 16.2 G/DL (14.2-18.0); MEAN CORPUSCULAR VOLUME 89 FL (80-99); PLATELET COUNT 297 K/UL (150-450); RED BLOOD COUNT 5.72 M/UL (4.70-6.10); RED CELL DISTRIBUTION WIDTH 13.3 % (11.6-14.8); WHITE BLOOD COUNT 15.3 K/UL (4.8-10.8)
[2018-06-21 05:08] LABS: ANION GAP 5 mmol/L (5-15); BLOOD UREA NITROGEN 8 mg/dL (7-18); CALCIUM 9.1 MG/DL (8.5-10.1); CARBON DIOXIDE 32 MMOL/L (21-32); CHLORIDE 101 MMOL/L (98-107); CREATININE 0.8 MG/DL (0.55-1.30); POTASSIUM 4.4 MMOL/L (3.5-5.1); SODIUM 138 MMOL/L (136-145)
[2018-06-21] MEDS: NovoLOG Insulin Flexpen SUBQ SCH ×4 (06:13→22:11)
[2018-06-21 08:00] VITALS: BP 125/72
--- NOTE | 2018-06-21 08:10 | Critical Care Progress Note ---
Assessment/Plan Assessment/Plan ASSESSMENT: 1. COPD with exacerbation. 2. Congestive heart failure. per history 3. HHD. 4. Type 2 diabetes mellitus. 5. possible sepsis. 6. Schizophrenia. 7. Hypertensive cardiovascular disease. 8. Left below-knee amputation. 9. Atrial fibrillation 10. Respiratory failure. acute 11. severe protein calorie malnutrition 12. rash PLAN ventilator support off BIPAP QHS and PRN- not compliant monitor imaging heparin SQ follow up closely monitor acid base exchange consider steroid trial medications/laboratory data/nursing notes reviewed in detail note reviewed and edited impression, plan, and exam edited and reviewed in detail care discussed with material preparation worker - Subjective Interval Events: awake comfortable watching the IPAD Condition: stable EKG Rhythm: Sinus Rhythm I&O: Intake and Output 06/20/18 06/21/18 19:00 07:00 Intake Total 275.000 ml 480 ml Output Total 3300 ml 1700 ml Balance -3025.000 ml -1220 ml Intake Oral 480 ml IV Total 275.000 ml Output Urine Total 3300 ml 1700 ml # Voids 1 Critical Care - Objective ET-Tube: 7.5 ET Position: 24 Last 24 Hour Vital Signs Date Time Temp Pulse Resp B/P (MAP) Pulse Ox O2 Delivery O2 Flow Rate FiO2 06/21/18 07:59 93 18 96 Nasal Cannula 2.0 28 06/21/18 07:50 91 Nasal Cannula 2.0 06/21/18 07:50 28 06/21/18 07:50 Nasal Cannula 2.0 28 06/21/18 07:50 92 18 95 Nasal Cannula 2.0 06/21/18 04:00 Room Air 06/21/18 04:00 98.2 79 20 130/82 (98) 92 98.2 06/21/18 04:00 90 06/21/18 03:38 81 18 97 Nasal Cannula 2.0 06/21/18 03:31 84 22 92 Nasal Cannula 2.0 06/21/18 00:00 98.4 90 20 146/95 (112) 92 98.4 06/21/18 00:00 Room Air 06/21/18 00:00 91 06/20/18 23:41 Nasal Cannula 06/20/18 23:39 89 20 90 Nasal Cannula 2.0 28 06/20/18 23:38 97 89 2.0 06/20/18 20:00 94 06/20/18 20:00 Room Air 06/20/18 20:00 98.4 100 20 156/94 (114) 97 98.4 06/20/18 19:07 92 18 95 Nasal Cannula 2.0 28 06/20/18 19:00 2.0 06/20/18 18:59 Nasal Cannula 2.0 28 06/20/18 18:59 98 20 91 Nasal Cannula 28 06/20/18 18:59 91 Nasal Cannula 3.0 32 06/20/18 18:45 2.0 06/20/18 16:00 98.5 97 20 143/61 (88) 99 98.5 06/20/18 16:00 Nasal Cannula 2.0 06/20/18 16:00 2.0 06/20/18 15:52 97 20 99 Nasal Cannula 2.0 28 06/20/18 15:43 106 20 96 Room Air 21 06/20/18 15:28 100 06/20/18 12:24 Nasal Cannula 2.0 06/20/18 12:00 2.0 06/20/18 12:00 98.5 102 21 125/81 (96) 95 98.5 06/20/18 11:44 90 06/20/18 10:00 91 20 92 Nasal Cannula 2.0 28 06/20/18 10:00 Nasal Cannula 06/20/18 08:52 120/70 Labs: Labs Test 06/18/18 13:07 06/19/18 04:45 06/19/18 11:43 06/20/18 09:00 Arterial Blood pH 7.430 (7.350-7.450) 7.370 (7.350-7.450) Arterial Blood Partial Pressure CO2 46.0 mmHg (35.0-45.0) 60.2 mmHg (35.0-45.0) Arterial Blood Partial Pressure O2 62.3 mmHg (75.0-100.0) 124.3 mmHg (75.0-100.0) Arterial Blood HCO3 30.4 mmol/L (22.0-26.0) 34.0 mmol/L (22.0-26.0) Arterial Blood Oxygen Saturation 92.2 % (92.0-98.0) 98.0 % (92.0-98.0) Arterial Blood Base Excess 5.2 6.4 Cole Test Positive Positive White Blood Count 11.4 K/UL (4.8-10.8) Red Blood Count 5.75 M/UL (4.70-6.10) Hemoglobin 16.2 G/DL (14.2-18.0) Hematocrit 50.7 % (42.0-52.0) Mean Corpuscular Volume 88 FL (80-99) Mean Corpuscular Hemoglobin 28.2 PG (27.0-31.0) Mean Corpuscular Hemoglobin Concent 32.0 G/DL (32.0-36.0) Red Cell Distribution Width 13.0 % (11.6-14.8) Platelet Count 237 K/UL (150-450) Mean Platelet Volume 6.7 FL (6.5-10.1) Neutrophils (%) (Auto) 80.4 % (45.0-75.0) Lymphocytes (%) (Auto) 10.5 % (20.0-45.0) Monocytes (%) (Auto) 5.3 % (1.0-10.0) Eosinophils (%) (Auto) 3.0 % (0.0-3.0) Basophils (%) (Auto) 0.8 % (0.0-2.0) Sodium Level 138 MMOL/L (136-145) Potassium Level 3.1 MMOL/L (3.5-5.1) Chloride Level 100 MMOL/L (98-107) Carbon Dioxide Level 30 MMOL/L (21-32) Anion Gap 8 mmol/L (5-15) Blood Urea Nitrogen 6 mg/dL (7-18) Creatinine 0.8 MG/DL (0.55-1.30) Estimat Glomerular Filtration Rate > 60 mL/min (>60) Glucose Level 139 MG/DL (74-106) Calcium Level 8.9 MG/DL (8.5-10.1) Magnesium Level 2.1 MG/DL (1.8-2.4) Total Bilirubin 1.9 MG/DL (0.2-1.0) Direct Bilirubin 0.4 MG/DL (0.0-0.3) Aspartate Amino Transf (AST/SGOT) 53 U/L (15-37) Alanine Aminotransferase (ALT/SGPT) 57 U/L (12-78) Alkaline Phosphatase 105 U/L (46-116) Total Protein 7.3 G/DL (6.4-8.2) Albumin 2.5 G/DL (3.4-5.0) Globulin 4.8 g/dL Albumin/Globulin Ratio 0.5 (1.0-2.7) Vancomycin Level Trough 14.2 ug/mL (5.0-12.0) Test 06/21/18 03:20 White Blood Count 15.3 K/UL (4.8-10.8) Red Blood Count 5.72 M/UL (4.70-6.10) Hemoglobin 16.2 G/DL (14.2-18.0) Hematocrit 51.0 % (42.0-52.0) Mean Corpuscular Volume 89 FL (80-99) Mean Corpuscular Hemoglobin 28.4 PG (27.0-31.0) Mean Corpuscular Hemoglobin Concent 31.8 G/DL (32.0-36.0) Red Cell Distribution Width 13.3 % (11.6-14.8) Platelet Count 297 K/UL (150-450) Mean Platelet Volume 6.8 FL (6.5-10.1) Neutrophils (%) (Auto) % (45.0-75.0) Lymphocytes (%) (Auto) % (20.0-45.0) Monocytes (%) (Auto) % (1.0-10.0) Eosinophils (%) (Auto) % (0.0-3.0) Basophils (%) (Auto) % (0.0-2.0) Sodium Level 138 MMOL/L (136-145) Potassium Level 4.4 MMOL/L (3.5-5.1) Chloride Level 101 MMOL/L (98-107) Carbon Dioxide Level 32 MMOL/L (21-32) Anion Gap 5 mmol/L (5-15) Blood Urea Nitrogen 8 mg/dL (7-18) Creatinine 0.8 MG/DL (0.55-1.30) Estimat Glomerular Filtration Rate > 60 mL/min (>60) Glucose Level 161 MG/DL (74-106) Calcium Level 9.1 MG/DL (8.5-10.1) Magnesium Level 2.5 MG/DL (1.8-2.4) Objective: GENERAL: morbidly obese male, on NC and alert HEENT: The head is normocephalic and atraumatic. NECK: Supple. Trachea midline. carotids 2+ LUNGS: moderate breath sounds without rhonchi HEART: RRR S1 and S2. No rubs, murmurs, or gallops. ABDOMEN: Soft and nontender. Bowel sounds were active. no distention EXTREMITIES: No clubbing, cyanosis, but some edema. He has a left below-knee stump. diffuse rash Accucheck: 143 Maurisio Faith MD Jun 21, 2018 08:10
[2018-06-21] MEDS: Losartan 25mg tab ORAL SCH (09:14)
[2018-06-21] MEDS: Spironolactone 25mg tab ORAL SCH (09:14)
[2018-06-21] MEDS: DiphenhydrAMINE & Zinc 28g Cream TOPIC SCH ×2 (09:15→21:00)
[2018-06-21] MEDS: Triamcinolone 0.1% oint TOPIC SCH ×2 (09:15→22:12)
[2018-06-21] MEDS: Heparin 5000 units/ml inj SUBQ SCH ×2 (09:16→22:10)
--- NOTE | 2018-06-21 11:45 | General Progress Note ---
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 caused the rash." Objective Last 24 Hour Vital Signs Date Time Temp Pulse Resp B/P (MAP) Pulse Ox O2 Delivery O2 Flow Rate FiO2 06/21/18 10:52 96 18 97 Nasal Cannula 2.0 28 06/21/18 10:51 28 06/21/18 10:51 98 18 93 Nasal Cannula 2.0 28 06/21/18 09:14 125/72 06/21/18 08:00 Room Air 06/21/18 08:00 97.5 105 18 125/72 (89) 90 97.5 06/21/18 07:59 93 18 96 Nasal Cannula 2.0 28 06/21/18 07:50 91 Nasal Cannula 2.0 28 06/21/18 07:50 28 06/21/18 07:50 Nasal Cannula 2.0 28 06/21/18 07:50 92 18 95 Nasal Cannula 2.0 06/21/18 07:50 104 06/21/18 04:00 Room Air 06/21/18 04:00 98.2 79 20 130/82 (98) 92 98.2 06/21/18 04:00 90 06/21/18 03:38 81 18 97 Nasal Cannula 2.0 06/21/18 03:31 84 22 92 Nasal Cannula 2.0 28 06/21/18 00:00 98.4 90 20 146/95 (112) 92 98.4 06/21/18 00:00 Room Air 06/21/18 00:00 91 06/20/18 23:41 Nasal Cannula 06/20/18 23:39 89 20 90 Nasal Cannula 2.0 28 06/20/18 23:38 97 89 2.0 06/20/18 20:00 94 06/20/18 20:00 Room Air 06/20/18 20:00 98.4 100 20 156/94 (114) 97 98.4 06/20/18 19:07 92 18 95 Nasal Cannula 2.0 28 06/20/18 19:00 2.0 06/20/18 18:59 Nasal Cannula 2.0 28 06/20/18 18:59 98 20 91 Nasal Cannula 28 06/20/18 18:59 91 Nasal Cannula 3.0 32 06/20/18 18:45 2.0 06/20/18 16:00 98.5 97 20 143/61 (88) 99 98.5 06/20/18 16:00 Nasal Cannula 2.0 06/20/18 16:00 2.0 06/20/18 15:52 97 20 99 Nasal Cannula 2.0 28 06/20/18 15:43 106 20 96 Room Air 21 06/20/18 15:28 100 06/20/18 12:24 Nasal Cannula 2.0 06/20/18 12:00 2.0 06/20/18 12:00 98.5 102 21 125/81 (96) 95 98.5 06/20/18 11:44 90 Intake and Output 06/20/18 06/21/18 19:00 07:00 Intake Total 275.000 ml 480 ml Output Total 3300 ml 1700 ml Balance -3025.000 ml -1220 ml Intake Oral 480 ml IV Total 275.000 ml Output Urine Total 3300 ml 1700 ml # Voids 1 Laboratory Tests 06/21/18 03:20: White Blood Count 15.3H, Red Blood Count 5.72, Hemoglobin 16.2, Hematocrit 51.0 , Mean Corpuscular Volume 89, Mean Corpuscular Hemoglobin 28.4, Mean Corpuscular Hemoglobin Concent 31.8L, Red Cell Distribution Width 13.3, Platelet Count 297, Mean Platelet Volume 6.8, Neutrophils (%) (Auto) , Lymphocytes (%) (Auto) , Monocytes (%) (Auto) , Eosinophils (%) (Auto) , Basophils (%) (Auto) , Sodium Level 138, Potassium Level 4.4, Chloride Level 101 , Carbon Dioxide Level 32, Anion Gap 5, Blood Urea Nitrogen 8, Creatinine 0.8, Estimat Glomerular Filtration Rate > 60, Glucose Level 161H, Calcium Level 9.1, Magnesium Level 2.5H 06/21/18 09:26: Arterial Blood pH 7.397, Arterial Blood Partial Pressure CO2 51.6H, Arterial Blood Partial Pressure O2 67.4L, Arterial Blood HCO3 31.0H, Arterial Blood Oxygen Saturation 93.5, Arterial Blood Base Excess 4.7, Cole Test Positive Height (Feet): 5 Height (Inches): 6.00 Weight (Pounds): 310 General Appearance: WD/WN, no apparent distress, alert, morbidly obese Neurologic: oriented x 3 Helena Gomez MD Jun 21, 2018 11:45
--- NOTE | 2018-06-21 11:45 | Diagnostic Imaging Report ---
Indication: Dyspnea Technique: XRAY Chest 1v Comparison: 06/18/2018 Findings: Stable cardiomegaly. There is persistent and slightly worsened interstitial opacities with development of hazy perihilar airspace opacities. Costophrenic sulci appear sharp. No appreciable pneumothorax. Osseous structures stable. IMPRESSION: Slight interval worsening of aeration with increasing interstitial and perihilar airspace opacities. Again, findings may related to pulmonary edema versus infection.
[2018-06-21 12:00] VITALS: BP 128/71
--- NOTE | 2018-06-21 13:35 | Physician Query ---
--------- THIS DOCUMENT IS A PERMANENT PART OF THE MEDICAL RECORD --------- PLEASE COMPLETE DOCUMENT BEFORE SIGNING Dear Dr. Faith Date: 06/21/2018 Field Service Manager/CDS Name: Gokul Albarran Field Service Manager/CDS Phone No.: [phone] Exercise your independent professional judgment when responding to the query. Questions asked do not imply a particular answer is desired or expected. We greatly appreciate your clarification on this issue. CLINICAL DOCUMENTATION STATES: Consultation and progress notes assessment include "Possible sepsis". CLINICAL FINDINGS SHOW: At the time of admission: WBC - 11.8, HR - 119, Temperature - 101.2, RR - 26 Antibiotics: Vancomycin, Ceftriaxone. Can you please clarify the status of the diagnosis "Sepsis"? [ ] The above diagnosis was monitored, evaluated, and/or treated and is a confirmed diagnosis [ x ] The above diagnosis was Ruled out [ ] The above diagnosis is still a likely, suspected, probable diagnosis [ ] Other, please specify: [ ] Clinically unable to determine Please also document in your Progress Notes and/or Discharge Summary and indicate if the condition was present on admission. Ector GRACE
--- NOTE | 2018-06-21 15:38 | General Progress Note ---
Assessment/Plan Assessment/Plan Min Pul edema Drug Eruption m/p Pamela Synd. D/C'ed antibiotics. Improved Pulmonary status. Expect DC to SNF tomorrow. Subjective Allergies: Coded Allergies: No Known Allergies (Unverified , 08/15/17) Subjective Much more alert. Using tablet games. On o2 via NC. Noncompliant! Refusing BIPAP. Less Pruritus. Objective Last 24 Hour Vital Signs Date Time Temp Pulse Resp B/P (MAP) Pulse Ox O2 Delivery O2 Flow Rate FiO2 06/21/18 14:54 99 18 98 Nasal Cannula 2.0 28 06/21/18 14:44 28 06/21/18 14:44 99 18 94 Nasal Cannula 2.0 28 06/21/18 12:00 97.9 102 20 128/71 (90) 91 97.9 06/21/18 12:00 Room Air 06/21/18 11:55 109 06/21/18 10:52 96 18 97 Nasal Cannula 2.0 06/21/18 10:51 28 06/21/18 10:51 98 18 93 Nasal Cannula 2.0 06/21/18 09:14 125/72 06/21/18 08:00 Room Air 06/21/18 08:00 97.5 105 18 125/72 (89) 90 97.5 06/21/18 07:59 93 18 96 Nasal Cannula 2.0 06/21/18 07:50 91 Nasal Cannula 2.0 06/21/18 07:50 28 06/21/18 07:50 Nasal Cannula 2.0 06/21/18 07:50 92 18 95 Nasal Cannula 2.0 06/21/18 07:50 104 06/21/18 04:00 Room Air 06/21/18 04:00 98.2 79 20 130/82 (98) 92 98.2 06/21/18 04:00 90 06/21/18 03:38 81 18 97 Nasal Cannula 2.0 06/21/18 03:31 84 22 92 Nasal Cannula 2.0 06/21/18 00:00 98.4 90 20 146/95 (112) 92 98.4 06/21/18 00:00 Room Air 06/21/18 00:00 91 06/20/18 23:41 Nasal Cannula 06/20/18 23:39 89 20 90 Nasal Cannula 2.0 28 06/20/18 23:38 97 89 2.0 06/20/18 20:00 94 06/20/18 20:00 Room Air 06/20/18 20:00 98.4 100 20 156/94 (114) 97 98.4 06/20/18 19:07 92 18 95 Nasal Cannula 2.0 28 06/20/18 19:00 2.0 06/20/18 18:59 Nasal Cannula 2.0 28 06/20/18 18:59 98 20 91 Nasal Cannula 28 06/20/18 18:59 91 Nasal Cannula 3.0 32 06/20/18 18:45 2.0 06/20/18 16:00 98.5 97 20 143/61 (88) 99 98.5 06/20/18 16:00 Nasal Cannula 2.0 06/20/18 16:00 2.0 06/20/18 15:52 97 20 99 Nasal Cannula 2.0 28 06/20/18 15:43 106 20 96 Room Air 21 Intake and Output 06/20/18 06/21/18 19:00 07:00 Intake Total 275.000 ml 480 ml Output Total 3300 ml 1700 ml Balance -3025.000 ml -1220 ml Intake Oral 480 ml IV Total 275.000 ml Output Urine Total 3300 ml 1700 ml # Voids 1 Laboratory Tests 06/21/18 03:20: White Blood Count 15.3H, Red Blood Count 5.72, Hemoglobin 16.2, Hematocrit 51.0 , Mean Corpuscular Volume 89, Mean Corpuscular Hemoglobin 28.4, Mean Corpuscular Hemoglobin Concent 31.8L, Red Cell Distribution Width 13.3, Platelet Count 297, Mean Platelet Volume 6.8, Neutrophils (%) (Auto) , Lymphocytes (%) (Auto) , Monocytes (%) (Auto) , Eosinophils (%) (Auto) , Basophils (%) (Auto) , Sodium Level 138, Potassium Level 4.4, Chloride Level 101 , Carbon Dioxide Level 32, Anion Gap 5, Blood Urea Nitrogen 8, Creatinine 0.8, Estimat Glomerular Filtration Rate > 60, Glucose Level 161H, Calcium Level 9.1, Magnesium Level 2.5H 06/21/18 09:26: Arterial Blood pH 7.397, Arterial Blood Partial Pressure CO2 51.6H, Arterial Blood Partial Pressure O2 67.4L, Arterial Blood HCO3 31.0H, Arterial Blood Oxygen Saturation 93.5, Arterial Blood Base Excess 4.7, Cole Test Positive Height (Feet): 5 Height (Inches): 6.00 Weight (Pounds): 310 Objective Less Diffuse eruption macular . Morbidly obese CV RR Lungs B wheezes. Abd pendulous, Obese E Min edema. Dung Castro MD Jun 21, 2018 15:37
[2018-06-21 16:00] VITALS: BP 118/68
[2018-06-21] MEDS: Solu-MEDROL 40mg Inj IVP SCH (16:30)
[2018-06-21 20:00] VITALS: BP 154/96
[2018-06-21] MEDS: Dyna-Hex 2% Top Sol 2oz TOPIC SCH (22:06)
[2018-06-21] MEDS: Furosemide 40mg tab ORAL SCH (22:07)
[2018-06-22] VITALS: BP 126/81
[2018-06-22 04:00] VITALS: BP 132/88
[2018-06-22 05:36] LABS: ANION GAP 8 mmol/L (5-15); BLOOD UREA NITROGEN 13 mg/dL (7-18); CALCIUM 8.6 MG/DL (8.5-10.1); CARBON DIOXIDE 29 MMOL/L (21-32); CHLORIDE 103 MMOL/L (98-107); POTASSIUM 4.2 MMOL/L (3.5-5.1); SODIUM 140 MMOL/L (136-145)
[2018-06-22] MEDS: NovoLOG Insulin Flexpen SUBQ SCH ×4 (06:21→21:55)
[2018-06-22 08:00] VITALS: BP 116/87
[2018-06-22] MEDS: Triamcinolone 0.1% oint TOPIC SCH ×2 (09:33→21:47)
[2018-06-22] MEDS: Spironolactone 25mg tab ORAL SCH (09:34)
[2018-06-22] MEDS: Furosemide 40mg tab ORAL SCH ×2 (09:34→21:48)
[2018-06-22] MEDS: Losartan 25mg tab ORAL SCH (09:34)
[2018-06-22] MEDS: Heparin 5000 units/ml inj SUBQ SCH ×2 (09:37→21:55)
[2018-06-22] MEDS: DiphenhydrAMINE & Zinc 28g Cream TOPIC SCH ×2 (09:37→21:47)
[2018-06-22] MEDS: DiphenhydrAMINE 50mg/ml Inj IVP PRN (10:17)
[2018-06-22] MEDS: Albuterol/Ipratropium 3ml neb HHN SCH ×6 (10:23→23:24)
[2018-06-22 12:00] VITALS: BP 129/89
--- NOTE | 2018-06-22 13:24 | General Progress Note ---
Assessment/Plan Assessment/Plan schizophrenia agitation risperdal 2mg qhs risperdal 2mg x1 time now d/w mother Subjective Date patient seen: Jun 22, 2018 Neurologic/Psychiatric: Reports: anxiety, depressed, emotional problems Allergies: Coded Allergies: No Known Allergies (Unverified , 08/15/17) Subjective the pt is less agitated more cooperative Objective Last 24 Hour Vital Signs Date Time Temp Pulse Resp B/P (MAP) Pulse Ox O2 Delivery O2 Flow Rate FiO2 06/22/18 12:00 Room Air 06/22/18 12:00 98.1 99 18 129/89 (102) 94 98.1 06/22/18 11:47 100 06/22/18 10:33 102 22 95 Simple Mask 5.0 06/22/18 10:23 102 22 92 Room Air 06/22/18 09:34 116/87 06/22/18 08:24 Room Air 06/22/18 08:23 92 Room Air 06/22/18 08:06 102 06/22/18 08:00 Room Air 06/22/18 08:00 97.9 100 20 116/87 (97) 91 97.9 06/22/18 04:00 Room Air 06/22/18 04:00 92 06/22/18 04:00 97.7 90 20 132/88 (103) 92 97.7 06/22/18 00:00 97.7 94 24 126/81 (96) 90 97.7 06/22/18 00:00 Room Air 06/22/18 00:00 92 06/21/18 20:01 Room Air 06/21/18 20:01 93 Room Air 06/21/18 20:00 Room Air 06/21/18 20:00 106 06/21/18 20:00 97.4 107 18 154/96 (115) 92 97.4 06/21/18 16:00 Room Air 06/21/18 16:00 98.5 103 18 118/68 (85) 90 98.5 06/21/18 15:23 103 06/21/18 14:54 99 18 98 Nasal Cannula 2.0 28 06/21/18 14:44 28 06/21/18 14:44 99 18 94 Nasal Cannula 2.0 28 Intake and Output 06/21/18 06/22/18 19:00 07:00 Intake Total 600 ml 1000 ml Output Total 3150 ml 2700 ml Balance -2550 ml -1700 ml Intake Oral 600 ml 1000 ml Output Urine Total 3150 ml 2700 ml # Voids 6 # Bowel Movements 2 Laboratory Tests 06/22/18 04:25: Sodium Level 140, Potassium Level 4.2, Chloride Level 103, Carbon Dioxide Level 29, Anion Gap 8, Blood Urea Nitrogen 13, Creatinine 1.0, Estimat Glomerular Filtration Rate > 60, Glucose Level 182H, Calcium Level 8.6 Height (Feet): 5 Height (Inches): 6.00 Weight (Pounds): 310 General Appearance: no apparent distress, alert, obese Helena Gomez MD Jun 22, 2018 13:24
[2018-06-22 16:00] VITALS: BP 122/82
[2018-06-22] MEDS: Solu-MEDROL 40mg Inj IVP SCH (16:18)
--- NOTE | 2018-06-22 16:21 | General Progress Note ---
Assessment/Plan Assessment/Plan Min Pul edema Improved Pulmonary status. Expect DC to SNF tomorrow Dc steroids. Subjective Allergies: Coded Allergies: No Known Allergies (Unverified , 08/15/17) Subjective Much more alert. Using tablet games. On o2 via NC. Noncompliant! Refusing BIPAP. Less Pruritus. Objective Last 24 Hour Vital Signs Date Time Temp Pulse Resp B/P (MAP) Pulse Ox O2 Delivery O2 Flow Rate FiO2 06/22/18 12:00 Room Air 06/22/18 12:00 98.1 99 18 129/89 (102) 94 98.1 06/22/18 11:47 100 06/22/18 10:33 102 22 95 Simple Mask 5.0 06/22/18 10:23 102 22 92 Room Air 06/22/18 09:34 116/87 06/22/18 08:24 Room Air 06/22/18 08:23 92 Room Air 06/22/18 08:06 102 06/22/18 08:00 Room Air 06/22/18 08:00 97.9 100 20 116/87 (97) 91 97.9 06/22/18 04:00 Room Air 06/22/18 04:00 92 06/22/18 04:00 97.7 90 20 132/88 (103) 92 97.7 06/22/18 00:00 97.7 94 24 126/81 (96) 90 97.7 06/22/18 00:00 Room Air 06/22/18 00:00 92 06/21/18 20:01 Room Air 06/21/18 20:01 93 Room Air 06/21/18 20:00 Room Air 06/21/18 20:00 106 06/21/18 20:00 97.4 107 18 154/96 (115) 92 97.4 Intake and Output 06/21/18 06/22/18 19:00 07:00 Intake Total 600 ml 1000 ml Output Total 3150 ml 2700 ml Balance -2550 ml -1700 ml Intake Oral 600 ml 1000 ml Output Urine Total 3150 ml 2700 ml # Voids 6 # Bowel Movements 2 Laboratory Tests 06/22/18 04:25: Sodium Level 140, Potassium Level 4.2, Chloride Level 103, Carbon Dioxide Level 29, Anion Gap 8, Blood Urea Nitrogen 13, Creatinine 1.0, Estimat Glomerular Filtration Rate > 60, Glucose Level 182H, Calcium Level 8.6 Height (Feet): 5 Height (Inches): 6.00 Weight (Pounds): 310 Objective Less Diffuse eruption macular . Morbidly obese CV RR Lungs B wheezes. Abd pendulous, Obese E Min edema. Dung Castro MD Jun 22, 2018 16:21
[2018-06-22] MEDS ORDERED: LOSARTAN POTASS25 MG ORAL (16:30)
[2018-06-22] MEDS ORDERED: POTASSIUM CHLO20 ME1 ORAL (16:30)
[2018-06-22] MEDS ORDERED: PROTONIX40 MG ORAL (16:30)
[2018-06-22] MEDS ORDERED: MOM30 ML ORAL (16:30)
[2018-06-22] MEDS ORDERED: NOVOLOG100 UNITS1 SUBQ (16:30)
[2018-06-22] MEDS ORDERED: FUROSEMIDE40 MG ORAL (16:30)
[2018-06-22] MEDS ORDERED: ALDACTONE25 MG ORAL (16:30)
[2018-06-22] MEDS ORDERED: KENALOG1 APPLIC TOPIC (16:30)
[2018-06-22] MEDS ORDERED: DUONEB 0.5-3(2.53 ML HHN (16:30)
[2018-06-22] MEDS ORDERED: HEPARIN SO5000 UNIT2 SUBQ (16:30)
[2018-06-22] MEDS ORDERED: ACETAMINOPHEN325 M1 ORAL (16:30)
[2018-06-22] MEDS ORDERED: RISPERDAL2 MG ORAL (16:30)
[2018-06-22] MEDS ORDERED: CLOTRIMAZOLE15 GM TOPIC (16:30)
--- NOTE | 2018-06-22 16:40 | Pulmonolgy Critical Care Note ---
Critical Care - Asmt/Plan Assessment/Plan: Assessment/Plan ASSESSMENT: 1. COPD with exacerbation, previously on ventilator, now on BIPAP PRN and QHS 2. Congestive heart failure. per history 3. HHD. 4. Type 2 diabetes mellitus. 5. possible sepsis. 6. Schizophrenia. 7. Hypertensive cardiovascular disease. 8. Left below-knee amputation. 9. Atrial fibrillation 10. Respiratory failure. acute 11. severe protein calorie malnutrition PLAN BiPAP PRN empiric antibiotics heparin SQ medications/laboratory data/nursing notes reviewed in detail note reviewed and edited Time spent x 45 minutes Critical Care - Subjective Interval Events: critically stable, WCC remains elevated, CXR slightly inmproved interstitial infiltartes, retocardiac infiltrate worse hypoxemic echo and venous reviewed good EF ROS Limited/Unobtainable: Yes Condition: critical EKG Rhythm: Sinus Rhythm I&O: Intake and Output 06/14/18 06/15/18 19:00 07:00 Intake Total 0 ml 1442.50 ml Output Total 1361 ml Balance 0 ml 81.50 ml Intake Oral 0 ml IV Total 1442.50 ml Output Urine Total 1361 ml Critical Care - Objective CXR: Interim endotracheal intubation, initially tube tip seen in the right mainstem bronchus, but the last of 3 images after retraction of the tube demonstrates tip in good position approximately 3 cm above the zunilda bilateral interstitial and airspace disease persists, unchanged. The heart is enlarged ET-Tube: 7.5 ET Position: 24 Last 24 Hour Vital Signs Date Time Temp Pulse Resp B/P (MAP) Pulse Ox O2 Delivery O2 Flow Rate FiO2 06/15/18 17:08 77 18 75 06/15/18 16:00 80 06/15/18 16:00 69 06/15/18 15:13 82 18 75 06/15/18 15:00 82 19 115/67 (83) 95 06/15/18 14:00 82 19 113/72 (86) 97 06/15/18 13:04 86 18 80 06/15/18 13:00 86 19 117/71 (86) 97 06/15/18 12:00 80 06/15/18 12:00 Mechanical Ventilator 06/15/18 12:00 89 06/15/18 12:00 99.0 82 18 110/63 (79) 97 99.0 06/15/18 11:07 84 18 80 06/15/18 11:00 85 18 114/73 (87) 97 06/15/18 10:00 83 18 109/64 (79) 97 06/15/18 09:30 86 18 111/64 (80) 97 06/15/18 09:00 98.8 90 18 112/64 (80) 97 98.8 06/15/18 08:57 91 18 80 06/15/18 08:30 89 18 110/59 (76) 97 06/15/18 08:00 Mechanical Ventilator 06/15/18 08:00 93 18 114/79 (91) 97 06/15/18 08:00 121/67 06/15/18 08:00 80 06/15/18 08:00 103 06/15/18 07:30 99.3 103 18 121/74 (90) 96 99.3 06/15/18 07:26 74 28 80 06/15/18 07:00 138/67 06/15/18 07:00 94 18 121/67 (85) 97 06/15/18 06:30 76 18 128/74 (92) 96 06/15/18 06:00 76 18 131/74 (93) 96 06/15/18 06:00 131/74 06/15/18 06:00 90/50 06/15/18 05:30 74 18 140/70 (93) 96 06/15/18 05:15 74 18 80 06/15/18 05:00 73 18 160/80 (106) 96 06/15/18 05:00 140/70 06/15/18 04:30 75 18 171/92 (118) 96 06/15/18 04:00 Mechanical Ventilator 06/15/18 04:00 80 06/15/18 04:00 76 06/15/18 04:00 162/87 06/15/18 04:00 98.9 74 18 162/87 (112) 96 98.9 06/15/18 03:40 92 18 80 06/15/18 03:30 74 18 116/61 (79) 98 06/15/18 03:00 78 18 118/68 (85) 98 06/15/18 03:00 118/68 06/15/18 02:30 70 18 114/67 (83) 98 06/15/18 02:00 75 18 119/66 (83) 98 06/15/18 02:00 119/66 06/15/18 01:59 113/26 06/15/18 01:30 73 18 113/66 (82) 97 06/15/18 01:12 88 18 80 06/15/18 01:00 102 18 103/52 (69) 97 06/15/18 01:00 125/67 06/15/18 00:00 98.6 102 18 103/52 (69) 97 98.6 06/15/18 00:00 Mechanical Ventilator 06/15/18 00:00 103/52 06/15/18 00:00 102 06/15/18 00:00 80 06/14/18 23:30 70 18 129/70 (89) 97 06/14/18 23:00 60/30 06/14/18 23:00 73 18 60/73 (69) 97 06/14/18 22:49 88 18 80 06/14/18 22:39 99.8 06/14/18 22:30 74 18 108/53 (71) 97 06/14/18 22:00 74 18 121/66 (84) 97 06/14/18 22:00 80/50 06/14/18 21:43 105/56 06/14/18 21:40 101.6 06/14/18 21:00 101.0 93 18 124/66 (85) 97 101.0 06/14/18 21:00 80 06/14/18 20:56 97 18 80 06/14/18 20:00 80 06/14/18 20:00 93 06/14/18 20:00 Mechanical Ventilator 06/14/18 20:00 101.2 93 18 131/70 (90) 96 101.2 06/14/18 20:00 131/70 06/14/18 19:30 93 18 66/28 (41) 97 06/14/18 19:11 96 18 100 Labs: Labs Test 06/14/18 12:25 06/14/18 13:09 06/14/18 13:17 06/14/18 14:26 White Blood Count 11.8 K/UL (4.8-10.8) Red Blood Count 6.20 M/UL (4.70-6.10) Hemoglobin 17.0 G/DL (14.2-18.0) Hematocrit 55.7 % (42.0-52.0) Mean Corpuscular Volume 90 FL (80-99) Mean Corpuscular Hemoglobin 27.4 PG (27.0-31.0) Mean Corpuscular Hemoglobin Concent 30.5 G/DL (32.0-36.0) Red Cell Distribution Width 12.8 % (11.6-14.8) Platelet Count 212 K/UL (150-450) Mean Platelet Volume 7.6 FL (6.5-10.1) Neutrophils (%) (Auto) 80.7 % (45.0-75.0) Lymphocytes (%) (Auto) 10.9 % (20.0-45.0) Monocytes (%) (Auto) 7.6 % (1.0-10.0) Eosinophils (%) (Auto) 0.0 % (0.0-3.0) Basophils (%) (Auto) 0.7 % (0.0-2.0) Prothrombin Time 30.8 SEC (9.30-11.50) Prothromb Time International Ratio 3.1 (0.9-1.1) Sodium Level 135 MMOL/L (136-145) Potassium Level 4.0 MMOL/L (3.5-5.1) Chloride Level 95 MMOL/L (98-107) Carbon Dioxide Level 33 MMOL/L (21-32) Anion Gap 7 mmol/L (5-15) Blood Urea Nitrogen 11 mg/dL (7-18) Creatinine 1.0 MG/DL (0.55-1.30) Estimat Glomerular Filtration Rate > 60 mL/min (>60) Glucose Level 415 MG/DL (74-106) Lactic Acid Level 3.10 mmol/L (0.4-2.0) Calcium Level 9.0 MG/DL (8.5-10.1) Total Bilirubin 0.9 MG/DL (0.2-1.0) Aspartate Amino Transf (AST/SGOT) 51 U/L (15-37) Alanine Aminotransferase (ALT/SGPT) 75 U/L (12-78) Alkaline Phosphatase 157 U/L (46-116) Troponin I 0.032 ng/mL (0.000-0.056) Pro-B-Type Natriuretic Peptide 583 pg/mL (0-125) Total Protein 8.4 G/DL (6.4-8.2) Albumin 2.9 G/DL (3.4-5.0) Globulin 5.5 g/dL Albumin/Globulin Ratio 0.5 (1.0-2.7) Urine Color Yellow Urine Appearance Slightly cloudy Urine pH 5 (4.5-8.0) Urine Specific [place] 1.020 (1.005-1.035) Urine Protein 4+ (NEGATIVE) Urine Glucose (UA) 4+ (NEGATIVE) Urine Ketones 1+ (NEGATIVE) Urine Occult Blood 4+ (NEGATIVE) Urine Nitrite Negative (NEGATIVE) Urine Bilirubin Negative (NEGATIVE) Urine Urobilinogen 4 MG/DL (0.0-1.0) Urine Leukocyte Esterase Negative (NEGATIVE) Urine RBC 5-10 /HPF (0 - 0) Urine WBC 5-10 /HPF (0 - 0) Urine Squamous Epithelial Cells Few /LPF (NONE/OCC) Urine Amorphous Sediment Few /LPF (NONE) Urine Bacteria Moderate /HPF (NONE) Urine Hyaline Casts 2-4 /LPF (NONE) Urine Mucus Moderate /LPF (NONE/OCC) Arterial Blood pH 7.146 (7.350-7.450) 7.317 (7.350-7.450) Arterial Blood Partial Pressure CO2 135.1 mmHg (35.0-45.0) 60.7 mmHg (35.0-45.0) Arterial Blood Partial Pressure O2 72.0 mmHg (75.0-100.0) 208.7 mmHg (75.0-100.0) Arterial Blood HCO3 45.6 mmol/L (22.0-26.0) 30.3 mmol/L (22.0-26.0) Arterial Blood Oxygen Saturation 91.3 % (92.0-98.0) 99.3 % (92.0-98.0) Arterial Blood Base Excess 9.6 2.3 Cole Test Positive Positive Test 06/14/18 19:00 06/15/18 02:00 06/15/18 06:00 06/15/18 08:45 Arterial Blood pH 7.303 (7.350-7.450) 7.466 (7.350-7.450) Arterial Blood Partial Pressure CO2 70.4 mmHg (35.0-45.0) 52.6 mmHg (35.0-45.0) Arterial Blood Partial Pressure O2 107.9 mmHg (75.0-100.0) 98.4 mmHg (75.0-100.0) Arterial Blood HCO3 34.1 mmol/L (22.0-26.0) 36.6 mmol/L (22.0-26.0) Arterial Blood Oxygen Saturation 97.7 % (92.0-98.0) 97.6 % (92.0-98.0) Arterial Blood Base Excess -4.8 10.6 Cole Test Positive Positive Lactic Acid Level 1.80 mmol/L (0.4-2.0) 1.90 mmol/L (0.4-2.0) White Blood Count 13.3 K/UL (4.8-10.8) Red Blood Count 5.30 M/UL (4.70-6.10) Hemoglobin 15.0 G/DL (14.2-18.0) Hematocrit 47.8 % (42.0-52.0) Mean Corpuscular Volume 90 FL (80-99) Mean Corpuscular Hemoglobin 28.3 PG (27.0-31.0) Mean Corpuscular Hemoglobin Concent 31.3 G/DL (32.0-36.0) Red Cell Distribution Width 13.1 % (11.6-14.8) Platelet Count 211 K/UL (150-450) Mean Platelet Volume 7.0 FL (6.5-10.1) Neutrophils (%) (Auto) 76.8 % (45.0-75.0) Lymphocytes (%) (Auto) 12.3 % (20.0-45.0) Monocytes (%) (Auto) 9.9 % (1.0-10.0) Eosinophils (%) (Auto) 0.0 % (0.0-3.0) Basophils (%) (Auto) 1.1 % (0.0-2.0) Sodium Level 139 MMOL/L (136-145) Potassium Level 3.5 MMOL/L (3.5-5.1) Chloride Level 99 MMOL/L (98-107) Carbon Dioxide Level 37 MMOL/L (21-32) Anion Gap 3 mmol/L (5-15) Blood Urea Nitrogen 12 mg/dL (7-18) Creatinine 1.3 MG/DL (0.55-1.30) Estimat Glomerular Filtration Rate > 60 mL/min (>60) Glucose Level 354 MG/DL (74-106) Calcium Level 7.9 MG/DL (8.5-10.1) Magnesium Level 2.0 MG/DL (1.8-2.4) Objective: GENERAL: morbidly obese male, on vent (seen earlier) VITAL SIGNS: see attached HEENT: The head is normocephalic and atraumatic. orally intubated NECK: Supple. Trachea midline. carotids 2+ LUNGS: moderate breath sounds with wheezes. HEART: RRR S1 and S2. No rubs, murmurs, or gallops. ABDOMEN: Soft and nontender. Bowel sounds were active. EXTREMITIES: No clubbing, cyanosis, or edema. He has a left below-knee stump. Critical Care - Objective Last 24 Hour Vital Signs Date Time Temp Pulse Resp B/P (MAP) Pulse Ox O2 Delivery O2 Flow Rate FiO2 06/22/18 16:21 94 22 92 Room Air 06/22/18 12:00 Room Air 06/22/18 12:00 98.1 99 18 129/89 (102) 94 98.1 06/22/18 11:47 100 06/22/18 10:33 102 22 95 Simple Mask 5.0 06/22/18 10:23 102 22 92 Room Air 06/22/18 09:34 116/87 06/22/18 08:24 Room Air 06/22/18 08:23 92 Room Air 06/22/18 08:06 102 06/22/18 08:00 Room Air 06/22/18 08:00 97.9 100 20 116/87 (97) 91 97.9 06/22/18 04:00 Room Air 06/22/18 04:00 92 06/22/18 04:00 97.7 90 20 132/88 (103) 92 97.7 06/22/18 00:00 97.7 94 24 126/81 (96) 90 97.7 06/22/18 00:00 Room Air 06/22/18 00:00 92 06/21/18 20:01 Room Air 06/21/18 20:01 93 Room Air 06/21/18 20:00 Room Air 06/21/18 20:00 106 06/21/18 20:00 97.4 107 18 154/96 (115) 92 97.4 Accucheck: 158 Critical Care - Subjective FI02: 28 Vent Support Breath Rate: 16 Vent Support Mode: BiLevel Vent Tidal Volume: 650 Sputum Amount: None PEEP: 12.0 PIP: 40 I&O: Intake and Output 06/21/18 06/22/18 19:00 07:00 Intake Total 600 ml 1000 ml Output Total 3150 ml 2700 ml Balance -2550 ml -1700 ml Intake Oral 600 ml 1000 ml Output Urine Total 3150 ml 2700 ml # Voids 6 # Bowel Movements 2 ET-Tube: 7.5 ET Position: 24 Paul Araiza MD Jun 22, 2018 16:39
[2018-06-22] MEDS ORDERED: NS 275ml ONE (18:36)
[2018-06-22 20:00] VITALS: BP 145/82
[2018-06-22] MEDS: Dyna-Hex 2% Top Sol 2oz TOPIC SCH (21:47)
[2018-06-23] VITALS: BP 151/72
[2018-06-23] MEDS: DiphenhydrAMINE 50mg/ml Inj IVP PRN (02:08)
[2018-06-23] MEDS: Albuterol/Ipratropium 3ml neb HHN SCH ×3 (03:06→11:21)
[2018-06-23 04:00] VITALS: BP 140/81
[2018-06-23 04:26] LABS: ANION GAP 6 mmol/L (5-15); BLOOD UREA NITROGEN 18 mg/dL (7-18); CALCIUM 9.1 MG/DL (8.5-10.1); CARBON DIOXIDE 32 MMOL/L (21-32); CHLORIDE 100 MMOL/L (98-107); CREATININE 1.1 MG/DL (0.55-1.30); POTASSIUM 4.3 MMOL/L (3.5-5.1); SODIUM 137 MMOL/L (136-145)
[2018-06-23] MEDS: NovoLOG Insulin Flexpen SUBQ SCH ×2 (06:18→11:30)
[2018-06-23 08:00] VITALS: BP 144/84
--- NOTE | 2018-06-23 08:40 | Critical Care Progress Note ---
Assessment/Plan Assessment/Plan ASSESSMENT: 1. COPD with exacerbation. 2. Congestive heart failure. per history 3. HHD. 4. Type 2 diabetes mellitus. 5. possible sepsis. 6. Schizophrenia. 7. Hypertensive cardiovascular disease. 8. Left below-knee amputation. 9. Atrial fibrillation 10. Respiratory failure. acute 11. severe protein calorie malnutrition 12. rash PLAN ventilator support off and stable BIPAP QHS and PRN- not compliant monitor imaging for change and keep negative heparin SQ follow up closely monitor acid base exchange monitor rash medications/laboratory data/nursing notes reviewed in detail note reviewed and edited impression, plan, and exam edited and reviewed in detail care discussed with carpet cleaning technician - Subjective Condition: stable EKG Rhythm: Sinus Rhythm I&O: Intake and Output 06/22/18 06/23/18 19:00 07:00 Intake Total 600 ml 1210 ml Output Total 2600 ml 1980 ml Balance -2000 ml -770 ml Intake Oral 600 ml 1210 ml Output Urine Total 2600 ml 1980 ml # Voids 3 Critical Care - Objective CXR: patchy changes ET-Tube: 7.5 ET Position: 24 Last 24 Hour Vital Signs Date Time Temp Pulse Resp B/P (MAP) Pulse Ox O2 Delivery O2 Flow Rate FiO2 06/23/18 08:26 112 06/23/18 08:11 99 16 96 Room Air 06/23/18 08:01 100 20 93 Room Air 06/23/18 08:01 Room Air 06/23/18 08:01 93 Room Air 06/23/18 04:00 108 06/23/18 04:00 98.6 109 20 140/81 (100) 92 98.6 06/23/18 04:00 Room Air 06/23/18 03:17 101 20 98 Room Air 06/23/18 03:07 103 20 94 Room Air 06/23/18 00:00 109 06/23/18 00:00 Room Air 06/23/18 00:00 98.5 106 20 151/72 (98) 94 98.5 06/22/18 23:31 104 20 99 Room Air 06/22/18 23:24 105 20 95 Room Air 06/22/18 20:39 94 Room Air 06/22/18 20:39 Room Air 06/22/18 20:39 94 22 Room Air 06/22/18 20:00 98.4 97 20 145/82 (103) 94 98.4 06/22/18 20:00 93 06/22/18 20:00 Room Air 06/22/18 19:56 Room Air 06/22/18 19:55 Room Air 06/22/18 16:39 97 20 96 Room Air 06/22/18 16:21 94 22 92 Room Air 06/22/18 16:00 Room Air 06/22/18 16:00 97.5 105 18 122/82 (95) 93 97.5 06/22/18 15:35 97 06/22/18 12:00 Room Air 06/22/18 12:00 98.1 99 18 129/89 (102) 94 98.1 06/22/18 11:47 100 06/22/18 10:33 102 22 95 Simple Mask 5.0 06/22/18 10:23 102 22 92 Room Air 06/22/18 09:34 116/87 Labs: Labs Test 06/20/18 09:00 06/21/18 03:20 06/21/18 09:26 06/22/18 04:25 Vancomycin Level Trough 14.2 ug/mL (5.0-12.0) White Blood Count 15.3 K/UL (4.8-10.8) Red Blood Count 5.72 M/UL (4.70-6.10) Hemoglobin 16.2 G/DL (14.2-18.0) Hematocrit 51.0 % (42.0-52.0) Mean Corpuscular Volume 89 FL (80-99) Mean Corpuscular Hemoglobin 28.4 PG (27.0-31.0) Mean Corpuscular Hemoglobin Concent 31.8 G/DL (32.0-36.0) Red Cell Distribution Width 13.3 % (11.6-14.8) Platelet Count 297 K/UL (150-450) Mean Platelet Volume 6.8 FL (6.5-10.1) Neutrophils (%) (Auto) % (45.0-75.0) Lymphocytes (%) (Auto) % (20.0-45.0) Monocytes (%) (Auto) % (1.0-10.0) Eosinophils (%) (Auto) % (0.0-3.0) Basophils (%) (Auto) % (0.0-2.0) Sodium Level 138 MMOL/L (136-145) 140 MMOL/L (136-145) Potassium Level 4.4 MMOL/L (3.5-5.1) 4.2 MMOL/L (3.5-5.1) Chloride Level 101 MMOL/L (98-107) 103 MMOL/L (98-107) Carbon Dioxide Level 32 MMOL/L (21-32) 29 MMOL/L (21-32) Anion Gap 5 mmol/L (5-15) 8 mmol/L (5-15) Blood Urea Nitrogen 8 mg/dL (7-18) 13 mg/dL (7-18) Creatinine 0.8 MG/DL (0.55-1.30) 1.0 MG/DL (0.55-1.30) Estimat Glomerular Filtration Rate > 60 mL/min (>60) > 60 mL/min (>60) Glucose Level 161 MG/DL (74-106) 182 MG/DL (74-106) Calcium Level 9.1 MG/DL (8.5-10.1) 8.6 MG/DL (8.5-10.1) Magnesium Level 2.5 MG/DL (1.8-2.4) Arterial Blood pH 7.397 (7.350-7.450) Arterial Blood Partial Pressure CO2 51.6 mmHg (35.0-45.0) Arterial Blood Partial Pressure O2 67.4 mmHg (75.0-100.0) Arterial Blood HCO3 31.0 mmol/L (22.0-26.0) Arterial Blood Oxygen Saturation 93.5 % (92.0-98.0) Arterial Blood Base Excess 4.7 Cole Test Positive Test 06/22/18 17:45 06/23/18 04:04 Magnesium Level 2.1 MG/DL (1.8-2.4) Prothrombin Time 10.3 SEC (9.30-11.50) Prothromb Time International Ratio 1.0 (0.9-1.1) Sodium Level 137 MMOL/L (136-145) Potassium Level 4.3 MMOL/L (3.5-5.1) Chloride Level 100 MMOL/L (98-107) Carbon Dioxide Level 32 MMOL/L (21-32) Anion Gap 6 mmol/L (5-15) Blood Urea Nitrogen 18 mg/dL (7-18) Creatinine 1.1 MG/DL (0.55-1.30) Estimat Glomerular Filtration Rate > 60 mL/min (>60) Glucose Level 267 MG/DL (74-106) Calcium Level 9.1 MG/DL (8.5-10.1) Objective: GENERAL: morbidly obese male, on NC and alert HEENT: The head is normocephalic and atraumatic. NECK: Supple. Trachea midline. carotids 2+ LUNGS: moderate breath sounds without rhonchi or wheeze HEART: RRR S1 and S2. No rubs, murmurs, or gallops. ABDOMEN: Soft and nontender. Bowel sounds were active. no distention EXTREMITIES: No clubbing, cyanosis, but some edema. He has a left below-knee stump. rash Accucheck: 273 Maurisio Faith MD Jun 23, 2018 08:40
[2018-06-23] MEDS: Furosemide 40mg tab ORAL SCH (09:06)
[2018-06-23] MEDS: Spironolactone 25mg tab ORAL SCH (09:06)
[2018-06-23] MEDS: Losartan 25mg tab ORAL SCH (09:06)
[2018-06-23] MEDS: Triamcinolone 0.1% oint TOPIC SCH (09:07)
[2018-06-23] MEDS: DiphenhydrAMINE & Zinc 28g Cream TOPIC SCH (09:07)
[2018-06-23] MEDS: Heparin 5000 units/ml inj SUBQ SCH (09:11)
[2018-06-23 12:00] VITALS: BP 125/73
--- NOTE | 2018-06-23 12:21 | General Progress Note ---
Assessment/Plan Status: unchanged Assessment/Plan schizophrenia agitation risperdal 4mg qhs risperdal 2mg x1 time now d/w mother Subjective Date patient seen: Jun 23, 2018 Neurologic/Psychiatric: Reports: anxiety, depressed Allergies: Coded Allergies: No Known Allergies (Unverified , 08/15/17) Subjective the pt was yelling today and responding to internal stimuli. Objective Last 24 Hour Vital Signs Date Time Temp Pulse Resp B/P (MAP) Pulse Ox O2 Delivery O2 Flow Rate FiO2 06/23/18 12:00 Room Air 06/23/18 12:00 98.3 108 22 125/73 (90) 94 98.3 06/23/18 11:30 101 18 98 Room Air 06/23/18 11:21 99 20 94 Room Air 06/23/18 09:06 144/84 06/23/18 08:26 112 06/23/18 08:11 99 16 96 Room Air 06/23/18 08:01 100 20 93 Room Air 06/23/18 08:01 Room Air 06/23/18 08:01 93 Room Air 06/23/18 08:00 97.7 117 24 144/84 (104) 93 97.7 06/23/18 08:00 Room Air 06/23/18 04:00 108 06/23/18 04:00 98.6 109 20 140/81 (100) 92 98.6 06/23/18 04:00 Room Air 06/23/18 03:17 101 20 98 Room Air 06/23/18 03:07 103 20 94 Room Air 06/23/18 00:00 109 06/23/18 00:00 Room Air 06/23/18 00:00 98.5 106 20 151/72 (98) 94 98.5 06/22/18 23:31 104 20 99 Room Air 21 06/22/18 23:24 105 20 95 Room Air 06/22/18 20:39 94 Room Air 06/22/18 20:39 Room Air 06/22/18 20:39 94 22 Room Air 06/22/18 20:00 98.4 97 20 145/82 (103) 94 98.4 06/22/18 20:00 93 06/22/18 20:00 Room Air 06/22/18 19:56 Room Air 06/22/18 19:55 Room Air 06/22/18 16:39 97 20 96 Room Air 06/22/18 16:21 94 22 92 Room Air 06/22/18 16:00 Room Air 06/22/18 16:00 97.5 105 18 122/82 (95) 93 97.5 06/22/18 15:35 97 Intake and Output 06/22/18 06/23/18 19:00 07:00 Intake Total 600 ml 1210 ml Output Total 2600 ml 1980 ml Balance -2000 ml -770 ml Intake Oral 600 ml 1210 ml Output Urine Total 2600 ml 1980 ml # Voids 3 Laboratory Tests 06/22/18 17:45: Magnesium Level 2.1 06/23/18 04:04: Prothrombin Time 10.3, Prothromb Time International Ratio 1.0, Sodium Level 137 , Potassium Level 4.3, Chloride Level 100, Carbon Dioxide Level 32, Anion Gap 6 , Blood Urea Nitrogen 18, Creatinine 1.1, Estimat Glomerular Filtration Rate > 60, Glucose Level 267H, Calcium Level 9.1 Height (Feet): 5 Height (Inches): 6.00 Weight (Pounds): 312 General Appearance: alert, agitated, morbidly obese Helena Gomez MD Jun 23, 2018 12:21
--- NOTE | 2018-06-24 13:17 | Discharge Summary ---
Discharge Summary Discharge Summary _ DATE OF ADMISSION: 06/14/2018 DATE OF DISCHARGE: 06/23/2018 CONSULTANTS: Dr. Maurisio Loving BRIEF HOSPITAL COURSE: Patient is a 37-year-old male, from [facility], was transferred to [facility] via 911 due to respiratory distress. Patient is morbidly obese and noncompliant, patient had been refusing to be admitted multiple times during the last few months for different reasons. Patient developed increased shortness of breath. He was noted to be tachycardic and tachypneic and hypoxic with dyspnea. He has medical history notable for diabetes mellitus type 2, schizophrenia, hypertensive cardiovascular disease, left below-knee amputation and A. fib/flutter On arrival to ED, he was unable to speak in complete sentences. He was short of breath and was wheezing. O2 saturation was in the low 90s on 15 L nonrebreather mask. Chest x-ray showed bilateral diffuse interstitial edema. He was orally intubated. He was borderline hypotensive and was given IV fluids. Septic workup was initiated. He was admitted to ICU. He was hooked on ventilator support. He was given heparin for DVT prophylaxis. He continued to be hypotensive and required pressure support. On 06/14/2018, a left femoral central line was inserted by Dr. Loving. He was given gentle IV hydration. He was given ceftriaxone and IV vancomycin. He had episodes of hypokalemia and was given potassium replacements. Venous duplex was negative for DVT. Blood pressure improved, norepinephrine was discontinued. On 06/17/2018 he was extubated. He was encouraged to use BiPAP. 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 Antibiotics were discontinued. Blood culture did not isolate any growth. Urine culture with mixed contaminants. Patient has history of schizophrenia and is noncompliant with medications. He has grandiose delusions. 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 Patient has poor insight and is unable to be engaged. He was seen by psychiatrist and was given Risperdal. Repeat chest x-ray showed slightly improved interstitial infiltrates . He was saturating well on room air. Central line was removed. He was discharged to SNF. 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 DISCHARGE MEDICATIONS: Refer to Discharge Medication List. I have been assigned to dictate discharge summary on this account, and I was not involved in the patient's management. Monserrat Lilly NP Jun 24, 2018 13:16
== END 2018-06-23 12:27 | DRG 208 ==
LOC: EDBD 12:10 → EMR 12:50 → ICU 13:20 → EDBEDREQ 13:25 → 2E 06-17 18:15 → ICU 06-18 13:00 → 2W 06-19 23:42
PROC: 5A1945Z Respiratory Ventilation, 24-96 Consecutive Hours (ICD-10-PCS; principal; 2018-06-14)
PROC: 0BH17EZ Insertion of Endotracheal Airway into Trachea, Via Natural or Artificial Opening (ICD-10-PCS; principal; 2018-06-14)
DX: J96.01 Acute respiratory failure with hypoxia (principal); J18.9 Pneumonia, unspecified organism; G93.40 Encephalopathy, unspecified; J44.1 Chronic obstructive pulmonary disease with (acute) exacerbation; Z68.43 Body mass index [BMI] 50.0-59.9, adult; J44.0 Chronic obstructive pulmonary disease with (acute) lower respiratory infection; I11.0 Hypertensive heart disease with heart failure; I50.9 Heart failure, unspecified; E66.01 Morbid (severe) obesity due to excess calories; I48.91 Unspecified atrial fibrillation; Z79.01 Long term (current) use of anticoagulants; Z89.512 Acquired absence of left leg below knee; R21 Rash and other nonspecific skin eruption
CPT/HCPCS: 36415; 36600; 71045; 74018; 80048; 80053; 80202; 81001; 82248; 82803; 82962; 83605; 83735; 83880; 84484; 85025; 85610; 87040; 87081; 87086; 92610; 93005; 93306; 93970; 94002; 94003; 94640; 94660; 94664; 94760; 99291; J1815; J7620; J8499